=== PATIENT | male | born 1950 | race Caucasian/White ===

== ENCOUNTER 2022-01-18 07:50 | Outpatient (CLI) | payer MEDICARE, SELFPAY ==
[2022-01-18 10:28] LABS: Cholesterol* 186 mg/dL (90-199)
[2022-01-18 10:29] LABS: HDL Cholesterol* 75 mg/dL (>=40); LDL Cholesterol Calculated 99 mg/dL (<100); Triglycerides* 58 mg/dL (40-149)
== END 2022-01-18 07:51 | disposition home or self-care (01) ==
LOC: NFLDREF 07:50
PROVIDERS: PCP Family Medicine; Visit Provider Family Medicine
DX: E78.5 Hyperlipidemia, unspecified (principal)
CPT/HCPCS: 80061

== ENCOUNTER 2022-05-10 09:52 | Outpatient (CLI) | payer MEDICARE, BC, SELFPAY ==
--- OUTSIDE RECORDS SUMMARY | 2022-05-10 09:55 | XMS_ITS | Encounter Summary ---
:1950 Author Organization [facility] Address [address] [place] [address] Care Team Providers Name Role Phone Elsewhere, Pcp Primary Care Provider Unavailable Encounter Details Date Type Department Care Team Description 12/29/2021 Anesthesia Event RST [facility] MAIN OR Joel García M.D. [address] [place] [id number] [address] [facility] Courtney Torrez M.D. [address] [place] [id number] [place] [address] Anesthesia Record Procedure Summary Procedure Name Responsible Anesthesia Start Anesthesia Stop Time Anesthesiologist Time RELEASE TRIGGER Joel García M.D. 12/29/21 0934 1015 FINGER, thumb. (Left: Thumb) Events Date Time Event Comment 12/29/2021 0934 An Start Machine/Equipmen t Checked Infection Precautions Foll owed Procedure/Site Verified NPO Sta tus Verified Supine Standard ASA Mon itors Applied 0943 Turnover to Proceduralist 0953 Proc Start 1005 Proc Fin 1009 Turnover to ANE Staff 1010 an stop data 1015 An End I completed my h andoff to the receiving staff during [facility] we 1. Identified the patient 2. Ident ified the responsible provider 3. Revi ewed the pertinent medical history 4. Discu ssed the surgical course 5. Reviewed intra-o p anesthesia management and issues during an esthesia 6. Set expectations for post-procedure period 7. Allowed opportun ity for questions and acknowledgement of understanding. Name Total fentanyl injection 50 mcg/mL 50 mcg lidocaine 2% (mg) injection 60 mg propofol 10 mg/mL injection 20 mg propofol 10 mg/mL infusion 46.92 mg ondansetron PF 4 mg/2 mL injection 4 mg dexamethasone 4 mg/mL injection 4 mg ceFAZolin 2 g Lactated Ringers Free Drip 150 mL Agents No agents on file. Blood No blood administrations on file. Lines, Drains, and Airways Type Details Placement Removal Wound 07/19/21; 1317; N; Wrist; 07/19/21 1317 by Anterior, Left Julissa Mixon R.N. Wound 12/29/21; 0855; Incision; 12/29/21 0855 by Wrist; Anterior, Left; Beata Banks, nati, 4x4, samuel RJaseNannabel aiken Peripheral IV Placement Date: 12/29/21; 12/29/21 0932 by Champagne, 12/29/[address] Placement Time: 0932; Britton Grover Gw en E, R.N. Catheter Size: 18 G; Orientation: Right; Location: Forearm; Site Prep: Chlorhexidine (Preferred); Technique: Anatomical landmarks; Insertion Attempts: 1; Removal Date: 12/29/21; Removal Time: 111; Removal Reason: Completion of therapy documented in this encounter Social History Tobacco Use Types Packs/Day Years Used Date Smoking Tobacco: Never Smokeless Tobacco: Never Alcohol Habits Answer Date Recorded How often do you have a drink containing alcohol? Monthly or less 07/18/2021 How many drinks containing alcohol do you have on a 1 or 2 07/18/2021 typical day when you are drinking? How often do you have six or more drinks on one Never 07/18/2021 occasion? Social Isolation Answer Date Recorded In a typical week, how many times do you More than three viviana es a week 07/18/2021 talk on the phone with family, friends, or neighbors? How often do you get together with friends Patient refused 07/18/2021 or relatives? How often do you attend yazdanism or More than 4 times per year 07/18/2021 yazidi services? Do you belong to any clubs or Yes 07/18/2021 organizations such as yazdanism groups, unions, fraAJ Tech or athletic groups, or school groups? How often do you attend meetings of the More than 4 times pe r year 07/18/2021 clubs or organizations you belong to? Are you now , , , 07/18/2021 , never or living with a partner? Physical Activity Answer Date Recorded On average, how many days per week do you engage in moderate to 5 days 07/18/2021 strenuous exercise (like walking fast, running, jogging, dancing, swimming, biking, or other activities that cause a light or heavy sweat)? On average, how many minutes do you engage in exercise at th is 20 min 07/18/2021 level? Stress Answer Date Recorded Do you feel stress - tense, restless, nervous, or anxious, N ot at all 07/18/2021 or unable to sleep at night because your mind is troubled all the time - these days? Financial Resource Strain Answer Date Recorded How hard is it for you to pay for the very basics like Not h iris at all 07/18/2021 food, housing, medical care, and heating? Intimate Partner Violence Answer Date Recorded Within the last year, have you been afraid of your partner o r No 07/18/2021 ex-partner? Within the last year, have you been humiliated or emotionall y No 07/18/2021 abused in other ways by your partner or ex-partner? Within the last year, have you been kicked, hit, slapped, or No 07/18/2021 otherwise physically hurt by your partner or ex-partner? Within the last year, have you been raped or forced to have any No 07/18/2021 kind of sexual activity by your partner or ex-partner? Food Insecurity Answer Date Recorded Within the past 12 months, you worried that your food would Never true 07/18/2021 run out before you got money to buy more. Within the past 12 months, the food you bought just didn't N ever true 07/18/2021 last and you didn't have money to get more. Transportation Needs Answer Date Recorded In the past 12 months, has lack of transportation kept you f rom No 07/18/2021 medical appointments or from getting medications? In the past 12 months, has lack of transportation kept you f rom No 07/18/2021 meetings, work, or getting things needed for daily living? Housing Stability Answer Date Recorded In the last 12 months, was there a time when you were not ab le No 07/18/2021 to pay the mortgage or rent on time? In the last 12 months, how many places have you lived? 2 07/18/2021 In the last 12 months, was there a time when you did not hav e a No 07/18/[address] sleep or slept in a long-term (including now)? Education Answer Date Recorded What is the highest level of school Master's degree (e.g., M George, MS, 04/21/2021 you have completed or the highest Stephanie, MEd, SWITCHBOARD OPERATOR RECEPTIONIST, CAREN) degree you have received? 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 - 12/29/2021 10:40 AM CDT Preprocedure Anesthesia & H&P Assessment Procedure Summary Anesthesia Start Date/Time: 12/29/21 0934 Procedures: RELEASE TRIGGER FINGER, thumb. (Left: Thumb) INJECTION STEROID trigger thumb. (Right: Thumb) Diagnosis: Trigger Finger Thumb Left [M65.312] Trigger Finger Thumb Right [M65.311] Pre-op diagnosis: Trigger Finger Thumb Left [M65.312]. Location: [place] [address] [address] / [facility] in [place], [place] Providers: Nabor Rodriguez M.D. Pertinent components of the patient's history including current problem list, medical history, surgical history, family history, social history, medications and allergies were reviewed. Present illnessand pre-op diagnosis were confirmed. The planned surgery / procedure was verified with the patient /legal guardian. The patient's general health condition remains unchanged RELEVANT COMORBID CONDITIONS Other (+) Carpal Tunnel Syndrome Left OBJECTIVE PHYSICAL EXAMINATION Airway (HEENT) Mallampati: II TM Distance: >3 FB Neck ROM: Full Mouth Opening: >3 cm Upper Lip Bite Test Class: I Cardiovascular Rhythm: Regular Rate: Normal Cardiovascular Assessment: cardiovascular normal Functional Capacity: >4 METS Pulmonary Pulmonary Assessment: Clear General / Constitutional Constitutional Assessment: Normal General State of Health:: healthy appearing and calm ASSESSMENT / PLAN ANESTHESIA PLAN ASA: 2 Anesthesia Plan: MAC Patient seen and allergies reviewed, anesthesia plan and risks discussed directly with patient /legal guardian or through an sign language interpreter. Risks/Benefits/Alternatives of Blood transfusion discussed with patient / legal guardian, including an opportunity to ask questions and/or decline some or all transfusion therapies. The patient / legalguardian consented to the use of all blood products, as deemed medically necessary Approval to Proceed: approved for anesthesia Anesthesia Postprocedure Evaluation - Marcelle Laguerre M.D., M.B.A. - 12/29/2021 10:20 AM CDT Patient: Rigoberto Perdomo Procedure Summary Date: 12/29/21 Room / Location: [place] [address] / [facility] in [place], [place] Anesthesia Start: 933 Anesthesia Stop: Procedures: RELEASE TRIGGER FINGER, thumb. (Left: Thumb) INJECTION STEROID trigger thumb. (Right: Thumb) Diagnosis: Trigger Finger Thumb Left Trigger Finger Thumb Right (Trigger Finger Thumb Left [M65.312].) Providers: Nabor Rodriguez M.D. Responsible Provider: Joel García M.D. Anesthesia Type: MAC ASA Status: Not recorded Anesthesia Type: MAC Last vitals Vitals Value Taken Time BP 144/76 12/29/21 1015 Temp Pulse 52 12/29/21 1020 Resp 9 12/29/21 1020 SpO2 97 % 12/29/21 1020 Vitals shown include unvalidated device data. Please reference Vitals flowsheet for most recent vital signs. Anesthesia Post Evaluation Patient Disposition: dismissal Cardiovascular status: hemodynamics (HR & BP) acceptable Respiratory status: patent airway with spontaneous effort Temperature: normothermic Oxygen requirements: room air Level of consciousness: awake Pain score: pain adequately controlled and/or at baseline Post Op nausea/vomiting: none Hydration status: euvolemic documented in this encounter Plan of Treatment Not on filedocumented as of this encounter Visit Diagnoses Not on filedocumented in this encounter Administered Medications Inactive Administered Medications - up to 3 most recent administrations Medication Order MAR Action Action Date Dose Rate Site ceFAZolin injection (ANCEF) Given 12/29/2021 9:47 AM CDT 2 g intravenous, As needed, Starting on Kandis 12/29/21 at 0947, Anesthesia Intra-op dexAMETHasone injection (DECADRON) Given 12/29/2021 9:45 AM CDT 4 mg intravenous, As needed, Starting on Kandis 12/29/21 at 0945, Anesthesia Intra-op fentaNYL injection (SUBLIMAZE) Given 12/29/2021 9:40 AM CDT 50 mcg intravenous, As needed, Starting on Kandis 12/29/21 at 0940, Anesthesia Intra-op lactated ringers New Bag 12/29/2021 9:36 AM CDT intravenous, Continuous Infusion: Per Instructions PRN, Starting on Kandis 12/29/21 at 0936, Anesthesia Intra-op lidocaine (PF) (cardiac) injection Given 12/29/2021 9:41 AM CDT 60 mg intravenous, As needed, Starting on Kandis 12/29/21 at 0941, Anesthesia Intra-op ondansetron (PF) injection (ZOFRAN) Given 12/29/2021 10:01 AM CDT 4 mg intravenous, As needed, Starting on Kandis 12/29/21 at 1001, Anesthesia Intra-op propofol 10 mg/mL infusion Rate/Dose 12/29/2021 9:57 20 mcg/kg/min 8 .28 mL/hr (DIPRIVAN) Change AM CDT intravenous, Continuous Infusion: Per Instructions PRN, Starting on Kandis 12/29/21 at 0941, Anesthesia Intra-op Rate/Dose Change 12/29/2021 9:53 AM CDT 30 mcg/kg/min 12.42 mL/hr New Bag 12/29/2021 9:41 AM CDT 40 mcg/kg/min 16.56 mL/hr propofoL injection (DIPRIVAN) Given 12/29/2021 9:41 AM CDT 20 mg intravenous, As needed, Starting on Kandis 12/29/21 at 0941, Anesthesia Intra-op documented in this encounter Care Teams Duty Officer Relationship Specialty Start Date End Date Elsewhere, Pcp PCP - General Internal Medicine 07/19/21 documented as of this encounter
--- OUTSIDE RECORDS SUMMARY | 2022-05-10 09:55 | XMS_ITS | Encounter Summary ---
:1950 Author Organization [facility] Address [address] [place] [address] Care Team Providers Name Role Phone Elsewhere, Pcp Primary Care Provider Unavailable Reason for Visit Reason Comments Pre-visit Intake Encounter Details Date Type Department Care Team Description 12/26/2021 Clinical Communication Visit Review in Pr e-visit Intake [place], [place] [address] [place], [place] [id number] Social History Tobacco Use Types Packs/Day Years Used Date Smoking Tobacco: Never Smokeless Tobacco: Never Tobacco Cessation: Counseling Given: Not Answered Alcohol Habits Answer Date Recorded How often [...] or relatives? How often do you attend restoration or More than 4 times per year 07/18/2021 episcopalian services? Do you belong to any clubs or Yes 07/18/2021 organizations such as restoration groups, unions, fraternal or athletic groups, or school groups? How [...] place to sleep or slept in a fpc (including now)? Education Answer Date Recorded What is the highest level of school Master's degree (e.g., M George, MS, 04/21/2021 you have completed or the highest Stephanie, MEd, LUNCHROOM MONITOR, CAREN) degree you have received? 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
--- OUTSIDE RECORDS SUMMARY | 2022-05-10 09:55 | XMS_ITS | Encounter Summary ---
:1950 Author Organization [facility] Address [address] [place] [address] Care Team Providers Name Role Phone Elsewhere, Pcp Primary Care Provider Unavailable Encounter Details Date Type Department Care Team Description 07/19/2021 Anesthesia Event Outpatient Procedure Amaris Renae A PRN, TEO [place] [facility] M[facility] [address] [place] [phone] [place] [address] [place], [place] [phone] Anesthesia Record Procedure Summary Procedure Name Responsible Anesthesia Start Anesthesia Stop Time Anesthesiologist Time RELEASE CARPAL mAaris Renae APRN, TEO 07/19/21 1257 1350 TUNNEL OPEN WRIST. (Left) Events Date Time Event Comment 07/19/2021 1257 An Start Machine/Equipmen t Checked Infection Precautions Foll owed Procedure/Site Verified NPO Sta tus Verified Supine Standard ASA Mon itors Applied 1312 Proc Start 1319 Turnover to Proceduralist 1326 Quick Note IV infiltrated. Removed 1334 Proc Fin 1341 Turnover to ANE Staff 1342 an stop data 1350 An End I completed my h andoff to the receiving staff during [facility] we 1. Identified the patient 2. Ident ified the responsible provider 3. Revi ewed the pertinent medical history 4. Discu ssed the surgical course 5. Reviewed intra-o p anesthesia management and issues during an esthesia 6. Set expectations for post-procedure period 7. Allowed opportun ity for questions and acknowledgement of understanding. Name Total fentanyl injection 50 mcg/mL 75 mcg lidocaine 2% (mg) injection 100 mg propofol 10 mg/mL infusion 57.01 mg ondansetron PF 4 mg/2 mL injection 4 mg clindamycin in D5W IVPB 900 mg (CLEOCIN) 900 mg Lactated Ringers Free Drip 300 mL Agents No agents on file. Blood No blood administrations on file. Lines, Drains, and Airways Type Details Placement Removal Wound 07/19/21; 1317; N; Wrist; 07/19/21 1317 by Anterior, Left Julissa Mixon, R.N. Peripheral IV Placement Date: 07/19/21; 07/19/21 1126 by Dion , 07/19/21 1351 by Placement Time: 1126; Brenda Harden RRose. Castro, Catheter Size: 20 G; R.N. Orientation: Right; Location: Antecubital; Site Prep: Chlorhexidine (Preferred); Technique: Ultrasound guidance; Removal Date: 07/19/21; Removal Time: 1351; Removal Reason: Infiltrated (removed in the OR) documented in this encounter Social History Tobacco Use Types Packs/Day Years Used Date Smoking Tobacco: Never Alcohol Habits Answer Date Recorded [...] or relatives? How often do you attend religion or More than 4 times per year 07/18/2021 voodoo services? Do you belong to any clubs or Yes 07/18/2021 organizations such as religion groups, unions, fraternal or athletic groups, or [...] place to sleep or slept in a intermediate (including now)? Education Answer Date Recorded What is the highest level of school Master's degree (e.g., M George, MS, 04/21/2021 you have completed or the highest Stephanie, MEd, SIGNAL ENGINEER, CAREN) degree you have received? 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 (Left ) Diagnosis: Carpal Tunnel Syndrome Left (Carpal Tunnel Syndrome Left [G56.02].) Surgeons: Nabor Rodriguez M.D. Responsible Provider: Amaris Renae APRN, CRNA Anesthesia Type: MAC ASA Status: 1 Anesthesia Type: MAC Last vitals Vitals Value Taken Time BP 166/80 07/19/21 1348 Temp 36.9 ??C 07/19/21 1347 Pulse 55 07/19/21 1349 Resp 18 07/19/21 1349 SpO2 100 % 07/19/21 1349 Vitals shown include unvalidated device data. Please reference Vitals flowsheet for most recent vital signs. Anesthesia Post Evaluation Patient Disposition: dismissal Cardiovascular status: hemodynamics (HR & BP) acceptable Respiratory status: patent airway with spontaneous effort Temperature: normothermic Oxygen requirements: room air Level of consciousness: awake Pain score: pain adequately controlled and/or at baseline Post Op nausea/vomiting: none Hydration status: euvolemic OL OPERATOR Anesthesia Preprocedure Evaluation - Tavon Hightower M.D. - 07/19/2021 10:35 AM CST Preprocedure Anesthesia & H&P Assessment Procedure Summary Date/Time: 07/19/21 1109 Procedure: RELEASE CARPAL TUNNEL OPEN WRIST. (Left ) Diagnosis: Carpal Tunnel Syndrome Left [G56.02] Pre-op diagnosis: Carpal Tunnel Syndrome Left [G56.02]. Location: [address] in [place], [place] Surgeons: Nabor Rodriguez M.D. Pertinent components of the [...] Left OBJECTIVE PHYSICAL EXAMINATION Airway (HEENT) Mallampati: I TM Distance: >3 FB Neck ROM: Full Mouth Opening: >3 cm Upper Lip Bite Test Class: I Cardiovascular Rhythm: Regular Rate: Normal Cardiovascular Assessment: cardiovascular normal Functional Capacity: >4 METS Pulmonary Pulmonary Assessment: Clear General / Constitutional Constitutional Assessment: Normal General State of Health:: healthy appearing and calm ASSESSMENT / PLAN ANESTHESIA PLAN ASA: 1 Anesthesia Plan: MAC Patient seen and allergies reviewed, anesthesia plan and risks discussed directly with patient /legal guardian or through an horse rider. Risks/Benefits/Alternatives of Blood transfusion discussed with patient / legal guardian, including an opportunity to ask questions and/or decline some or all transfusion therapies. The patient / legalguardian consented to the use of all blood products, as deemed medically necessary Approval to Proceed: approved for anesthesia OL OPERATOR documented in this encounter Plan of Treatment Not on filedocumented as of this encounter Visit Diagnoses Not on filedocumented in this encounter Administered Medications Inactive Administered Medications - up to 3 most recent administrations Medication Order MAR Action Action Date Dose Rate Site clindamycin in D5W IVPB 900 mg Given 07/19/2021 1:10 PM BENZOL OPERATOR 900 mg (CLEOCIN) 900 mg, intravenous, at 100 mL/hr, Administer over 30 Minutes, Once, On Sun07/19/21 at 1300, For 1 dose, Intra-Op, Indications: Prophylaxis, surgical fentaNYL injection (SUBLIMAZE) Given 07/19/2021 1:27 PM BENZOL OPERATOR 25 mcg intravenous, As needed, Starting on Sun07/19/21 at 1309, Anesthesia Intra-op Given 07/19/2021 1:21 PM BENZOL OPERATOR 25 mcg Given 07/19/2021 1:09 PM BENZOL OPERATOR 25 mcg lactated ringers New Bag 07/19/2021 1:12 PM BENZOL OPERATOR intravenous, Continuous Infusion: Per Instructions PRN, Starting on Sun07/19/21 at 1312, Anesthesia Intra-op lidocaine (PF) (cardiac) injection Given 07/19/2021 1:09 PM BENZOL OPERATOR 100 mg intravenous, As needed, Starting on Sun07/19/21 at 1309, Anesthesia Intra-op ondansetron (PF) injection (ZOFRAN) Given 07/19/2021 1:10 PM BENZOL OPERATOR 4 mg intravenous, As needed, Starting on Sun07/19/21 at 1310, Anesthesia Intra-op propofol 10 mg/mL infusion Rate/Dose 07/19/2021 1:21 75 mcg/kg/min 3 1.095 (DIPRIVAN) Change PM BENZOL OPERATOR mL/hr intravenous, Continuous Infusion: Per Instructions PRN, Starting on Sun07/19/21 at 1312, Anesthesia Intra-op New Bag 07/19/2021 1:12 PM BENZOL OPERATOR 50 mcg/kg/min 20.73 mL/hr documented in this encounter Care Teams Floor Renovator Relationship Specialty Start Date End Date Elsewhere, Pcp PCP - General Internal Medicine 07/19/21 documented as of this encounter
--- OUTSIDE RECORDS SUMMARY | 2022-05-10 09:55 | XMS_ITS | Encounter Summary ---
:1950 Author Organization [facility] Address [address] [place] [address] Care Team Providers Name Role Phone Elsewhere, Pcp Primary Care Provider Unavailable Reason for Visit Outpatient (Routine) - Closed Specialty Diagnoses / Procedures Referred By Contact Refer red To Contact Orthopedic Surgery Javed Parra [place] APRN, C.N.P., D.N.P., M.S.N. [address] [place] [phone] Referral ID Status Reason Start Date Expiration Date Visits Requ ested Visits Authorized [id number] Closed 10/19/2021 10/19/2022 1 1 Encounter Details Date Type Department Care Team Description 12/28/2021 Office Visit Department of Nabor Rodriguez Trigger Finge r Thumb Left (Primary Dx); Orthopedic Surgery in [place] Trigger Finger Thumb Right [place], [place] [address] [facility] [address] [place] [phone] Social History Tobacco Use Types Packs/Day Years [...] or relatives? How often do you attend methodist or More than 4 times per year 07/18/2021 yazidi services? Do you belong to any clubs or Yes 07/18/2021 organizations such as methodist groups, unions, fraternal or athletic groups, or [...] level of school Master's degree (e.g., M A, MS, 04/21/2021 you have completed or the highest Stephanie, MEd, DISHROOM ATTENDANT, CAREN) degree you have received? 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 - 12/28/2021 1:15 PM CDT CHIEF COMPLAINT: Bilateral thumb pain with triggering. SUBJECTIVE Mr. Perdomo is a very pleasant 71 y.o. male who returns follow-up from previous carpal tunnel releasehe did have the past. More recently, he has had bilateral thumb clicking and catching with triggering. He is here in anticipation for surgery tomorrow. OBJECTIVE PHYSICAL EXAMINATION General: NAD, follows commands HEENT: NCAT CV: skin warm, dry, well perfused Pulm: unlabored Neuro: alert, appropriate Upper Extremity: He does endorse pain at the area of the A1 tylor of both thumbs left worse than right. There is palpable clicking left worse than right as well. He has otherwise good color capillary refill and sensation. His previous carpal tunnel wounds are nicely healed. He has mild pain at the base of both thumbs. ADDITIONAL STUDIES: Laboratory studies: No results for input(s): HGB, HCT, PTT, INR in the last 72 hours. No lab exists for component: WBCR, PLTR, PTI No results for input(s): NA, K, CL, CO2, GLU, CA, MG in the last 72 hours. No lab exists for component: UN, CREAT, PHOS No results for input(s): CRP in the last 72 hours. No lab exists for component: ESR, URIC Imaging: Relevant imaging, where available, was reviewed. Xray No results found. Electrodiagnostic studies: Relevant EMG/NCV studies were reviewed. ASSESSMENT / PLAN Bilateral trigger thumbs I had a lengthy discussion with Mr. Perdomo and reviewed the pathophysiology and surgical treatment and recovery in detail. He is agreeable to moving forward with surgery for the trigger thumb and has chosen left 1 to be done tomorrow and we will inject the right at the time of surgery. The risks and benefits were reviewed and consent was obtained. I have asked him to call for questions or concerns prior to his return. Thank you for the opportunity to participate in this patient's care. Please contact us with questions or concerns. All questions and concerns were answered on today's visit. There were no communicationbarriers present. Electronically signed by: Nabor Rodriguez M.D. 12/28/21 9:45 PM CDT Answers submitted by the patient for this visit: General Review of Symptoms (Submitted on 12/26/2021) No general issues: Yes No eye issues: Yes No ENT issues: Yes No heart issues: Yes No respiratory issues: Yes No GI issues: Yes Pain or stiffness in the joints: Yes Joint swelling: Yes No skin issues: Yes No neurologic issues: Yes No mental health issues: Yes No blood/lymph issues: Yes No urinary/reproductive issues: Yes documented in this encounter Plan of Treatment Not on filedocumented as of this encounter Visit Diagnoses Diagnosis Trigger Finger Thumb Left - Primary Trigger Finger Thumb Right documented in this encounter Additional Health Concerns Infection Onset Date Last Indicated Resolved Time COVID19 Pending 12/28/2021 12/28/2021 12/28/2021 2:43 PM CDT documented as of this encounter Care Teams Director Vaccine Relationship Specialty Start Date End Date Elsewhere, Pcp PCP - General Internal Medicine 07/19/21 documented as of this encounter
--- OUTSIDE RECORDS SUMMARY | 2022-05-10 09:55 | XMS_ITS | Encounter Summary ---
:1950 Author Organization [facility] Address [address] [place] [address] Care Team Providers Name Role Phone Elsewhere, Pcp Primary Care Provider Unavailable Reason for Visit Reason Comments Procedure Encounter Details Date Type Department Care Team Description 11/10/2021 Clinical Communication Department of Nabor Rodriguez Pro cedure Orthopedic Surgery in [place], [place] [address] [facility] [address] [place] [phone] Social History Tobacco Use Types Packs/Day Years [...] or relatives? How often do you attend anglican or More than 4 times per year 07/18/2021 evangelical services? Do you belong to any clubs or Yes 07/18/2021 organizations such as anglican groups, unions, fraternal or athletic groups, or [...] place to sleep or slept in a snf (including now)? Education Answer Date Recorded What is the highest level of school Master's degree (e.g., M A, MS, 04/21/2021 you have completed or the highest Stephanie, MEd, STEWARD/STEWARDESS THIRD CLASS, CAREN) degree you have received? 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 Is this available? Please advise. Thank you. Telephone Encounter - Javed Parra APRN, C.N.P., D.N.P., M.S.N. - 11/10/2021 4:29 PM CDT I moved him to 12/14. Will you please move the associated orders. Thank you ayanna Telephone Encounter - Lizzette Sepulveda - 11/10/2021 4:16 PM CDT Patient can no longer do 11/29 surgery and would like to reschedule to 12/14. (next option would be 12/29) Please advise if 12/14 surgery is OK. Thanks documented in this encounter Plan of Treatment Not on filedocumented as of this encounter Visit Diagnoses Not on filedocumented in this encounter Care Teams Stoneworker Relationship Specialty Start Date End Date Elsewhere, Pcp PCP - General Internal Medicine 07/19/21 documented as of this encounter
--- OUTSIDE RECORDS SUMMARY | 2022-05-10 09:55 | XMS_ITS | Encounter Summary ---
:1950 Author Organization [facility] Address [address] [place] [address] Care Team Providers Name Role Phone Elsewhere, Pcp Primary Care Provider Unavailable Reason for Visit Outpatient (Routine) - Closed Specialty Diagnoses / Procedures Referred By Contact Refer red To Contact Orthopedic Surgery Nabor Rodriguez M.D. [facility] [address] [place] [address] Referral ID Status Reason Start Date Expiration Date Visits Requ ested Visits Authorized [id number] Closed 08/03/2021 08/03/2022 1 1 Encounter Details Date Type Department Care Team Description 09/06/2021 Office Visit Department of Nabor Rodriguez, Carpal Tunnel Syndrome Left (Primary Dx); Orthopedic Surgery [place] Trigger Finger Thumb Left; [place], [place] [address] [email or web address] Trigger Finger Thumb Right [address] [place] [phone] Social History Tobacco Use Types Packs/Day Years [...] or relatives? How often do you attend rastafari or More than 4 times per year 07/18/2021 methodist services? Do you belong to any clubs or Yes 07/18/2021 organizations such as rastafari groups, unions, fraternal or athletic groups, or [...] place to sleep or slept in a penitentiary (including now)? Education Answer Date Recorded What is the highest level of school Master's degree (e.g., M A, MS, 04/21/2021 you have completed or the highest Stephanie, MEd, READING AIDE, CAREN) degree you have received? 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 - 09/06/2021 10:15 AM CDT HAND CLINIC FOLLOW-UP VISIT SUBJECTIVE CHIEF COMPLAINT/REASON FOR VISIT Status post carpal tunnel release HISTORY OF PRESENT ILLNESS Rigoberto Perdomo is a 71 y.o. male who presents clinic they status post carpal tunnel release, approximately 6 weeks ago. His preoperative symptoms have improved. He complains of pillar pain. He also complains of left thumb pain and clicking. OBJECTIVE PHYSICAL EXAMINATION General: NAD, follows commands. HEENT: NCAT. CV: Regular. Pulm: Unlabored. Neuro: Alert, appropriate. Left Upper Extremity: well-healed incision. Tenderness palpation over the incision. Full flexion andextension of all digits but some stiffness of the small finger with opposition. Tender over the thumb A1 tylor. Stiffness of the thumb with clicking. DIAGNOSTICS Imaging: None obtained ASSESSMENT / PLAN #1 Status post left carpal tunnel release, approximately 6 weeks ago #2 Left trigger thumb Mr. Perdomo is doing well. We will have him begin scar massage to help decrease his pillar pain. Additionally, he is not interested in the steroid injection today. He was given some Voltaren to help with his trigger thumb. He will follow up in clinic in 4-6 weeks for further evaluation. Thank you for the opportunity to participate in this patient's care. Please contact us with questions or concerns. Wen Nash MD Associated attestation - Nabor Rodriguez M.D. - 09/06/2021 8:59 PM CDT I saw and evaluated the patient, participating in the devine portions of the service. I reviewed the resident/fellow???s note. I agree with the resident/fellow???s findings and plan. I am very pleased at how Mr. Perdmoo is doing with respect to his recovery from carpal tunnel. He does have bilateral trigger thumbs and we discussed the pathophysiology and treatment options in detail.At this point time he would like the treated conservatively with topical anti-inflammatories. If they worsen, he will notify me and we can discuss injections versus surgery. I look forward to hearing from her if I can be of future assistance and he has my card and contact information. documented in this encounter Plan of Treatment Not on filedocumented as of this encounter Visit Diagnoses Diagnosis Carpal Tunnel Syndrome Left - Primary Trigger Finger Thumb Left Trigger Finger Thumb Right documented in this encounter Care Teams Rail Car Repair Carman Relationship Specialty Start Date End Date Elsewhere, Pcp PCP - General Internal Medicine 07/19/21 documented as of this encounter
--- OUTSIDE RECORDS SUMMARY | 2022-05-10 09:55 | XMS_ITS | Clinical Summary ---
:1950 Author Organization [facility] Address [address] [place] [address] Care Team Providers Name Role Phone Elsewhere, Pcp Primary Care Provider Unavailable Source Comments Patient records contain information from all sites at [facility]. For routine questions regarding patient records, call [phone] during business hours, M-F 8:00 AM - 5:00 PM Central Time. Record requests for emergency care only can be directed to [phone] at any time.[facility] Allergies Active Allergy Reactions Severity Noted Date Comments Chlortetracycline Hives 07/29/2009 Penicillins Hives, Rash 09/23/2004 PN: LW Reaction : HIVES Medications Medication Sig Dispensed Refills Start Date End Date Status triamcinolone Apply 0.5 inches 0 Active (KENALOG) 0.1 % cream topically. gelatin 600 mg capsule Take by mouth. 0 10/05/2005 Active cyanocobalamin Take 1 tablet by 0 07/29/2009 Active (VITAMIN B12) 1,000 mouth daily. mcg tablet aspirin [address] Take 1 tablet by 0 12/23/2008 Active tablet mouth daily. ascorbic acid, vitamin Take 1,000 mg by 0 Active C, (VITAMIN C) 1,000 mouth daily. mg tablet multivit-min/FA/lycope 0 04/03/2010 Active n/lutein (CENTRUM SILVER MEN ORAL) calcipotriene Apply 1 0 Active (DOVONEX) 0.005 % application ointment topically 2 (two) times a day. Apply for porosis to groin area. diclofenac sodium Apply 4 g 100 g 1 09/06/2021 A ctive (VOLTAREN) 1 % gel topically 4 (four) times a day as needed (to areas of arthritic pain). Apply to left hand and bilateral thumbs. simvastatin (ZOCOR) 10 Take 10 mg by 0 10/18/2021 Active mg tablet mouth at bedtime. amLODIPine (NORVASC) 5 Take 5 mg by mouth 0 10/19/19 22 Active mg tablet daily. omega 5-pwe-ctu-fish Take by mouth. 0 Active oil 1,000 mg (120 mg-180 mg) capsule traMADoL (ULTRAM) 50 Take 1 tablet (50 6 tablet 0 12/29/2021 Active mg tabletIndications: mg total) by mouth Acute Pain every 6 (six) hours as needed for pain Indications: Acute Pain. Active Problems Problem Noted Date Carpal Tunnel Syndrome Left 04/26/2021 Overview: Added automatically from request for colton hennessy [id number] Immunizations Name Administration Dates Next Due DTaP (Infanrix, Tripedia) 11/04/2008 H1N1 All Forms 05/23/2009 HZV (ZOSTAVAX) 01/31/2011 HepA Adult 04/13/2005 IPV 04/13/2005 Influenza Split 03/02/2016, 03/04/2014, 03/04/2012, 03/07/2010, 05/23/2009 Influenza, Unspecified 05/20/2009 PCV13 08/13/2014 PPSV23 09/14/2016 SARS-COV-2 (COVID-19) - Ziplocal (12 07/21/2020, 06/22/2020 years or older) Td (Adult), adsorbed 04/13/2005 Td, (Adult) Unspecified 11/04/2008, 04/04/2005 Tdap 11/04/2008 Social History Tobacco Use Types Packs/Day Years [...] or relatives? How often do you attend anabaptism or More than 4 times per year 07/18/2021 jainism services? Do you belong to any clubs or Yes 07/18/2021 organizations such as anabaptism groups, unions, fraternal or athletic groups, or [...] have completed or the highest Stephanie, MEd, TURN MACHINE OPERATOR, CAREN) degree you have received? 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 Vital Signs Vital Sign Reading Time Taken Comments Blood Pressure 149/74 12/29/2021 10:45 AM CDT Pulse 75 12/29/2021 11:00 AM CDT Temperature 36.6 ??C (97.9 ??F) 12/29/2021 10:15 AM CDT Respiratory Rate 11 12/29/2021 10:30 AM CDT Oxygen Saturation 92% 12/29/2021 11:00 AM CDT Inhaled Oxygen Concentration - - Weight 69.1 kg (152 lb 5.4 oz) 07/18/2021 10:27 AM LEATHER COVERER Height 167.6 cm (5' 6) 12/29/2021 8:43 AM CDT Body Mass Index 24.19 07/18/2021 10:27 AM LEATHER COVERER Plan of Treatment Health Maintenance Due Date Last Done Comments CT Colonography 1950 Cologuard 1950 FIT 1950 Zoster Vaccines (2 of 3) 03/28/2011 01/31/2011 Fasting Glucose for Diabetes 09/15/2019 09/14/2016, 015, Screening 08/05/2012 Colonoscopy 05/16/2020 05/16/2010 Colorectal Cancer Screening 05/16/2020 Depression Screening (Annual 06/04/2021 PHQ-2) COVID-19 Vaccine (5 - Booster for 12/13/2021 10/18/2021, , Pfizer series) 07/21/2020, Additional history exists Influenza Vaccine (#1) 2022 03/29/2021, 03/15/2020, 03/20/2019, Additional history exists DTaP,Tdap,and Td Vaccines (3 - Td 10/30/2028 10/30/2018, , or Tdap) 11/04/2008, Additional history exists Pneumococcal vaccine (65+ years) Completed 09/14/2016, 05/2015 Fall Risk Screen (Annual) Completed 12/29/2021 Medical Devices Implanted Type Area Novelty Twister Tender Device Shelf Model / Identifier Expiration Date Ser ial / Lot Mesh Hernia Mesh or Abdomen Patch Insurance Payer Benefit Plan Subscriber ID Effective Phone Address Typ e / Group Dates MEDICARE MEDICARE A [id number] 2014-Pres [address] [place] [address] BLUE CROSS BCBS [place] [id number] 2020-Pres [phone] PO MIHAI X Cost Share BLUE SHIELD BLUE COST ent [phone] [place] [address] (Home) E [phone] [place], [place] (Work) [phone] Advance Directives For more information, please contact: [phone] Latest Code Status on File Code Status Date Activated Date Inactivated Comments Full Code 12/29/2021 10:18 AM 12/29/2021 1:23 PM Question Answer Comments Full Code: Discussed Care Teams Sandblaster Glass Relationship Specialty Start Date End Date Elsewhere, Pcp PCP - General Internal Medicine 07/19/21
--- OUTSIDE RECORDS SUMMARY | 2022-05-10 09:55 | XMS_ITS | Encounter Summary ---
:1950 Author Organization [facility] Address [address] [place] [address] Care Team Providers Name Role Phone Elsewhere, Pcp Primary Care Provider Unavailable Reason for Visit Reason Comments Pain Outpatient (Routine) - Closed Specialty Diagnoses / Procedures Referred By Contact Refer red To Contact Orthopedic Surgery Diagnoses Pain Foot Left [facility] Elana Harden M.D. [address] [place] [phone] Referral ID Status Reason Start Date Expiration Date Visits Requ ested Visits Authorized [id number] Closed 04/26/2021 04/26/2022 1 1 Encounter Details Date Type Department Care Team Description 08/03/2021 Comprehensive Visit Department of Robb Bragg Osteoarthritis Toe Left (Primary Dx); Orthopedic Surgery G, D.P.M. Pain Foot Left in [place], [address] [place] [address] [place] [phone] [place], [place] [phone] (Work) [phone] Social History Tobacco Use Types Packs/Day Years [...] or relatives? How often do you attend adventist or More than 4 times per year 07/18/2021 congregational services? Do you belong to any clubs or Yes 07/18/2021 organizations such as adventist groups, unions, fraternal or athletic groups, or [...] place to sleep or slept in a custodial (including now)? Education Answer Date Recorded What is the highest level of school Master's degree (e.g., M A, MS, 04/21/2021 you have completed or the highest Stephanie, MEd, DEAN OF STUDENT SERVICES, CAREN) degree you have received? 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 - 08/03/2021 1:00 PM CST SUBJECTIVE Pain reported: Site 1 Pain Score: 1, Pain Location: Foot, Pain Orientation: Left, Pain Descriptors: (throbbing), Pain Frequency: Intermittent, (08/03/21 1256 : Samantha Reyes, R.N.) CHIEF COMPLAINT / REASON FOR VISIT Rigoberto Perdomo is a 71 y.o. male who presents for evaluation of Pain of the Left Foot. HISTORY OF PRESENT ILLNESS Mr. Perdomo is a very pleasant 71-year-old gentleman who is here for evaluation treatment considerations regarding intermittent left foot pain. She states that for the last year so, he has had symptoms of intermittent pain around the outer aspect of his left midfoot. He points to around the 4th and to lesser extent 5th tarsometatarsal joint level. He describes the pain as a throbbing type pain that isabout 06/13. He relates no specific trauma or injury, but does relate that when he was younger he mayhave rolled his foot or twisted at times. Symptoms of pain in this area are aggravated by wearing tight shoes. He also states that he can get some symptoms of pain at night in this region both on the top and the bottom of the outer left midfoot. He tends to usually sleep on his side, and more so on the right side. He also relates that he uses a heating pad at night in bed in the winter as his feet tend to get cold. He feels most comfortable in his ice ASO walking shoes. He wears evuy-cvi-ojigvwz [place] 2/3 length inserts, and these feel very comfortable on him. He will also wear Keen shoes with a thinner arch support. He relates no history of any back problems. He does have a history of psoriasis, but does not relate any history of psoriatic arthritis. The following portions of the patient's history were reviewed and updated as appropriate: allergies,current medications, family history, medical history, social history, surgical history and problem list. REVEIW OF SYSTEMS Musculoskeletal: Positive for foot pain. PHYSICAL EXAM Orthopedic Physical Examination General Appearance The patient is alert and oriented to person, place, and time. Vessels: Dorsalis pedis and posterior tibial pulses are palpable bilateral. Capillary fill time is 2seconds to the digits. Neuro: Sharp sensation, proprioception, minimal pressure sensation and vibratory sensation are all intact. Skin: Nails are normal in well groomed. Hair growth is present to the feet. Skin is somewhat dry. Very slight hyperkeratotic buildup is noted to the medial aspect of both great toes as well as the medial aspect of the 1st metatarsal head region right foot. Slight hyperkeratotic buildup is noted sub 2nd metatarsal head region right foot. Musculoskeletal: There is excellent pain-free strength of dorsiflexors, plantar flexors, invertors and evertors of both feet. There is mild pain noted around the 4th metatarsal base with eversion of the left foot against resistance. No evidence of any pain or tenderness on palpation along the peronealtendons of the left foot. First metatarsophalangeal joint dorsiflexion/plantar flexion is 45/10 degrees on the right and 40/15 degrees on the left. Ankle joint dorsiflexion/plantar flexion is 20/50 degrees on the right and 25/50 degrees on the left. There is good pain-free subtalar joint motion noted bilaterally. Localized nonradiating pain is noted on palpation to the dorsal aspect of the left foot around the 4th and to lesser extent 5th metatarsal bases and metatarsophalangeal joints. There is some mild pain noted as well to the left 4th tarsometatarsal joint with dorsal plantar excursion of the 4th metatarsal head. With weight-bearing, slightly diminished arch height is noted with mild varus positioning of both heels. He walks with a pain-free heel-to-toe gait. Only slight paresthesias are noted on percussion over the dorsal midfoot region. No evidence of pain on palpation of the plantar aspect of the left foot. Slight elevated prominence is noted near the base of the 4th metatarsal on both feet, more so on the left than the right. Only slight tenderness noted when palpating directly over this area today bilaterally. IMAGING I reviewed the results of the 07/18/2021 weight-bearing x-rays of the left foot which suggest some degenerative arthritis at the left 1st metatarsophalangeal joint and some of the interphalangeal joints. ASSESSMENT / PLAN #1 Pain Foot Left #2 Primary Osteoarthritis Toe Left I discussed my findings with Mr. Perdomo regarding his left foot. I suspect that he may have some early degenerative change/ligamentous changes in this region. I could not completely rule out the possibility of local nerve irritation based on when he has his symptoms of pain. At this point I have recommended beginning with more conservative supportive measures. I have encouraged him on trying to stay in shoes that give adequate room for his feet, and he may want consider shoes that have some degree of rocker sole ability. I have given him a list of various types of shoes to consider. He already does relates his shoes to offload pressure to certain areas on the top of his left foot. We discussed both fkmi-xrd-ertzwce and custom- molded arch supports. His current lkxq-rbp-eqcyred 2/3 length arch supports are very well fitting to the contour of his feet. I do not feel that is necessary to proceed with custom-molded arch supports, and he agrees. We did discuss considerationof alternating his activity level to include lower impact activities on 1 day and higher impact activities on another day to reduce chance of overuse issues, and I have encouraged him on starting to use some Voltaren gel to this area as well. If he has continued problems, then we would consider looking at additional testing including either diagnostic ultrasound or an MRI to evaluate for any soft tissue or bony problems not appreciated on exam or x- rays. He felt comfortable with our discussion today. Patient dismissed. PATIENT EDUCATION Ready to learn, no apparent learning barriers were identified; learning preferences include listening. Explained the diagnosis and treatment plan; patient expressed understanding of the content. TS SOLUTIONS CONSULTANT documented in this encounter Plan of Treatment Not on filedocumented as of this encounter Visit Diagnoses Diagnosis Primary Osteoarthritis Toe Left - Primar y Pain Foot Left documented in this encounter Care Teams First Assistant Relationship Specialty Start Date End Date Elsewhere, Pcp PCP - General Internal Medicine 07/19/21 documented as of this encounter
--- OUTSIDE RECORDS SUMMARY | 2022-05-10 09:55 | XMS_ITS | Encounter Summary ---
:1950 Author Organization [facility] Address [address] [place] [address] Care Team Providers Name Role Phone Elsewhere, Pcp Primary Care Provider Unavailable Reason for Referral Outpatient (Routine) - Closed Specialty Diagnoses / Procedures Referred By Contact Refer red To Contact Orthopedic Surgery Javed Parra [place] APRN, C.N.Larry, Valeria.N.P., M.S.N. [address] [place] [phone] Referral ID Status Reason Start Date Expiration Date Visits Requ ested Visits Authorized [id number] Closed 10/19/2021 10/19/2022 1 1 Scheduling Instructions Will see between cases, AM utpatient (Routine) - Closed Specialty Diagnoses / Procedures Referred By Contact Refer red To Contact Orthopedic Surgery Javed Parra [place] APRN C.N.P., D.N.P., M.S.N. [address] [place] [phone] Referral ID Status Reason Start Date Expiration Date Visits Requ ested Visits Authorized [id number] Closed 10/19/2021 10/19/2022 1 1 Scheduling Instructions AM during admin time Encounter Details Date Type Department Care Team Description 10/19/2021 Orders Only Department of Javed Parra F shefali Thumb Orthopedic Surgery in [place], [place] MAHONEY, Valery sharma (Primary Dx) [employer], [place] Jem, M.S.N. [address] [place] [address] [place] [phone] Social History Tobacco Use Types Packs/Day Years [...] or relatives? How often do you attend jehovah's witness or More than 4 times per year 07/18/2021 temple services? Do you belong to any clubs or Yes 07/18/2021 organizations such as jehovah's witness groups, unions, fraternal or athletic groups, or [...] place to sleep or slept in a detention (including now)? Education Answer Date Recorded What is the highest level of school Master's degree (e.g., M A, MS, 04/21/2021 you have completed or the highest Stephanie, MEd, SHEEP SHEARER, CAREN) degree you have received? 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 Plan of Treatment Scheduled Referrals Name Type Priority Associated Order Schedule Diagnoses Orthopedic Surgery Outpatient Referral Routine Ex pected: Pre Op (clinic) 11/02/2021, Expires: 01/19/2023 Orthopedic Surgery Outpatient Referral Routine Ex pected: Post Op (clinic) 11/15/2021, Expires: 01/19/2023 documented as of this encounter Results SARS Coronavirus 2, Molecular Detection, PCR, Varies Asymptomatic (12/28/2021 11:06 AM CDT) [facility] Method Time Signature COVID-19, Swab, 12/28/2021 DTL PCR, Source Nasopharynx 2:43 PM CDT COVID-19, Undetected Undetected 12/28/2021 DTL PCR, Result 2:43 PM CDT Comment: SARS-CoV-2 RNA absent. This result does not rule out COVID-19 in the patient, as the sensitivity of the test depends o n the timing of the specimen collection and quality of the specimen. Result should be correlated with patient's history and clinical presentat ion. ----ADDITIONAL INFORMATION---- This RT-PCR test using the GreenDot Trans SARS-Co V-2 Assay ( Muufri.) performed on the GreenDot Trans Two Module System has received Emergency Use Authorization (EUA) by the U.S. Food and Drug Administration, and is modified from the airborne electronics analyst's instructions with a bridging study. Performance characteristics were verifie d by [facility] in a manner consistent with CLIA requirements. Visit the CDC website: https://www.cdc.g ov/coronavirus/ for the most recent guidelines on [place] virus testing. Fact Sheet for Healthcare Providers: https://www.fda.gov/media/724102/downloa d Fact Sheet for Patients: https://www.fda.gov/media/231548/downloa d Specimen Anatomical Collection Method Collection Time Receive d Time (Source) Location / / Volume Laterality Varies 12/28/2021 11:06 12/28/2021 (Nasopharynx) AM CDT 11:42 AM CDT Javed Parra APRN C.N.P., D.N.P., M.S.N. LAB MD CROBIOLOGY - GENERAL ORDERABLES Performing Organization Address City/State/[facility] [[email or web address]] Code Phon e Number [facility] - [address] [place], [place] [address] [facility] [place] [address] [facility] [address] [facility] documented in this encounter Visit Diagnoses Diagnosis Trigger Finger Thumb Left - Primary documented in this encounter Care Teams Laborer Gold Leaf Relationship Specialty Start Date End Date Elsewhere, Pcp PCP - General Internal Medicine 07/19/21 documented as of this encounter
--- OUTSIDE RECORDS SUMMARY | 2022-05-10 09:55 | XMS_ITS | Encounter Summary ---
:1950 Author Organization [facility] Address [address] [place] [address] Care Team Providers Name Role Phone Elsewhere, Pcp Primary Care Provider Unavailable Encounter Details Date Type Department Care Team Description 10/28/2021 Clinical Communication Department of Nabor Rodriguez, Orthopedic Surgery in [place], [place] [address] [facility] [address] [place] [phone] Social History Tobacco Use Types Packs/Day Years [...] or relatives? How often do you attend latter day or More than 4 times per year 07/18/2021 jew services? Do you belong to any clubs or Yes 07/18/2021 organizations such as latter day groups, unions, fraternal or athletic groups, or [...] have completed or the highest Stephanie, MEd, COMMUNICATIONS BILLING ANALYST, CAREN) degree you have received? 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 - 10/28/2021 11:38 AM CDT No problem, [facility] documented in this encounter Plan of Treatment Not on filedocumented as of this encounter Visit Diagnoses Not on filedocumented in this encounter Care Teams Community Organization Worker Relationship Specialty Start Date End Date Elsewhere, Pcp PCP - General Internal Medicine 07/19/21 documented as of this encounter
--- OUTSIDE RECORDS SUMMARY | 2022-05-10 09:55 | XMS_ITS | Encounter Summary ---
:1950 Author Organization [facility] Address [address] [place] [address] Care Team Providers Name Role Phone Elsewhere, Pcp Primary Care Provider Unavailable Reason for Visit Outpatient (Routine) - Closed Specialty Diagnoses / Procedures Referred By Contact Refer red To Contact Orthopedic Surgery Javed Parra [place] APRN, C.N.P., D.N.P., M.S.N. [address] [place] [phone] Referral ID Status Reason Start Date Expiration Date Visits Requ ested Visits Authorized [id number] Closed 10/19/2021 10/19/2022 1 1 Encounter Details Date Type Department Care Team Description 01/10/2022 Office Visit Department of Nabor Rodriguez Trigger Finge r Thumb Orthopedic Surgery in M.D. Left (Primary Dx) [place], [place] [address] [facility] [address] [place] [phone] Social History Tobacco Use Types Packs/Day Years [...] or relatives? How often do you attend congregational or More than 4 times per year 07/18/2021 christian services? Do you belong to any clubs or Yes 07/18/2021 organizations such as congregational groups, unions, fraternal or athletic groups, or [...] place to sleep or slept in a group home (including now)? Education Answer Date Recorded What is the highest level of school Master's degree (e.g., M George, MS, 04/21/2021 you have completed or the highest Stephanie, MEd, MANAGER SOFTWARE DEVELOPMENT, CAREN) degree you have received? 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 - 01/10/2022 10:00 AM CDT CHIEF COMPLAINT S/p left thumb trigger release, right thumb trigger injection 12/29/21 SUBJECTIVE Mr. Perdomo is a very pleasant 71 y.o. male who returns to the clinic now POD 12. He is doing well today. He has had no further triggering. Pain is controlled. OBJECTIVE PHYSICAL EXAMINATION General: NAD, follows commands HEENT: NCAT CV: skin warm, dry, well perfused Pulm: unlabored Neuro: alert, appropriate Upper Extremity: Composite fist with full extension of all digits. No triggering. 2pt is 5 mm in alldigits on the left. Incision is clean dry and intact with well approximated wound edges and intact sutures. Digits warm pink and well perfused. ASSESSMENT / PLAN S/p left thumb trigger release, right thumb trigger injection 12/29/21 Mr. Perdomo was seen and evaluated in collaboration with Dr Rodriguez. He is doing well today. He has no further triggering. He wound is healing well. We will remove his sutures today. We did discuss activity and scar management as well. We will see him back PRN. Thank you for the opportunity to participate in this patient's care. Please contact us with questions or concerns. All questions and concerns were answered on today's visit. There were no communicationbarriers present. Electronically signed by: Javed Parra APRN, D.N.P., M.S.NJase, R.N. 01/10/22 10:15 AM CDTAnswers submitted by the patient for this visit: [...] blood/lymph issues: Yes No urinary/reproductive issues: Yes Associated attestation - Nabor Rodriguez M.D. - 01/10/2022 9:32 PM CDT I met with and examined the patient and I participated in his/her treatment plan moving forward. I have reviewed the note and I am in agreement with the findings and plan. documented in this encounter Plan of Treatment Not on filedocumented as of this encounter Visit Diagnoses Diagnosis Trigger Finger Thumb Left - Primary documented in this encounter Care Teams Terminal Computer Operator Relationship Specialty Start Date End Date Elsewhere, Pcp PCP - General Internal Medicine 07/19/21 documented as of this encounter
--- OUTSIDE RECORDS SUMMARY | 2022-05-10 09:55 | XMS_ITS | Encounter Summary ---
:1950 Author Organization [facility] Address [address] [place] [address] Care Team Providers Name Role Phone Elsewhere, Pcp Primary Care Provider Unavailable Reason for Visit Reason Comments Procedure Encounter Details Date Type Department Care Team Description 10/19/2021 Clinical Communication Department of Nabor Rodriguez Pro cedure Orthopedic Surgery in [place], [place] [address] [facility] [address] [place] [phone] Social History Tobacco Use Types Packs/Day Years [...] or relatives? How often do you attend hinduism or More than 4 times per year 07/18/2021 zoroastrian services? Do you belong to any clubs or Yes 07/18/2021 organizations such as hinduism groups, unions, fraternal or athletic groups, or [...] have completed or the highest Stephanie, MEd, AUDITING CONTROL CLERK, CAREN) degree you have received? 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 - 10/19/2021 1:38 PM CDT I entered him for surgery on 11/03 with a pre op/covid 11/02, post op 11/15. Will you please schedule andmake him aware. Thank you ayanna Telephone Encounter - Lizzette Sepulveda - 10/19/2021 1:19 PM CDT Patient is ready to move forward with surgery for his trigger thumbs and would like someone from 's service to call him to discuss. Thanks documented in this encounter Plan of Treatment Not on filedocumented as of this encounter Visit Diagnoses Not on filedocumented in this encounter Care Teams Heading Saw Operator Relationship Specialty Start Date End Date Elsewhere, Pcp PCP - General Internal Medicine 07/19/21 documented as of this encounter
--- OUTSIDE RECORDS SUMMARY | 2022-05-10 09:55 | XMS_ITS | Encounter Summary ---
:1950 Author Organization [facility] Address [address] [place] [address] Care Team Providers Name Role Phone Elsewhere, Pcp Primary Care Provider Unavailable Encounter Details Date Type Department Care Team Description 07/19/2021 Surgery Outpatient Procedure Dimitri Rodriguez M.D. RELEASE CARPAL TUNNEL Center in [place], [address] [facility] [address] [place], [place] [address] [facility] [id number] [place] [address] [phone] Social History Tobacco Use Types Packs/Day Years [...] More than 4 times per year 07/18/2021 anglican services? Do you belong to any clubs [...] place to sleep or slept in a halfway (including now)? Education Answer Date Recorded What is the highest level of school Master's degree (e.g., M A, MS, 04/21/2021 you have completed or the highest Stephanie, MEd, APPLICATIONS MANAGER, CAREN) degree you have received? Sex Assigned at Date Recorded Male 04/21/2021 10:27 PM [facility] documented as of this encounter Last Filed Vital Signs Vital Sign Reading Time Taken Comments Blood Pressure 111/62 07/19/2021 11:25 AM [facility] Pulse 53 07/19/2021 11:30 AM [facility] Temperature 36.6 ??C (97.9 ??F) 07/19/2021 11:25 AM [facility] Respiratory Rate 12 07/19/2021 11:30 AM [facility] Oxygen Saturation 100% 07/19/2021 11:30 AM [facility] Inhaled Oxygen Concentration - - Weight - - Height - - Body Mass Index - - documented in this encounter Discharge Instructions Discharge InstructionsJaved Parra APRN, C.N.P., D.N.P., M.S.N. - 07/19/2021 10:[address] Rodriguez Post-operative Instructions A follow-up appointment with Dr. Rodriguez has been made for you in two weeks. Please report to the [facility] [address] to check-in. If you have any questions or concerns before this appointment, please do not hesitate to call Dr. Rodriguez's office: - medical supply technician - fax - appointments - after hours Wound Care: - Keep your splint clean and dry. - Keep your splint in place until your follow-up appointment. Activity: - Continue to elevate your arm, this will help to reduce swelling. - Continue to move your fingers while in splint, this will help to reduce stiffness. Infection: - If incision has increased pain or tenderness, redness, swelling, drainage, or areas of breakdown you may have a local infection. Please call our office to make an immediate follow-up appointment. - If you experience any systemic symptoms of infection including fever, chills, or malaise please contact our service as well. -Keeping your post-operative splint in place as well as clean and dry will decrease your risk for infection. Non-opioid Pain Management, Acetaminophen and Ibuprofen (Motrin): - The use of non-opioid medications (tylenol and motrin) are the preferred first line treatment for post operative pain. - Consistent use on a schedule will limit the need for opioid pain medications. - Use acetaminophen (Tylenol) 1-2 tablets every 6 hours for pain. Adults 1000 mg dose every 6 hours,Children 10 mg per kilogram of body weight every 6 hours. - Avoid the use of Ibuprofen if you have a healing fracture or underwent a fusion surgery. - Use Ibuprofen 600mg every 6 hours as needed for pain (adults). Child dosing is 10 mg per kilogram of body weight every 6 hours. - For weight based dosing (children), the patients most recent documented weight is Weight: 69.1 kg (07/18/2021 10:27 AM) Height: 169 cm (07/18/2021 10:27 AM) . - It is usually helpful to stagger ibuprofen and tylenol dosing by 3 hours, to be able to take something every 3 hours. A staggered schedule will look like this- Tylenol 6am, 12pm, 6pm, Midnight Ibuprofen 3am, 9am, 3pm, 9pm - Do not exceed 4000 mg or 4 g of Tylenol or acetaminophen-containing products within a 24-hour period to avoid liver damage. - If pain is unrelieved, narcotic pain medication may be used. - To speed up the recovery process, the use of narcotic pain medication should be minimized. - Do not use aspirin or aspirin-containing products for at least three weeks after surgery or until otherwise instructed by your doctor. - Some narcotic pain medications contain acetaminophen. Please make sure to ask your pharmacist or read the label carefully before taking any medications together. Pain Management With Opioids (Tramadol, Oxycodone, Hydrocodone, Hydromorphone) - If non-opioid pain medications are not relieving pain, taking opioids in addition to your non-opioids should improve pain. - Take opioid medication as instructed. - It is best to take pain medication before your pain becomes severe. This will allow you to take less medication yet have better pain relief. - For the first 2-3 days after surgery, it may be helpful to take your pain medication on a regular schedule and keep pain under control. - After the first couple days, you should begin to take less pain medication each day until you no longer need any. - Do not take opioid pain medication on an empty stomach; this may lead to nausea and vomiting. - Abstain from alcohol while taking narcotic pain medication. - Avoid taking opioid pain medications with other sedating medications. - Should not drive, operate heavy machinery, ride motorcycle or ATVs or take other drugs that make you tired or sleepy while taking narcotic pain medication. - Do not participate in dangerous activity while taking narcotic pain medication, as it can decreaseyour ability to make safe decisions. - May cause constipation requiring a stool softener while narcotic pain medication is being used. - Post-operative opioid prescriptions are limited to a supply of 3 days. Most patients are able to stop using opioid pain medications after 3 days. - If you feel you require a refill of opioid pain medication, please call Dr Rodriguez's medical supply technician during business hours, or the after hours number. You are also welcome to contact the team throughthe patient portal. Prior to calling, please try to maximize the use of scheduled non-opioid pain medications and non-medication relief measures listed below. - Excess opioids not used after surgery increase the risk of opioid related abuse and misuse if theyremain in the home. Please discard of unused opioids at your local pharmacy. Non-Medication pain relief - Elevate operative extremity above the level of your hear - Applying ice packs over the splint may provide some cooling and pain relief. - Distraction and meditation may also help relieve pain. Preventing Constipation: - Avoid hard cheeses and refined grains such as rice and macaroni. - Drink plenty of water, juice and warm liquids. - Walking and activity is a good way to get your bowels moving. - An yykc-lyj-pkhphab laxative such as milk of magnesia may be necessary, however consult your doctor before starting to make sure its safe for you to take. Nutrition: - To optimize healing, it is essential to have adequate nutritional intake. - Studies have shown drastically improved outcomes for patients with a sound nutritional state. - It is recommended you take a multivitamin daily. - A balanced diet with recommended daily servings of lean protein, vegetables and grains can help ensure adequate nutrition. Bone / Wound Healing - Nicotine inhibits healing so it is advised you avoid tobacco products completely. - If you currently smoke cigarettes, cigars or pipes; chew tobacco; or have done so in the past 12 months, it is important to quit. Talk with your physician about different ways to stop smoking. For additional information about smoking cessation, go to http://www.[facility].org/stop-smoking/index. html or call 490.881.6897 Driving or Operating Machinery - You should not drive until you have stopped taking prescription pain medications for at least 24 hours. Seek Immediate Care if: - You have chest pain, trouble breathing or begin to wheeze. - You have trouble swallowing. Nabor Rodriguez MD Orthopedic Surgery [address] [place], [place] Confectionery Maker Appointments After hours Carpal Tunnel Release Preparing for surgery: Follow fasting instructions as outlined in the pamphlet ???Checklist for Surgical Patients.?? Stop aspirin and fish oil 2 weeks before surgery if your medical doctor does not object. If you take bloodthinner medicines such as Plavix, Coumadin, or Eliquis, ask Dr. Rodriguez's team for instructions about this. Washing your skin The day before and morning of surgery wash your arm using the surgical soap provided at your appointment. Use one packet of soap each time, and let the lather sit on your skin for 5 minutes before rinsing it off. Aftercare following surgery You will leave the hospital with a soft dressing on your hand and wrist. You must keep this on and clean and dry for 2 weeks after surgery. During these first 2 weeks, you may shower by covering your arm with a shower bag if you feel safe, with assistance as needed. You should not lift, push, pull, or handicapper harness racing anything heavier than a comb, toothbrush, fork, or spoon with the affected hand until your next visit. While the pain in your hand should improve in a matter days, it can take a full year of gradual improvement in your numbness and tingling after surgery. Hand swelling Swelling of hand and fingers is common after surgery. You should keep the hand elevated above the level of your elbow to allow gravity to help pull fluid out of the hand. While sitting you must raise your hand on several pillows or rest it on a table to get it above your elbow. Throughout each day, gently bend your fingers into a fist and fully extend them to prevent finger swelling and stiffness. Return visits About 2 weeks after surgery you will have a return appointment to see Dr. Rodriguez's team. ??? Your stitches will be removed at the 2 week return appointment. Keep a small covering on the incision for 1 more day. ??? You will be given a silicone gel sleeve to wear during the day for 2 weeks to protect the incision. ??? Wear a removable wrist splint at night for at least 2 more weeks. ??? You may lift items up to 5 lbs (?? gallon of milk), or as tolerated according to your comfort. Milestones of recovery after surgery: Leaving the hospital: The same day of surgery with a logging truck driver. Driving and operating machinery: is not advisable until your dressing and sutures are removed 2 weeks after surgery. Help needed during recovery: You may need help with dressing, bathing, and your daily activities at home for at least a few days.You should have family members at home for most of the day, or stay at someone else's home during this time. The first 2 weeks after surgery: You will have a soft cast on your hand that needs to be kept clean and dry. You will need help with bathing for the first several days. Plan on a return visit about 2 weeks after surgery for suture removal: Do not soak your hand in water until at least 1 week after your sutures have been removed. You will not be able to wash dishes during that time. Scar Massage. It would be ideal to buy some aloe vera or vitamin E cream. You may begin massaging the incision area 1 week after the sutures are removed with some cream to help keep the scar area soft and mobile. Four weeks after surgery: You may stop using the gel sleeve and splint, and slowly return to your usual activities. expect gradual improvement of Numbness and tingling for a full year after surgery. For 4-6 weeks after surgery: Avoid lifting items with your palm facing down on the operative side. Instead, lift with palm facing upward or toward you in order to avoid strain in the surgical area. [facility] documented in this encounter Medications at Time of Discharge Medication Sig Dispensed Refills Start Date End Date aspirin [address] tablet Take 1 tablet by 0 2008 mouth daily. ascorbic acid, vitamin C, Take 1,000 mg by 0 (VITAMIN C) 1,000 mg tablet mouth daily. cyanocobalamin (VITAMIN Take 1 tablet by 0 2009 B12) 1,000 mcg tablet mouth daily. gelatin 600 mg capsule Take by mouth. 0 6 multivit-min/FA/lycopen/lut 0 04/03/20 10 ein (CENTRUM SILVER MEN ORAL) triamcinolone (KENALOG) 0.1 Apply 0.5 inches 0 % cream topically. amLODIPine (NORVASC) 5 mg Take 5 mg by mouth 0 08/03/2021 tablet daily. cholecalciferol (VITAMIN Take 1 capsule by 0 12/26/2021 D3) 25 mcg (1,000 Unit) mouth daily. capsule simvastatin (ZOCOR) 20 mg Take 1 tablet by 0 03/0 11/201112/26/2021 tablet mouth every evening. traMADoL (ULTRAM) 50 mg Take 1 tablet (50 6 tablet 0 07/1908/03/2021 tabletIndications: Acute mg total) by mouth Pain every 6 (six) hours as needed for pain Indications: Acute Pain. traMADoL (ULTRAM) 50 mg Take 1 tablet (50 6 tablet 0 07/1908/03/2021 tabletIndications: Acute mg total) by mouth Pain every 6 (six) hours as needed for pain Indications: Acute Pain. documented as of this encounter OR Notes Op Note - Nabor Rodriguez M.D. - 07/19/2021 1:12 PM CST Pre-op Diagnosis Carpal Tunnel Syndrome Left Post-op Diagnosis Carpal Tunnel Syndrome Left A dyer assistant actively participated and was necessary for one or more of the following: opening,exposure and visualization during the case, maintaining hemostasis, wound closure resulting in its safe and expeditious completion. Findings As expected. Complications None Description of Procedure Mr. Perdomo was identified in the preop area and the appropriate operative site site was marked and confirmed. He was then taken the operating room prepped and draped to expose his left hand and upper extremity. The appropriate procedural pause was performed and local anesthetic was then administered. ?? A longitudinal incision was made just ulnar to midline from the distal wrist flexion crease spanningthe transverse carpal ligament. Dissection was carried down through skin and subcutaneous tissues and care was taken to protect the superficial neurovascular structures. At the confluence of the distal antebrachial fascia of the forearm and the proximal part of the transverse carpal ligament, small ellie was made with a 15 blade knife. This allowed for passage of a [place] which was slid in an antegrade manner deep to the transverse carpal ligament. The ligament was then divided over top of the [place] which served to protect the deeper nerve and tendons. Complete release was achieved. Direct inspection of the nerve revealed that it had been under severe compression. ?? Following release of the transverse carpal ligament, attention turned toward the distal antebrachialfascia of the forearm. With the use of a tenotomy, the distal antebrachial fascia of the forearm wasdivided with care taken to protect the deeper nerve and tendons. ?? The wound was then wound re-inspected to confirm complete release of the median nerve. The tourniquet was then deflated and all bleeding was controlled with pressure hemostasis and bipolar cautery. Thewound was irrigated copiously. Interrupted 4-0 Prolene was utilized for skin closure and the patientwas placed into a bulky dressing and splint after applying Xeroform to the incision. He was then aroused, transferred to the bed, and transferred to recovery in stable condition. Nabor Rodriguez M.D. [facility] documented in this encounter Plan of Treatment Not on filedocumented as of this encounter Procedures Procedure Name Priority Date/Time Associated Diagnosis Comme nts RELEASE CARPAL TUNNEL 07/19/2021 12:48 PM Carpal Tunne l Syndrome OPEN WRIST [facility] Left documented in this encounter Visit Diagnoses Diagnosis Carpal Tunnel Syndrome Left - Primary Carpal Tunnel Syndrome Left Carpal Tunnel Syndrome Left documented in this encounter Admitting Diagnoses Diagnosis Carpal Tunnel Syndrome Left documented in this encounter Administered Medications Inactive Administered Medications - up to 3 most recent administrations Medication Order MAR Action Action Date Dose Rate Site acetaminophen tablet 1,000 mg Given 07/19/2021 11:08 AM [facility] 1,00 0 mg (TYLENOL) 1,000 mg, oral, Once, On Sun07/19/21 at 1030, For 1 dose, Pre-Op celecoxib capsule 200 mg (CeleBREX) Given 07/19/2021 11:08 AM [facility] 200 mg 200 mg, oral, Once, On Sun07/19/21 at 1030, For 1 dose, Pre-Op lidocaine 10 mg/mL (1 %) injection (XYLO THADDEUS) Given 07/19/2021 1:13 PM [facility] 10 mL As needed, Starting on Sun07/19/21 at 1313, Intra-Op metoprolol tablet 12.5 mg (LOPRESSOR) 12.5 mg, oral, Once as needed, if patien t did not take their last scheduled dose of beta alexander prior to arrival, Starting on Sun07/19/21 at 1018, For 1 dose, Pre-Op, Do not give if patient does not take scheduled beta bl ockers, if patient is receiving intravenous vasopressors or inotropes, if he art rate is less than 50 beats per minute, if systolic blood pres sure is less than 90 mmHg or if diastolic blood pressure is less than 40 mmHg, or if patient has an allergy to metoprolol. sodium chloride 0.9 % injection 10 mL 10 mL, intravenous, As needed, line care , Starting on Sun07/19/21 at 1018, Pre-Op, Peripheral Intravenous Catheter and Rapid Infusion Cat heter, prior to blood sampling, post blood transfusion or post blood samplin g sodium chloride 0.9 % injection 3 mL 3 mL, intravenous, As needed, line care, Starting on Sun07/19/21 at 1018, Pre-Op, Prior to and following infusion and betw een multiple consecutive infusions: sodium chloride 0.9 % injection sodium chloride 0.9 % injection 3 mL 3 mL, intravenous, Every 12 hours scheduled, First dos e on Sun07/19/21 at 2100, Pre-Op, Peripheral Intravenous Catheter and Rapid Infu anderson Catheter, when no infusion to maintain patency documented in this encounter Active and Recently Administered Medications Times are shown in [facility]. Scheduled Medication Order 07/17/2021 07/18/2021 07/19/2021 acetaminophen tablet 1,000 mg (TYLENOL) (COMPLETED) 1108 (Given - Provider: Brenda Ashley R.N.) 1,000 mg, oral, Once, On Sun07/19/21 at 1030, For 1 dose, Pre-Op celecoxib capsule 200 mg (CeleBREX) (COMPLETED) 1108 (Given - Provider: Brenda Ashley R.N.) 200 mg, oral, Once, On Sun07/19/21 at 1030, For 1 dose, Pre-Op clindamycin in D5W IVPB 900 mg (CLEOCIN) (COMPLETED) 1310 (Given - Provider: Crystal Maher APRN, CIVIL TRANSPORTATION ENGINEER) 900 mg, intravenous, at 100 mL/hr, Admin ister over 30 Minutes, Once, On Sun07/19/21 at 1300, For 1 dose, Intra-Op, Indications: Prophylaxis, surgical lidocaine 10 mg/mL (1 %) injection 1 mL (XYLOCAINE) 1030 (Due) 1 mL, infiltration, Once, On Sun07/19/21 at 1030, For 1 dose, Pre-Op, May admin up to 1 mL at the site of IV site if not allergic to lidocaine sodium chloride 0.9 % injection 3 mL 3 mL, intravenous, Every 12 hours schedu led, First dose on Sun07/19/21 at 2100, Pre-Op, Peripheral Intravenous Catheter and Rapid Infusion Catheter, when no infusion to maintain patency Continuous Medication Order 07/17/2021 07/18/2021 07/19/2021 lactated ringers 1030 (Due) 20 mL/hr, intravenous, Continuous, Starting on Sun07/19/21 at 10 30, Pre-Op PRN Medication Order 07/17/2021 07/18/2021 07/19/2021 fentaNYL injection 50 mcg (SUBLIMAZE) 50 mcg, intravenous, As needed, moderate pain or score 4-6 of 10, severe pain or score 7-10 of 10, sedation, As directed by anesthesiologist, Starting on Sun07/19/21 at 1018, For 4 doses, Pre-Op, Up to maximum total dose of 200 mcg lidocaine 10 mg/mL (1 %) injection (XYLOCAINE) (CANCELED) 1313 (Given - Provider: Darrius Stokes M.D. - Comment: left wrist) As needed, Starting on Sun07/19/21 at 1313, Intra-Op metoprolol tablet 12.5 mg (LOPRESSOR) 12.5 mg, oral, Once as needed, if patien t did not take their last scheduled dose of beta alexander prior to arrival, Starting on Sun07/19/21 at 1018, For 1 dose, Pre-Op, Do not give if patient does not ta ke scheduled beta blockers, if patient i s receiving intravenous vasopressors or inotropes, if heart rate is less than 50 beats per minute, if systolic blood pressure is less than 90 mmHg or if diastolic blood pressure is less than 40 mmHg, or if patient has an allergy to metoprolol. midazolam (PF) injection 1 mg (VERSED) 1 mg, intravenous, As needed, sedation, as directed by anesthesiologist, Starting on Sun07/19/21 at 1018, For 4 doses, Pre-Op sodium chloride 0.9 % injection 10 mL 10 mL, intravenous, As needed, line care , Starting on Sun07/19/21 at 1018, Pre- Op, Peripheral Intravenous Catheter and Rapid Infusion Catheter, prior to blood sampling, post blood transfusion or post blood sampling sodium chloride 0.9 % injection 3 mL 3 mL, intravenous, As needed, line care, Starting on Sun07/19/21 at 1018, Pre- Op, Prior to and following infusion and between multiple consecutive infusions: sodium chloride 0.9 % injection documented in this encounter Care Teams Engagement Quality Consultant Relationship Specialty Start Date End Date Elsewhere, Pcp PCP - General Internal Medicine 07/19/21 documented as of this encounter
--- OUTSIDE RECORDS SUMMARY | 2022-05-10 09:55 | XMS_ITS | Encounter Summary ---
:1950 Author Organization [facility] Address [address] [place] [address] Care Team Providers Name Role Phone Elsewhere, Pcp Primary Care Provider Unavailable Encounter Details Date Type Department Care Team Description 12/29/2021 Surgery RST [facility] OR Nabor Rodriguez M.D. RELEASE TRIGGER FINGER, [address] [place] [address] [place], [place] [phone] Social History Tobacco Use Types Packs/Day Years [...] or relatives? How often do you attend catholic or More than 4 times per year 07/18/2021 judaism services? Do you belong to any clubs or Yes 07/18/2021 organizations such as catholic groups, unions, fraternal or athletic groups, or [...] place to sleep or slept in a correction (including now)? Education Answer Date Recorded What is the highest level of school Master's degree (e.g., M A, MS, 04/21/2021 you have completed or the highest Stephanie, MEd, EDUCATION OFFICER, CAREN) degree you have received? 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 - 12/29/2021 8:[address] Rodriguez Post-operative Instructions A follow-up appointment with Dr. Rodriguez has been made for you in one-two weeks. Please report to the [facility] Floor 15 Desk E to check-in. If you have any questions or concerns before this appointment, please do not hesitate to call Dr. Rodriguez's office: - medical research scientist - fax - appointments - after hours [...] the patients most recent documented weight is No data recorded. - It is usually helpful to stagger [...] pain medication, please call Dr Rodriguez's medical research scientist during business hours, or the after hours [...] to get your bowels moving. - An mill-fwu-otggoow laxative such as milk of magnesia may [...] additional information about smoking cessation, go to http://[facility].org/stop-smoking/index. html or call [phone] Driving or Operating Machinery - You should not drive until you have stopped taking prescription pain medications for at least 24 hours. Seek Immediate Care if: - You have chest pain, trouble breathing or begin to wheeze. - You have trouble swallowing. documented in this encounter Medications at Time of Discharge Medication Sig Dispensed Refills Start Date End Date amLODIPine (NORVASC) 5 mg Take 5 mg by mouth 0 tablet daily. ascorbic acid, vitamin C, Take 1,000 mg by mouth 0 (VITAMIN C) 1,000 mg daily. tablet cyanocobalamin (VITAMIN Take 1 tablet by mouth 0 07/29/2009 B12) 1,000 mcg tablet daily. gelatin 600 mg capsule Take by mouth. 0 6 multivit-min/FA/lycopen/l 0 04/03/2010 utein (CENTRUM SILVER MEN ORAL) omega 5-txu-nxi-fish oil Take by mouth. 0 1,000 mg (120 mg-180 mg) capsule simvastatin (ZOCOR) 10 mg Take 10 mg by mouth at 0 10/18/2021 tablet bedtime. aspirin [address] tablet Take 1 tablet by mouth 0 12/23/2008 daily. calcipotriene (DOVONEX) Apply 1 application 0 0.005 % ointment topically 2 (two) times a day. Apply for porosis to groin area. diclofenac sodium Apply 4 g topically 4 100 g 1 022 (VOLTAREN) 1 % gel (four) times a day as needed (to areas of arthritic pain). Apply to left hand and bilateral thumbs. traMADoL (ULTRAM) 50 mg Take 1 tablet (50 mg 6 tablet 0 tabletIndications: Acute total) by mouth every Pain 6 (six) hours as needed for pain Indications: Acute Pain. triamcinolone (KENALOG) Apply 0.5 inches 0 0.1 % cream topically. documented as of this encounter OR Notes Op Note - Nabor Rodriguez M.D. - 12/29/2021 9:53 AM CDT Pre-op Diagnosis Trigger Finger Thumb Left,Trigger Finger Thumb Right Post-op Diagnosis Trigger Finger Thumb Left,Trigger Finger Thumb Right A nurse first assist actively participated and was necessary for one or more of the following: opening,exposure and visualization during the case, maintaining hemostasis, wound closure resulting in its safe and expeditious completion. Findings As expected. Complications None Operative Note Narrative Mr. Perdomo was identified in the preop area and the appropriate operative site and injection sites were marked and confirmed. He was then taken the operating room prepped and draped to expose his left hand and upper extremity after undergoing MAC anesthesia. The appropriate procedural pause was performed. Local anesthetic was then administered. An incision was made centered over the MP flexion crease of the thum at the level of the A1 tylor. Dissection was carried down through skin and subcutaneous tissues with care taken to protect the superficial radial and ulnar neurovascular structures. The A1 tylor was readily identified and sharply cut with a tenotomy in its entirety. A complete release was achieved and he was asked to flex and extend his thumb after releasing the tylor, and confirmed that there was no evidence of clicking or catching. At this point the surgery was effectively complete. The tourniquet was deflated and all bleeding wascontrolled with pressure hemostasis and bipolar cautery. The wound was irrigated copiously and closed with interrupted 4-0 Prolene suture. Xeroform followed by a bulky soft dressing was then applied. Attention then turned toward the right thumb. It was prepped in the standard fashion. 1 mL of 10 of Kenalog mixed with 2 mL of 1% lidocaine without epinephrine were injected through a 25 gauge needle into the flexor tendon sheath of the thumb from the volar aspect. He tolerated the injection well and a Band-Aid was applied. At this point the surgery was complete. He was aroused, transferred to the bed, and transferred to recovery in stable condition. Nabor Rodriguez M.D. documented in this encounter Plan of Treatment Not on filedocumented as of this encounter Procedures Procedure Name Priority Date/Time Associated Diagnosis Comme nts ADULT OXYGEN THERAPY Routine 12/29/2021 10:18 AM CDT INJECTION STEROID 12/29/2021 9:24 AM CDT Trigger Finge r Thumb Left Trigger Finger Thumb Right Case Notes CRYPTOLOGIC TECHNICIAN at 8:26 RELEASE TRIGGER FINGER 12/29/2021 9:24 AM CDT Tr igger Finger Thumb Left Trigger Finger Thumb Right Case Notes CRYPTOLOGIC TECHNICIAN at 8:26 documented in this encounter Visit Diagnoses Diagnosis Carpal Tunnel Syndrome Left - Primary Trigger Finger Thumb Left Trigger Finger Thumb Right documented in this encounter Administered Medications Inactive Administered Medications - up to 3 most recent administrations Medication Order MAR Action Action Date Dose Rate Site acetaminophen tablet 1,000 mg Given 12/29/2021 10:37 AM CDT 1,00 0 mg (TYLENOL) 1,000 mg, oral, Once as needed, other, If patient has not received in the previous 6 hours, Starting on Knadis 12/29/21 at 1018, For 1 dose, PACU (only), Oral unless RASS less than -1 or nausea/vomiting. Do not use if given in last 6 hours lidocaine (PF) 10 mg/mL (1 %) injection Given 12/29/2021 9:51 AM CDT 5 mL Left Hand (XYLOCAINE) As needed, Starting on Kandis 12/29/21 at 0939, Intra-Op Given 12/29/2021 9:39 AM CDT 2 mL Right Hand metoprolol tablet 12.5 mg (LOPRESSOR) 12.5 mg, oral, Once as needed, if patien t did not take their last scheduled dose of beta alexander prior to arrival, Starting on Kandis 12/29/21 at 0908, For 1 dose, Pre-Op, Do not give if patient does not take scheduled beta bl ockers, if patient is receiving intravenous vasopressors or inotropes, if he art rate is less than 50 beats per minute, if systolic blood pres sure is less than 90 mmHg or if diastolic blood pressure is less than 40 mmHg, or if patient has an allergy to metoprolol. oxyCODONE IR tablet 10 mg (ROXICODONE) 10 mg, oral, Every 4 hours PRN, severe p ain or score 7-10 of 10, Starting on Kandis 12/29/21 at 1018, PACU & Post-Op, Indications: Acute Pa in oxyCODONE IR tablet 5 mg (ROXICODONE) 5 mg, oral, Every 4 hours PRN, moderate pain or score 4-6 of 10, Starting on Kandis 12/29/21 at 1018, PACU & Post-Op, Second line therapy sodium chloride 0.9 % injection 10 mL 10 mL, intravenous, As needed, line care , Starting on Kandis 12/29/21 at 0908, Pre-Op, Peripheral Intravenous Catheter and Rapid Infusion Cat heter, prior to blood sampling, post blood transfusion or post blood samplin g sodium chloride 0.9 % injection 3 mL 3 mL, intravenous, As needed, line care, Starting on Kandis 12/29/21 at 0908, Pre-Op, Prior to and following infusion and betw een multiple consecutive infusions: sodium chloride 0.9 % injection sodium chloride 0.9 % injection 3 mL 3 mL, intravenous, Every 12 hours scheduled, First dos e on Kandis 12/29/21 at 2100, Pre-Op, Peripheral Intravenous Catheter and Rapid Infu anderson Catheter, when no infusion to maintain patency traMADoL tablet 100 mg (ULTRAM) 100 mg, oral, Every 6 hours PRN, severe pain or score 7-10 of 10, Starting on Kandis 12/29/21 at 1018, PACU & Post-Op, Indications: Acute Pa in traMADoL tablet 50 mg (ULTRAM) 50 mg, oral, Every 6 hours PRN, moderate pain or score 4-6 of 10, Starting on Kandis 12/29/21 at 1018, PACU & Post-Op, First line therapy triamcinolone acetonide injection 10 Given 12/29/2021 9:39 AM CD T 10 mg Right Hand mg (KENALOG) 10 mg, other, Once, On Kandis 12/29/21 at 0900, For 1 dose, Intra-Op documented in this encounter Active and Recently Administered Medications Times are shown in CDT. Scheduled Medication Order 12/27/2021 12/28/2021 12/29/2021 lidocaine (PF) 10 mg/mL (1 %) injection 30 mL (XYLOCAINE) 0900 (Due) 30 mL, infiltration, Once, On Kandis 12/29/21 at 0900, For 1 dose, I ntra-Op sodium chloride 0.9 % injection 3 mL 3 mL, intravenous, Every 12 hours schedu led, First dose on Kandis 12/29/21 at 2100, Pre-Op, Peripheral Intravenous Catheter and Rapid Infusion Catheter, when no infusion to maintain patency triamcinolone acetonide injection 10 mg (KENALOG) (COMPLETED) 0900 (Due)0939 (Given - Provider: Nabor Rodriguez M.D. - Comment: thumb) 10 mg, other, Once, On Kandis 12/29/21 at 0900, For 1 dose, Intra-Op Continuous Medication Order 12/27/2021 12/28/2021 12/29/2021 lactated ringers 1000 (Due) 20 mL/hr, intravenous, Continuous, Start ing on Kandis 12/29/21 at 1000, PACU & Post-Op PRN Medication Order 12/27/2021 12/28/2021 12/29/2021 acetaminophen tablet 1,000 mg (TYLENOL) (COMPLETED) 1037 (Given - Provider: Anel Bates R.N.) 1,000 mg, oral, Once as needed, other, I f patient has not received in the previous 6 hours, Starting on Kandis 12/29/21 at 1018, For 1 dose, PACU (only), Oral unless RASS less than -1 or nausea/vomiting. Do not use if given in last 6 hours fentaNYL injection 25 mcg (SUBLIMAZE) 25 mcg, intravenous, Every 2 min PRN, mo derate pain or score 4-6 of 10, severe pain or score 7-10 of 10, Starting on Kandis 12/29/21 at 1018, PACU (only), Up to maximum total dose of 200 mcg haloperidol lactate injection 1 mg (HALDOL) 1 mg, intravenous, Every 6 hours PRN, na usea, vomiting, Starting on Kandis 12/29/21 at 1018, PACU (only), Total of 3 doses in 24 hour period. RASS must be -2 or higher to administer. If nausea and vomiting persists, move to granisteron. (order of antiemetic administration - ondansetron then haloperidol then granisetron) lidocaine (PF) 10 mg/mL (1 %) injection (XYLOCAINE) (CANCELED) 0939 (Given - Provider: Nabor Rodriguez M.D. - Comment: thumb)0951 (Given - Provider: Nabor Rodriguez M.D.) As needed, Starting on Kandis 12/29/21 at 0939, Intra-Op metoprolol tablet 12.5 mg (LOPRESSOR) 12.5 mg, oral, Once as needed, if patien t did not take their last scheduled dose of beta alexander prior to arrival, Starting on Kandis 12/29/21 at 0908, For 1 dose, Pre-Op, Do not give if patient does not ta ke scheduled beta blockers, if patient i s receiving intravenous vasopressors or inotropes, if heart rate is less than 50 beats per minute, if systolic blood pressure is less than 90 mmHg or if diastolic blood pressure is less than 40 mmHg, or if patient has an allergy to metoprolol. naloxone injection 0.2 mg (NARCAN) 0.2 mg, intravenous, As needed, respirat ory depression, Starting on Kandis 12/29/21 at 1018, For respiratory rate less than 8 breaths per minute or RASS score of - 3, -4, -5. Apply oxygen to keep oxygen saturations greater than 90% and notify service. ondansetron (PF) injection 4 mg (ZOFRAN) 4 mg, intravenous, Once as needed, nause a, vomiting, Starting on Kandis 12/29/21 at 1018, For 1 dose, PACU & Post-Op, Reassess for nausea or vomiting after at least 10 minutes. If nausea or vomiting per sists administer next ordered antiemetic medications (order for antiemetic medication administration ondansetron then droperidol then promethazine). oxyCODONE IR tablet 10 mg (ROXICODONE)(Linked Group 1) 10 mg, oral, Every 4 hours PRN, severe p ain or score 7-10 of 10, Starting on Kandis 12/29/21 at 1018, PACU & Post-Op, Indications: Acute Pain oxyCODONE IR tablet 5 mg (ROXICODONE)(Linked Group 1) 5 mg, oral, Every 4 hours PRN, moderate pain or score 4-6 of 10, Starting on Kandis 12/29/21 at 1018, PACU & Post-Op, Second line therapy sodium chloride 0.9 % injection 10 mL 10 mL, intravenous, As needed, line care , Starting on Kandis 12/29/21 at 0908, Pre- Op, Peripheral Intravenous Catheter and Rapid Infusion Catheter, prior to blood sampling, post blood transfusion or post blood sampling sodium chloride 0.9 % injection 3 mL 3 mL, intravenous, As needed, line care, Starting on Kandis 12/29/21 at 0908, Pre- Op, Prior to and following infusion and between multiple consecutive infusions: sodium chloride 0.9 % injection traMADoL tablet 100 mg (ULTRAM)(Linked Group 2) 100 mg, oral, Every 6 hours PRN, severe pain or score 7-10 of 10, Starting on Kandis 12/29/21 at 1018, PACU & Post-Op, Indications: Acute Pain traMADoL tablet 50 mg (ULTRAM)(Linked Group 2) 50 mg, oral, Every 6 hours PRN, moderate pain or score 4-6 of 10, Starting on Kandis 12/29/21 at 1018, PACU & Post-Op, First line therapy Linked Groups Order Group 1: oxyCODONE IR tablet 5 mg (ROXICODONE)Jump to med 5 mg, oral, Every 4 hours PRN, moderate pain or score 4-6 of 10, Starting on Kandis 12/29/21 at 1018, PACU & Post-Op
Second line therapy
Or oxyCODONE IR tablet 10 mg (ROXICODONE)Jump to med 10 mg, oral, Every 4 hours PRN, severe p ain or score 7-10 of 10, Starting on Kandis 12/29/21 at 1018, PACU & Post-Op
Indications: Acute Pain Group 2: traMADoL tablet 50 mg (ULTRAM)Jump to med 50 mg, oral, Every 6 hours PRN, moderate pain or score 4-6 of 10, Starting on Kandis 12/29/21 at 1018, PACU & Post-Op
First line therapy
Or traMADoL tablet 100 mg (ULTRAM)Jump to med 100 mg, oral, Every 6 hours PRN, severe pain or score 7-10 of 10, Starting on Kandis 12/29/21 at 1018, PACU & Post-Op
Indications: Acute Pain documented in this encounter Care Teams Chemical Plant Manager Relationship Specialty Start Date End Date Elsewhere, Pcp PCP - General Internal Medicine 07/19/21 documented as of this encounter
--- OUTSIDE RECORDS SUMMARY | 2022-05-10 09:55 | XMS_ITS | Encounter Summary ---
:1950 Author Organization [facility] Address [address] [place] [address] Care Team Providers Name Role Phone Elsewhere, Pcp Primary Care Provider Unavailable Reason for Referral Outpatient (Routine) - Closed Specialty Diagnoses / Procedures Referred By Contact Refer red To Contact Orthopedic Surgery Nabor Rodriguez M.D. [facility] [address] [place] [phone] Referral ID Status Reason Start Date Expiration Date Visits Requ ested Visits Authorized [id number] Closed 08/03/2021 08/03/2022 1 1 REL EMBROIDERY DIGITIZER Reason for Visit Outpatient (Routine) - Closed Specialty Diagnoses / Procedures Referred By Contact Refer red To Contact Orthopedic Surgery Darrius Stokes [place] M.D. [address] [place] [phone] Referral ID Status Reason Start Date Expiration Date Visits Requ ested Visits Authorized [id number] Closed 07/18/2021 07/18/2022 1 1 Encounter Details Date Type Department Care Team Description 08/03/2021 Office Visit Department of Nabor Rodriguez, Carpal Tunnel Syndrome Orthopedic Surgery in M.D. Left (Primary Dx) [place], [place] [address] [facility] [address] [place] [phone] Social History Tobacco Use Types Packs/Day Years [...] or relatives? How often do you attend mandaeism or More than 4 times per year 07/18/2021 hinduism services? Do you belong to any clubs or Yes 07/18/2021 organizations such as mandaeism groups, unions, fraternal or athletic groups, or [...] have completed or the highest Stephanie, MEd, LINE THERAPIST, CAREN) degree you have received? 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 - 08/03/2021 10:30 AM CST HAND CLINIC FOLLOW-UP VISIT CHIEF COMPLAINT: Status post left carpal tunnel release. SUBJECTIVE Mr. Perdomo returns proximally 2 weeks status post left carpal tunnel release. He has please report that he has no pain. He is understandably eager to remove his splint. PHYSICAL EXAMINATION General: NAD, follows commands HEENT: NCAT CV: skin warm, dry, well perfused Pulm: unlabored Neuro: alert, appropriate Upper Extremity: His wound is nicely healed and sutures removed uneventfully. He has good color and capillary refill. He has good opponens function. His 2 point discrimination is 6-7 mm in all digits. ADDITIONAL STUDIES Laboratory studies: No results for input(s): HGB, [...] Relevant imaging, where available, was reviewed. 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 Tiny accessory navicular. Left foot otherwise negative. Upper Extremity Arterial - Vasospasm (Raynaud) Result Date: 07/18/2021 Narrative: Right: Doppler Waveform (arm): Normal at all levels evaluated. Systolic Blood Pressure (mmHg): Arm-- 116, Radial-- 131, Ulnar-- 123 Digit Pressure: Normal-- all digits. PVR Waveforms: Normal-- arm, forearm Marcelino's test: Negative. Baseline (room) Digit Temperature: Normal-- all digits. Ice Im mersion: Normal rewarming. Left: Doppler Waveform (arm): Normal at all levels evaluated. Systolic Blood Pressure (mmHg): Arm-- 113, Radial-- 131, Ulnar-- 127 Digit Pressure: Normal-- all digits. PVR Waveforms: Normal-- arm, forearm Marcelino's test: Negative. Baseline (room) Digit Temperature: Normal-- all digits. Ice Immersion: Normal rewarming. Conclusions: Normal proximal upper extremity Doppler signals and segmental pressures. The Marcelino's test is negative bilaterally. Baseline pressures are normal in all digits bilaterally. Baseline temperatures are normal in all digits bilaterally. Following ice water immersion there is a normal or near normal recovery of temperature for all digits. There is no evidence of inducible vasospasm. No prior study for comparison. Electrodiagnostic studies: Relevant EMG/NCV studies were reviewed. ASSESSMENT: 1. Status post left carpal tunnel release which is stable and healed. PLAN. Would like Mr. Perdomo to move forward with our standard post suture removal protocol following carpal tunnel release. I would like to see him back in a month a month or so for follow-up but I have asked him to call for questions or concerns in the meantime. Thank you for the opportunity to participate in this patient's care. Please contact us with questions or concerns. All questions and concerns were answered on today's visit. There were no communicationbarriers present. Electronically signed by: Nabor Rodriguez M.D. 08/03/21 9:35 PM APPAREL EMBROIDERY DIGITIZER Answers for HPI/ROS submitted by the patient on 08/03/2021 No general issues: Yes No eye issues: Yes No ENT issues: Yes No heart issues: Yes No respiratory issues: Yes No GI issues: Yes Pain or stiffness in the joints: Yes No skin issues: Yes No neurologic issues: Yes No mental health issues: Yes No blood/lymph issues: Yes Frequent urination: Yes Incontinence (urine leakage): Yes REL EMBROIDERY DIGITIZER documented in this encounter Plan of Treatment Scheduled Referrals Name Type Priority Associated Order Schedule Diagnoses Orthopedic Surgery Outpatient Referral Routine Ex pected: office visit 09/03/2021 (clinic) (Approximate), Expires: 11/03/2022 documented as of this encounter Visit Diagnoses Diagnosis Carpal Tunnel Syndrome Left - Primary documented in this encounter Care Teams Street Vendor Relationship Specialty Start Date End Date Elsewhere, Pcp PCP - General Internal Medicine 07/19/21 documented as of this encounter
--- OUTSIDE RECORDS SUMMARY | 2022-05-10 09:55 | XMS_ITS | Encounter Summary ---
:1950 Author Organization [facility] Address [address] [place] [address] Care Team Providers Name Role Phone Elsewhere, Pcp Primary Care Provider Unavailable Encounter Details Date Type Department Care Team Description 12/29/2021 Hospital Encounter RST [facility] OR Nabor Rodriguez, Carpal Tunnel [address] M.D. Syndrome Left [place], [place] [address] (Primary Dx) [id number] [place], [place] [phone] Social History Tobacco Use Types Packs/Day Years [...] or relatives? How often do you attend jew or More than 4 times per year 07/18/2021 rastafarian services? Do you belong to any clubs or Yes 07/18/2021 organizations such as jew groups, unions, fraternal or athletic groups, or [...] have completed or the highest Stephanie, MEd, LOW PRESSURE BOILER OPERATOR, CAREN) degree you have received? 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 Please report to the [facility] 15 Desk [address] to check-in. If you have any questions or concerns before this appointment, please do not hesitate to call Dr. Rodriguez's office: - administrative medical director - fax - appointments - after hours [...] opioid pain medication, please call Dr Rodriguez's administrative medical director during business hours, or the after hours [...] to get your bowels moving. - An zkuy-mtg-kjacxog laxative such as milk of magnesia may [...] additional information about smoking cessation, go to http://[email or web address].org/stop-smoking/index. html or call [phone] Driving or Operating Machinery - You should [...] 04/03/2010 utein (CENTRUM SILVER MEN ORAL) omega 1-ays-xlh-fish oil Take by mouth. 0 1,000 mg [...] Finger Thumb Left,Trigger Finger Thumb Right A welder first class actively participated and was necessary for one [...] Left Trigger Finger Thumb Right Case Notes TRANSFORMER REPAIRER at 8:26 RELEASE TRIGGER FINGER 12/29/2021 9:24 AM CDT Tr igger Finger Thumb Left Trigger Finger Thumb Right Case Notes TRANSFORMER REPAIRER at 8:26 documented in this encounter Visit Diagnoses Diagnosis Carpal Tunnel Syndrome Left - Primary documented in this encounter Administered Medications Inactive [...] use if given in last 6 hours metoprolol tablet 12.5 mg (LOPRESSOR) 12.5 mg, [...] 1018, PACU & Post-Op, First line therapy documented in this encounter Active and Recently [...] Pain documented in this encounter Care Teams Training And Development Coordinator Relationship Specialty Start Date End Date Elsewhere, Pcp PCP - General Internal Medicine 07/19/21 documented as of this encounter
--- OUTSIDE RECORDS SUMMARY | 2022-05-10 09:56 | XMS_ITS | Encounter Summary ---
:1950 Author Organization [facility] Address [address] [place] [address] Care Team Providers Name Role Phone Unavailable Primary Care Provider Unavailable Encounter Details Date Type Department Care Team Description 05/16/2010 Hospital Encounter HX NO MAPPING Social History Tobacco Use Types Packs/Day Years Used Date Smoking Tobacco: Never Assessed Alcohol Habits Answer Date Recorded How often [...] More than 4 times per year 07/18/2021 scientology services? Do you belong to any clubs [...] minutes do you engage in exercise at is 20 min 07/18/2021 level? Stress Answer [...] place to sleep or slept in a retirement (including now)? 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 cyanocobalamin (VITAMIN Take 1 tablet by 0 2009 B12) 1,000 mcg tablet mouth daily. gelatin 600 mg capsule Take by mouth. 0 6 multivit-min/FA/lycopen/lut 0 04/03/20 10 ein (CENTRUM SILVER MEN ORAL) sildenafiL (VIAGRA) 25 mg Take 25 mg by 0 008 07/18/2021 tablet mouth as needed. documented as of this encounter Plan of Treatment Not on filedocumented as of this encounter Visit Diagnoses Not on filedocumented in this encounter
--- OUTSIDE RECORDS SUMMARY | 2022-05-10 09:56 | XMS_ITS | Encounter Summary ---
:1950 Author Organization [facility] Address [address] [place] [address] Care Team Providers Name Role Phone Unavailable Primary Care Provider Unavailable Reason for Visit Reason Comments Pre-scheduling Questionnaire Encounter Details Date Type Department Care Team Description 03/26/2020 Clinical Department of Prescheduling, Pre-scheduli ng Communication Orthopedic Surgery Provider Question shalondaire in [place], [place] [address] [place] [address] Social History Tobacco Use Types Packs/Day Years [...] or relatives? How often do you attend protestant or More than 4 times per year 07/18/2021 buddhism services? Do you belong to any clubs or Yes 07/18/2021 organizations such as protestant groups, unions, fraternal or athletic groups, or [...] place to sleep or slept in a senior living (including now)? 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
--- OUTSIDE RECORDS SUMMARY | 2022-05-10 09:56 | XMS_ITS | Encounter Summary ---
:1950 Author Organization [facility] Address [address] [place] [address] Care Team Providers Name Role Phone Unavailable Primary Care Provider Unavailable Encounter Details Date Type Department Care Team Description 07/18/2021 Hospital Encounter Department of Dani Garrido, Louise puente Foot [facility] Radiology, Brando Gomez [facility], in [address] [place] [address] [place] [phone] [place], [place] [phone] (Wo rk) [phone] Social History Tobacco Use Types Packs/Day Years [...] or relatives? How often do you attend zoroastrian or More than 4 times per year 07/18/2021 amish services? Do you belong to any clubs or Yes 07/18/2021 organizations such as zoroastrian groups, unions, fraternal or athletic groups, or [...] place to sleep or slept in a skilled nursing (including now)? Education Answer Date Recorded What is the highest level of school Master's degree (e.g., M George, MS, 04/21/2021 you have completed or the highest Stephanie, MEd, TRUCK DRIVER'S OFFSIDER, CAREN) degree you have received? 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 aspirin [address] tablet Take 1 [...] Acute Pain. documented as of this encounter Plan of Treatment Not on filedocumented as of this encounter Procedures Procedure Name Priority Date/Time Associated Comments Diagnosis DX FOOT LEFT 3+ RAD - Routine 07/18/2021 9:09 Pain Foot Left Result s for this VIEWS (most inpatients AM REHABILITATION CASE COORDINATOR procedure a re in and all the results outpatients) section. 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 Left foot otherwise negative. Narrative 07/18/2021 9:16 AM REHABILITATION CASE COORDINATOR EXAM: ??DX FOOT LEFT 3+ VIEWS Procedure Note Javed Proctor M.D. - 07/18/2021Forma tting of this note might be different from the original. EXAM: DX FOOT LEFT 3+ VIEWS IMPRESSION: Degenerative arthritis left 1st MTP join t and scattered throughout the IP joints. Tiny accessory navicular. Left foot otherwise negative. Elana ELLIS DIAGNOSTIC IMAGIN G PROCEDURES documented in this encounter Visit Diagnoses Diagnosis Pain Foot Left documented in this encounter Additional Health Concerns Infection Onset Date Last Indicated Resolved Time COVID19 Pending 07/18/2021 07/18/2021 07/18/2021 2:46 PM REHABILITATION CASE COORDINATOR documented as of this encounter
--- OUTSIDE RECORDS SUMMARY | 2022-05-10 09:56 | XMS_ITS | Encounter Summary ---
:1950 Author Organization [facility] Address [address] [place] [address] Care Team Providers Name Role Phone Unavailable Primary Care Provider Unavailable Encounter Details Date Type Department Care Team Description 05/20/2009 Hospital Encounter HX NO MAPPING Alex Gomez M.D. Social History Tobacco Use Types Packs/Day Years [...] More than 4 times per year 07/18/2021 confucianist services? Do you belong to any clubs [...] place to sleep or slept in a half-way (including now)? 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 gelatin 600 mg capsule Take by mouth. 0 6 sildenafiL (VIAGRA) 25 mg Take 25 mg by mouth 0 0 09/13/2007 07/18/2021 tablet as needed. documented as of this encounter Plan of Treatment Not on filedocumented as of this encounter Procedures Procedure Name Priority Date/Time Associated Diagnosis Comme nts DX ANKLE RIGHT 3+ Routine 05/20/2009 10:18 AM Res ults for this VIEWS ELECTRONIC NEWS GATHERING EDITOR procedure are i n the results section. documented in this encounter Results DX Ankle Right 3+ Views (05/20/2009 10:18 AM ELECTRONIC NEWS GATHERING EDITOR) Anatomical Region Laterality Modality Lower Extremity, Ankle Right Radiographic Imag ing Specimen (Source) Anatomical Collection Method Collection Time Re ceived Time Location / / Volume Laterality 05/20/2009 10:18 AM ELECTRONIC NEWS GATHERING EDITOR Addenda Addendum by ProviderKobe M.D. o n 05/20/2009 10:18 AM ELECTRONIC NEWS GATHERING EDITOR RAD^^^MA XR Ankle Right 3 or more views 05/20/2009 10:18:00 Narrative 05/20/2009 10:33 AM ELECTRONIC NEWS GATHERING EDITOR HISTORY: 58-year-old male status post fa ll with pain, injured right ankle. ?? Comparison: None. ?? Findings: There is no acute right ankle osseous abnormality. Bone mineralization is within normal limits. The right ankle mortise is preserved. ?? Impression: No acute right ankle osseous abnormality. Procedure Note Rodrigo Aquino M.D. / Provider, Paresh hutchison M.D. - 11/07/2016 HISTORY: 58-year-old male status post fa ll with pain, injured right ankle. Comparison: None. Findings: There is no acute right ankle osseous abnormality. Bone mineralization is within normal limits. The right ankle mortise is preserved. Impression: No acute right ankle osseous abnormality. Yoly Sorto(R), R.TJase(R)(M) IMG DIAGNOSTIC IM AGING PROCEDURES documented in this encounter Visit Diagnoses Not on filedocumented in this encounter
--- OUTSIDE RECORDS SUMMARY | 2022-05-10 09:56 | XMS_ITS | Encounter Summary ---
:1950 Author Organization [facility] Address [address] [place] [address] Care Team Providers Name Role Phone Unavailable Primary Care Provider Unavailable Encounter Details Date Type Department Care Team Description 04/13/2020 Orders Only Department of [place], Javed Mass Hand Soft Tissue Orthopedic Surgery in JMARU, C.N.PJase, (P rimary Dx) [place], [place] DJaseNChad, M.S.N. [address] [place] [address] [place] [phone] Social History Tobacco Use Types Packs/Day Years [...] or relatives? How often do you attend worship or More than 4 times per year 07/18/2021 yarsanism services? Do you belong to any clubs or Yes 07/18/2021 organizations such as worship groups, unions, fraternal or athletic groups, or [...] or slept in a penitentiary (including now)? 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 Narrative 04/13/2020 10:09 AM INJECTOR ASSEMBLER EXAM: ??INTERPRETATION OF OUTSIDE MR EXTREMITY COMPARISON: ??Radiographs dated 01/30/20 20. FINDINGS: ??MRI of the left hand without and with IV contrast obtained at outside center on 02/13/2020. There is a bilobed fatty mass lesion wit h several thin, nonenhancing internal septations, seen best on series 8, image 21 and series 8, image 13. It dissects between the long and ring fingers at the level of the PIP joints, with both dorsal and palmar extension. More proxim ally, this dissects along the palmar aspect of the hand between the flexor te ndons to the long and ring fingers, with some clefting of the palmar interossei s uggesting extension from that muscle. It extends deep to the palmar aponeurosis. In total, this mass measures 6.1 x 1.8 x 1.8 cm in size. No associated enhancemen t. It is well marginated. No osseous abnormality. No surrounding soft tissue edema. Cystic change within the 2nd and 3rd metacarpal heads is likely degenerat guillaume. Procedure Note Freddie De Jesus M.D. - 04/13/2020For matting of this note might be different from the original. EXAM: INTERPRETATION OF OUTSIDE MR EXTRE MITY COMPARISON: Radiographs dated 01/30/2020 . FINDINGS: MRI of the left hand without a nd with IV contrast obtained at outside center on 02/13/2020. There is a bilobed fatty mass lesion wit h several thin, nonenhancing internal septations, seen best on series 8, image 21 and series 8, image 13. It dissects between the long and ring fingers at the level of the PIP joints, with both dorsal and palmar extension. More proxim ally, this dissects along the palmar aspect of the hand between the flexor te ndons to the long and ring fingers, with some clefting of the palmar interossei s uggesting extension from that muscle. It extends deep to the palmar aponeurosis. In total, this mass measures 6.1 x 1.8 x 1.8 cm in size. No associated enhancemen t. It is well marginated. No osseous abnormality. No surrounding soft tissue edema. Cystic change within the 2nd and 3rd metacarpal heads is likely degenerat guillaume. 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 Javed Parra APRN, C.N.P., D.N.P., M.S.N. IMG MR I PROCEDURES documented in this encounter Visit Diagnoses Diagnosis Mass Hand Soft Tissue - Primary Mass Hand Soft Tissue documented in this encounter
--- OUTSIDE RECORDS SUMMARY | 2022-05-10 09:56 | XMS_ITS | Encounter Summary ---
:1950 Author Organization [facility] Address [address] [place] [address] Care Team Providers Name Role Phone Unavailable Primary Care Provider Unavailable Encounter Details Date Type Department Care Team Description 04/13/2020 Orders Only Department of Orthopedic Nabor Rodriguez M.D. Surgery in [place], [address] [place] [address] [place] [phone] [place] [address] [phone] Social History Tobacco Use Types Packs/Day Years [...] place to sleep or slept in a nursing home (including now)? 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
--- OUTSIDE RECORDS SUMMARY | 2022-05-10 09:56 | XMS_ITS | Encounter Summary ---
:1950 Author Organization [facility] Address [address] [place] [address] Care Team Providers Name Role Phone Unavailable Primary Care Provider Unavailable Encounter Details Date Type Department Care Team Description 04/13/2020 Ancillary Procedure Department of Alec Parra nd Soft Radiology in Javed TongMARU Tissue [place], C.N.P., D.N.P.[facility] [address] [place] [address] [place] [phone] Social History Tobacco Use Types Packs/Day Years [...] or relatives? How often do you attend denominational or More than 4 times per year 07/18/2021 yarsanism services? Do you belong to any clubs or Yes 07/18/2021 organizations such as denominational groups, unions, fraternal or athletic groups, or [...] place to sleep or slept in a alf (including now)? 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 Narrative 04/13/2020 10:09 AM ACOUSTICAL TILE PATTERNMAKER EXAM: ??INTERPRETATION OF OUTSIDE MR EXTREMITY COMPARISON: ??Radiographs dated 01/30/20. FINDINGS: ??MRI of the left hand without [...] Visit Diagnoses Diagnosis Mass Hand Soft Tissue documented in this encounter
--- OUTSIDE RECORDS SUMMARY | 2022-05-10 09:56 | XMS_ITS | Encounter Summary ---
:1950 Author Organization [facility] Address [address] [place] [address] Care Team Providers Name Role Phone Unavailable Primary Care Provider Unavailable Reason for Visit Reason Comments Appointment Encounter Details Date Type Department Care Team Description 07/15/2021 Clinical Communication Department of Nabor Rodriguez App ointment Orthopedic Surgery in [place], [place] [address] [facility] [address] [place] [phone] Social History Tobacco Use Types Packs/Day Years [...] More than 4 times per year 07/18/2021 protestant services? Do you belong to any clubs [...] have completed or the highest Stephanie, MEd, PHYSICAL THERAPY PROFESSOR, CAREN) degree you have received? 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 - 07/15/2021 3:02 PM CST We do not need the covid result. He appears to also be scheduled with vascular and will be doing associated studies which we had planned to discuss with him regarding a transient discolored finger. We can see him at any time, be that with or without the vascular information. Thanks ayanna ER HUMAN RESOURCES MANAGER Telephone Encounter - Javed Parra APRN, C.N.PJase, Valeria.N.P., M.S.N. - 07/15/2021 2:11 PM CST We were planning to see him on Sunday to prep for surgery we have scheduled for Sunday. It appears he has quite a bit scheduled for the . We can see him whenever but probably should see him at some point to finalize the surgical plan for Sunday. Thanks ayanna ER HUMAN RESOURCES MANAGER Telephone Encounter - Macrina Harman - 07/15/2021 1:54 PM CST Patient was not aware that he was to see Dr Rodriguez on Tuesday 07/18 at 1030. He thought it was on Sunday. 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 Please advise. Daniele ER HUMAN RESOURCES MANAGER documented in this encounter Plan of Treatment Not on filedocumented as of this encounter Visit Diagnoses Not on filedocumented in this encounter
--- OUTSIDE RECORDS SUMMARY | 2022-05-10 09:56 | XMS_ITS | Encounter Summary ---
:1950 Author Organization [facility] Address [address] [place] [address] Care Team Providers Name Role Phone Elsewhere, Pcp Primary Care Provider Unavailable Encounter Details Date Type Department Care Team Description 07/19/2021 Hospital Encounter Outpatient Procedure Nabor Rodriguez, Carpal Tunnel Center in [place] Chloé Syndrome Left [place] [address] [facility] (Primary Dx) [address] [place] [address] [phone] Social History Tobacco Use Types Packs/Day Years [...] More than 4 times per year 07/18/2021 lutheran services? Do you belong to any clubs [...] or slept in a alf (including now)? Education Answer Date Recorded What is the highest level of school Master's degree (e.g., M A, MS, 04/21/2021 you have completed or the highest Stephanie, MEd, TRAVEL TRAILER COMPONENTS ASSEMBLER, CAREN) degree you have received? 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 - 07/19/2021 10:[address] Rodriguez Post-operative Instructions A follow-up appointment with Dr. Rodriguez has been made for you in two weeks. Please report to the [facility] Floor 15 Desk E to check-in. If you have any questions or concerns before this appointment, please do not hesitate to call Dr. Rodriguez's office: - medical and scientific illustrator - fax - appointments - after hours [...] pain medication, please call Dr Rodriguez's medical and scientific illustrator during business hours, or the after hours [...] to get your bowels moving. - An [id number] laxative such as milk of magnesia may [...] additional information about smoking cessation, go to http://www.[facility].org/stop-smoking/index. html or call [phone] Driving or Operating Machinery - You should not drive until you have stopped taking prescription pain medications for at least 24 hours. Seek Immediate Care if: - You have chest pain, trouble breathing or begin to wheeze. - You have trouble swallowing. Nabor Rodriguez MD Orthopedic Surgery [address] [place], [place] Sheet Metal Supervisor Appointments After hours Carpal Tunnel Release Preparing [...] You should not lift, push, pull, or irrigation pump installer anything heavier than a comb, toothbrush, fork, [...] The same day of surgery with a canal driver. Driving and operating machinery: is not [...] to avoid strain in the surgical area. NOLOGY OFFICER documented in this encounter Medications at Time [...] Post-op Diagnosis Carpal Tunnel Syndrome Left A sampler first actively participated and was necessary for one [...] recovery in stable condition. Nabor Rodriguez M.D. NOLOGY OFFICER documented in this encounter Plan of Treatment Not on filedocumented as of this encounter Procedures Procedure Name Priority Date/Time Associated Diagnosis Comme nts RELEASE CARPAL TUNNEL 07/19/2021 12:48 PM Carpal Tunne l Syndrome OPEN WRIST TECHNOLOGY OFFICER Left documented in this encounter Visit Diagnoses Diagnosis Carpal Tunnel Syndrome Left - Primary Carpal Tunnel Syndrome Left documented in this encounter Admitting Diagnoses Diagnosis Carpal Tunnel Syndrome Left documented in this encounter Administered Medications Inactive Administered Medications - up to 3 most recent administrations Medication Order MAR Action Action Date Dose Rate Site acetaminophen tablet 1,000 mg Given 07/19/2021 11:08 AM TECHNOLOGY OFFICER 1,00 0 mg (TYLENOL) 1,000 mg, oral, Once, On Sun07/19/21 at 1030, For 1 dose, Pre-Op celecoxib capsule 200 mg (CeleBREX) Given 07/19/2021 11:08 AM TECHNOLOGY OFFICER 200 mg 200 mg, oral, Once, On Sun07/19/21 at 1030, For 1 dose, Pre-Op metoprolol tablet 12.5 mg (LOPRESSOR) 12.5 mg, [...] Recently Administered Medications Times are shown in TECHNOLOGY OFFICER. Scheduled Medication Order 07/17/2021 07/18/2021 07/19/2021 acetaminophen tablet 1,000 mg (TYLENOL) (COMPLETED) 1108 (Given - Provider: Brenda Ashley RJaseNJase) 1,000 mg, oral, Once, On Sun07/19/21 at 1030, For 1 dose, Pre-Op celecoxib capsule 200 mg (CeleBREX) (COMPLETED) 1108 (Given - Provider: Brenda Ashley R.N.) 200 mg, oral, Once, On Sun07/19/21 at 1030, For 1 dose, Pre-Op clindamycin in D5W IVPB 900 mg (CLEOCIN) (COMPLETED) 1310 (Given - Provider: Crystal Maher, MIDDLEWARE CONSULTANT, SHOT BLAST EQUIPMENT OPERATOR) 900 mg, intravenous, at 100 mL/hr, Admin [...] injection documented in this encounter Care Teams Family Welfare Social Work Professor Relationship Specialty Start Date End Date Elsewhere, Pcp PCP - General Internal Medicine 07/19/21 documented as of this encounter
--- OUTSIDE RECORDS SUMMARY | 2022-05-10 09:56 | XMS_ITS | Encounter Summary ---
:1950 Author Organization [facility] Address [address] [place] [address] Care Team Providers Name Role Phone Unavailable Primary Care Provider Unavailable Reason for Referral Outpatient (Routine) - Closed Specialty Diagnoses / Procedures Referred By Contact Refer red To Contact Diagnoses Carpal Tunnel Syndrome Left Elana Montoya [facility] Procedures Upper Extremity Arterial - Vasospasm (Raynaud) Mitzy Harden [address] [place] [phone] Referral ID Status Reason Start Date Expiration Date Visits Requ ested Visits Authorized [id number] Closed 04/26/2021 04/26/2022 1 1 K TAPER Reason for Visit Outpatient (Routine) - Closed Specialty Diagnoses / Procedures Referred By Contact Refer red To Contact Diagnoses Carpal Tunnel Syndrome Left Elana Montoya [facility] Procedures Upper Extremity Arterial - Vasospasm (Raynaud) Mitzy Harden [address] [place] [phone] Referral ID Status Reason Start Date Expiration Date Visits Requ ested Visits Authorized [id number] Closed 04/26/2021 04/26/2022 1 1 Encounter Details Date Type Department Care Team Description 07/18/2021 Hospital Encounter Department of Gerber Montoya pal [facility] Mega Campbell Syndrome Left in [place], [address] [place], [place] [address] [facility] [id number] [place], [place] [phone] (Work) [phone] Social History Tobacco Use Types Packs/Day Years [...] or relatives? How often do you attend spiritism or More than 4 times per year 07/18/2021 taoism services? Do you belong to any clubs or Yes 07/18/2021 organizations such as spiritism groups, unions, fraternal or athletic groups, or [...] place to sleep or slept in a fci (including now)? Education Answer Date Recorded What is the highest level of school Master's degree (e.g., M A, MS, 04/21/2021 you have completed or the highest Stephanie, MEd, CLIENT ACCOUNT MANAGER, CAREN) degree you have received? 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 documented in this encounter Results Upper Extremity Arterial - Vasospasm (Raynaud) (07/18/2021 8:26 AM SHANK TAPER) Anatomical Region Laterality Modality Other Specimen (Source) Anatomical Collection Method Collection Time Re ceived Time Location / / Volume Laterality 07/18/2021 7:38 AM SHANK TAPER Narrative 07/18/2021 7:38 AM SHANK TAPER Right: Doppler Waveform (arm): ?Normal at all levels evaluated. ??Systolic Blood Pressure (mmHg): ? Arm-- 116, ?? Radial-- 131, ?? Ul natanael-- 123 Digit Pressure: ? Normal-- ??all digits. ??PVR Waveforms: ? Normal-- ??arm, forearm Marcelino's test: ? Negative. ??Baseline (room) Digit Temper ature: ?Normal-- ??all digits. ??Ice Immersion: ? Normal rewarming. ?? Left: Doppler Waveform (arm): ?[place] l at all levels evaluated. ??Systolic Blood Pressure (mmHg): ? Arm-- 113, ?? Radial-- 131, ?? Ulnar-- 127 Digit Pressure: ? Normal-- ??all digits. ??PVR W aveforms: ? Normal-- ??arm, forearm Marcelino's test: ? Negative. ??Baseline (room) Digit Temper ature: ?Normal-- ??all digits. ??Ice Immersion: ? Normal rewarming. ?? Conclusions: Normal proximal upper extre mity Doppler signals and segmental pressures. The Marcelino's test is negative bilaterally. Baseline pressures are normal in all digits bilaterally. ?? Baseline temperatures are normal in all digits bilaterally. ?? Following ice water immersion there is a normal or near normal recovery of temperature for all digits. ??There is no evidence of inducible vasospasm. ?? No prior study for comparison. Procedure Note Sg Kim M.D. - 07/18/2021Formatti ng of this note might be different from the original. Right: Doppler Waveform (arm): Normal at all levels evaluated. Systolic Blood Pressure (mmHg): Arm-- 116, Radial-- 131, Ulnar-- 123 Digit Pressure: Normal-- all digits. PVR Waveforms: Normal-- arm, forearm Marcelino's test: Negative. Baseline (room) Digit Temperat ure: Normal-- all digits. Ice Immersion: Normal rewarming. Left: Doppler Waveform (arm): Normal at all levels evaluated. Systolic Blood Pressure (mmHg): Arm-- 113, Radial-- 131, Ulnar-- 127 Digit Pressure: Normal-- all digits. PVR Waveforms: Normal-- arm, forearm Marcelino's test: Negative. Baseline (room) Digit Temperat ure: Normal-- all digits. Ice Immersion: Normal rewarming. Conclusions: Normal proximal upper extre mity Doppler signals and segmental pressures. The Marcelino's test is negative bilaterally. Baseline pressures are normal in all digits bilaterally. Baseline temperatures are normal in all digits bilaterally. Following ice water immersion there is a normal or near normal recovery of temperature for all digits. There is no evidence of inducible vasospasm. No prior study for comparison. Elana Garrido M.D. CV VASCULAR PROCEDURE S documented in this encounter Visit Diagnoses Diagnosis Carpal Tunnel Syndrome Left documented in this encounter Additional Health Concerns Infection Onset Date Last Indicated Resolved Time COVID19 Pending 07/18/2021 07/18/2021 07/18/2021 2:46 PM SHANK TAPER documented as of this encounter
--- OUTSIDE RECORDS SUMMARY | 2022-05-10 09:56 | XMS_ITS | Encounter Summary ---
:1950 Author Organization [facility] Address [address] [place] [address] Care Team Providers Name Role Phone Elsewhere, Pcp Primary Care Provider Unavailable Encounter Details Date Type Department Care Team Description 08/05/2012 Historical Ophthalmology RST OPH Demi Yu M.D. [address] [place], [place] [phone] (Wo rk) Social History Tobacco Use Types Packs/Day Years [...] More than 4 times per year 07/18/2021 adventist services? 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 - 08/05/2012 12:05 PM CST Eye General CHIEF COMPLAINT Occasional floaters; occasional blurred vision HISTORY OF PRESENT ILLNESS Floaters alone; both eyes; x many years; occasionally. Blurred vision; both eyes; left>right; x many years; occasionally; symptoms are moderate; with several such episodes per year lasting up to onehour. Denies flashes and diplopia. Denies ocular pain. 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 Vision improves if he closes hiseyes -- seems to be worse when he is tired. Has prescription for steroid cream for psoriasis -- in the past had problems on eyelids and needed to use steroid cream. IMPRESSION / REPORT / PLAN #1 Hx of Central serous retinopathy, left --residual pigment changes, no subfoveal fluid --might have been related to use of steroid cream for psoriasis (including on eyelids) #2 Cataracts, both eyes - not visually significant #3 Dry eye syndrome, both eyes --might be responsible for brief episodes of blurred vision which improved with blinking or rest --only using artificial tears intermittently #4 Presbyopia, both eyes --cont OTC readers, discussed using different strength for computer vs reading Plan --provided Amsler grid to monitor for changes --advised regular use of artificial tears --call if vision changes, (advised him to bring the FA photos from the time of diagnosis) --otherwise follow up in ~1-2yrs DIAGNOSIS #1 Hx of Central serous retinopathy, left #2 Cataracts, both eyes - not visually significant #3 Dry eye syndrome, both eyes #4 Presbyopia, both eyes CDM Reports - EYEGEN Id: [id number] Status: Fnl documented in this encounter Plan of Treatment Not on filedocumented as of this encounter Visit Diagnoses Not on filedocumented in this encounter Additional Health Concerns Infection Onset Date Last Indicated Resolved Time COVID19 Pending 07/18/2021 07/18/2021 07/18/2021 2:46 PM ANALOG CIRCUIT DESIGNER COVID19 Pending 12/28/2021 12/28/2021 12/28/2021 2:43 PM CDT documented as of this encounter Care Teams Crop Or Grain Farmworker Relationship Specialty Start Date End Date Elsewhere, Pcp PCP - General Internal Medicine 07/19/21 documented as of this encounter
--- OUTSIDE RECORDS SUMMARY | 2022-05-10 09:56 | XMS_ITS | Encounter Summary ---
:1950 Author Organization [facility] Address [address] [place] [address] Care Team Providers Name Role Phone Unavailable Primary Care Provider Unavailable Reason for Visit Reason Comments Appointment Encounter Details Date Type Department Care Team Description 03/25/2021 Clinical Communication Department of Nabor Rodriguez App ointment Orthopedic Surgery in [place], [place] [address] [facility] [address] [place] [phone] Social History Tobacco Use Types Packs/Day Years [...] or relatives? How often do you attend latter-day or More than 4 times per year 07/18/2021 gnosticist services? 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 - 03/25/2021 4:16 PM CDT Go ahead and schedule him. I am not sure we need to repeat anything until we sort out his problems. Thanks ayanna Telephone Encounter - Brenda Barrett - 03/25/2021 4:03 PM CDT This would be a new patient to Dr. 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 Dr. Rodriguez had called him and stated he agreed and everything was fine. 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 Patient is still having issues, would like to be seen for both hands. I'm not quite sure what is all going on this his left hand, but on the right hand, the scar from surgery is bothering him. Fine to schedule appointment with Dr. Rodriguez? Any testing needed? Thank you documented in this encounter Plan of Treatment Not on filedocumented as of this encounter Visit Diagnoses Not on filedocumented in this encounter
--- OUTSIDE RECORDS SUMMARY | 2022-05-10 09:56 | XMS_ITS | Encounter Summary ---
:1950 Author Organization [facility] Address [address] [place] [address] Care Team Providers Name Role Phone Unavailable Primary Care Provider Unavailable Encounter Details Date Type Department Care Team Description 08/05/2012 Hospital Encounter HX RST [facility] EXERCISE LAB Consuelo Byrne M.D. [address] [place] [address] (Wo rk) Social History Tobacco Use Types [...] or relatives? How often do you attend confucianism or More than 4 times per year 07/18/2021 christianity services? 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 simvastatin (ZOCOR) 20 mg Take 1 tablet by 0 03/0 11/201112/26/2021 tablet mouth every evening. tadalafiL (CIALIS, ADCIRCA) Take 1 tablet by 0 07/18/2021 20 mg tablet mouth as directed. documented as of this encounter Plan of Treatment Not on filedocumented as of this encounter Procedures Procedure Name Priority Date/Time Associated Diagnosis Comme nts EXERCISE ECG Routine 08/05/2012 10:16 AM CUSTOM SEAMSTRESS documented in this encounter Results Exercise ECG (08/05/2012 10:16 AM CUSTOM SEAMSTRESS) Specimen (Source) Anatomical Collection Method Collection Time Re ceived Time Location / / Volume Laterality 08/05/2012 10:16 AM CUSTOM SEAMSTRESS Consuelo Munguia M.D. CV STRESS PROCEDURES Performing Organization Address City/State/ZIP Code Phon e Number [id number] CONVERSION documented in this encounter Visit Diagnoses Not on filedocumented in this encounter
--- OUTSIDE RECORDS SUMMARY | 2022-05-10 09:56 | XMS_ITS | Encounter Summary ---
:1950 Author Organization [facility] Address [address] [place] [address] Care Team Providers Name Role Phone Unavailable Primary Care Provider Unavailable Reason for Referral Outpatient (Routine) - Closed Specialty Diagnoses / Procedures Referred By Contact Refer red To Contact Orthopedic Surgery Diagnoses [facility] Elana Harden M.D. [address] [place] [address] Referral ID Status Reason Start Date Expiration Date Visits Requ ested Visits Authorized [id number] Closed 04/26/2021 04/26/2022 1 1 Scheduling Instructions Ortho internal referral panel order, clark ging before Consult visit utpatient (Routine) - Closed Specialty Diagnoses / Procedures Referred By Contact Refer red To Contact Orthopedic Surgery Dani Garrido [facility] france Harden M.D. [address] [place] [phone] Referral ID Status Reason Start Date Expiration Date Visits Requ ested Visits Authorized [id number] Closed 04/26/2021 04/26/2022 1 1 Scheduling Instructions If possible, please schedule pre op appo intment with Dr. Rodriguez, and vascular medicine/vasospasm studies on same day. utpatient (Routine) - Closed Specialty Diagnoses / Procedures Referred By Contact Refer red To Contact Vascular Medicine Diagnoses [facility] [address] [place] [address] Referral ID Status Reason Start Date Expiration Date Visits Requ ested Visits Authorized [id number] Closed 04/26/2021 04/26/2022 1 1 utpatient (Routine) - Closed Specialty Diagnoses / Procedures Referred By Contact Refer red To Contact Diagnoses Carpal Tunnel Syndrome Left Elana Montoya [facility] Procedures Upper Extremity Arterial - Vasospasm (Raynaud) Mitzy Harden [address] [place], [place] [address] Referral ID Status Reason Start Date Expiration Date Visits Requ ested Visits Authorized [id number] Closed 04/26/2021 04/26/2022 1 1 BOILER OPERATOR Reason for Visit Appointment Request (Routine) - Closed Specialty Diagnoses / Procedures Referred By Contact Refer red To Contact Orthopedic Surgery Referral ID Status Reason Start Date Expiration Date Visits Requ ested Visits Authorized [id number] Closed 03/28/2021 03/28/2022 1 1 Encounter Details Date Type Department Care Team Description 04/26/2021 Comprehensive Visit Department of Nabor Rodriguez, Carpal Tunnel Syndrome Left (Primary Dx); Orthopedic Surgery M.DJase Pain Hand Left; in [place], [facility] [address] Pain Foot Left [place], [place] [address] [facility] [address] [place], [place] [phone] (Work) [phone] Social History Tobacco Use Types Packs/Day Years [...] have completed or the highest Stephanie, MEd, MUD ANALYSIS OPERATOR, CAREN) degree you have received? 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 - 04/26/2021 1:00 PM CST HAND CLINIC CONSULTATION Chief Complaint: Bilateral hand pain HISTORY OF PRESENT ILLNESS Rigoberto Perdomo is a 70 y.o. right handed male who presents to clinic today for evaluation of both of his hands. He is status post right carpal tunnel release in [facility] on 01/05/21 and has had pain at his surgical site since this surgery. He has pain with pushing off on his hands or lifting objects. This is centered right over his surgical scar. He has not done any scar massage at this time, and does think he pain has slowing been improving compared to right after surgery. He denies any infections at this incision but did have mild dehiscence initially that fortunately healed uneventfully. He has had resolution of his numbness on the right hand. On his left hand, patient has two concerns today. The first is symptoms that he describe to be carpal tunnel on the left and feel identical to his right hand prior to his surgery. He has numbness and tingling in all fingers and feels that this is worsened with activity such as driving, reading, and sleeping. He often times wakes up with numbness in the fingers and has to shake out his hand to improvethis. He has never had any injections or use any braces on his hand for carpal tunnel. He is interested in discussing surgery for his left hand today. His additional concern for his left hand is a history of a mass on the third web space that had an excisional biopsy performed at an outside hospital in [place] in April of 2020. 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 Approximately 1 month after the surgery, patient had an episode where his index finger on the left side turned completely blue, and he had to report to a local emergency department for evaluation. He reports he had vascular studies performed at that time which did not show any abnormalities. The finger resolved with warming of the hand. He reports he has persistent extreme sensation of cold in the left index finger since his surgery, in the finger will be very sensitive and get extremely cold with associated color change the time he is in cold weather. He wears multiple layers of gloves as well as use is hand warmers and will soak the hand in warm water when these episodes are severe. He notes he had no problems with cold sensitivity or temperature changes in his hand over the summer. He is not on any blood thinning medications the on the baby aspirin. REVIEW OF SYSTEMS Negative except as noted in HPI. MEDICATIONS Prior to Admission medications Not on File ALLERGIES Not on File PAST MEDICAL HISTORY No past medical history on file. PAST SURGICAL HISTORY Past Surgical History: Procedure Laterality Date ??? OTHER CONVERTED SHX (SEE COMMENT) N/A 05/16/2010 >Colonoscopy. FAMILY HISTORY No family history on file. SOCIAL HISTORY Social History Tobacco Use ??? Smoking status: Never Smoker ??? Smokeless tobacco: Not on file Substance Use Topics ??? Alcohol use: Not on file Occupation: Retired PHYSICAL EXAMINATION General: NAD, follows commands HEENT: NCAT CV: regular Pulm: unlabored Neuro: alert, appropriate Right Upper Extremity: Patient's incision is well healed without any surrounding erythema or concerning signs of infection. He is mildly tender over his surgical scar with some residual scar tissue present. No evidence of thenar atrophy, and he is able to fire APB against resistance. He is able to make a full composite fist, and his hand is warm well perfused. Left upper extremity: Patient has a well-healed incision over the volar aspect of his palm between the third and fourth metacarpal. He is able to make a full composite fist and resist firing of his APBon exam. He does have a palpable nodule in the distal third webspace the as well as circumscribed and mobile from his residual lipoma. This is nontender to palpation. He has a positive Tinel's and Phalen's test on the left side with radiation into the fingertips. Range of Motion Elbow Right Left Flexion 120 120 Extension 0 0 Supination 80 80 Pronation 80 80 Wrist Right Left Flexion 70 70 Extension 70 70 Ulnar Deviation 30 30 Radial Deviation 20 20 Strength Right Left Aircraft Designer 21 30 Apposition 6.5 7.5 Opposition 5 6 2 Point Discrimination Right Left Thumb 5 5 Index 5 6 Long 5 7 Ring Radial/Ulnar 6 5 6 6 Small 5 6 ADDITIONAL STUDIES Imaging: Relevant imaging, where available, was reviewed. Of note, MRI of the left hand from 2019 revealed large lipoma involving the left palm between the third and fourth metacarpal with extension distally into the third webspace. IMPRESSION/ASSESSMENT: 1. Right pillar pain following right carpal tunnel release at an outside hospital 2. Left carpal tunnel syndrome 3. Cold sensitivity and color changes of the left index finger, concerning for Raynaud's versus emboli to the finger Rigoberto Perdomo is a very pleasant man who presents to clinic today for the above-mentioned concerns. Regarding his right hand, we discussed with the patient that commonly pillar and surgical scar pain improves over time and can take up to 1 year following surgery to fully resolve. We instructedthe patient to perform gentle scar massage using vitamin-E oil and provided him a silicone gel sleeve today in clinic. We also discussed his left hand carpal tunnel syndrome. We discussed potential trial of an injection or splint today, but patient has had poor success in prior steroid injections and wishes to proceed with surgical intervention of his carpal tunnel. A surgical date was picked out in July. We also discussed his left index finger color changes with cold sensitivity and cold being of provoking factor in his symptoms. However, given that he feels that these changes began after his surgery. We feel is reasonable to obtain vascular studies of the left index finger and however colleagues in vascular Medicine evaluate the patient. We will try to coordinate this consult with his return pre op visit around his left carpal tunnel surgery in July. PLAN. 1. Scar massage for the right carpal tunnel release 2. Left carpal tunnel release in July 3. Vascular medicine referral with vascular studies Thank you for the opportunity to participate in this patient's care. Please contact us with questions or concerns. Elana Garrido M.D. BOILER OPERATOR Associated attestation - Nabor Rodriguez M.D. - 04/26/2021 9:04 PM HAIR BOILER OPERATOR I saw and evaluated the patient, participating in the devine portions of the service. I reviewed the resident/fellow???s note. I agree with the resident/fellow???s findings and plan. I examined and had a lengthy discussion with Mr. Perdomo. He was agreeable to getting some noninvasive vascular studies as well as consultation with our colleagues in vascular Medicine for his index finger episodic ischemia. He would like to consider surgery for his carpal tunnel on the left side number agreeable to this. Like to see him back in follow-up after he has had the studies. He is planning to go to [place] for short period of time and will be back in July and will plan to see him back after the studies at that time and we have tentatively scheduled him for surgery and consented him. Hehas my card and contact information for questions or concerns in the meantime. documented in this encounter Plan of Treatment Scheduled Referrals Name Type Priority Associated Order Schedule Diagnoses Vascular Medicine - Outpatient Referral Routine Pain Hand Left Expected: Raynaud's 04/26/2021 syndrome/upper (Approximate) , extremity ischemia Expires: 07/27/2022 consult (clinic) Orthopedic Surgery Outpatient Referral Routine 1 Occurrences Pre Op (clinic) starting until Orthopedic Surgery Outpatient Referral Routine Pain Foot Left Expected: - Foot/Ankle non 04/26/2021 surgical consult (Approximat e), (clinic) Expires: 2022 documented as of this encounter Results DX Foot Left 3+ Views (07/18/2021 9:09 AM HAIR BOILER OPERATOR) Anatomical Region Laterality Modality Lower Extremity, Foot, Musculoskeletal RST LOS, Left Digital Radiography Musculoskeletal ARZ LOS, Muskuloskeletal FLA LOS Specimen (Source) Anatomical Collection Method Collection Time Re ceived Time Location / / Volume Laterality 07/18/2021 9:15 AM HAIR BOILER OPERATOR Impressions 07/18/2021 9:16 AM HAIR BOILER OPERATOR 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 Tiny accessory navicular. Left foot otherwise negative. Narrative 07/18/2021 9:16 AM HAIR BOILER OPERATOR EXAM: ??DX FOOT LEFT 3+ VIEWS Procedure Note Javed Proctor M.D. - 07/18/2021Forma tting of this note might be different from the original. EXAM: DX FOOT LEFT 3+ VIEWS IMPRESSION: Degenerative arthritis left 1st MTP join t and scattered throughout the IP joints. Tiny accessory navicular. Left foot otherwise negative. Elana [facility] PROCEDURES Upper Extremity Arterial - Vasospasm (Raynaud) (07/18/2021 8:26 AM HAIR BOILER OPERATOR) Anatomical Region Laterality Modality Other Specimen (Source) Anatomical Collection Method Collection Time Re ceived Time Location / / Volume Laterality 07/18/2021 7:38 AM HAIR BOILER OPERATOR Narrative 07/18/2021 7:38 AM HAIR BOILER OPERATOR Right: Doppler Waveform (arm): ?Normal at all [...] all digits. PVR Waveforms: Normal-- arm, forearm Marcelion's test: Negative. Baseline (room) Digit Temperat ure: [...] Diagnosis Carpal Tunnel Syndrome Left - Primary Pain Hand Left Pain Foot Left Carpal Tunnel Syndrome Left Pain Foot Left documented in this encounter
--- OUTSIDE RECORDS SUMMARY | 2022-05-10 09:56 | XMS_ITS | Encounter Summary ---
:1950 Author Organization [facility] Address [address] [place] [address] Care Team Providers Name Role Phone Unavailable Primary Care Provider Unavailable Reason for Visit Outpatient (Routine) - Closed Specialty Diagnoses / Procedures Referred By Contact Refer red To Contact Vascular Medicine Diagnoses Pain Hand Left [facility] Elana Harden M.D. [address] [place] [address] Referral ID Status Reason Start Date Expiration Date Visits Requ ested Visits Authorized [id number] Closed 04/26/2021 04/26/2022 1 1 Encounter Details Date Type Department Care Team Description 07/18/2021 Comprehensive Visit Department of Costopoulos, Raynaud 's Phenomena Without Gangrene (Primary Dx); Vascular Medicine in [place] Pain Hand Left [place], [place] [address] [facility] [address] [place] [phone] Social History Tobacco Use Types Packs/Day Years [...] or relatives? How often do you attend buddhist or More than 4 times per year 07/18/2021 worship services? Do you belong to any clubs or Yes 07/18/2021 organizations such as buddhist groups, unions, fraternal or athletic groups, or [...] have completed or the highest Stephanie, MEd, WATER RESOURCE ENGINEERING SPECIALIST, CAREN) degree you have received? 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 - 07/18/2021 10:30 AM CST REFERRAL SOURCE Elana Montoya M.D. [address] [place] [address] SUBJECTIVE CHIEF COMPLAINT / REASON FOR VISIT HISTORY OF PRESENT ILLNESS Mr. Perdomo is a 71 y.o. male that I am seeing today for an opinion and recommendations on finger discomfort and color changes with cold exposure. The patient has been referred by Elana Montoya M.D. 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 Mr. Perdomo is currently scheduled for left carpal tunnel syndrome surgery tomorrow and previously hehad the same procedure done to his right hand. His problem with the fingers in his left hand started after a biopsy for a mass lesion in the left palm in January of 2020, which ultimately turned out to be benign, and the left palmar mass was not removed. That fall, he began to notice a cold sensitivity and discomfort to the index and middle fingersof his left hand and cold exposure would cause the right index finger in particular to turn blue. Hesought medical attention for this and a Doppler ultrasound study was reportedly normal without any blood clots being seen in the left hand. He has continued to have cold exposure sensitivity to those two fingers with color changes in the right index finger. He now wears a glove to the left hand and use s hand warmers when he is going to be outside in cool or cold weather and that will prevent these symptoms from happening. He had noninvasive upper extremity arterial studies with vasospasm provocation earlier today and he notes that it would take a longer cold exposure than having his hands in ice water for only 2 minutes, to trigger the symptoms involving the left hand index and middle fingers. He tells me that normallyit takes 10 minutes of cold exposure to trigger symptoms. Past Medical History: His past medical history is as noted above and includes hypertension for whichhe is currently on amlodipine, a vasodilator. He is also being treated for hyperlipidemia. Social History: He has never been a smoker. He drinks alcohol on occasion, perhaps once every two months. Family History: Family history extending to grandparents, aunts, and uncles is notable for no similar Raynaud's Phenomenon symptoms, and no autoimmune inflammatory diseases such as rheumatoid arthritisor lupus. The following portions of the patient's history were reviewed and updated as appropriate: allergies,current medications, family history, medical history, social history, surgical history, psychiatric history, substance abuse history, problem list, labs, diagnostics tests. I reviewed the pertinent clinical notes in the electronic health record. REVIEW OF SYSTEMS A complete review of systems was performed with pertinent information listed in the HPI, all others negative. OBJECTIVE VITALS BP 123/72 (BP Location: Right arm, Patient Position: Sitting) Pulse (!) 56 Ht 169 cm Wt 69.1 kg BMI 24.19 kg/m?? PHYSICAL EXAMINATION Body mass index is 24.19 kg/m??. Physical Exam Neurological: Awake, alert, and appropriately conversant. Psychiatry: In no distress and he did not appear to be depressed. Vessels: Radial pulses were 4+ bilaterally with ulnars of 2+ bilaterally, brachials were 4+ bilaterally, and carotids were 4+ bilaterally. Respiratory: Lungs were clear to auscultation. Cardiovascular: Cardiac exam revealed a regular rate with a normal S1 and S2. Abdomen: Active bowel sounds. No bruits. : Not examined. Musculoskeletal: On upper extremity exam he did not have limb atrophy. Both hands were of normal color and temperature today at the time of the exam. There were no stigmata of atheroembolism or thromboembolism into the fingers of either hand. DIAGNOSTIC REVIEW All relevant labs and diagnostic studies below were reviewed. Noninvasive upper extremity arterial studies with vasospasm provocation from earlier today showed normal proximal upper extremity Doppler signals and segmental pressures. The lay's test was negative bilaterally. With vasospasm provocation, there was no evidence of inducible vasospasm. ASSESSMENT / PLAN ASSESSMENT #1 Raynaud's Phenomena Without Gangrene Mr. Perdomo is clinically describing Raynaud's Phenomenon, also known as Raynaud's Disease, Raynaud'sSyndrome, and vasospasm, which has occurred postoperatively in the left hand after a biopsy procedure. I suspect that he may have had some minor nerve damage as a result of the surgery that has led to v asospasm. It is also possible that his left carpal tunnel syndrome may be a contributor. He does nothave an underlying autoimmune inflammatory disease, and given the limited involvement and clear relationship to the prior surgery, I do not think we need to obtain screening studies for any of the autoimmune inflammatory diseases. We talked about what we know and do not know about Raynaud's Phenomenon. He is already learned that keeping the hands warm will prevent the symptoms, and that would be the primary therapy. He is also on a vasodilator, amlodipine, for his hypertension, and we talked about how he may be getting a secondary benefit for the vasospasm from the amlodipine. Primary therapy for Raynaud's is to protect the hands from cold exposure, and to warm them if they have been exposed to cold and symptoms develop. PLAN 1. Recommendations are as above. Total time spent with patient: 50 minutes. Time spent in counseling and coordination of care: 30 minutes. Ángel Mark M.D. OR IT ASSISTANT documented in this encounter Plan of Treatment Not on filedocumented as of this encounter Visit Diagnoses Diagnosis Raynaud's Phenomena Without Gangrene - P rimary Pain Hand Left documented in this encounter Additional Health Concerns Infection Onset Date Last Indicated Resolved Time COVID19 Pending 07/18/2021 07/18/2021 07/18/2021 2:46 PM SENIOR IT ASSISTANT documented as of this encounter
--- OUTSIDE RECORDS SUMMARY | 2022-05-10 09:56 | XMS_ITS | Encounter Summary ---
:1950 Author Organization [facility] Address [address] [place] [address] Care Team Providers Name Role Phone Unavailable Primary Care Provider Unavailable Reason for Referral Outpatient (Routine) - Closed Specialty Diagnoses / Procedures Referred By Contact Dom palmer To Contact Orthopedic Surgery Darrius Stokes [place] M.D. [address] [place] [phone] Referral ID Status Reason Start Date Expiration Date Visits Requ ested Visits Authorized [id number] Closed 07/18/2021 07/18/2022 1 1 TH CARE LAW SPECIALIST Reason for Visit Outpatient (Routine) - Closed Specialty Diagnoses / Procedures Referred By Contact Dom palmer To Contact Orthopedic Surgery Felix Montoya M.D. [address] [place] [phone] Referral ID Status Reason Start Date Expiration Date Visits Requ ested Visits Authorized [id number] Closed 04/26/2021 04/26/2022 1 1 Encounter Details Date Type Department Care Team Description 07/18/2021 Office Visit Department of Nabor Rodriguez, Carpal Tunnel Syndrome Orthopedic Surgery in M.D. Left (Primary Dx) [place], [place] [address] [place] [phone] Social History Tobacco Use Types Packs/Day Years [...] More than 4 times per year 07/18/2021 rastafari services? Do you belong to any clubs [...] place to sleep or slept in a jail (including now)? Education Answer Date Recorded What is the highest level of school Master's degree (e.g., M A, MS, 04/21/2021 you have completed or the highest Stephanie, MEd, INSTRUCTOR LOOPING, CAREN) degree you have received? 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 - 07/18/2021 9:30 AM CST HAND CLINIC FOLLOW-UP VISIT CHIEF COMPLAINT: Preop visit for left carpal tunnel release SUBJECTIVE Mr. Perdomo returns today to discuss his upcoming surgery. He has persistent symptoms of left carpal tunnel in addition to left index finger periodic ischemia after exposure to cold. Vascular studies were inconclusive without any evidence of occlusion or prolonged vasospasms. PHYSICAL EXAMINATION General: NAD, follows commands HEENT: NCAT CV: regular Pulm: unlabored Neuro: alert, appropriate Left Upper Extremity: Right Upper Extremity: Patient's incision is well [...] left side with radiation into the fingertips. ADDITIONAL STUDIES Laboratory studies: No results for [...] Imaging: Relevant imaging, where available, was reviewed. Right: Doppler Waveform (arm): Normal at all levels evaluated. Systolic Blood Pressure (mmHg): Arm--116, Radial-- 131, Ulnar-- 123 Digit Pressure: Normal-- [...] inducible vasospasm. No prior study for comparison. ASSESSMENT: 1. Left carpal tunnel syndrome Mr. Perdomo has symptomatic left carpal tunnel syndrome. We discussed open carpal tunnel release tomorrow and the patient would like to proceed. PLAN. - Open carpal tunnel release tomorrow. Thank you for the opportunity to participate in this patient's care. Please contact us with questions or concerns. Electronically signed by: Darrius Stokes M.D. 07/18/21 12:43 PM HEALTH CARE LAW SPECIALIST TH CARE LAW SPECIALIST Associated attestation - Nabor Rodriguez M.D. - 07/18/2021 1:43 PM HEALTH CARE LAW SPECIALIST I saw and evaluated the patient, participating in the devine portions of the service. I reviewed the resident/fellow???s note. I agree with the resident/fellow???s findings and plan. I reviewed the surgery in detail with Mr. Perdomo and consent was obtained. The recovery was also reviewed in detail. I look forward to seeing him tomorrow for upcoming surgery and I have asked him to notify me for questions or concerns in the meantime. Has my card and contact information. documented in this encounter Plan of Treatment Scheduled Referrals Name Type Priority Associated Order Schedule Diagnoses Orthopedic Surgery Outpatient Referral Routine Ex pected: office visit 08/01/2021 (clinic) (Approximate), Expires: 10/15/2022 documented as of this encounter Visit Diagnoses Diagnosis Carpal Tunnel Syndrome Left - Primary documented in this encounter Additional Health Concerns Infection Onset Date Last Indicated Resolved Time COVID19 Pending 07/18/2021 07/18/2021 07/18/2021 2:46 PM HEALTH CARE LAW SPECIALIST documented as of this encounter
--- OUTSIDE RECORDS SUMMARY | 2022-05-10 09:56 | XMS_ITS | Encounter Summary ---
:1950 Author Organization [facility] Address [address] [place] [address] Care Team Providers Name Role Phone Elsewhere, Pcp Primary Care Provider Unavailable Encounter Details Date Type Department Care Team Description 07/29/2009 Historical Ophthalmology RST OPH Phillip Parker O.D. [address] [place], [place] [phone] (Wo rk) Social History [...] or relatives? How often do you attend nondenominational or More than 4 times per year 07/18/2021 nondenominational services? Do you belong to any clubs or Yes 07/18/2021 organizations such as nondenominational groups, unions, fraternal or athletic groups, or [...] place to sleep or slept in a longterm (including now)? 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 - 07/29/2009 12:20 PM CST Eye General CHIEF COMPLAINT Headaches, difficulty focusing. HISTORY OF PRESENT ILLNESS In the past week patient has noted headaches when reading, causing eyes to water. No previous headache issues. Patient is wondering what strength of glasses to wear. Left eye vision is not as clear as right, intermittent, for the past several years. Difficulty focusing distance and near for several years, intermittent. Wears OTC readers. At times central vision blurs out, not sure which eye. Last week noted new floaters, not sure which eye, not noticing today. Diagnoses of central serous retinopathyin 1996. TY: TALENT ASSOCIATE first dx in late . photos were taken but unavailable today (at home). comes and goes. doesn't remember which eye. 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 residual pigment changes, no net plan 1. srx 2. 1 year / prn DIAGNOSIS #1 Hx Central serous retinopathy, left CDM Reports - EYEGEN Id: [id number] Status: Fnl documented in this encounter Plan of Treatment Not on filedocumented as of this encounter Visit Diagnoses Not on filedocumented in this encounter Additional Health Concerns Infection Onset Date Last Indicated Resolved Time COVID19 Pending 07/18/2021 07/18/2021 07/18/2021 2:46 PM CULINARY ART TEACHER COVID19 Pending 12/28/2021 12/28/2021 12/28/2021 2:43 PM CDT documented as of this encounter Care Teams Greenhouse Worker Relationship Specialty Start Date End Date Elsewhere, Pcp PCP - General Internal Medicine 07/19/21 documented as of this encounter
--- OUTSIDE RECORDS SUMMARY | 2022-05-10 09:57 | XMS_ITS | Encounter Summary ---
:1950 Author Organization [facility] Address [address] [place] [address] Care Team Providers Name Role Phone Fabian Mena MD Primary Care Provider Reason for Referral - Closed Specialty Diagnoses / Procedures Referred By Contact Refer red To Contact Diagnoses Achilles bursitis or tendinitis Frank Abel DPM [address] [place] [phone] Referral ID Status Reason Start Date Expiration Date Visits Requ ested Visits Authorized [id number] Closed 06/17/2012 12/14/2012 1 1 IC RELATIONS CONSULTANT Reason for Visit Reason Comments RECHECK L Achilles pain- f/u PT Encounter Details Date Type Department Care Team Description 06/17/2012 Office Visit Orthopaedic Clinic Naveen Abel bursitis or [facility] KATHRIN Marie tendinitis (Primary Center [address] [place] [address] Dx) 1st Floor, [address] [address] [place], [place] [phone] (Work) [phone] Social History Tobacco Use Types Packs/Day Years Used Date Smoking Tobacco: Never Smokeless Tobacco: Never Alcohol Use Standard Drinks/Week Comments Not Asked 0 (1 standard drink = 0.6 oz pure alcoho l) Sex Assigned at Date Recorded Not on file documented as of this encounter Last Filed Vital Signs Vital Sign Reading Time Taken Comments Blood Pressure - - Pulse - - Temperature - - Respiratory Rate - - Oxygen Saturation - - Inhaled Oxygen Concentration - - Weight 79.4 kg (175 lb) 06/17/2012 8:22 AM PUBLIC RELATIONS CONSULTANT Height 166.4 cm (5' 5.5) 06/17/2012 8:22 AM PUBLIC RELATIONS CONSULTANT Body Mass Index 28.68 06/17/2012 8:22 AM PUBLIC RELATIONS CONSULTANT documented in this encounter Progress Notes Frank Abel DPM - 06/17/2012 8:32 AM CST No past medical history on file. There is no problem list on file for this patient. No past surgical history on file. SUBJECTIVE FINDINGS: A 62-year-old male who returns to clinic for Achilles tendinopathy left. He relates it is getting better. He is doing well. He is getting stronger. He has more flexibility. He has been doing physical therapy but his still relates that he limps a little bit so a concern with that. OBJECTIVE FINDINGS: Vascular status DP and PT 2/4 left. There is really minimal bulging in the left Achilles tendon. There is still some mild pain on palpation along the Achilles tendon. There is no erythema, no drainage, no odor, no calor. ASSESSMENT AND PLAN: Achilles tendinopathy left. This is improving. He has not really ___ orthotics and he is using a heel lift. He will continue that. Continue with physical therapy until symptoms resolve and then return to clinic to see me as needed. IC RELATIONS CONSULTANT documented in this encounter Nursing Notes 06/17/2012 8:00 AM CST >> NATHALIE Hand Jun 17, 2012 8:22 AM Reason For Visit: Patient presents with: RECHECK - L Achilles pain- f/u PT Pain Assessment Patient Currently in Pain: Yes 0-10 Pain Scale: 1 Primary Pain Location: Ankle Pain Orientation: Left Pain Descriptors: Other (comment);Dull (on and off pain) HEIGHT: 5' 5.5, WEIGHT: 175 lbs 0 oz, BMI: Body mass index is 28.68 kg/(m^2). Current Outpatient Prescriptions: simvastatin (ZOCOR) 20 MG tablet, Take 1 tablet by mouth At Bedtime. amLODIPine (NORVASC) 5 MG tablet, Take 5 mg by mouth daily. fish oil-omega-3 fatty acids (FISH OIL) 1000 MG capsule, Take 1 capsule by mouth daily. aspirin 81 MG tablet, Take 1 tablet by mouth daily. Gelatin 650 MG TABS, Take 1 tablet by mouth daily. cyanocolbalamin (VITAMIN B-12) 1000 MCG tablet, Take 1 tablet by mouth daily. ascorbic acid (VITAMIN C) 1000 MG TABS, Take 1,000 mg by mouth daily. Cholecalciferol (VITAMIN D) 1000 UNITS capsule, Take 1 capsule by mouth daily. Multiple Vitamins-Minerals (CENTRUM SILVER PO), Take 1 tablet by mouth daily. tadalafil (CIALIS) 20 MG tablet, Take 1 tablet by mouth as needed. sildenafil (VIAGRA) 25 MG tablet, Take 25 mg by mouth as needed. calcipotriene (DOVONEX) 0.005 % cream, Apply 0.5 inches topically 2 times daily. triamcinolone (KENALOG) 0.1 % cream, Apply 0.5 inches topically 2 times daily. -- Penicillins -- Hives documented in this encounter Plan of Treatment Not on filedocumented as of this encounter Visit Diagnoses Diagnosis Achilles bursitis or tendinitis - Primar y documented in this encounter Care Teams Bar Tender Relationship Specialty Start Date End Date Fabian Mena MD PCP - General 07/19/11 [facility] [address] [place] [address] documented as of this encounter
--- OUTSIDE RECORDS SUMMARY | 2022-05-10 09:57 | XMS_ITS | Encounter Summary ---
:1950 Author Organization [facility] Address [address] [place] [address] Care Team Providers Name Role Phone Fabian Mena MD Primary Care Provider Reason for Visit Reason Onset Date Comments Schedule Surgery 12/24/2020 right carpal tunnel release Encounter Details Date Type Department Care Team Description 12/24/2020 Telephone [facility] Pierre Vásquez MD Schedule Surgery Orthopedic [facility] [id number] [facility] (r ight carpal tunnel [facility] 300 release) [address] [place] [address] [facility] [address] [place] [address] [phone] Social History Tobacco Use Types Packs/Day Years Used Date Smoking Tobacco: Never Smokeless Tobacco: Never Alcohol Use Standard Drinks/Week Comments Not Asked 0 (1 standard drink = 0.6 oz pure alcoho l) Sex Assigned at Date Recorded Not on file COVID-19 Exposure Response Date Recorded In the last month, have you been in contact with No / Unsure 12/22/2020 9:05 AM CDT someone who was confirmed or suspected to have Coronavirus / COVID-19? documented as of this encounter Miscellaneous Notes Telephone Encounter - Alen Reyesfady Cummins - 12/24/2020 9:49 AM CDT Scheduled surgery. Patient stated he is fully vaccinated and will not need a covid test. Type of surgery: right carpal tunnel Location of surgery: Other: [facility] Date and time of surgery: 01/05/21 @ 245pm Surgeon: Thalia Pre-Op Appt Date: local Post-Op Appt Date: 01/17/21 Packet sent out: Yes Pre-cert/Authorization completed: No Date: 12/24/20 Zaira Reyes, Laborer Stores documented in this encounter Plan of Treatment Not on filedocumented as of this encounter Visit Diagnoses Not on filedocumented in this encounter Care Teams Rotor Casting Machine Setup Operator Relationship Specialty Start Date End Date Fabian Mena MD PCP - General 07/19/11 [facility] [address] [place] [address] documented as of this encounter
--- OUTSIDE RECORDS SUMMARY | 2022-05-10 09:57 | XMS_ITS | Encounter Summary ---
:1950 Author Organization [facility] Address [address] [place] [address] Care Team Providers Name Role Phone Fabian Mena MD Primary Care Provider Pierre Vásquez MD Unavailable Reason for Visit Reason Onset Date Comments Patient Request 12/28/2020 Encounter Details Date Type Department Care Team Description 12/28/2020 Telephone [facility] Pierre Vásquez MD Patient Request Orthopedic Clinic [address] [facility] [address] [address] [place] [address] [place] [address] [place] [address] [phone] Social History Tobacco Use Types Packs/Day Years [...] this encounter Miscellaneous Notes Telephone Encounter - Bria Sanon ATC - 12/30/2020 9:21 AM CDT Called and got him on the schedule this morning with Dr. Vásquez to discuss. Bria Sanon ATC Telephone Encounter - Courtney Patel - 12/28/2020 1:45 PM CDT Left voicemail returning patient call. Due to patient having concerns regarding atrophy of his upper extremity, not noted by Dr. Vásquez writerwould recommend scheduling office visit for re-evaluation and further discussion of patient's concerns. Provided number to [facility] for call back. Courtney Patel ATC Telephone Encounter - Marguerite Lowry ATC - 12/28/2020 1:06 PM CDT Patient LVM on [facility] Triage line Would like to speak to nurse for Dr. Vásquez to discuss issues with his right arm. He states that after his appointment with Dr. Vásquez, he re-examined his arm and found that he has atrophy in his forearm andupper arm, naming atrophy in his biceps and triceps. He states that he wants to be sure that there is not other issues stemming from his shoulder, elbow or spine. He would like to make sure that everything has been addressed prior to surgery, so that it can all be taken care of in a systematic way. He does wish to have a re-evaluation from Dr. Vásquez to address with atrophy in his arm; and to explainto him why he has atrophy and how to correct it. He wishes to be called back by a nurse, but to also speak to Dr. Vásquez at [phone] documented in this encounter Plan of Treatment Not on filedocumented as of this encounter Visit Diagnoses Not on filedocumented in this encounter Care Teams Photo Mask Processor Relationship Specialty Start Date End Date Fabian Mena MD PCP - General 07/19/11 [facility] [address] [place] [address] Pierre Vásquez MD Assigned Musculoskeletal 12/26/[address] [place] [address] documented as of this encounter
--- OUTSIDE RECORDS SUMMARY | 2022-05-10 09:57 | XMS_ITS | Encounter Summary ---
:1950 Author Organization [facility] Address [address] [place] [address] Care Team Providers Name Role Phone Fabian Mena MD Primary Care Provider Pierre Vásquez MD Unavailable Encounter Details Date Type Department Care Team Description 12/30/2020 Travel Social History Tobacco Use Types Packs/Day Years Used Date Smoking Tobacco: Never Smokeless Tobacco: Never Alcohol Use Standard Drinks/Week Comments Not Asked 0 (1 standard drink = 0.6 oz pure alcoho l) Sex Assigned at Date Recorded Not on file COVID-19 Exposure Response Date Recorded In the last month, have you been in contact with No / Unsure 12/30/2020 10:35 AM CDT someone who was confirmed or suspected to have Coronavirus / COVID-19? documented as of this encounter Plan of Treatment Not on filedocumented as of this encounter Visit Diagnoses Not on filedocumented in this encounter Care Teams Tour Director Relationship Specialty Start Date End Date Fabian Mena MD PCP - General 07/19/11 [facility] [address] [place] [address] Pierre Vásquez MD Assigned Musculoskeletal 12/26/20 [address] [facility] [address] [place] [address] documented as of this encounter
--- OUTSIDE RECORDS SUMMARY | 2022-05-10 09:57 | XMS_ITS | Encounter Summary ---
:1950 Author Organization [facility] Address [address] [place] [address] Care Team Providers Name Role Phone Fabian Mena MD Primary Care Provider Encounter Details Date Type Department Care Team Description 07/29/2012 Results Only [facility] Frank Aragon DPM [address] [address] [phone] (Wo rk) Social History Tobacco Use Types Packs/Day Years Used Date Smoking Tobacco: Never Smokeless Tobacco: Never Alcohol Use Standard Drinks/Week Comments Not Asked 0 (1 standard drink = 0.6 oz pure alcoho l) Sex Assigned at Date Recorded Not on file documented as of this encounter Plan of Treatment Scheduled Orders Name Type Priority Associated Diagnoses Order S chedule X-RAY ORTHO OUTSIDE FILM Imaging Ord ered: 07/29/2012 documented as of this encounter Visit Diagnoses Not on filedocumented in this encounter Care Teams Finisher Brush Relationship Specialty Start Date End Date Fabian Mena MD PCP - General 07/19/11 [facility] [address] [place] [address] documented as of this encounter
--- OUTSIDE RECORDS SUMMARY | 2022-05-10 09:57 | XMS_ITS | Encounter Summary ---
:1950 Author Organization [facility] Address [address] [place] [address] Care Team Providers Name Role Phone Fabian Mena MD Primary Care Provider Pierre Vásquez MD Unavailable Encounter Details Date Type Department Care Team Description 01/17/2021 Travel Social History Tobacco Use Types Packs/Day Years Used Date Smoking Tobacco: Never Smokeless Tobacco: Never Alcohol Use Standard Drinks/Week Comments Not Asked 0 (1 standard drink = 0.6 oz pure alcoho l) Sex Assigned at Date Recorded Not on file COVID-19 Exposure Response Date Recorded In the last month, have you been in contact with No / Unsure 01/17/2021 8:57 AM CDT someone who was confirmed or suspected to have Coronavirus / COVID-19? documented as of this encounter Plan of Treatment Not on filedocumented as of this encounter Visit Diagnoses Not on filedocumented in this encounter Care Teams Register Clerk Relationship Specialty Start Date End Date Fabian Mena MD PCP - General 07/19/11 [facility] [address] [place] [address] Pierre Vásquez MD Assigned Musculoskeletal 12/26/20 [address] [facility] [address] [place] [address] documented as of this encounter
--- OUTSIDE RECORDS SUMMARY | 2022-05-10 09:57 | XMS_ITS | Encounter Summary ---
:1950 Author Organization [facility] Address [address] [place] [address]. [place] [address] Care Team Providers Name Role Phone Unavailable Primary Care Provider Unavailable Encounter Details Date Type Department Care Team Description 02/28/[address] [facility] MD Enrique Results XXX RETIRED XXX [address] [place] [address] Social History Tobacco Use Types Packs/Day Years Used Date Smoking Tobacco: Never Assessed Sex Assigned at Date Recorded Not on file documented as of this encounter Plan of Treatment Not on filedocumented as of this encounter Procedures Procedure Name Priority Date/Time Associated Diagnosis Comme nts X-RAY FINGER(S) Routine 02/28/2006 2:52 PM Res ults for this >=2 VIEWS CDT procedure are i n the results section. documented in this encounter Results X-RAY EXAM OF FINGER(S) (02/28/2006 2:52 PM CDT) Anatomical Region Laterality Modality Other Specimen (Source) Anatomical Collection Method Collection Time Re ceived Time Location / / Volume Laterality 02/28/2006 2:52 PM CDT Impressions 03/12/2006 3:25 PM CDT Right finger 2 views 02/28/2006. HISTORY: ?? Dislocated finger. COMPARISON: ?None. FINDINGS: ?There is an well corticat ed fragment at the distal tuft distal of the middle finger. There is a small avulsion fracture of the volar aspect of the proximal middle phal anx. There is a well corticated fragment at the dorsal aspect of the proximal distal phalanx, which may be more chronic. Ther e is apparent mild boutonniere's deformity. Soft tissue swe lling of the distal and proximal middle phalanx are noted. IMPRESSION: 1. Small avulsion fracture at the volar aspect of the proximal middle phalanx, most likely acute. 2. Well corticated fracture fragment at the distal tuft of the middle finger 3.Corticated avulsion fragment at the do rsal aspect of the distal phalanx, which appears chronic. 4 .Mild boutonniere's deformity. 5. If tissue swelling surrounding the mi ddle phalanx. I have personally reviewed the image and initial interpretation and agree with the findings. Javed Crabtree MD GENERAL IMAGING documented in this encounter Visit Diagnoses Not on filedocumented in this encounter
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
--- OUTSIDE RECORDS SUMMARY | 2022-05-10 09:57 | XMS_ITS | Encounter Summary ---
:1950 Author Organization [facility] Address [address] [place] [address]. [place] [address] Care Team Providers Name Role Phone Fabian Mena MD Primary Care Provider Reason for Referral - Closed Specialty Diagnoses / Procedures Referred By Contact Refer red To Contact Diagnoses Achilles bursitis or tendinitis Frank Abel DPM [address] [place] [address] [phone] Referral ID Status Reason Start Date Expiration Date Visits Requ ested Visits Authorized [id number] Closed 04/22/2012 10/19/2012 1 1 SOURCE INTELLIGENCE TECHNICIAN Reason for Visit Reason Comments RECHECK L Achilles tendinitis. Encounter Details Date Type Department Care Team Description 04/22/2012 Office Visit [facility] Naveen Abel bursitis or [facility] KATHRIN Marie tendinitis (Primary Center [address] [place] [address] Dx) 1st Floor, [address] [address] [place], [place] [phone] (Work) [phone] Social History Tobacco Use Types Packs/Day Years [...] - Inhaled Oxygen Concentration - - Weight 80.7 kg (178 lb) 04/22/2012 10:58 AM ALL SOURCE INTELLIGENCE TECHNICIAN Height 166.4 cm (5' 5.5) 04/22/2012 10:58 AM ALL SOURCE INTELLIGENCE TECHNICIAN Body Mass Index 29.17 04/22/2012 10:58 AM ALL SOURCE INTELLIGENCE TECHNICIAN documented in this encounter Progress Notes Frank Abel DPM - 04/22/2012 11:07 AM CST No past medical history on file. There is no problem list on file for this patient. No past surgical history on file. SUBJECTIVE FINDINGS: A 61-year-old male returns to clinic for Achilles tendinopathy, left. He relates it is getting better. It still hurts. He has done physical therapy. He has done 6 or so of those and he is doing that with [facility]. It seems to be going well. OBJECTIVE FINDINGS: Vascular status intact, left. He still has some bulging of the Achilles tendon proximal to the attachment on the left. There are no gross tendon voids. There is some mild pain on palpation. ASSESSMENT AND PLAN: Achilles tendinopathy, left. This is improving. Diagnosis and treatment optionsdiscussed with him. He will continue physical therapy and heel lifts and return to the clinic and see me in about 8 weeks. SOURCE INTELLIGENCE TECHNICIAN documented in this encounter Nursing Notes 04/22/2012 10:40 AM CST >> NATHALIE Hand Apr 22, 2012 10:59 AM Reason For Visit: Patient presents with: RECHECK - L Achilles tendinitis. Pain Assessment Patient Currently in Pain: Yes 0-10 Pain Scale: 2 Primary Pain Location: Ankle Pain Orientation: Left Pain Descriptors: Tender HEIGHT: 5' 5.5, WEIGHT: 178 lbs 0 oz, BMI: Body mass index is 29.17 kg/(m^2). Current Outpatient Prescriptions: simvastatin (ZOCOR) 20 [...] Treatment Scheduled Referrals Name Type Priority Associated Diagnoses Order S chedu PHYSICAL THERAPY Referral Routine Achilles bursitis or Ord ered: 04/22/2012 REFERRAL tendinitis (External-Prints) documented as of this encounter Visit Diagnoses Diagnosis Achilles bursitis or tendinitis - Primar y documented in this encounter Care Teams Deep Submergence Vehicle Crewmember Relationship Specialty Start Date End Date Fabian Mena MD PCP - General 07/19/11 [facility] [address] [place] [address] documented as of this encounter
--- OUTSIDE RECORDS SUMMARY | 2022-05-10 09:57 | XMS_ITS | Encounter Summary ---
:1950 Author Organization [facility] Address [address] [place] [address] Care Team Providers Name Role Phone Fabian Mena MD Primary Care Provider Encounter Details Date Type Department Care Team Description 07/29/2012 Results Only [facility] Frank Aragon DPM [address] [phone] (Wo rk) Social History Tobacco Use Types [...] on filedocumented in this encounter Care Teams Rickshaw Driver Relationship Specialty Start Date End Date Fabian Mena MD PCP - General 07/19/11 [facility] [address] [place] [address] documented as of this encounter
--- OUTSIDE RECORDS SUMMARY | 2022-05-10 09:57 | XMS_ITS | Encounter Summary ---
:1950 Author Organization [facility] Address [address] [place] [address] Care Team Providers Name Role Phone Fabian Mena MD Primary Care Provider Pierre Vásquez MD Unavailable Reason for Visit Reason Comments Surgical Followup Encounter Details Date Type Department Care Team Description 01/17/2021 Office Visit [facility] Mikey Lainez opedic aftercare [facility] (Primary Dx) [place] [id number] [place] [address] [facility] [place] [address] [place] [address] [place] [address] [phone] Social History Tobacco Use Types Packs/Day Years [...] / COVID-19? documented as of this encounter Last Filed Vital Signs Vital Sign Reading Time Taken Comments Blood Pressure 112/68 01/17/2021 8:58 AM CDT Pulse - - Temperature - - Respiratory Rate - - Oxygen Saturation - - Inhaled Oxygen Concentration - - Weight 66.2 kg (146 lb) 01/17/2021 8:58 AM CDT Height 167.6 cm (5' 6) 01/17/2021 8:58 AM CDT Body Mass Index 23.57 01/17/2021 8:58 AM CDT documented in this encounter Patient Instructions Patient InstructionsMikey Lainez PA-C - 01/17/2021 9:00 AM CDT Incision Care: Sutures were removed and Steri-Strips applied in usual fashion. Keep dry 24-48 hours. Showering ok after that time, however no soaking or scrubbing of incision for 1 weeks. Steri-strips will most likely fall off on their own, however they may be removed after 1 weeks with rubbing alcohol if they have not. You may continue to use the strips to protect the skin edges. If draining or bleeding stops the tape-strips are enough coverage unless you were instructed otherwise or you would like to cover for comfort. If drainage or bleeding continues please cover with clean dressings. You may also use a dressing or padding for comfort as needed. Gradually increase your activities as you can tolerated them, starting at a level well below what you would normally do. Lifting may be uncomfortable for a while, but you will not cause any damage. The skin around the incision may peel or have a hard skin edge over the next couple weeks. Also, theincision may be sensitive to the touch and be prominent due to scar tissue. You may massage the areawhen tolerated several times per day, over a clean dressing until fully healed, and then using lotion if needed, on the skin directly to desensitize the area and reduce scar tissue. Also, the nerve involved may heal for over a year from the time of surgery. During this time your symptoms may continue to improve or even recur temporarily and then resolve as part of the healing. Also follow up if the incision drains, has spreading redness or a marked increase in pain. Follow up as needed in clinic. documented in this encounter Progress Notes Mikey Lainez PA-C - 01/17/2021 9:00 AM CDT HISTORY OF PRESENT ILLNESS: Rigoberto Perdomo is a 70 year old male who is seen in follow up for right Carpal tunnel release, DOS 01/05/21. Present symptoms: Pt reports some improvement to CT symptoms. Is keeping covered. Pt is lightly using hand for activities. He notes that it is still very tender at the incision and that the fingers arestiff. Did keep dressing on for 6 days, then washed and applied neosporin. No new complaints. Denies Chest pain, Calve pain, Fever, Chills. Current Treatment: Postop. PHYSICAL EXAM: There were no vitals taken for this visit. There is no weight on file to calculate BMI. GENERAL APPEARANCE: healthy, alert and no distress PSYCH: mentation appears normal and affect normal/bright MSK: Right: Volar wrist. Incision clean and dry, Sutures present, some suture irritation with migration of suture through callous, otherwise healing. no incisional erythema, mild symmetric hyperemia. No Ecchymosis. Edema min. at wrist hand and digits. CMS: minerva incisional numbness, otherwise grossly intact to digits. AROM: mild restriction in palmar wrist flexion, otherwise WNL. ASSESSMENT: Rigoberto Perdomo is a 70 year old male S/P CTR. symptom improvement. Sutures pulled through callous causing irritation, otherwise Healing. We discussed that CT symptoms may improve for several months after surgery. PLAN: - Surgery discussed, images reviewed if applicable, and all questions were answered at this time. - Sutures removed with sterile technique, steri-strips applied in usual fashion, care instructions given and verbally acknowledged. - Medications: Taper RX pain meds, OTC PRN. - Physical Therapy: As instructed / MARISEL and KJ. - AAT Return to clinic PRN. Mikey Lainez PA-C Dept. Orthopedic Surgery [facility] 01/17/2021 documented in this encounter Plan of Treatment Not on filedocumented as of this encounter Visit Diagnoses Diagnosis Orthopedic aftercare - Primary Unspecified orthopedic aftercare documented in this encounter Care Teams Transformation Manager Relationship Specialty Start Date End Date Fabian Mena MD PCP - General 07/19/11 [facility] [address] [address] [place] [address] Pierre Vásquez MD Assigned Musculoskeletal 12/26/[id number] [address] documented as of this encounter
--- OUTSIDE RECORDS SUMMARY | 2022-05-10 09:57 | XMS_ITS | Encounter Summary ---
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 [address] [place] [phone] [id number] Social History Tobacco Use Types Packs/Day Years Used Date Smoking Tobacco: Never Smokeless Tobacco: Never Tobacco Cessation: Counseling Given: Yes Alcohol Use Standard Drinks/Week Comments Not Asked [...] Sign Reading Time Taken Comments Blood Pressure 120/62 12/22/2020 9:21 AM CDT Pulse - - Temperature - - Respiratory Rate - - Oxygen Saturation - - Inhaled Oxygen Concentration - - Weight 66.2 kg (146 lb) 12/22/2020 9:21 AM CDT Height 167.6 cm (5' 6) 12/22/2020 9:21 AM CDT Body Mass Index 23.57 12/22/2020 9:21 AM CDT documented in this encounter Patient Instructions Patient Pierre Collins MD - 12/22/2020 9:20 AM CDT Images from the original note were not included. Patient Education Understanding Carpal Tunnel Syndrome The carpal tunnel is a narrow space inside the wrist. It is ringed by bone and a band of tough tissue called the transverse carpal ligament. A major nerve called the median nerve runs from the forearm into the hand through the carpal tunnel. Tendons also run through the carpal tunnel. With carpal tunnel syndrome, the tendons or nearby tissues within the carpal tunnel may swell or thicken. Or the transverse carpal ligament may harden and shorten. This narrows the space in the carpal tunnel and puts pressure on the median nerve. This pressure leads to tingling and numbness of the hand and wrist. In time, the condition can make even simple tasks hard to do. What causes carpal tunnel syndrome? Doctors aren???t entirely clear why the condition occurs. Certain things may make a person more likely to have it. These include: ?? Being female ?? Being ?? Being overweight ?? Having diabetes or rheumatoid arthritis Symptoms of carpal tunnel syndrome Symptoms often come and go. At first, symptoms may occur mainly at night. Later, they may be noticedduring the day as well. They may get worse with activities such as driving, reading, typing, or holding a phone. Symptoms can include: ?? Tingling and numbness in the hand or wrist ?? Sharp pain that shoots up the arm or down to the fingers ?? Hand stiffness or cramping, especially in the morning ?? Trouble making a fist ?? Hand weakness and clumsiness Treatment for carpal tunnel syndrome Certain treatments help reduce the pressure on the median nerve and relieve symptoms. Choices for treatment may include one or more of the following: ?? Wrist splint. This involves wearing a special brace on the wrist and hand. The splint holds the wrist straight, in a neutral position. This helps keep the carpal tunnel as open as possible. ?? Cortisone shots. Cortisone is a medicine that helps reduce swelling. It is injected directly intothe wrist. It helps shrink tissues inside the carpal tunnel. This relieves symptoms for a time. ?? Pain medicines. You may take [id number] or prescription medicines to help reduce swelling and relieve symptoms. ?? Surgery. If the condition doesn???t respond to other treatments and doesn???t go away on its own,you may need surgery. During surgery, the surgeon cuts the transverse carpal ligament to relieve pressure on the median nerve. ?? When to call your healthcare provider Call your healthcare provider right away if you have any of these: ?? Fever of 100.4??F (38??C) or higher, or as directed ?? Symptoms that don???t get better, or get worse ?? New symptoms Siri last reviewed this educational content on 08/12/2015 ?? [id number] [employer]. All rights reserved. This information is not intended as a substitute for professional medical care. Always follow your healthcare professional's instructions. documented in this encounter Progress Notes Pierre Vásquez MD - 12/22/2020 9:20 AM CDT HISTORY OF PRESENT ILLNESS: Rigoberto Perdomo is a 70 year old male who is seen as self referral for right long finger pain. Hereports onset of symptoms 2007, with progressive worsening. He is right hand dominant. Patient currently retired. Present symptoms: Pain of the right wrist and hand, radiation into the forearm. Patient reports numbness of the right hand when driving, riding bicycle, at times he has difficulties lifting and carrying. Patient also reports increased hand symptoms with use of electric tooth brush. Patient reports generalized hand arthritis that has been increasing over the years. Treatments tried to this point: hand exercises, ASA 81 Orthopedic PMH: Right long finger dislocation ~2007, hand djd No past medical history on file.- none reported No past surgical history on file. -none reported No family history on file. Social History Socioeconomic History ??? Marital status: Spouse name: Not on file ??? Number of children: Not on file ??? Years of education: Not on file ??? Highest education level: Not on file Occupational History ??? Not on file Tobacco Use ??? Smoking status: Never Smoker ??? Smokeless tobacco: Never Used Substance and Sexual Activity ??? Alcohol use: Not on file ??? Drug use: Not on file ??? Sexual activity: Not on file Other Topics Concern ??? Not on file Social History Narrative ??? Not on file Social Determinants of Health Financial Resource Strain: ??? Difficulty of Paying Living Expenses: Food Insecurity: ??? Worried About Running Out of Food in the Last Year: ??? Ran Out of Food in the Last Year: Transportation Needs: ??? Lack of Transportation (Medical): ??? Lack of Transportation (Non-Medical): Physical Activity: ??? Days of Exercise per Week: ??? Minutes of Exercise per Session: Stress: ??? Feeling of Stress : Social Connections: ??? Frequency of Communication with Friends and Family: ??? Frequency of Social Gatherings with Friends and Family: ??? Attends Alevism Services: ??? Active Member of Clubs or Organizations: ??? Attends Club or Organization Meetings: ??? Marital Status: Intimate Partner Violence: ??? Fear of Current or Ex-Partner: ??? Emotionally Abused: ??? Physically Abused: ??? Sexually Abused: Current Outpatient Medications Medication Sig Dispense Refill ??? amLODIPine (NORVASC) 5 MG tablet Take 5 mg by mouth daily. ??? aspirin 81 MG tablet Take 1 tablet by mouth daily. ??? clobetasol (TEMOVATE) 0.05 % external ointment APPLY TWICE DAILY TO BODY RASH ON TOP OF VANICREAM ??? cyanocolbalamin (VITAMIN B-12) 1000 MCG tablet Take 1 tablet by mouth daily. ??? fish oil-omega-3 fatty acids (FISH OIL) 1000 MG capsule Take 1 capsule by mouth daily. ??? Multiple Vitamins-Minerals (CENTRUM SILVER PO) Take 1 tablet by mouth daily. ??? simvastatin (ZOCOR) 20 MG tablet Take 1 tablet by mouth At Bedtime. ??? triamcinolone (KENALOG) 0.1 % cream Apply 0.5 inches topically 2 times daily. ??? ascorbic acid (VITAMIN C) 1000 MG TABS Take 1,000 mg by mouth daily. (Patient not taking: Reported on 12/22/2020) ??? calcipotriene (DOVONEX) 0.005 % cream Apply 0.5 inches topically 2 times daily. (Patient not taking: Reported on 12/22/2020) ??? Cholecalciferol (VITAMIN D) 1000 UNITS capsule Take 1 capsule by mouth daily. (Patient not taking: Reported on 12/22/2020) ??? Gelatin 650 MG TABS Take 1 tablet by mouth daily. (Patient not taking: Reported on 12/22/2020) ??? sildenafil (VIAGRA) 25 MG tablet Take 25 mg by mouth as needed. ??? tadalafil (CIALIS) 20 MG tablet Take 1 tablet by mouth as needed. Allergies Allergen Reactions ??? Penicillins Hives REVIEW OF SYSTEMS: CONSTITUTIONAL: NEGATIVE for fever, chills, change in weight INTEGUMENTARY/SKIN: Psoriasis EYES: NEGATIVE for vision changes or irritation ENT/MOUTH: NEGATIVE for ear, mouth and throat problems RESP: NEGATIVE for significant cough or SOB BREAST: NEGATIVE for masses, tenderness or discharge CV: NEGATIVE for chest pain, palpitations or peripheral edema GI: NEGATIVE for nausea, abdominal pain, heartburn, or change in bowel habits : Negative MUSCULOSKELETAL: See HPI above NEURO: hand paresthesias ENDOCRINE: NEGATIVE for temperature intolerance, skin/hair changes HEME/ALLERGY/IMMUNE: NEGATIVE for bleeding problems PSYCHIATRIC: NEGATIVE for changes in mood or affect PHYSICAL EXAM: BP 120/62 (BP Location: Right arm, Patient Position: Chair, Cuff Size: Adult Regular) Ht 1.676 m (5' 6) Wt 66.2 kg (146 lb) BMI 23.57 kg/m?? Body mass index is 23.57 kg/m??. GENERAL APPEARANCE: healthy, alert and no distress HEENT: No apparent thyroid megaly. Clear sclera with normal ocular movement RESPIRATORY: No labored breathing SKIN: no suspicious lesions or rashes NEURO: Normal strength and tone, mentation intact and speech normal VASCULAR: Good pulses, and capillary refill LYMPH: no lymphadenopathy PSYCH: mentation appears normal and affect normal/bright MUSCULOSKELETAL: Not in acute distress Normal gait Normal neck movement Normal elbow movement No focal atrophy of the forearms Mild thenar eminence atrophy, right compared to left First dorsal interosseous musculature is slightly atrophied most likely from aging Slight prominence of the thumb CMC joint especially on the right Positive grinding test and pain with a circumduction maneuver the thumb CMC joint Gross light touch sensation is intact throughout the digits Negative Tinel's sign Positive Phalen test, right Abduction and adduction strength is full and symmetrical Minimal to mild flexion contracture of the PIP joint, right long finger from dislocation Gripping is full Pinching strength is full Flexion of the long fingers full ASSESSMENT: Chronic right carpal tunnel syndrome Right thumb CMC joint DJD PLAN: It was explained to him that intolerance of vibration and his tendency of dropping things as well asatrophy of the right thenar musculature are secondary to chronic carpal tunnel syndrome. He has a significant nocturnal paresthesias symptoms as well as difficulty driving and riding a bike. Because of obvious presence of thenar eminence atrophy, at this point surgical intervention was feltto be the best option. Once we went over the nature of carpal tunnel syndrome, surgical intervention was explained in termsof technical details and recovery time etc. His thenar eminence atrophy may not return. We are mainly concerned about paresthesias symptoms as well as preventing further progression of thenar eminence atrophy. Different choices for anesthesia were informed and he feels comfortable doing the surgery under local anesthesia. Right carpal tunnel release under local anesthesia is to be scheduled according to his convenience. Imaging Interpretation: None taken today Pierre Vásquez MD Department of Orthopedic Surgery Disclaimer: This note consists of symbols derived from keyboarding, dictation and/or voice recognition software. As a result, there may be errors in the script that have gone undetected. Please consider this when interpreting information found in this chart. documented in this encounter Plan of Treatment Scheduled Orders Name Type Priority Associated Diagnoses Order S chedule Arabella-Operative Procedures Routine Carpal tunnel syndrome Ord ered: 12/22/2020 Worksheet of right wrist documented as of this encounter Visit Diagnoses Diagnosis Carpal tunnel syndrome of right wrist - Primary Carpal tunnel syndrome Primary osteoarthritis of first carpomet acarpal joint of right hand Primary localized osteoarthrosis, hand documented in this encounter Care Teams Pre Fabricator Relationship Specialty Start Date End Date Fabian Mena MD PCP - General 07/19/11 [facility] [address] [place] [address] documented as of this encounter
--- OUTSIDE RECORDS SUMMARY | 2022-05-10 09:57 | XMS_ITS | Encounter Summary ---
:1950 Author Organization [place] Address [address] [place] [address] Care Team Providers Name Role Phone Fabian Mena MD Primary Care Provider Encounter Details Date Type Department Care Team Description 07/29/2012 Results Only [facility] Frank Aragon DPM [address] [phone] [phone] (Wo rk) Social History Tobacco Use Types [...] on filedocumented in this encounter Care Teams Senior Developer Relationship Specialty Start Date End Date Fabian Mena MD PCP - General 07/19/11 [facility] [address] [place] [address] documented as of this encounter
--- OUTSIDE RECORDS SUMMARY | 2022-05-10 09:57 | XMS_ITS | Encounter Summary ---
:1950 Author Organization [facility] Address [address] [place] [address] Care Team Providers Name Role Phone Fabian Mena MD Primary Care Provider Encounter Details Date Type Department Care Team Description 07/29/2012 Results Only [facility] Frank Aragon DPM [address] 5536 [phone] (Wo rk) Social History Tobacco Use Types [...] on filedocumented in this encounter Care Teams Store Shopper Relationship Specialty Start Date End Date Fabian Mena MD PCP - General 07/19/11 [facility] [address] [place] [address] documented as of this encounter
--- OUTSIDE RECORDS SUMMARY | 2022-05-10 09:57 | XMS_ITS | Encounter Summary ---
:1950 Author Organization [place] Address [address] [place] [address] Care Team Providers Name Role Phone Fabian Mena MD Primary Care Provider Encounter Details Date Type Department Care Team Description 03/16/2015 Telephone [facility] Nurse Snehal Spence, RN [facility] [address] [place] [phone] Social History Tobacco Use Types Packs/Day Years Used Date Smoking Tobacco: Never Smokeless Tobacco: Never Alcohol Use Standard Drinks/Week Comments Not Asked 0 (1 standard drink = 0.6 oz pure alcoho l) Sex Assigned at Date Recorded Not on file documented as of this encounter Miscellaneous Notes Telephone Encounter - Snehal Spence, RN - 03/16/2015 5:11 PM CDT Call Type: Triage Call Presenting Problem: Poison mary on legs and arms. Hasn't been able to sleep. Per guideline I recommended that Rigoberto go to [facility]. Hours and address given. Triage Note: Guideline Title: Poison Mary, [place], or [place] Exposure Recommended Disposition: See Provider within 24 hours Original Inclination: Wanted to speak with a nurse Override Disposition: Intended Action: Follow advice given Physician Contacted: No Symptoms are not improving or are worsening after 3 days of home treatment ? YES Signs of secondary infection ? NO Frail elderly or others with thinning skin and involvement of 10% or more of body surface area ? NO Involves eyes, mouth, or genitals. ? NO Involvement of 25% or more of body surface area ? NO Physician Instructions: Care Advice: documented in this encounter Plan of Treatment Not on filedocumented as of this encounter Visit Diagnoses Not on filedocumented in this encounter Care Teams Sheet Hanger Relationship Specialty Start Date End Date Fabian Mena MD PCP - General 07/19/11 [facility] [address] [place] [address] documented as of this encounter
--- OUTSIDE RECORDS SUMMARY | 2022-05-10 09:57 | XMS_ITS | Encounter Summary ---
:1950 Author Organization [facility] Address [address] [place] [address]. [place] [address] Care Team Providers Name Role Phone Fabian Mena MD Primary Care Provider Reason for Referral - Closed Specialty Diagnoses / Procedures Referred By Contact Refer red To Contact Diagnoses Achilles bursitis or tendinitis Frank Abel DPM [address] [place] [phone] Referral ID Status Reason Start Date Expiration Date Visits Requ ested Visits Authorized [id number] Closed 03/06/2012 09/02/2012 1 1 Reason for Visit Reason Comments Consult L Achilles tendonitis. Encounter Details Date Type Department Care Team Description 03/06/2012 Office Visit [facility] Naveen Abel bursitis or [facility] KATHRIN Marie tendinitis (Primary [facility] [address] [place] [address] Dx) 1st Floor, [address] [address] [place], [place] [phone] (Work) [phone] Social History Tobacco Use Types Packs/Day Years [...] - Inhaled Oxygen Concentration - - Weight 79.8 kg (176 lb) 03/06/2012 9:19 AM CDT Height 167.6 cm (5' 6) 03/06/2012 9:19 AM CDT Body Mass Index 28.41 03/06/2012 9:19 AM CDT documented in this encounter Progress Notes Frank Abel DPM - 03/06/2012 9:44 AM CDT No past medical history on file. There is no problem list on file for this patient. No past surgical history on file. SUBJECTIVE FINDINGS: A 61-year-old male presents for left ankle tendinitis. He relates in the left leg he used to have night cramps, kind of some contractions at night and it started hurting. Back in November, he was jogging, he kind of sprinted and felt it get tight. It did not feel like it ruptured or anything. The next week, he was going up steps, kind of felt like the foot gave out on him and he feltsomething pop in the calf. He was seen in the emergency room and they put him in a CAM boot for about 2 weeks. He had seen , an orthopedic surgeon, thought he had a plantaris rupture. He went to physical therapy and that helped. Then, he started to do some different exercises and toe raises and that seemed to make it worse. He said it gets stiff. He uses an elliptical daily and he stretches daily.He is walking 1-2 miles a day, but he relates it gets stiff and it is taking a long time to heal. PAST MEDICAL HISTORY: Relates acid reflux, psoriasis, hypertension and high cholesterol. SURGICAL HISTORY: Relates to prostate and finger. Relates no problems with anesthesia in the past. REVIEW OF SYSTEMS: Relates no GI ulcers in the past. Relates no kidney disease in the past. Relates no liver disease in the past. FAMILY HISTORY: Relates prostate cancer and Parkinson's. TOBACCO USE: Denies. OBJECTIVE FINDINGS: Vascular status intact bilaterally. He relates he gets some stiffness in his right Achilles tendon too but that one is not as bad. He brought discs with him. I reviewed those with him and will get those scanned in. He had venous Doppler and ankle films from 11/18/2011 and stress views from 03/02/2011. There is no fracture. Joint cortical margins are intact. He has pain on palpation of the left Achilles tendon. He has some bulging of the Achilles tendon just proximal to its attachment on the left. There is none on the right. There is no erythema, no drainage, no odor, no calor. His muscle strength is intact. There is no pain on palpation of the calf, although he relates he occasi onally gets proximal pain. ASSESSMENT AND PLAN: Achilles tendinopathy, left. Diagnosis and treatment options discussed with thepatient. He was advised on sitting positions. I am going to have him stop all stretching and just doa runner's stretch. I gave him a prescription for physical therapy again for ultrasound. Heel lift for the left dispensed. He has foot orthotics. He will continue wearing those, just the Birkenstock type ones. Again, advised him on sitting positions. He will continue the elliptical for now. I advised him to make sure he is not doing it intensely, he does not have a hard end range of motion. He will return to clinic and see me in about 3 weeks. documented in this encounter Nursing Notes 03/06/2012 9:20 AM CDT >> NATHALIE Kulkarni Mar 06, 2012 9:19 AM Reason For Visit: Patient presents with: Consult - L Achilles tendonitis. Pain Assessment Patient Currently in Pain: Yes 0-10 Pain Scale: 3 Primary Pain Location: Ankle Pain Orientation: Left Alleviating Factors: Rest;Stretching Aggravating Factors: Exercise HEIGHT: 5' 6, WEIGHT: 176 lbs 0 oz, BMI: Body mass index is 28.41 kg/(m^2). Current Outpatient Prescriptions: simvastatin (ZOCOR) 20 [...] Penicillins -- Hives documented in this encounter Miscellaneous Notes Initial Assessments - Frank Abel DPM - 03/07/2012 9:08 AM CDT documented in this encounter Plan of Treatment Scheduled Referrals Name Type Priority Associated Diagnoses Order S chedu PHYSICAL THERAPY Referral Routine Achilles bursitis or Ord ered: 03/06/2012 REFERRAL tendinitis (External-Prints) documented as of this encounter Visit Diagnoses Diagnosis Achilles bursitis or tendinitis - Primar y documented in this encounter Care Teams Family Lawyer Relationship Specialty Start Date End Date Fabian Mena MD PCP - General 07/19/11 [facility] [address] [place] [address] documented as of this encounter
--- OUTSIDE RECORDS SUMMARY | 2022-05-10 09:57 | XMS_ITS | Clinical Summary ---
:1950 Author Organization [place] Address [address] [place] [address] Care Team Providers Name Role Phone Fabian Mena MD Primary Care Provider Pierre Vásquez MD Unavailable Allergies Active Allergy Reactions Severity Noted Date Comments Penicillins Hives 07/21/2011 Medications Medication Sig Dispensed Refills Start Date End Date Status simvastatin (ZOCOR) 20 Take 1 tablet by 0 Active MG tablet mouth At Bedtime. amLODIPine (NORVASC) 5 Take 5 mg by 0 Active MG tablet mouth daily. fish oil-omega-3 fatty Take 1 capsule by 0 Active acids (FISH OIL) 1000 mouth daily. MG capsule aspirin 81 MG tablet Take 1 tablet by 0 Active mouth daily. Gelatin 650 MG TABS Take 1 tablet by 0 Active mouth daily. cyanocolbalamin Take 1 tablet by 0 Active (VITAMIN B-12) 1000 MCG mouth daily. tablet ascorbic acid (VITAMIN Take 1,000 mg by 0 Active C) 1000 MG TABS mouth daily. Cholecalciferol Take 1 capsule by 0 Active (VITAMIN D) 1000 UNITS mouth daily. capsule Multiple Take 1 tablet by 0 Act guillaume Vitamins-Minerals mouth daily. (CENTRUM SILVER PO) tadalafil (CIALIS) 20 Take 1 tablet by 0 Active MG tablet mouth as needed. sildenafil (VIAGRA) 25 Take 25 mg by 0 Active MG tablet mouth as needed. calcipotriene (DOVONEX) Apply 0.5 inches 0 Active 0.005 % cream topically 2 times daily. triamcinolone (KENALOG) Apply 0.5 inches 0 Active 0.1 % cream topically 2 times daily. clobetasol (TEMOVATE) APPLY TWICE DAILY 0 10/26/2020 Active 0.05 % external TO BODY RASH ON ointment TOP OF VANICREAM Social History Tobacco Use Types Packs/Day Years Used Date Smoking Tobacco: Never Smokeless Tobacco: Never Tobacco Cessation: Counseling Given: Yes Alcohol Use Standard Drinks/Week Comments Not Asked 0 (1 standard drink = 0.6 oz pure alcoho l) Sex Assigned at Date Recorded Not on file Last Filed Vital Signs Vital Sign Reading Time Taken Comments Blood Pressure 112/68 01/17/2021 8:58 AM CDT Pulse - - Temperature - - Respiratory Rate - - Oxygen Saturation - - Inhaled Oxygen Concentration - - Weight 66.2 kg (146 lb) 01/17/2021 8:58 AM CDT Height 167.6 cm (5' 6) 01/17/2021 8:58 AM CDT Body Mass Index 23.57 01/17/2021 8:58 AM CDT Plan of Treatment Health Maintenance Due Date Last Done Comments ADVANCE CARE PLANNING 1950 ANNUAL REVIEW OF HM ORDERS 1950 CT COLONOGRAPHY 1950 FIT-DNA (Cologuard) 1950 FIT 1950 FLEX SIG 1950 COLONOSCOPY 1959 COLORECTAL CANCER SCREENING 1959 HEPATITIS C SCREENING 1967 LIPID 1984 DTAP/TDAP/TD IMMUNIZATION 04/14/2005 04/13/2005, 04/04/2005 (1 - Tdap) ZOSTER IMMUNIZATION (2 of 03/28/2011 01/31/2011 3) AORTIC ANEURYSM SCREENING 2014 (SYSTEM ASSIGNED) FALL RISK ASSESSMENT 2014 MEDICARE ANNUAL WELLNESS 2014 VISIT COVID-19 Vaccine (3 - 09/15/2020 07/21/2020, 06/22/2020 Booster for Pfizer series) PHQ-2 (once per calendar 06/04/2021 year) INFLUENZA VACCINE (#1) 2022 03/20/2019, 03/02/2016, 03/04/2014, Additional history exists IPV IMMUNIZATION Aged Out 04/13/2005 No longer eligi ble based on patient 's age to complete this topic Pneumococcal Vaccine: 65+ Completed 09/14/2016, 08/13/2014 Years MENINGITIS IMMUNIZATION Aged Out No longe r eligible based on patient 's age to complete this topic Insurance Payer Benefit Plan / Subscriber ID Effective Phone Address T ype Group Dates BCBS BCBS [employer] [place] [id number] 2020-Prese [phone] [address] [address] PPO BLUE nt [address] [place] [address] MEDICARE MEDICARE FOR HB [id number] 2014-Prese [phone] ATTN CLAIMS Medicare SUPPLEMENT nt 40 [address] [place] [address] Guarantor Name Account Type Relation to Date of Phone Billing Patient Address RIGOBERTO MANDUJANO Personal/Family 1950 [address] [place] [address] Rigoberto Mandujano Personal/Family Self 1950 [id number] [place] [address] Care Teams Wastewater Treatment Plant Operator Relationship Specialty Start Date End Date Fabian Mena MD PCP - General 07/19/11 [facility] [address] [place] [address] Pierre Vásquez MD Assigned Musculoskeletal 12/26/[id number] [place] [address] [address] [place], [place] [address]
--- OUTSIDE RECORDS SUMMARY | 2022-05-10 09:57 | XMS_ITS | Encounter Summary ---
:1950 Author Organization [facility] Address [address] [place] [address] Care Team Providers Name Role Phone Fabian Mena MD Primary Care Provider Pierre Vásquez MD Unavailable Reason for Visit Reason Comments RECHECK Pain Encounter Details Date Type Department Care Team Description 12/30/2020 Office Visit [facility] Pierre Vásquez, Chron ic right shoulder pain (Primary Dx); Orthopedic Clinic Bilateral carpal tunnel syndrome; [place] [address] [address] Medial epicondylitis of righ t elbow [address] [place] [address] [phone] Social History Tobacco Use Types Packs/Day Years [...] Sign Reading Time Taken Comments Blood Pressure 126/68 12/30/2020 10:51 AM CDT Pulse - - Temperature - - Respiratory Rate - - Oxygen Saturation - - Inhaled Oxygen Concentration - - Weight 66.2 kg (146 lb) 12/30/2020 10:51 AM CDT Height 167.6 cm (5' 6) 12/30/2020 10:51 AM CDT Body Mass Index 23.57 12/30/2020 10:51 AM CDT documented in this encounter Patient Instructions Patient InstructionsPierre Vásquez MD - 12/30/2020 10:40 AM CDT We will proceed with a right carpal tunnel release next week documented in this encounter Progress Notes Pierre Vásquez MD - 12/30/2020 10:40 AM CDT HISTORY OF PRESENT ILLNESS: Rigoberto Perdomo is a 70 year old male who is seen in follow up for right carpal tunnel syndrome. Patient was last seen on 12/22/20 and has right carpal tunnel release scheduled for 01/05/21. Patient ishere today to discuss further concerns prior to surgery. Present symptoms: Patient reports concerns of numbness in right arm and muscle atrophy in right arm.He notes that he occasionally wakes up with numbness in his entire arm. He notes weakness of the right hand and right arm. He also notes a bump on his right superior shoulder which has been present for awhile. He notes burning in right posterior shoulder which has progressively gotten worse over the last 20 years. He notes that his shoulder feels like it gives out after just a couple hours of canoeing. He notes he used to be able to canoe for the entire day without difficulty. He also notes tenderness of right medial elbow. He denies acute injury or trauma to the right elbow. Treatments tried to this point: physical therapy for shoulder (5+ years ago) Past Medical History: Unchanged from the visit of 12/22/20. Please refer to that note. REVIEW OF SYSTEMS: CONSTITUTIONAL: NEGATIVE for fever, chills, change in weight INTEGUMENTARY/SKIN: NEGATIVE for worrisome rashes, moles or lesions EYES: NEGATIVE for vision changes or irritation ENT/MOUTH: NEGATIVE for ear, mouth and throat problems RESP: NEGATIVE for significant cough or SOB BREAST: NEGATIVE for masses, tenderness or discharge CV: NEGATIVE for chest pain, palpitations or peripheral edema GI: NEGATIVE for nausea, abdominal pain, heartburn, or change in bowel habits : Negative MUSCULOSKELETAL: See HPI above NEURO: NEGATIVE for weakness, dizziness or paresthesias ENDOCRINE: NEGATIVE for temperature intolerance, skin/hair changes HEME/ALLERGY/IMMUNE: NEGATIVE for bleeding problems PSYCHIATRIC: NEGATIVE for changes in mood or affect PHYSICAL EXAM: There were no vitals taken for this visit. There is no height or weight on file to calculate BMI. GENERAL APPEARANCE: healthy, alert and no distress SKIN: no suspicious lesions or rashes NEURO: Normal strength and tone, mentation intact and speech normal VASCULAR: good pulses, and cappillary refill LYMPH: no lymphadenopathy PSYCH: mentation appears normal and affect normal/bright MSK: Not in acute distress Normal gait No swelling, erythema or deformities in the upper extremities Tender medial epicondyle, right He also points out the prominent AC joint on the right. This was felt to be consistent with bone spur from DJD Not particularly tender to touch Otherwise unchanged from his visit of December 22, 2020 Please refer to that note IMAGING INTERPRETATION: None taken ASSESSMENT: Bilateral carpal tunnel syndrome Right elbow medial epicondylitis Right shoulder AC joint PLAN: We went over the issues of right shoulder AC joint prominence, medial epicondyle tenderness as well as paresthesias symptoms in the upper extremity. I advised him to proceed with carpal tunnel release because it is rather obvious and rather simple before we were about more complicated things such as generalized neuropathy or compression neuropathy of the upper extremity. A lot of his concerns appears to stem from general anxiety which he admits. All the questions were answered. We will see him next week for right carpal tunnel release. Pierre Vásquez MD Dept. Orthopedic Surgery [facility] Disclaimer: This note consists of symbols derived from keyboarding, dictation and/or voice recognition software. As a result, there may be errors in the script that have gone undetected. Please consider this when interpreting information found in this chart. documented in this encounter Plan of Treatment Not on filedocumented as of this encounter Visit Diagnoses Diagnosis Chronic right shoulder pain - Primary Pain in joint, shoulder region Bilateral carpal tunnel syndrome Carpal tunnel syndrome Medial epicondylitis of right elbow Medial epicondylitis of elbow documented in this encounter Care Teams Coding Tech Relationship Specialty Start Date End Date Fabian Mena MD PCP - General 07/19/11 [facility] [address] [place] [address] Pierre Vásquez MD Assigned Musculoskeletal 12/26/[id number] [place] [id number] documented as of this encounter
--- OUTSIDE RECORDS SUMMARY | 2022-05-10 09:57 | XMS_ITS | Encounter Summary ---
:1950 Author Organization [facility] Address [address] [place] [address] Care Team Providers Name Role Phone Fabian Mena MD Primary Care Provider Pierre Vásquez MD Unavailable Reason for Visit Reason Onset Date Comments Patient Inquiry 04/26/2021 medical records Encounter Details Date Type Department Care Team Description 04/26/2021 Telephone [facility] Pierre Vásquez MD Patient Inquiry Orthopedic Clinic [address] [facility] ( edical records) [place] [address] [place], [place] [address] [place] [address] [place] [address] [phone] Social History Tobacco Use Types Packs/Day Years Used Date Smoking Tobacco: Never Smokeless Tobacco: Never Alcohol Use Standard Drinks/Week Comments Not Asked 0 (1 standard drink = 0.6 oz pure alcoho l) Sex Assigned at Date Recorded Not on file documented as of this encounter Miscellaneous Notes Telephone Encounter - Clair Miles RN - 04/26/2021 11:46 AM CST Patient calls stating he is trying to get a copy of his operative report from Jan [address] Vásquez but the medical records number just rings and does not answer. Checked handbook writer's number for medical records and it is working. Provided the following to patient: [phone]. Asked that patient listen to the multiple options as he can send an email request as well and request urgently if neededfor an appointment. He states he has an appointment coming up with a different provider for something else but wanted to bring the operative report in case it was helpful. He verbalized understanding and was appreciative of assistance. Leeanne Miles RN GRINDER documented in this encounter Plan of Treatment Not on filedocumented as of this encounter Visit Diagnoses Not on filedocumented in this encounter Care Teams Transmission Supervisor Relationship Specialty Start Date End Date Fabian Mena MD PCP - General 07/19/11 [facility] [address] [place] [address] Pierre Vásquez MD Assigned Musculoskeletal 12/26/[id number] [place] [address] [address] [place] [address] documented as of this encounter
--- OUTSIDE RECORDS SUMMARY | 2022-05-10 09:57 | XMS_ITS | Encounter Summary ---
:1950 Author Organization [facility] Address [address] [place] [address] Care Team Providers Name Role Phone Fabian Mena MD Primary Care Provider Encounter Details Date Type Department Care Team Description 12/22/2020 Travel Social History Tobacco Use Types Packs/Day [...] on filedocumented in this encounter Care Teams Special Effects Specialist Relationship Specialty Start Date End Date Fabian Mena MD PCP - General 07/19/11 [facility] [address] [place] [address] documented as of this encounter
--- OUTSIDE RECORDS SUMMARY | 2022-05-10 09:58 | XMS_ITS | Encounter Summary ---
:1950 Author Organization [employer] [employer] Address [address], [place] [address] Care Team Providers Name Role Phone Melvin White MD Primary Care Provider Reason for Visit Reason Comments PSORIASIS Procedure/Equipment (Routine) - New Request Specialty Diagnoses / Procedures Referred By Contact Refer red To Contact Diagnoses [place] [address] [place] [address] Referral ID Status Reason Start Date Expiration Date Visits V isits Requested Authorized [id number] New Request 09/29/2021 12/29/2022 1 1 Encounter Details Date Type Department Care Team Description 10/06/2021 Procedure Visit [facility] Nurse Photo, Antony PSORIASIS [address] [place] [address] Social History Tobacco Use Types Packs/Day Years Used Date Smoking Tobacco: Never Sex Assigned at Date Recorded Not on file documented as of this encounter Progress Notes Candice Hale RN - 10/06/2021 2:15 PM CDT Rigoberto Perdomo is here today for Unit #1: Body cooper NBUVB treatment, prescribed by Dr. Doreen Correa MD for the treatment of Psoriasis and similar disorder. Last treatment session was discussed. No adverse reaction noted. Discussed today???s treatment with patient, and dose was increased per MD order To return to clinic as directed. 10/06/2021, 2:18 PM Supervising physician: Frank Hurst MD Order Expiration date: 12/29/21 documented in this encounter Plan of Treatment Upcoming Encounters Date Type Specialty Care Team Description 06/26/2022 Appointment Dermatology Daphne Sanchez MD [address] [facility] N [address] (Wo rk) 09/11/2022 Appointment Dermatology Daphne Sanchez MD [address] [facility] [address] (Wo rk) documented as of this encounter Visit Diagnoses Diagnosis Psoriasis and similar disorder - Primary Other psoriasis documented in this encounter Care Teams Wheelchair Van Driver Relationship Specialty Start Date End Date Melvin White MD PCP - General 09/06/10 [address] [place], [place] [address] documented as of this encounter
--- OUTSIDE RECORDS SUMMARY | 2022-05-10 09:58 | XMS_ITS | Encounter Summary ---
:1950 Author Organization [facility] Address [address], [place] [address] Care Team Providers Name Role Phone Melvin White MD Primary Care Provider Reason for Visit Reason Comments PSORIASIS Encounter Details Date Type Department Care Team Description 10/13/2021 Procedure Visit [facility] Nurse Photo, Antony PSORIASIS [address] [place] [address] Social History Tobacco Use Types Packs/Day Years Used Date Smoking Tobacco: Never Sex Assigned at Date Recorded Not on file documented as of this encounter Progress Notes Candice Hale RN - 10/13/2021 1:30 PM CDT Rigoberto Perdomo is here today for Unit #1: Body cooper NBUVB treatment, prescribed by Dr. Doreen Correa MD for the treatment of Psoriasis and similar disorder. Last treatment session was discussed. No adverse reaction noted. Discussed today???s treatment with patient, and dose was increased per MD order To return to clinic as directed. 10/13/2021, 1:39 PM Supervising physician: Frank Hurst MD Order Expiration date: 12/29/21 documented in this encounter Plan of Treatment Upcoming Encounters Date Type Specialty Care Team Description 06/26/2022 Appointment Dermatology Daphne Sanchez MD [address] [facility] [place] N [id number] (Wo rk) 09/11/2022 Appointment Dermatology Daphne Sanchez MD [address] [facility] [id number] (Wo rk) documented as of this encounter Visit Diagnoses Diagnosis Psoriasis and similar disorder - Primary Other psoriasis documented in this encounter Care Teams Ornament Setter Relationship Specialty Start Date End Date Melvin White MD PCP - General 09/06/10 [address] [place] [address] documented as of this encounter
--- OUTSIDE RECORDS SUMMARY | 2022-05-10 09:58 | XMS_ITS | Encounter Summary ---
:1950 Author Organization [employer] Address [address], [place] [address] Care Team Providers Name Role Phone Melvin White MD Primary Care Provider Reason for Visit Reason Comments PSORIASIS Encounter Details Date Type Department Care Team Description 09/22/2021 Procedure Visit [facility] Nurse Photo, Antony PSORIASIS [address] [place] [address] Social History Tobacco Use Types Packs/Day Years Used Date Smoking Tobacco: Never Sex Assigned at Date Recorded Not on file documented as of this encounter Progress Notes Petty Mabry LPN - 09/22/2021 2:15 PM CDT Rigoberto Perdomo is here today for Unit #1: Body cooper NBUVB treatment, prescribed by Dr. Doreen Correa MD for the treatment of Psoriasis and similar disorder. Last treatment session was discussed. No adverse reaction noted. Discussed today???s treatment with patient, and dose was increased per MD order To return to clinic as directed. 09/22/2021, 2:18 PM Supervising physician: Frank Hurst MD Order Expiration date: 09/26/21 documented in this encounter Plan of Treatment Upcoming Encounters Date Type Specialty Care Team Description 06/26/2022 Appointment [facility]ermatology [facility]aphne Sanchez [facility] [address] [facility] N [id number] (Wo rk) 09/11/2022 Appointment Dermatology Daphne Sanchez MD [address] [facility] [id number] (Wo rk) documented as of this encounter Visit Diagnoses Diagnosis Psoriasis and similar disorder - Primary Other psoriasis documented in this encounter Care Teams Rheologist Relationship Specialty Start Date End Date Melvin White MD PCP - General 09/06/10 [address] [place], [place] [address] documented as of this encounter
--- OUTSIDE RECORDS SUMMARY | 2022-05-10 09:58 | XMS_ITS | Encounter Summary ---
:1950 Author Organization [facility] Address [address] [address] Care Team Providers Name Role Phone Melvin White MD Primary Care Provider Reason for Visit Reason Comments Refill Encounter Details Date Type Department Care Team Description 05/08/2022 Refill [facility] Daphne Sanchez MD Refill [address] [place] [address] [place] [address] [phone] (Joesph martinez) Social History Tobacco Use Types Packs/Day Years Used Date Smoking Tobacco: Never Sex Assigned at Date Recorded Not on file documented as of this encounter Nursing Notes Darby Llanes RN - 05/08/2022 1:06 PM CST Converting to 90 day supply per patient request. K DRIVER'S OFFSIDER documented in this encounter Plan of Treatment Upcoming Encounters Date Type Specialty Care Team Description 06/26/2022 Appointment Dermatology Daphne Sanchez MD [address] [address] (Joesph martinez) 09/11/2022 Appointment Dermatology Daphne Sanchez MD [address] [place] [address] [address] (Wo rk) documented as of this encounter Visit Diagnoses Diagnosis Psoriasis Other psoriasis documented in this encounter Care Teams Masonry Installer Relationship Specialty Start Date End Date Melvin White MD PCP - General 09/06/10 [address] [place] [address] documented as of this encounter
--- OUTSIDE RECORDS SUMMARY | 2022-05-10 09:58 | XMS_ITS | Encounter Summary ---
:1950 Author Organization [employer] Address [address] [place] [address] Care Team Providers Name Role Phone Melvin White MD Primary Care Provider Reason for Visit Reason Comments Questions Encounter Details Date Type Department Care Team Description 11/03/2021 Telephone [facility] Doreen Mosquera MD Questions [address] [address] [place] [address] [place] [address] [phone] (Wo rk) Social History Tobacco Use Types Packs/Day Years Used Date Smoking Tobacco: Never Sex Assigned at Date Recorded Not on file documented as of this encounter Nursing Notes Jhoana Crump, ROCKY - 02/02/2022 10:03 AM CDT Called patient to follow up as he missed today's appointment. No answer left message. I have additional information from [facility] on units and dimensions. Asking patient to call back if he would like to reschedule appointment or if he would like information mailed out. Jhoana Crump RN - 01/26/2022 3:04 PM CDT Called patient to follow up and no answer. LM asking for call back if he would like to go ahead withuv home unit. Jhoana Crump RN - 12/28/2021 11:31 AM CDT Called patient and no answer. Left message asking for call back if patient would like to go ahead with home UVB unit. Jhoana Crump RN - 11/08/2021 4:34 PM CDT Called patient and questions answered. He is going to call back with decision on which unit. Jhoana Crump RN - 11/07/2021 8:31 AM CDT Called patient and no answer. Left detailed message asking for call back. Left triage nurse line as Dr. Correa is out this week. Candice Hale RN - 11/03/2021 2:26 PM CDT Jakob was wanting more information regarding home phototherapy unit Dr. Correa had ordered. He stated he had spoken with Dr. Correa's nurse but would like her to call him again for more information. Cell number [phone] documented in this encounter Plan of Treatment Upcoming Encounters Date Type Specialty Care Team Description 06/26/2022 Appointment Dermatology Daphne Sanchez MD [address] [facility] [place] [address] [address] (Joesph martinez) 09/11/2022 Appointment Dermatology Daphne Sanchez MD [address] [facility] N [address] (Joesph martinez) documented as of this encounter Visit Diagnoses Not on filedocumented in this encounter Care Teams Horticulture Supervisor Relationship Specialty Start Date End Date Melvin White MD PCP - General 09/06/10 [address] [place] [address] documented as of this encounter
--- OUTSIDE RECORDS SUMMARY | 2022-05-10 09:58 | XMS_ITS | Encounter Summary ---
:1950 Author Organization [employer] Address [address], [place] [address] Care Team Providers Name Role Phone Melvin White MD Primary Care Provider Reason for Referral Procedure/Equipment (Routine) - New Request Specialty Diagnoses / Procedures Referred By Contact Refer red To Contact Diagnoses Psoriasis [place] [address] [place] [address] Referral ID Status Reason Start Date Expiration Date Visits V isits Requested Authorized [id number] New Request 09/29/2021 12/29/2022 1 1 Scheduling Instructions Your provider has recommended an appoint ment with Kely Jackson. You may call [phone] to schedule your appoi ntment. We suggest you call your health insurance company about your coverage an d benefits for this appointment. Reason for Visit Reason Comments Orders Needed Encounter Details Date Type Department Care Team Description 09/29/2021 Telephone [facility] Doreen Mosquera MD Orders Needed [address] [address] [address] [address] [place] [address] [phone] (Wo rk) Social History Tobacco Use Types Packs/Day Years Used Date Smoking Tobacco: Never Sex Assigned at Date Recorded Not on file documented as of this encounter Nursing Notes Candice Hale, RN - 09/29/2021 2:20 PM CDT UVB orders on 09/26/2021. Has f/u with Dr. Correa on 10/19/2021 Please send new orders for phototherapy if you wish him to continue. Thanks you. documented in this encounter Plan of Treatment Upcoming Encounters Date Type Specialty Care Team Description 06/26/2022 Appointment [facility]ermatology Daphne Sanchez [facility] [address] [facility] [facility] [id number] (Wo rk[facility] 09/11/2022 Appointment Dermatology Daphne Sanchez MD [address] [facility] N [id number] (Wo rk) Scheduled Referrals Name Type Priority Associated Diagnoses Order S chedule Hand/foot/body UV Referral Routine Psoriasis and similar O rdered: 09/29/2021 Light Therapy disorder documented as of this encounter Visit Diagnoses Diagnosis Psoriasis and similar disorder - Primary Other psoriasis documented in this encounter Care Teams Staffing Recruiter Relationship Specialty Start Date End Date Melvin White MD PCP - General 09/06/10 [address] [place] [address] documented as of this encounter
--- OUTSIDE RECORDS SUMMARY | 2022-05-10 09:58 | XMS_ITS | Encounter Summary ---
:1950 Author Organization [employer] Address [address], [place] [address] Care Team Providers Name Role Phone Melvin White MD Primary Care Provider Reason for Visit Reason Comments PSORIASIS Encounter Details Date Type Department Care Team Description 05/08/2022 Office Visit Daphne Almaraz MD Psoriasis (Primary Dermatology [facility]) [address] [place] [id number] [place] [id number] (Wo rk) Social History Tobacco Use Types Packs/Day Years Used Date Smoking Tobacco: Never Sex Assigned at Date Recorded Not on file documented as of this encounter Progress Notes Daphne Sanchez MD - 05/08/2022 8:00 AM CST Chief Complaint Patient presents with PSORIASIS Dermatology Problems Psoriasis since age 18; no history of psoriatic arthritis SUBJECTIVE: Rigoberto Perdomo is a 71 y.o. male who presents to clinic today for follow-up of psoriasis. Patient had been receiving narrowband UVB in office with good results. He has been off this since October of 2021. The chart has listed triamcinolone, clobetasol, hydrocortisone 0.25% cream, and calcipotriene oint ment as previous treatments. Patient does uses inked based paste in the groin when he experiences irritation. Patient spends intermittent amounts of time in [place] during the winter. To that point, patient hasnot pursued a home light unit although that was discussed with Dr. Correa. Patient is most troubled by prednisone itching and scaling involving the scrotum and the gluteal cleft area. MEDICATIONS: Reviewed and updated in Epic ALLERGIES: Penicillins PHYSICAL EXAMINATION: General: Well-appearing male, in no distress, alert and oriented. Area/s examined: Face scalp back buttock, pubic area, genitalia, inguinal folds and thighs; see below for pertinent findings. ASSESSMENT AND PLAN: 1. Psoriasis Scalp unremarkable face minimal pinkness on the upper eyelids inferior spine very faint pink scaly patch; above the gluteal cleft well-demarcated psoriasiform plaque with adherent white scale that doesextend into the gluteal cleft; also scrotum confluent light pink patch with scale;penis unremarkable inguinal folds and thighs unremarkable Related Medications hydrocortisone 2.5 % cream Apply to face and fold areas twice a day for 2 weeks then twice a day as needed Sunday and Sunday tacrolimus (PROTOPIC) 0.1 % ointment Apply to face and fold areas twice a day Sunday through Sunday as needed. Off-label use of the Protopic was explained and side effects were reviewed. For the involvement of the back and buttock area next I recommend a list of keratolytics emollients to help debride some of the scale. He will do this 1st then I recommended he use his clobetasol to these areas (not the gluteal cleft) twice a day for 2 weeks then switched to clobetasol twice a day on the s and Dovonex ointment twice a day Sunday through Sunday as needed FOLLOW UP: Return to clinic 6 weeks in between trips to [place] to assess progress *This note is created with voice recognition software and may contain typographical errors. IFIED SURGICAL TECHNOLOGIST documented in this encounter Plan of Treatment Upcoming Encounters Date Type Specialty Care Team Description 06/26/2022 Appointment Dermatology Daphne Sanchez MD [address] [id number] (Joesph martinez) 09/11/2022 Appointment Dermatology Daphne Sanchez MD [address] [id number] (Wo rk) documented as of this encounter Visit Diagnoses Diagnosis Psoriasis - Primary Other psoriasis documented in this encounter Care Teams Automotive Engineering Technician Relationship Specialty Start Date End Date Melvin White MD PCP - General 09/06/10 [address] [place] [address] documented as of this encounter
--- OUTSIDE RECORDS SUMMARY | 2022-05-10 09:58 | XMS_ITS | Encounter Summary ---
:1950 Author Organization [employer] Address [address] [address] Care Team Providers Name Role Phone Melvin White MD Primary Care Provider Reason for Visit Reason Comments PSORIASIS Encounter Details Date Type Department Care Team Description 09/12/2021 Procedure Visit [facility] [facility] Nurse Photo, Antony PSORIASIS [address] [place] [address] Social History Tobacco Use Types Packs/Day Years Used Date Smoking Tobacco: Never Sex Assigned at Date Recorded Not on file documented as of this encounter Progress Notes Candice Hale RN - 09/12/2021 11:30 AM CDT Rigoberto Perdomo is here today for Unit #1: Body cooper NBUVB treatment, prescribed by Dr. Doreen Correa MD for the treatment of Psoriasis and similar disorder. Last treatment session was discussed. No adverse reaction noted. Discussed today???s treatment with patient, and dose was increased per MD order To return to clinic as directed. 09/12/2021, 11:57 AM Supervising physician: Frank Hurst MD Order Expiration date: 09/26/21 documented in this encounter Plan of Treatment Upcoming Encounters Date Type Specialty Care Team Description 06/26/2022 Appointment Dermatology Daphne Sanchez MD [address] [facility] [place] N [address] (Wo rk) 09/11/2022 Appointment Dermatology Daphne Sanchez MD [address] [facility] [place] [facility] [id number] (Wo rk) documented as of this encounter Visit Diagnoses Diagnosis Psoriasis and similar disorder - Primary Other psoriasis documented in this encounter Care Teams Aircraft Servicer Relationship Specialty Start Date End Date Melvin White MD PCP - General 09/06/10 [address] [place] [address] documented as of this encounter
--- OUTSIDE RECORDS SUMMARY | 2022-05-10 09:58 | XMS_ITS | Encounter Summary ---
:1950 Author Organization [employer] Address [address] [address] Care Team Providers Name Role Phone Melvin White MD Primary Care Provider Reason for Visit Reason Comments PSORIASIS Encounter Details Date Type Department Care Team Description 11/03/2021 Procedure Visit [place] [facility] Nurse Photo, Antony PSORIASIS [address] [place] [address] Social History Tobacco Use Types Packs/Day Years Used Date Smoking Tobacco: Never Sex Assigned at Date Recorded Not on file documented as of this encounter Progress Notes Candice Hale RN - 11/03/2021 2:15 PM CDT Rigoberto Perdomo is here today for Unit #1: Body cooper NBUVB treatment, prescribed by Dr. Doreen Correa MD for the treatment of Psoriasis and similar disorder. Last treatment session was discussed. Yes, adverse reaction noted. Had redness on penis and inner thighs lasting >48 hours. Patient skipped treatment for 10 days and we decreased dose and he will cover groin area and he used sunscreen on inner thighs. Discussed today???s treatment with patient, and dose was decreased per protocol To return to clinic as directed. 11/03/2021, 2:21 PM Supervising physician: Frank Hurst MD Order Expiration date: 12/29/21 documented in this encounter Plan of Treatment Upcoming Encounters Date Type Specialty Care Team Description 06/26/2022 Appointment Dermatology Daphne Sanchez MD [address] [facility] [place] N [id number] (Wo rk) 09/11/2022 Appointment Dermatology Daphne Sanchez MD [address] [place] N [address] (Wo rk) documented as of this encounter Visit Diagnoses Diagnosis Psoriasis and similar disorder - Primary Other psoriasis documented in this encounter Care Teams Resaw Operator Relationship Specialty Start Date End Date Melvin White MD PCP - General 09/06/10 [address] [place], [place] [address] documented as of this encounter
--- OUTSIDE RECORDS SUMMARY | 2022-05-10 09:58 | XMS_ITS | Encounter Summary ---
:1950 Author Organization [employer] Address [address], [place] [address] Care Team Providers Name Role Phone Melvin White MD Primary Care Provider Reason for Visit Reason Comments PSORIASIS Encounter Details Date Type Department Care Team Description 09/29/2021 Procedure Visit [place] [facility] Nurse Photo, Antony PSORIASIS [address] [place] [address] Social History Tobacco Use Types Packs/Day Years Used Date Smoking Tobacco: Never Sex Assigned at Date Recorded Not on file documented as of this encounter Progress Notes Candice Hale RN - 09/29/2021 2:15 PM CDT Rigoberto Perdomo is here today for Unit #1: Body cooper NBUVB treatment, prescribed by Dr. Doreen Correa MD for the treatment of Psoriasis and similar disorder. Last treatment session was discussed. No adverse reaction noted. Discussed today???s treatment with patient, and dose was increased per MD order To return to clinic as directed. 09/29/2021, 2:31 PM Supervising physician: Frank Hurst MD Order Expiration date: 09/26/21 documented in this encounter Plan of Treatment Upcoming Encounters Date Type Specialty Care Team Description 06/26/2022 Appointment Dermatology Daphne Sanchez MD [address] mal[address] [facility] [place] N [phone] (Wo rk) 09/11/2022 Appointment Dermatology Daphne Sanchez MD [address] [facility] [place] [facility] [id number] (Wo rk) documented as of this encounter Visit Diagnoses Diagnosis Psoriasis and similar disorder - Primary Other psoriasis documented in this encounter Care Teams Precision Thread Grinder Operator Relationship Specialty Start Date End Date Melvin White MD PCP - General 09/06/10 [address] [place] [address] documented as of this encounter
--- OUTSIDE RECORDS SUMMARY | 2022-05-10 09:58 | XMS_ITS | Clinical Summary ---
:1950 Author Organization [employer] Address [address] [place] [address] Care Team Providers Name Role Phone Melvin White MD Primary Care Provider Source Comments You are receiving this document as you are listed as the primary care provider,follow-up provider, or the patient has been referred to you for consultation.This is in compliance with the Medicare and Medicaid EHR Incentive Program,which states Providers who transition their patient to another setting of careor provider of care or refers their patient to another provider of care shouldprovide summarycare record for each transition of care or referral. [employer] Allergies Active Allergy Reactions Severity Noted Date Comments Penicillins 09/23/2004 PN: LW Reaction : HIVES Medications Medication Sig Dispensed Refills Start Date End Date Status Gelatin 600 MG CAPS Take by mouth. 0 10/05/2005 Active ascorbic acid (AKA Take by mouth. 0 01/02/2006 Active VITAMIN C) 500 MG tablet Multiple Take 1 tablet by 100 13 10/05/2005 Ac tive Vitamins-Minerals mouth daily (MULTIVITAMIN OR) (every 24 hours). aspirin 81 MG Take 1 tablet by 90 3 10/05/2005 Active tablet mouth daily (every 24 hours). simvastatin (AKA Take 1 tablet by 90 3 09/13/2007 Active ZOCOR) 20 MG tablet mouth every evening. LW Addl Instr:Indicated for: High Cholesterol Calcipotriene (AKA Apply topically 60 g 1 06/28/2021 Active DOVONEX) 0.005 % two times a day. ointmentIndications Indications: : Plaque Psoriasis Plaque Psoriasis hydrocortisone 2.5 Apply to face 60 g 6 05/08/2022 Active % creamIndications: and fold areas Psoriasis twice a day for 2 weeks then twice a day as needed Sunday and Sunday tacrolimus APPLY TO FACE 300 g 0 05/08/2022 Acti ve (PROTOPIC) 0.1 % AND FOLD AREAS ointmentIndications TWICE DAILY : Psoriasis SUNDAY AND SUNDAY NEEDED tacrolimus Apply to face 60 g 6 05/08/2022 Disc ontinued (PROTOPIC) 0.1 % and fold areas 2 ointmentIndications twice a day : Psoriasis Sunday through Sunday as needed. Active Problems Problem Noted Date Hyperlipidemia 09/13/2007 Encounters Date Type Specialty Care Team Description 05/08/2022 Office Visit Dermatology Daphne Sanchez MD Psoriasis (Primary Dx) 05/08/2022 Refill Dermatology Daphne Sanchez MD Refill from Last 3 Months Immunizations Name Administration Dates Next Due Flu Vac Preserv Free (3+yrs) 04/03/2005 HepA Adult (19+ yrs) 04/13/2005 IPV (Polio) 04/13/2005 Td 04/13/2005 Typhoid (Typhim Vi, IM) 04/13/2005 Social History Tobacco Use Types Packs/Day Years Used Date Smoking Tobacco: Never Sex Assigned at Date Recorded Not on file Last Filed Vital Signs Vital Sign Reading Time Taken Comments Blood Pressure 130/88 09/13/2007 3:49 PM CDT Pulse 74 09/13/2007 3:49 PM CDT Temperature 37.3 ??C (99.1 ??F) 06/12/2006 7:19 PM C: 37.3 C HEAD OF TALENT MANAGEMENT Respiratory Rate 20 06/12/2006 7:19 PM HEAD OF TALENT MANAGEMENT Oxygen Saturation 95% 08/05/2005 10:58 AM HEAD OF TALENT MANAGEMENT Inhaled Oxygen Concentration - - Weight 81.2 kg (178 lb 15.9 oz) 09/13/2007 3:49 PM C: 8 1.2kg CDT Height 166.4 cm (5' 5.5) 09/13/2007 3:49 PM C: 166.4cm CDT Body Mass Index 29.33 09/13/2007 3:49 PM CDT Plan of Treatment Upcoming Encounters Date Type Specialty Care Team Description 06/26/2022 Appointment Dermatology Daphne Sanchez MD [address] [facility] [place] [place] [address] (Wo rk) 09/11/2022 Appointment Dermatology Daphne Sanchez MD [address] [place] [address] [address] (Wo rk) Health Maintenance Due Date Last Done Comments Colon Cancer Screening Plan 1950 Due Hep C Screening (Preventive 1950 Services) Medicare Annual Wellness 1950 Visit COVID-19 Vaccine (#1) 1950 Zoster/Shingles (2 of 3) 03/28/2011 01/31/2011 Cholesterol 11/24/2012 11/25/2007, 09/04/2007, 07/07/2006, Additional history exists Influenza (#1) 2022 03/29/2021, 03/20/2019, 03/05/2018, Additional history exists DTaP/Tdap/Td (3 - Tdap) 10/30/2028 10/30/2018, 11/04/2008, 11/04/2008, Additional history exists IPV (Polio) Aged Out 04/13/2005 No longer eligib le based on patient 's age to complete this topic Pneumococcal 65+ Yrs Completed 09/14/2016, 08/13/2014 HepA Completed 01/23/2022, 04/13/2005 HepB Aged Out No longer eligib le based on patient 's age to complete this topic Hib Aged Out No longer eligib le based on patient 's age to complete this topic MCV4 Aged Out No longer eligib le based on patient 's age to complete this topic Insurance Payer Benefit Plan / Subscriber ID Effective Dates Phone Addre ss Type Group MEDICARE MEDICARE [id number] 2014-Presen [phone] M miriam MANAGED CARE t 64 BCBS BCBS [place] [id number] 2020-Presen [phone] [address] [address] Medicare BLUE t [address] [place] [address] [id number] (Home) E [phone] [place], [place] (Work) [address] Care Teams Project Asst Relationship Specialty Start Date End Date Melvin White MD PCP - General 09/06/10 [address] [place] [address]
--- OUTSIDE RECORDS SUMMARY | 2022-05-10 09:58 | XMS_ITS | Encounter Summary ---
:1950 Author Organization [employer] Address [address], [place] [address] Care Team Providers Name Role Phone Melvin White MD Primary Care Provider Reason for Visit Reason Comments PSORIASIS Encounter Details Date Type Department Care Team Description 09/05/2021 Procedure Visit [place] [facility] Nurse Photo, Antony PSORIASIS [address] [place] [address] Social History Tobacco Use Types Packs/Day Years Used Date Smoking Tobacco: Never Sex Assigned at Date Recorded Not on file documented as of this encounter Progress Notes Candice Hale RN - 09/05/2021 2:15 PM CDT Rigoberto Perdomo is here today for Unit #1: Body cooper NBUVB treatment, prescribed by Dr. Doreen Correa MD for the treatment of Psoriasis and similar disorder. Last treatment session was discussed. No adverse reaction noted. Discussed today???s treatment with patient, and dose was decreased per protocol of time away. To return to clinic as directed. 09/05/2021, 2:29 PM Supervising physician: Frank Hurst MD Order Expiration date: 09/26/21 documented in this encounter Plan of Treatment Upcoming Encounters Date Type Specialty Care Team Description 06/26/2022 Appointment Dermatology Daphne Sanchez MD [address] [place] [address] [address] (Wo rk) 09/11/2022 Appointment Dermatology Daphne Sanchez MD [address] [facility] [id number] (Wo rk) documented as of this encounter Visit Diagnoses Diagnosis Psoriasis and similar disorder - Primary Other psoriasis documented in this encounter Care Teams Control Chemist Relationship Specialty Start Date End Date Melvin White MD PCP - General 09/06/10 [address] [place], [place] [address] documented as of this encounter
--- OUTSIDE RECORDS SUMMARY | 2022-05-10 09:58 | XMS_ITS | Encounter Summary ---
:1950 Author Organization [employer] Address [address], [place] [address] Care Team Providers Name Role Phone Melvin White MD Primary Care Provider Reason for Visit Reason Comments PSORIASIS Encounter Details Date Type Department Care Team Description 10/20/2021 Procedure Visit [place] [facility] Nurse Photo, Antony PSORIASIS [address] [place] [address] Social History Tobacco Use Types Packs/Day Years Used Date Smoking Tobacco: Never Sex Assigned at Date Recorded Not on file documented as of this encounter Progress Notes Candice Hale RN - 10/20/2021 2:15 PM CDT Rigoberto Perdomo is here today for Unit #1: Body cooper NBUVB treatment, prescribed by Dr. Doreen Correa MD for the treatment of Psoriasis and similar disorder. Last treatment session was discussed. No adverse reaction noted. Discussed today???s treatment with patient, and dose was increased per MD order To return to clinic as directed. 10/20/2021, 2:19 PM Supervising physician: Frank Hurst MD Order Expiration date: 12/29/21 documented in this encounter Plan of Treatment Upcoming Encounters Date Type Specialty Care Team Description 06/26/2022 Appointment Dermatology Daphne Sanchez MD [address] [facility] [place] N [address] (Wo rk) 09/11/2022 Appointment Dermatology Daphne Sanchez MD [address] [facility] [place] [facility] [id number] (Wo rk) documented as of this encounter Visit Diagnoses Diagnosis Psoriasis and similar disorder - Primary Other psoriasis documented in this encounter Care Teams Windshield Repair Technician Relationship Specialty Start Date End Date Melvin White MD PCP - General 09/06/10 [address] [place] [address] documented as of this encounter
--- OUTSIDE RECORDS SUMMARY | 2022-05-10 09:58 | XMS_ITS | Encounter Summary ---
:1950 Author Organization [employer] Address [address], [place] [address] Care Team Providers Name Role Phone Melvin White MD Primary Care Provider Reason for Visit Reason Comments PSORIASIS Encounter Details Date Type Department Care Team Description 09/08/2021 Procedure Visit [place] [facility] Nurse Photo, Antony PSORIASIS [address] [place] [address] Social History Tobacco Use Types Packs/Day Years Used Date Smoking Tobacco: Never Sex Assigned at Date Recorded Not on file documented as of this encounter Progress Notes Candice Hale RN - 09/08/2021 2:15 PM CDT Rigoberto Perdomo is here today for Unit #1: Body cooper NBUVB treatment, prescribed by Dr. Doreen Correa MD for the treatment of Psoriasis and similar disorder. Last treatment session was discussed. No adverse reaction noted. Discussed today???s treatment with patient, and dose was increased per MD order To return to clinic as directed. 09/08/2021, 2:32 PM Supervising physician: Frank Hurst MD Order Expiration date: 09/26/21 documented in this encounter Plan of Treatment Upcoming Encounters Date Type Specialty Care Team Description 06/26/2022 Appointment Dermatology Daphne Sanchez MD [address] [facility] [place] N [address] (Wo rk) 09/11/2022 Appointment Dermatology Daphne Sanchez MD [address] [facility] [place] [facility] [id number] (Wo rk) documented as of this encounter Visit Diagnoses Diagnosis Psoriasis and similar disorder - Primary Other psoriasis documented in this encounter Care Teams Automobile Mechanic Assistant Relationship Specialty Start Date End Date Melvin White MD PCP - General 09/06/10 [address] [place] [address] documented as of this encounter
--- OUTSIDE RECORDS SUMMARY | 2022-05-10 09:58 | XMS_ITS | Encounter Summary ---
:1950 Author Organization [employer] Address [address], [place] [address] Care Team Providers Name Role Phone Melvin White MD Primary Care Provider Reason for Visit Reason Comments PSORIASIS Encounter Details Date Type Department Care Team Description 10/10/2021 Procedure Visit [place] [facility] Nurse Photo, Antony PSORIASIS [address] [place] [address] Social History Tobacco Use Types Packs/Day Years Used Date Smoking Tobacco: Never Sex Assigned at Date Recorded Not on file documented as of this encounter Progress Notes Candice Hale RN - 10/10/2021 2:15 PM CDT Rigoberto Perdomo is here today for Unit #1: Body cooper NBUVB treatment, prescribed by Dr. Doreen Correa MD for the treatment of Psoriasis and similar disorder. Last treatment session was discussed. No adverse reaction noted. Discussed today???s treatment with patient, and dose was increased per MD order To return to clinic as directed. 10/10/2021, 2:19 PM Supervising physician: Frank Hurst MD Order Expiration date: 12/29/21 documented in this encounter Plan of Treatment Upcoming Encounters Date Type Specialty Care Team Description 06/26/2022 Appointment Dermatology Daphne Sanchez MD [address] [facility] [place] N [address] (Wo rk) 09/11/2022 Appointment Dermatology Daphne Sanchez MD [address] [facility] [place] [facility] [id number] (Wo rk) documented as of this encounter Visit Diagnoses Diagnosis Psoriasis and similar disorder - Primary Other psoriasis documented in this encounter Care Teams Choke Setter Relationship Specialty Start Date End Date Melvin White MD PCP - General 09/06/10 [address] [place] [address] documented as of this encounter
--- OUTSIDE RECORDS SUMMARY | 2022-05-10 09:58 | XMS_ITS | Encounter Summary ---
:1950 Author Organization [employer] Address [address], [place] [address] Care Team Providers Name Role Phone Melvin White MD Primary Care Provider Reason for Visit Reason Comments PSORIASIS Encounter Details Date Type Department Care Team Description 10/24/2021 Procedure Visit [facility] Nurse Photo, Antony PSORIASIS [address] [place] [address] Social History Tobacco Use Types Packs/Day Years Used Date Smoking Tobacco: Never Sex Assigned at Date Recorded Not on file documented as of this encounter Progress Notes Candice Hale RN - 10/24/2021 2:15 PM CDT Rigoberto Perdomo is here today for Unit #1: Body cooper NBUVB treatment, prescribed by Dr. Doreen Correa MD for the treatment of Psoriasis and similar disorder. Last treatment session was discussed. No adverse reaction noted. Discussed today???s treatment with patient, and dose was increased per MD order To return to clinic as directed. 10/24/2021, 2:16 PM Supervising physician: Frank Hurst MD Order Expiration date: 12/29/21 documented in this encounter Plan of Treatment Upcoming Encounters Date Type Specialty Care Team Description 06/26/2022 Appointment Dermatology Daphne Sanchez MD [address] [facility] RAFIA N [id number] (Wo rk) 09/11/2022 Appointment Dermatology Daphne Sanchez MD [address] [facility] RAFIA [facility] [id number] (Wo rk) documented as of this encounter Visit Diagnoses Diagnosis Psoriasis and similar disorder - Primary Other psoriasis documented in this encounter Care Teams Grinder Needle Tip Relationship Specialty Start Date End Date Melvin White MD PCP - General 09/06/10 [address] [place] [address] documented as of this encounter
--- OUTSIDE RECORDS SUMMARY | 2022-05-10 09:58 | XMS_ITS | Encounter Summary ---
:1950 Author Organization [employer] Address [address] [address] Care Team Providers Name Role Phone Melvin White MD Primary Care Provider Reason for Visit Reason Comments PSORIASIS Encounter Details Date Type Department Care Team Description 09/15/2021 Procedure Visit [facility] Nurse Photo, Antony PSORIASIS [address] [place] [address] Social History Tobacco Use Types Packs/Day Years Used Date Smoking Tobacco: Never Sex Assigned at Date Recorded Not on file documented as of this encounter Progress Notes Candice Hale RN - 09/15/2021 1:15 PM CDT Rigoberto Perdomo is here today for Unit #1: Body cooper NBUVB treatment, prescribed by Dr. Doreen Correa MD for the treatment of Psoriasis and similar disorder. Last treatment session was discussed. No adverse reaction noted. Discussed today???s treatment with patient, and dose was increased per MD order To return to clinic as directed. 09/15/2021, 1:27 PM Supervising physician: Frank Hurst MD Order Expiration date: 09/26/21 documented in this encounter Plan of Treatment Upcoming Encounters Date Type Specialty Care Team Description 06/26/2022 Appointment Dermatology Daphne Sanchez MD [address] [facility] RAFIA N [address] (Wo rk) 09/11/2022 Appointment Dermatology Daphne Sanchez MD [address] [facility] RAFIA [facility] [id number] (Wo rk) documented as of this encounter Visit Diagnoses Diagnosis Psoriasis and similar disorder - Primary Other psoriasis documented in this encounter Care Teams Classroom Coordinator Relationship Specialty Start Date End Date Melvin White MD PCP - General 09/06/10 [address] [place] [address] documented as of this encounter
--- OUTSIDE RECORDS SUMMARY | 2022-05-10 09:58 | XMS_ITS | Encounter Summary ---
:1950 Author Organization [employer] Address [address] [address] Care Team Providers Name Role Phone Melvin White MD Primary Care Provider Reason for Visit Reason Comments PSORIASIS Encounter Details Date Type Department Care Team Description 09/26/2021 Procedure Visit [facility] Nurse Photo, Antony PSORIASIS [address] [place] [address] Social History Tobacco Use Types Packs/Day Years Used Date Smoking Tobacco: Never Sex Assigned at Date Recorded Not on file documented as of this encounter Progress Notes Candice Hale RN - 09/26/2021 2:15 PM CDT Rigoberto Perdomo is here today for Unit #1: Body cooper NBUVB treatment, prescribed by Dr. Doreen Correa MD for the treatment of Psoriasis and similar disorder. Last treatment session was discussed. No adverse reaction noted. Discussed today???s treatment with patient, and dose was increased per MD order To return to clinic as directed. 09/26/2021, 2:16 PM Supervising physician: Frank Hurst MD Order Expiration date: 09/26/21 documented in this encounter Plan of Treatment Upcoming Encounters Date Type Specialty Care Team Description 06/26/2022 Appointment [facility]aphne Sanchez [facility] [address] [facility] N [id number] (Wo rk) 09/11/2022 Appointment Dermatology Daphne Sanchez MD [address] [facility] RAFIA [facility] [id number] (Wo rk) documented as of this encounter Visit Diagnoses Diagnosis Psoriasis and similar disorder - Primary Other psoriasis documented in this encounter Care Teams Template Layout Worker Relationship Specialty Start Date End Date Melvin White MD PCP - General 09/06/10 [address] [place] [address] documented as of this encounter
--- OUTSIDE RECORDS SUMMARY | 2022-05-10 09:58 | XMS_ITS | Encounter Summary ---
:1950 Author Organization [employer] Address [address] [address] Care Team Providers Name Role Phone Melvin White MD Primary Care Provider Reason for Visit Reason Comments PSORIASIS Encounter Details Date Type Department Care Team Description 10/19/2021 Office Visit Doreen Mantilla Psoriasis and similar disorder (Primary Dx); Dermatology MD Margi Skin exam for malignant neoplasm; [address] [place] [address] [place], [place] [phone] (Wo rk) Social History Tobacco Use Types Packs/Day Years Used Date Smoking Tobacco: Never Sex Assigned at Date Recorded Not on file documented as of this encounter Progress Notes Doreen Carcamo MD - 10/19/2021 8:45 AM CDT This office note has been dictated. Doreen Carcamo MD - 10/19/2021 12:00 AM CDT NAME: RIGOBERTO MANDUJANO CSN: [id number] CLINIC NOTE DERMATOLOGY CLINIC PROGRESS NOTE ON DATE OF SERVICE: 10/19/2021 : 1950 SUBJECTIVE: This 71-year-old gentleman comes to clinic for recheck of his skin and discussion of treatment of psoriasis. I saw him through video visit in June of this year at which time he had largeplaque involvement of psoriasis in the low back and buttocks; it was very pruritic. He had been trying topicals without relief including wet wraps, so we started narrow band UVB treatments in clinic, and he notes he has done well with that. The area has been nearly completely cleared. His main problemarea is his groin. He uses calcipotriene there, really nothing much else. Notes that elbows and knees have remained clear. He has a little bit of psoriasis around the ears, but that has remained mostlyclear with the use of betamethasone solution. He denies excessive morning joint stiffness, but does have some trigger finger symptoms, for which he has been evaluated. He has no personal history of skin cancer. MEDICATIONS: Reviewed in Epic. ALLERGIES: REVIEWED IN EPIC. FAMILY HISTORY: Negative for melanoma. OBJECTIVE: On exam, he has diffusely rossi skin. Photo damaged skin noted. A number of SKs noted. Marked improvement of the large plaque on the mid to lower back compared to photograph from June, nearly completely cleared. He does have involvement in the groin, a bit of scaliness around the ears and in the ears. Scalp is mostly clear today. Nothing on elbows or knees. No concerning lesions for skin cancer noted. ASSESSMENT AND PLAN: 1.Psoriasis. Doing well on phototherapy. He would like to continue for an additional month and then will discontinue and use natural sunlight for treatment. Recommended moisturizing. He brought severalmoisturizers with him today and we discussed the benefits of some of them. a.I also did discuss systemic treatment with him, but he would like to avoid. We discussed specifically Otezla or possible biologic such as Stelara. b.Also discussed home UVB units and he would prefer to go that route, so we will send order for a home unit. He would prefer one that he can take with him to [place]. c.He also has various topical steroids that he had been given by other physicians in the past and wereviewed these. He has clobetasol which he does not really like to use. He has hydrocortisone 2.5% cream, which we discussed could be used just occasionally in the groin alternating with calcipotriene.Also, he has zinc oxide paste that he can use in the inguinal creases when these become irritated and he has found that helpful. He has triamcinolone in a large jar which he has used for wet wraps in the past and he could continue to use this if needed for breakthrough psoriasis. 2.Photodamaged skin. Protection from the sun and monitoring for skin cancers recommended. Followup here February for recheck. 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
--- OUTSIDE RECORDS SUMMARY | 2022-05-10 09:58 | XMS_ITS | Encounter Summary ---
:1950 Author Organization [employer] Address [address] [address] Care Team Providers Name Role Phone Melvin White MD Primary Care Provider Reason for Visit Reason Comments PSORIASIS Encounter Details Date Type Department Care Team Description 10/17/2021 Procedure Visit [facility] Nurse Photo, Antony PSORIASIS [address] [place] [address] Social History Tobacco Use Types Packs/Day Years Used Date Smoking Tobacco: Never Sex Assigned at Date Recorded Not on file documented as of this encounter Progress Notes Candice Hale RN - 10/17/2021 2:15 PM CDT Rigoberto Perdomo is here today for Unit #1: Body cooper NBUVB treatment, prescribed by Dr. Doreen Correa MD for the treatment of Psoriasis and similar disorder. Last treatment session was discussed. No adverse reaction noted. Discussed today???s treatment with patient, and dose was increased per MD order To return to clinic as directed. 10/17/2021, 2:17 PM Supervising physician: Frank Hurst MD Order Expiration date: 12/29/21 documented in this encounter Plan of Treatment Upcoming Encounters Date Type Specialty Care Team Description 06/26/2022 Appointment Dermatology Daphne Sanchez MD [address] [facility] RAFIA N [address] (Wo rk) 09/11/2022 Appointment Dermatology Daphne Sanchez MD [address] [facility] RAFIA [facility] [id number] (Wo rk) documented as of this encounter Visit Diagnoses Diagnosis Psoriasis and similar disorder - Primary Other psoriasis documented in this encounter Care Teams Rubber Compounder Mixer Relationship Specialty Start Date End Date Melvin White MD PCP - General 09/06/10 [address] [place] [address] documented as of this encounter
--- OUTSIDE RECORDS SUMMARY | 2022-05-10 09:59 | XMS_ITS | Encounter Summary ---
:1950 Author Organization [employer] Address [address] [address] Care Team Providers Name Role Phone Melvin White MD Primary Care Provider Reason for Visit Reason Comments PSORIASIS Procedure/Equipment (Routine) - New Request Specialty Diagnoses / Procedures Referred By Contact Refer red To Contact Diagnoses [place] [address] [place] [address] Referral ID Status Reason Start Date Expiration Date Visits V isits Requested Authorized [id number] New Request 06/28/2021 09/27/2022 1 1 Encounter Details Date Type Department Care Team Description 07/25/2021 Procedure Visit [facility] Nurse Photo, Antony PSORIASIS [address] [place] [address] Social History Tobacco Use Types Packs/Day Years Used Date Smoking Tobacco: Never Sex Assigned at Date Recorded Not on file documented as of this encounter Progress Notes Candice Hale, RN - 07/25/2021 2:15 PM CST Rigoberto Perdomo is here today for Unit #1: Body cooper NBUVB treatment, prescribed by Dr. Doreen Correa MD for the treatment of Psoriasis and similar disorder. Initial treatment session was discussed with patient and consent was signed. Discussed today???s treatment with patient, and dose was started with initial dose per MD order To return to clinic as directed. 07/25/2021, 2:19 PM Supervising physician: Bert Sevilla MD Order Expiration date: 09/26/21 OMER DEVELOPMENT REPRESENTATIVE documented in this encounter Plan of Treatment Upcoming Encounters Date Type Specialty Care Team Description 06/26/2022 Appointment Dermatology Daphne Sanchez MD [address] [facility] N [address] (Wo rk) 09/11/2022 Appointment Dermatology Daphne Sanchez MD [address] [facility] RAFIA N [id number] (Wo rk) documented as of this encounter Visit Diagnoses Diagnosis Psoriasis and similar disorder - Primary Other psoriasis documented in this encounter Care Teams Mangle Feeder Relationship Specialty Start Date End Date Melvin White MD PCP - General 09/06/10 [address] [place], [place] [address] documented as of this encounter
--- OUTSIDE RECORDS SUMMARY | 2022-05-10 09:59 | XMS_ITS | Encounter Summary ---
:1950 Author Organization [employer] Address [address] [address] Care Team Providers Name Role Phone Melvin White MD Primary Care Provider Reason for Visit Reason Comments Future Appointments Encounter Details Date Type Department Care Team Description 06/30/2021 Telephone [facility] Doreen Bell, Future Appointments [address] [place] [address] [place] [phone] [place], [place] [address] (Wo juan) Social History Tobacco Use Types Packs/Day Years Used Date Smoking Tobacco: Never Sex Assigned at Date Recorded Not on file documented as of this encounter Nursing Notes Sarah Al - 06/30/2021 9:35 AM CST Left on 06/30/21 to schedule severiano 3 to 4 mo CONTROL ANALYST documented in this encounter Plan of Treatment Upcoming Encounters Date Type Specialty Care Team Description 06/26/2022 Appointment Dermatology Daphne Sanchez MD [address] [phone] (Joesph martinez) 09/11/2022 Appointment Dermatology Daphne Sanchez MD [address] N [phone] (Wo rk) documented as of this encounter Visit Diagnoses Not on filedocumented in this encounter Care Teams Bid Clerk Relationship Specialty Start Date End Date Melvin White MD PCP - General 09/06/10 [address] [place] [address] documented as of this encounter
--- OUTSIDE RECORDS SUMMARY | 2022-05-10 09:59 | XMS_ITS | Encounter Summary ---
:1950 Author Organization [employer] Address [address], [place] [address] Care Team Providers Name Role Phone Melvin White MD Primary Care Provider Reason for Visit Reason Comments PSORIASIS Encounter Details Date Type Department Care Team Description 07/28/2021 Procedure Visit [place] [facility] Nurse Photo, Antoyn PSORIASIS [address] [place] [address] Social History Tobacco Use Types Packs/Day Years Used Date Smoking Tobacco: Never Sex Assigned at Date Recorded Not on file documented as of this encounter Progress Notes Candice Hale RN - 07/28/2021 2:15 PM CST Rigoberto Perdomo is here today for Unit #1: Body cooper NBUVB treatment, prescribed by Dr. Doreen Correa MD for the treatment of Psoriasis and similar disorder. Last treatment session was discussed. No adverse reaction noted. Discussed today???s treatment with patient, and dose was increased per MD order To return to clinic as directed. 07/28/2021, 2:14 PM Supervising physician: Frank Hurst MD Order Expiration date: 09/26/21 TIONS SALES EXECUTIVE documented in this encounter Plan of Treatment Upcoming Encounters Date Type Specialty Care Team Description 06/26/2022 Appointment Dermatology Daphne Sanchez MD [address] [facility] RAFIA N [phone] (Wo rk) 09/11/2022 Appointment Dermatology Daphne Sanchez MD [address] [facility] [phone] (Wo rk) documented as of this encounter Visit Diagnoses Diagnosis Psoriasis and similar disorder - Primary Other psoriasis documented in this encounter Care Teams Information Systems Analyst Relationship Specialty Start Date End Date Melvin White MD PCP - General 09/06/10 [address] [place], [place] [address] documented as of this encounter
--- OUTSIDE RECORDS SUMMARY | 2022-05-10 09:59 | XMS_ITS | Encounter Summary ---
:1950 Author Organization [employer] Address [address], [place] [address] Care Team Providers Name Role Phone Kala White MD Primary Care Provider Encounter Details Date Type Department Care Team Description 09/13/2007 Office Visit [facility] [address] Mar[address] White MD Internal Medicine [address] [facility] [address] [place] [address] [place] [address] [phone] Social History Tobacco Use Types Packs/Day Years Used Date Smoking Tobacco: Never Assessed Sex Assigned at Date Recorded Not on file documented as of this encounter Last Filed Vital Signs Vital Sign Reading Time Taken Comments Blood Pressure 130/88 09/13/2007 3:49 PM CDT Pulse 74 09/13/2007 3:49 PM CDT Temperature - - Respiratory Rate - - Oxygen Saturation - - Inhaled Oxygen Concentration - - Weight 81.2 kg (178 lb 15.9 oz) 09/13/2007 3:49 PM C: 8 1.2kg CDT Height 166.4 cm (5' 5.5) 09/13/2007 3:49 PM C: 166.4cm CDT Body Mass Index 29.33 09/13/2007 3:49 PM CDT documented in this encounter Progress Notes Kala White MD - 09/13/2007 12:01 AM CDT Progress Notes signed by Kala White MD at 09/18/07 1330 Author: Kala White MD Service: (none) Author Type: Physician Filed: 09/24/10 0500 Note Time: 09/13/07 0001 Status: Signed Warehouse Logistics Coordinator: Kala White MD (Physician) NAME: RIGOBERTO MANDUJANO MR#: [id number] ACCT: [id number] VISIT: [id number] DICTATING CLINICIAN: KALA WHITE MD JOB: [id number] LOC: 406 CLINIC PROGRESS NOTE DATE OF VISIT: 09/13/2007 SUBJECTIVE: A 57-year-old man seen for health review. 1. History of prostate cancer, post prostatectomy in 1998. 2. Hyperlipidemia. 3. Psoriasis. MEDICATIONS: Updated in LastWord. SOCIAL HISTORY: Works at [employer]. Nonsmoker. Minimal alcohol. Generally feeling well. He gets some right shoulder and neck discomfort. X-rays and physical therapy done a year or so ago at [facility] did not find a specific cause, and ? therapy was not particularly helpful. No radicular symptoms. He notices it especially if he goes on a canoeing trip in the winter. Uses Viagra about twice a month with fairly good results. He has occasional heartburn and had 1 episode of nocturnal regurgitation. He does frequently have a dull, fairly constant sensation in his chest, particularly at night. No exertional chest pain or dyspnea. No odynophagia or dysphagia. Psoriasis is reasonably well controlled with topical therapy. Except as above, complete review of systems is negative. FAMILY HISTORY: Unchanged from last year. Labs prior to clinic reviewed, with normal creatinine, cholesterol 239, HDL 45, LDL calculated at 155, triglycerides 194. OBJECTIVE: VS: BP: 130/88. P: 54. Wt: 179 lb. A pleasant 57-year-old man. SKIN: No suspicious lesions. Scattered psoriatic plaque over the elbows, scalp, and back. HEENT EXAM: Unremarkable. No carotid bruits. No thyromegaly. LUNGS: Clear. CARDIAC EXAM: Shows a regular rate and rhythm, without murmur. ABDOMEN: Without palpable mass, aneurysm, organomegaly, or tenderness. PROSTATE: Surgically absent. EXTREMITIES: Free of edema. Pedal pulses are strong. ASSESSMENT: Satisfactory health review. Hyperlipidemia with moderate coronary risk. Reviewed options. Begin simvastatin 20 mg nightly with followup lipids in about 2 months. Regurgitation, intermittent chest symptoms not at all suggestive of angina. Suspect reflux disease. Empiric trial of a proton pump inhibitor for 6 weeks. Call if not resolving. Otherwise, return to clinic in 1 year. I did examine his shoulder, which seemed to be normal. I did not have any further suggestions regarding chronic neck and shoulder pain other than referral back to Physical Therapy. PLAN: See Assessment. ACW:[id number] C: 09/14/07 17:00 DOCUMENT: [id number] documented in this encounter Plan of Treatment Upcoming Encounters Date Type Specialty Care Team Description 06/26/2022 Appointment Dermatology Daphne Sanchez MD [address] [facility] N [address] (Wo rk) 09/11/2022 Appointment Dermatology Daphne Sanchez MD [address] [facility] N [address] (Wo rk) documented as of this encounter Visit Diagnoses Not on filedocumented in this encounter Care Teams Bobbin Cleaning Machine Operator Relationship Specialty Start Date End Date Kala White MD PCP - General 09/06/10 [address] [place] [address] documented as of this encounter
--- OUTSIDE RECORDS SUMMARY | 2022-05-10 09:59 | XMS_ITS | Encounter Summary ---
:1950 Author Organization [facility] Address [address] [place] [address] Care Team Providers Name Role Phone Kala White MD Primary Care Provider Reason for Visit Reason Comments Other Encounter Details Date Type Department Care Team Description 08/20/2007 Telephone [facility] [address] [facility], Message Other [address] [place], [place] [address] Social History Tobacco Use Types Packs/Day Years Used Date Smoking Tobacco: Never Assessed Sex Assigned at Date Recorded Not on file documented as of this encounter Progress Notes Center, Message - 08/20/2007 11:46 AM CDT Phone Note filed by [email or web address] at 09/21/10 7215 Author: [email or web address] Service: (none) Author Type: (none) Filed: 09/21/101 Note Time: 08/20/07 1146 Status: Signed Manager Video Games: [email or web address] Lab/Radiology Requests Caller Name/Relationship: Rigoberto Primary Meter Repair Shop Supervisor:Cindy What test is needed and when? lab papers Why is test needed/requested? for well visit scheduled for 09/13/07 *If symptom related, send to triage Linux Engineer:Rigoberto Best call back number: [phone] Is it OK to leave a confidential message on this voicemail? y *[id number] Created on 20Aug2007 11:46am by JAGRUTI PERAZA On 20Aug2007 11:51am KEYSHAWN CARLSON wrote: Patient calling he is scheduled for a late day px would like to have lab papers sent out ahead of time to have fasting blood work done -mail to the home address- include lab appt # on slip [phone] On 20Aug2007 11:52am JANINE GERMAN wrote: request orders On 20Aug2007 11:53am KALA WHITE wrote: fract creat 272.4 Acknowledged by KALA WHITE on 11:53am Acknowledged by KALA WHITE on 11:53am On 20Aug2007 2:32pm SUNNI COOPER wrote: lab slip mailed to pt IFF OFFICER documented in this encounter Plan of Treatment Upcoming Encounters Date Type Specialty Care Team Description 06/26/2022 Appointment Dermatology Daphne Sanchez MD [address] [address] (Joesph martinez) 09/11/2022 Appointment Dermatology Daphne Sanchez MD [address] [address] (Joesph martinez) documented as of this encounter Visit Diagnoses Not on filedocumented in this encounter Care Teams Channel Business Manager Relationship Specialty Start Date End Date Kaal White MD PCP - General 09/06/10 [address] [place] [address] documented as of this encounter
--- OUTSIDE RECORDS SUMMARY | 2022-05-10 09:59 | XMS_ITS | Encounter Summary ---
:1950 Author Organization [employer] Address [address] [address] Care Team Providers Name Role Phone Melvin White MD Primary Care Provider Reason for Visit Reason Comments PSORIASIS Encounter Details Date Type Department Care Team Description 08/11/2021 Procedure Visit [facility] [facility] Nurse Photo, Antony PSORIASIS [address] [place] [address] Social History Tobacco Use Types Packs/Day Years Used Date Smoking Tobacco: Never Sex Assigned at Date Recorded Not on file documented as of this encounter Progress Notes Candice Hale RN - 08/11/2021 1:45 PM CST Rigoberto Perdomo is here today for Unit #1: Body cooper NBUVB treatment, prescribed by Dr. Doreen Correa MD for the treatment of Psoriasis and similar disorder. Last treatment session was discussed. Yes, adverse reaction noted. had redness on waistline lasting 24 to 48 hours, no pain or blistering noted Discussed today???s treatment with patient, and dose was held per protocol To return to clinic as directed. 08/11/2021, 1:48 PM Supervising physician: Frank Hurst MD Order Expiration date: 09/26/21 PULLER documented in this encounter Plan of Treatment Upcoming Encounters Date Type Specialty Care Team Description 06/26/2022 Appointment Dermatology Daphne Sanchez MD [address] [place] [place] [address] (Wo rk) 09/11/2022 Appointment Dermatology Daphne Sanchez MD [address] [facility] N [address] (Wo rk) documented as of this encounter Visit Diagnoses Diagnosis Psoriasis and similar disorder - Primary Other psoriasis documented in this encounter Care Teams Clinical Physician Assistant Relationship Specialty Start Date End Date Melvin White MD PCP - General 09/06/10 [address] [place], [place] [address] documented as of this encounter
--- OUTSIDE RECORDS SUMMARY | 2022-05-10 09:59 | XMS_ITS | Encounter Summary ---
:1950 Author Organization [employer] Address [address], [place] [address] Care Team Providers Name Role Phone Melvin White MD Primary Care Provider Encounter Details Date Type Department Care Team Description 11/25/2007 PN Conversion Only [place] [facility] N Melvin White, [address] [place], [place] [address] [address] [place], [place] [phone] (Wo juan) Social History Tobacco Use Types Packs/Day Years Used Date Smoking Tobacco: Never Assessed Sex Assigned at Date Recorded Not on file documented as of this encounter Plan of Treatment Upcoming Encounters Date Type Specialty Care Team Description 06/26/2022 Appointment Dermatology Daphne Sanchez MD [address] [facility] N [phone] (Wo rk) 09/11/2022 Appointment Dermatology Daphne Sanchez MD [address] [facility] N [phone] (Wo rk) documented as of this encounter Procedures Procedure Name Priority Date/Time Associated Diagnosis Comme nts LIPID PANEL AND Routine 11/25/2007 8:10 AM Result s for this DIRECT LDL(IF CDT procedure are in NEEDED) the results section. PROSTATIC SPECIFIC Routine 11/25/2007 8:10 AM Res ults for this ANTIGEN(SCREEN) CDT procedure ar e in the results section. ALT (SGPT) Routine 11/25/2007 8:10 AM Results f or this CDT procedure are i n the results section. documented in this encounter Results ALT (SGPT) (11/25/2007 8:10 AM CDT) [facility] Method Time Signature Alanine 36 4 - 55 HP CONVERSION Aminotransferase U/L Specimen (Source) Anatomical Collection Method Collection Time Re ceived Time Location / / Volume Laterality 11/25/2007 8:10 AM CDT Melvin White MD LAB_1 Performing Organization Address City/State/ZIP Code Phon e Number HP CONVERSION (ABNORMAL) Lipid Panel and Direct LDL(If Needed) (11/25/2007 8:10 AM CDT) [facility] Method Time Signature Length Of Fast 12.0 Hours HP CONVERSION Cholesterol/HDL 4.1 No normal HP CONVERSION Ratio Screen range Cholesterol 168 <200 mg/dL HP CONVERSION HDL Cholesterol 41 >40 mg/dL HP CONVERSION Triglycerides 184 (H) 0 - 149 HP CONVERSION mg/dL LDL Calculated 90 0 - 130 HP CONVERSION mg/dL Comment: Specimen (Source) Anatomical Collection Method Collection Time Re ceived Time Location / / Volume Laterality 11/25/2007 8:10 AM CDT Melvin White MD LAB_1 Performing Organization Address City/State/ZIP Code Phon e Number HP CONVERSION Prostatic Specific Antigen (Screen) (11/25/2007 8:10 AM CDT) athologist Signature Prostate <0.1 0.0 - 4.0 HP CONVERSION Specific ng/mL Antigen Specimen (Source) Anatomical Collection Method Collection Time Re ceived Time Location / / Volume Laterality 11/25/2007 8:10 AM CDT Melvin White MD LAB_1 Performing Organization Address City/State/ZIP Code Phon e Number HP CONVERSION documented in this encounter Visit Diagnoses Not on filedocumented in this encounter Care Teams Independent Living Specialist Relationship Specialty Start Date End Date Melvin White MD PCP - General 09/06/10 [address] [place] [address] documented as of this encounter
--- OUTSIDE RECORDS SUMMARY | 2022-05-10 09:59 | XMS_ITS | Encounter Summary ---
:1950 Author [facility] Address [address] [place] [address] Care Team Providers Name Role Phone Kala White MD Primary Care Provider Reason for Visit Reason Comments Other Encounter Details Date Type Department Care Team Description 11/27/2007 Telephone [facility] [address] [facility] Kala earl MD Other Medicine [address] [address] [facility] [address] [place] [address] [place] [address] [phone] Social History Tobacco Use Types Packs/Day Years Used Date Smoking Tobacco: Never Assessed Sex Assigned at Date Recorded Not on file documented as of this encounter Progress Notes Center, Message - 11/27/2007 2:24 PM CDT Phone Note filed by [employer] at 09/21/10 0963 Author: [employer] Service: (none) Author Type: (none) Filed: 09/21/10 0987 Note Time: 11/27/07 1424 Status: Signed Child Care Sitter: Message Center Non -Symptom Message from Front Line Caller Name/Relationship:Michelle Suggs Primary Steam Clothes Press Operator:Dr White Message:Needs lab order- PSA and Cholesterol. Safety Deposit Supervisor:Mary Caruso call back number: Is it OK to leave a confidential message on this voicemail? *ECODE~[email or web address] Created on 27Nov2007 2:24pm by RAMÍREZ KRISHNAMURTHY On 27Nov2007 3:29pm KATJA COLE wrote: I faxed lab paper for chol frc, ast and PSA to [facility]. They had already drawn labs on pt. Acknowledged by KALA WHITE on 6:52pm SKILLS CONSULTANT documented in this encounter Plan of Treatment Upcoming Encounters Date Type Specialty Care Team Description 06/26/2022 Appointment Dermatology Daphne Sanchez MD [address] [facility] N [phone] (Wo rk) 09/11/2022 Appointment Dermatology Daphen Sanchez MD [address] [facility] [place] N [phone] (Wo rk) documented as of this encounter Visit Diagnoses Not on filedocumented in this encounter Care Teams Stud Driver Relationship Specialty Start Date End Date Kala White MD PCP - General 09/06/10 [address] [place] [address] documented as of this encounter
--- OUTSIDE RECORDS SUMMARY | 2022-05-10 09:59 | XMS_ITS | Encounter Summary ---
:1950 Author Organization [employer] Address [address] [place] [address] Care Team Providers Name Role Phone Melvin White MD Primary Care Provider Encounter Details Date Type Department Care Team Description 07/21/2021 [place] [address] [place] [address] [place], [place] [phone] (Wo rk) Social History Tobacco Use Types Packs/Day Years Used Date Smoking Tobacco: Never Sex Assigned at Date Recorded Not on file documented as of this encounter Nursing Notes Jhoana Crump RN - 08/01/2021 4:12 PM CST Called and scheduled 10/20/21 ER Aura Trotter - 07/21/2021 3:16 PM CST Patient called to set up a F/U with Dr. Correa for a few months out after he has started light treatment. Soonest available was 12/29. We booked this appointment, but wanted to see if that timeline wasgood for what Dr. Correa was wanting. Reschedule if needed. ER documented in this encounter Plan of Treatment Upcoming Encounters Date Type Specialty Care Team Description 06/26/2022 Appointment Dermatology Daphne Sanchez MD [address] [facility] N [phone] (Wo rk) 09/11/2022 Appointment Dermatology Daphne Sanchez MD [address] [facility] N [phone] (Wo rk) documented as of this encounter Visit Diagnoses Not on filedocumented in this encounter Care Teams Aircraft Instrument Repairer Relationship Specialty Start Date End Date Melvin White MD PCP - General 09/06/10 [address] [place], [place] [phone] documented as of this encounter
--- OUTSIDE RECORDS SUMMARY | 2022-05-10 09:59 | XMS_ITS | Encounter Summary ---
:1950 Author Organization [facility] Address [address] [place] [address] Care Team Providers Name Role Phone Kala White MD Primary Care Provider Reason for Visit Reason Comments Other Encounter Details Date Type Department Care Team Description 10/13/2008 Telephone [facility] [address] [facility], Message Other [address] [place], [place] [phone] Social History Tobacco Use Types Packs/Day Years Used Date Smoking Tobacco: Never Assessed Sex Assigned at Date Recorded Not on file documented as of this encounter Progress Notes Center, Message - 10/13/2008 4:59 PM CDT Phone Note filed by [employer] at 09/23/10219 Author: [employer] Service: (none) Author Type: (none) Filed: 09/23/10219 Note Time: 10/13/081658 Status: Signed Plant Tender: [employer] (Resource) Non -Symptom Message from Front Line Caller Name/Relationship: Jakob Primary Digital Measurement Advisor: Cindy Message: Would like to talk to a nurse about Lymes disease. Declined to give anymore info. Would also like to get a recomendation to a doctor in [place]. Reservations Sales Agent: Jakob Best call back number: [phone] Is it OK to leave a confidential message on this voicemail? yes *ECODE~[email or web address] Created on 13Oct2008 4:59pm by LUIS CHUNG On 13Oct2008 5:02pm LUIS CHUNG wrote: pt calling back would like to leave another number [phone] vm yes please call after 10:30 tomorrow On 14Oct2008 12:54pm RITCHIE HESTER wrote: Spoke with Mr Perdomo. [place] States there are a lot of ticks. 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 The only symptom he has now is burning in the lower legs. No rash, joint pain, or red bull shot bite areas. He is asking about getting tested for Lymes again. He is aware that Dr White is out of the clinic until 5/14 pm and wishes to wait until then for a response. He can be reached at [phone]. On 14Oct2008 1:58pm KALA WHITE wrote: lyme testing will not be accurate after previous bout. Lyme disease is uncommon, so without ixodes tick bite, rash or arthritis it is very unlikely he has it again. Rec DEET, careful inspection for ticks after being in the [place]. Acknowledged by KALA WHITE on 1:58pm On 14Oct2008 2:08pm SUNNI COOPER wrote: pt advised and voices understanding RAM DIRECTOR CABLE TELEVISION documented in this encounter Plan of Treatment Upcoming Encounters Date Type Specialty Care Team Description 06/26/2022 Appointment Dermatology Daphne Sanchez MD [address] [facility] [place] N [id number] (Wo rk) 09/11/2022 Appointment Dermatology Daphne Sanchez MD [address] [place] N [id number] (Wo rk) documented as of this encounter Visit Diagnoses Not on filedocumented in this encounter Care Teams Wax Machine Operator Relationship Specialty Start Date End Date Kala White MD PCP - General 09/06/10 [address] [place], [place] [address] documented as of this encounter
--- OUTSIDE RECORDS SUMMARY | 2022-05-10 09:59 | XMS_ITS | Encounter Summary ---
:1950 Author Organization [employer] Address [address] [address] Care Team Providers Name Role Phone Melvin White MD Primary Care Provider Reason for Visit Reason Comments PSORIASIS Encounter Details Date Type Department Care Team Description 08/08/2021 Procedure Visit [place] [facility] Nurse Photo, Antony PSORIASIS [address] [place] [address] Social History Tobacco Use Types Packs/Day Years Used Date Smoking Tobacco: Never Sex Assigned at Date Recorded Not on file documented as of this encounter Progress Notes Candice Hale RN - 08/08/2021 2:15 PM CST Rigoberto Perdomo is here today for Unit #1: Body cooper NBUVB treatment, prescribed by Dr. Doreen Correa MD for the treatment of Psoriasis and similar disorder. Last treatment session was discussed. No adverse reaction noted. Discussed today???s treatment with patient, and dose was increased per MD order To return to clinic as directed. 08/08/2021, 2:16 PM Supervising physician: Frank Hurst MD Order Expiration date: 09/26/21 NG SQUAD SALESPERSON documented in this encounter Plan of Treatment Upcoming Encounters Date Type Specialty Care Team Description 06/26/2022 Appointment Dermatology Daphne Sanchez MD [address] [place] [facility] [place] [phone] (Wo rk) 09/11/2022 Appointment Dermatology Daphne Sanchez MD [address] [facility] [phone] (Wo rk) documented as of this encounter Visit Diagnoses Diagnosis Psoriasis and similar disorder - Primary Other psoriasis documented in this encounter Care Teams Grade Tamper Relationship Specialty Start Date End Date Melvin White MD PCP - General 09/06/10 [address] [place], [place] [address] documented as of this encounter
--- OUTSIDE RECORDS SUMMARY | 2022-05-10 09:59 | XMS_ITS | Encounter Summary ---
:1950 Author Organization [employer] Address [address], [place] [address] Care Team Providers Name Role Phone Melvin White MD Primary Care Provider Reason for Visit Reason Comments PSORIASIS Encounter Details Date Type Department Care Team Description 08/18/2021 Procedure Visit [place] [facility] Nurse Photo, Antony PSORIASIS [address] [place] [address] Social History Tobacco Use Types Packs/Day Years Used Date Smoking Tobacco: Never Sex Assigned at Date Recorded Not on file documented as of this encounter Progress Notes Candice Hale RN - 08/18/2021 11:30 AM CDT Rigoberto Perdomo is here today for Unit #1: Body cooper NBUVB treatment, prescribed by Dr. Doreen Correa MD for the treatment of Psoriasis and similar disorder. Last treatment session was discussed. No adverse reaction noted. Discussed today???s treatment with patient, and dose was increased per MD order To return to clinic as directed. 08/18/2021, 11:29 AM Supervising physician: Doreen Correa MD Order Expiration date: 09/26/21 documented in this encounter Plan of Treatment Upcoming Encounters Date Type Specialty Care Team Description 06/26/2022 Appointment Dermatology Daphne Sanchez MD [address] [address] (Wo rk) 09/11/2022 Appointment Dermatology Daphne Sanchez MD [address] [facility] [phone] (Wo rk) documented as of this encounter Visit Diagnoses Diagnosis Psoriasis and similar disorder - Primary Other psoriasis documented in this encounter Care Teams Top Precipitator Operator Helper Relationship Specialty Start Date End Date Melvin White MD PCP - General 09/06/10 [address] [place], [place] [address] documented as of this encounter
--- OUTSIDE RECORDS SUMMARY | 2022-05-10 09:59 | XMS_ITS | Encounter Summary ---
:1950 Author Organization [employer] Address [address] [address] Care Team Providers Name Role Phone Melvin White MD Primary Care Provider Encounter Details Date Type Department Care Team Description 09/04/2007 PN Conversion Only [place] [facility] N Melvin White, [address] [address] [place], [place] [address] [address] [place], [place] [phone] (Wo juan) Social History Tobacco Use Types Packs/Day Years Used Date Smoking Tobacco: Never Assessed Sex Assigned at Date Recorded Not on file documented as of this encounter Plan of Treatment Upcoming Encounters Date Type Specialty Care Team Description 06/26/2022 Appointment Dermatology Daphne Sanchez MD [address] [facility] N [phone] (Wo rk) 09/11/2022 Appointment Dermatology Daphne Sanchez MD [address] [facility] N [phone] (Wo rk) documented as of this encounter Procedures Procedure Name Priority Date/Time Associated Comments Diagnosis LIPID PANEL AND Routine 09/04/2007 11:55 AM Resul ts for this DIRECT LDL(IF CDT procedure are in NEEDED) the results section. CREATININE / GFR Routine 09/04/2007 11:55 AM Resu lts for this CDT procedure are i n the results section. documented in this encounter Results Creatinine / GFR (09/04/2007 11:55 AM CDT) P athologist Signature Creatinine 1.0 0.4 - 1.3 HP CONVERSION Serum mg/dL Est GFR >60 >60 HP CONVERSION Am Est GFR Non-Afr >60 >60 HP CONVERSION Am Comment: -Mosotho and Jaf-Ypnulyr-Asaxwlo n reference range units: mL/min/1.73m2 Normal>60, moderate decrease 30 - 59, se dee decrease 15 - 29, renal failure <15 mL/min/1.73 m2 Specimen (Source) Anatomical Collection Method Collection Time Re ceived Time Location / / Volume Laterality 09/04/2007 11:55 AM CDT Melvin White MD LAB_1 Performing Organization Address City/State/ZIP Code Phon e Number HP CONVERSION (ABNORMAL) Lipid Panel and Direct LDL(If Needed) (09/04/2007 11:55 AM CDT) Patholo gist Method Time Signature Length Of Fast 12.0 Hours HP CONVERSION Cholesterol/HDL 5.3 No normal HP CONVERSION Ratio Screen range Cholesterol 239 (H) <200 mg/dL HP CONVERSION HDL Cholesterol 45 >40 mg/dL HP CONVERSION Triglycerides 194 (H) 0 - 149 HP CONVERSION mg/dL LDL Calculated 155 (H) 0 - 130 HP CONVERSION mg/dL Comment: Specimen (Source) Anatomical Collection Method Collection Time Re ceived Time Location / / Volume Laterality 09/04/2007 11:55 AM CDT Melvin White MD LAB_1 Performing Organization Address City/State/ZIP Code Phon e Number HP CONVERSION documented in this encounter Visit Diagnoses Not on filedocumented in this encounter Care Teams Band Sawmill Operator Relationship Specialty Start Date End Date Melvin White MD PCP - General 09/06/10 [address] [place] [address] documented as of this encounter
--- OUTSIDE RECORDS SUMMARY | 2022-05-10 09:59 | XMS_ITS | Encounter Summary ---
:1950 Author Organization [facility] Address [address] [place] [address] Care Team Providers Name Role Phone Kala White MD Primary Care Provider Reason for Visit Reason Comments Other Encounter Details Date Type Department Care Team Description 11/25/2007 Telephone [facility] [address] [facility], Message Other [address] 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 white What test is needed and when?annual fasting labs Why is test needed/requested?states Pt came in to the lab today and did not have orders, states forgot at home. *If symptom related, send to triage Library Circulation Assistant:[facility] Best call back number:[phone] Is it OK to leave a confidential message on this voicemail?yes *ECODE~[email or web address] Created on 25Nov2007 8:52am by PÉREZ SOLIS On 25Nov2007 9:47am RITCHIE HESTER wrote: Spoke with [facility] and patient thought he needed PSA, A1C, chol fract. Unable to find order. Please verify and need code please On 27Nov2007 3:29pm KATJA COLE wrote: Please see phone note 11/27/07. On 27Nov2007 6:42pm KALA WHITE wrote: psa 185 fract glu alt 272.4 Acknowledged by KALA WHITE on 6:42pm On 28Nov2007 10:48am SUNNI COOPER wrote: orders were faxed on 11/25 K PROCESSOR documented in this encounter Plan of Treatment Upcoming Encounters Date Type Specialty Care Team Description 06/26/2022 Appointment Dermatology Daphne Sacnhez MD [address] [address] (Wo rk) 09/11/2022 Appointment Daphne Martinez MD [address] [address] (Wo rk) documented as of this encounter Visit Diagnoses Not on filedocumented in this encounter Care Teams Terrazzo Layer Helper Relationship Specialty Start Date End Date Kala White MD PCP - General 09/06/10 [address] [place] [address] documented as of this encounter
--- OUTSIDE RECORDS SUMMARY | 2022-05-10 09:59 | XMS_ITS | Encounter Summary ---
:1950 Author Organization [employer] Address [address], [place] [address] Care Team Providers Name Role Phone Melvin White MD Primary Care Provider Reason for Visit Reason Comments PSORIASIS Encounter Details Date Type Department Care Team Description 08/01/2021 Procedure Visit [place] [facility] Nurse Photo, Antony PSORIASIS [address] [place] [address] Social History Tobacco Use Types Packs/Day Years Used Date Smoking Tobacco: Never Sex Assigned at Date Recorded Not on file documented as of this encounter Progress Notes Candice Hale RN - 08/01/2021 2:15 PM CST Rigoberto Perdomo is here today for Unit #1: Body cooper NBUVB treatment, prescribed by Dr. Doreen Correa MD for the treatment of Psoriasis and similar disorder. Last treatment session was discussed. No adverse reaction noted. Discussed today???s treatment with patient, and dose was increased per MD order To return to clinic as directed. 08/01/2021, 2:14 PM Supervising physician: Frank Hurst MD Order Expiration date: 09/26/21 SANDER OPERATOR documented in this encounter Plan of Treatment Upcoming Encounters Date Type Specialty Care Team Description 06/26/2022 Appointment Dermatology Daphne Sanchez MD [address] [facility] [place] N [phone] (Wo rk) 09/11/2022 Appointment Dermatology Daphne Sanchez MD [address] [facility] [phone] (Wo rk) documented as of this encounter Visit Diagnoses Diagnosis Psoriasis and similar disorder - Primary Other psoriasis documented in this encounter Care Teams Screen Machine Operator Relationship Specialty Start Date End Date Melvin White MD PCP - General 09/06/10 [address] [place], [place] [address] documented as of this encounter
--- OUTSIDE RECORDS SUMMARY | 2022-05-10 09:59 | XMS_ITS | Encounter Summary ---
:1950 Author Organization [employer] Address [address], [place] [address] Care Team Providers Name Role Phone Melvin White MD Primary Care Provider Reason for Visit Reason Comments PSORIASIS Encounter Details Date Type Department Care Team Description 08/04/2021 Procedure Visit [facility] Photo, Antony PSORIASIS [address] [place] [address] Social History Tobacco Use Types Packs/Day Years Used Date Smoking Tobacco: Never Sex Assigned at Date Recorded Not on file documented as of this encounter Progress Notes Candice Hale RN - 08/04/2021 2:15 PM CST Rigoberto Perdomo is here today for Unit #1: Body cooper NBUVB treatment, prescribed by Dr. Doreen Correa MD for the treatment of Psoriasis and similar disorder. Last treatment session was discussed. No adverse reaction noted. Discussed today???s treatment with patient, and dose was increased per MD order To return to clinic as directed. 08/04/2021, 2:08 PM Supervising physician: Frank Hurst MD Order Expiration date: 09/26/21 TESTER documented in this encounter Plan of Treatment Upcoming Encounters Date Type Specialty Care Team Description 06/26/2022 Appointment Dermatology Daphne Sanchez MD [address] [facility] [place] N [address] (Wo rk) 09/11/2022 Appointment Dermatology Daphne Sanchez MD [address] [facility] [phone] (Wo rk) documented as of this encounter Visit Diagnoses Diagnosis Psoriasis and similar disorder - Primary Other psoriasis documented in this encounter Care Teams Desizing Machine Operator Head End Relationship Specialty Start Date End Date Melvin White MD PCP - General 09/06/10 [address] [place], [place] [address] documented as of this encounter
--- OUTSIDE RECORDS SUMMARY | 2022-05-10 09:59 | XMS_ITS | Encounter Summary ---
:1950 Author Organization [employer] Address [address] [place] [address] Care Team Providers Name Role Phone Melvin White MD Primary Care Provider Encounter Details Date Type Department Care Team Description 10/05/[address] [facility] [address] Melvin White, Internal Medicine [address] [place] [address] [phone] (Joesph rk) Social History Tobacco Use Types Packs/Day Years Used Date Smoking Tobacco: Never Assessed Sex Assigned at Date Recorded Not on file documented as of this encounter Plan of Treatment Upcoming Encounters Date Type Specialty Care Team Description 06/26/2022 Appointment Dermatology Daphne Sanchez MD [address] [facility] N [id number] (Wo rk) 09/11/2022 Appointment Dermatology Daphne Sanchez MD [address] [facility] N 640906 (Wo rk) documented as of this encounter Visit Diagnoses Not on filedocumented in this encounter Care Teams Rail Assembler Relationship Specialty Start Date End Date Melvin White MD PCP - General 09/06/10 [address] [place] [address] documented as of this encounter
--- OUTSIDE RECORDS SUMMARY | 2022-05-10 09:59 | XMS_ITS | Encounter Summary ---
:1950 Author Organization [employer] Address [address], [place] [address] Care Team Providers Name Role Phone Melvin White MD Primary Care Provider Reason for Visit Reason Comments PSORIASIS Encounter Details Date Type Department Care Team Description 08/15/2021 Procedure Visit [facility] Nurse Photo, Antony PSORIASIS [address] [place] [address] Social History Tobacco Use Types Packs/Day Years Used Date Smoking Tobacco: Never Sex Assigned at Date Recorded Not on file documented as of this encounter Progress Notes Candice Hale RN - 08/15/2021 11:30 AM CDT Rigoberto Perdomo is here today for Unit #1: Body cooper NBUVB treatment, prescribed by Dr. Doreen Correa MD for the treatment of Psoriasis and similar disorder. Last treatment session was discussed. No adverse reaction noted. Discussed today???s treatment with patient, and dose was increased per MD order To return to clinic as directed. 08/15/2021, 2:16 PM Supervising physician: Frank Hurst MD Order Expiration date: 09/26/21 documented in this encounter Plan of Treatment Upcoming Encounters Date Type Specialty Care Team Description 06/26/2022 Appointment Dermatology Daphne Sanchez MD [address] [facility] RAF[place] N [id number] (Wo rk) 09/11/2022 Appointment Dermatology Daphne Sanchez MD [address] [facility] [place] [facility] [id number] (Wo rk) documented as of this encounter Visit Diagnoses Diagnosis Psoriasis and similar disorder - Primary Other psoriasis documented in this encounter Care Teams Repair Manager Relationship Specialty Start Date End Date Melvin White MD PCP - General 09/06/10 [address] [place] [address] documented as of this encounter
--- OUTSIDE RECORDS SUMMARY | 2022-05-10 09:59 | XMS_ITS | Encounter Summary ---
:1950 Author Organization [facility] Address [address], [place] [address] Care Team Providers Name Role Phone Melvin White MD Primary Care Provider Reason for Referral Procedure/Equipment (Routine) - New Request Specialty Diagnoses / Procedures Referred By Contact Refer red To Contact Diagnoses [place] [address] [place] [id number] Referral ID Status Reason Start Date Expiration Date Visits V isits Requested Authorized [id number] New Request 06/28/2021 09/27/2022 1 1 Scheduling Instructions Your provider has recommended an appoint ment with Kely [place]. You may call [phone] to schedule your appoi ntment. We suggest you call your health insurance company about your coverage an d benefits for this appointment. SCAPE ARTIST Medication Prior Authorization - Authorized Specialty Diagnoses / Procedures Referred By Contact [place] [address] [place] [id number] Referral ID Status Reason Start Date Expiration Date Visits V isits Requested Authorized [id number] Authorized 06/29/2021 06/03/2099 1 1 SCAPE ARTIST Reason for Visit Reason Onset Date Comments SKIN PROBLEM 06/28/2021 Encounter Details Date Type Department Care Team Description 06/28/2021 Telemedicine Doreen Mantilla Psoriasis and similar Dermatology MD Margi disorder (Primary Dx) [address] [address] [place] [address] [place] [phone] [id number] (Wo rk) Social History Tobacco Use Types Packs/Day Years Used Date Smoking Tobacco: Never Sex Assigned at Date Recorded Not on file documented as of this encounter Progress Notes Doreen Correa MD - 06/28/2021 2:30 PM CST History of Present Illness: Rigoberto Perdomo is a 71 y.o. male who requests a telehealth visit today for psoriasis. Last seen 2004 for psoriasis. Was given topical steroids and calcineurin inhibitor for groin involvement at that time. He notes he has been mostly using TMC 0.1% ointment. He notes groin and some scalp involvement, but back is very itchy, dell at bedtime. He has never been on systemic meds (and wants to avoid), but has noted sunlight helps his psoriasis. No h/o skin cancer. Past Medical History: Problem List None Medications: The patient has a current medication list which includes the following prescription(s): ascorbic acid, aspirin, calcipotriene, calcium carb- ergocalciferol, gelatin, multiple vitamin, sildenafil, simvastatin, and unknown medication. Allergies: The patient is allergic to penicillins. Physical Examination: General: Well-appearing male, in no distress, alert and oriented. Areas examined: mid and low back Pertinent findings: large confluent psoriatic plaques. Exam otherwise was normal. Assessment and Plan: Psoriasis vulgaris Discussed Wet wraps -- shower to wet the back, apply triamcinolone ointment, wring out t-shirt or light sweatshirt in lukewarm water and wear. Wrap in warm robe or blanket for about one hour. Do not shower after, dress in dry clothes. Recommended Cetirizine (Zyrtec is brand, generic okay) 10 mg 1 hour prior to bedtime. Ordered NUVB for Alley 2-3 times weekly. If responds well, consider home unit. Discussed retrial Dovonex, may not be covered by insurance. He can decline. Follow up: Return to clinic in 3-4 months, sooner for new concerns. This visit was conducted via 2-way audio-video in conjunction with review of digital images in [employer]. Location of clinician: home office Location of patient: home SCAPE ARTIST documented in this encounter Plan of Treatment Upcoming Encounters Date Type Specialty Care Team Description 06/26/2022 Appointment Dermatology Daphne Sanchez MD [address] [facility] N [address] (Wo rk) 09/11/2022 Appointment Dermatology Daphne Sanchez MD [address] [facility] N [address] (Wo rk) Scheduled Referrals Name Type Priority Associated Diagnoses Order S chedule Hand/foot/body UV Referral Routine Psoriasis and similar O rdered: 06/28/2021 Light Therapy disorder documented as of this encounter Visit Diagnoses Diagnosis Psoriasis and similar disorder - Primary Other psoriasis documented in this encounter Care Teams Fish Cutter Relationship Specialty Start Date End Date Melvin White MD PCP - General 09/06/10 [address] [place] [address] documented as of this encounter
--- OUTSIDE RECORDS SUMMARY | 2022-05-10 10:00 | XMS_ITS | Encounter Summary ---
:1950 Author Organization [employer] Address [address] [place] [address] Care Team Providers Name Role Phone Melvin White MD Primary Care Provider Encounter Details Date Type Department Care Team Description 11/25/2005 PN Conversion Only ANAY CONVERSIO N Melvin White, [address] [place] [address] [address] [place], [place] [phone] (Wo rk) Social History Tobacco Use Types Packs/Day Years Used Date Smoking Tobacco: Never Assessed Sex Assigned at Date Recorded Not on file documented as of this encounter Plan of Treatment Upcoming Encounters Date Type Specialty Care Team Description 06/26/2022 Appointment Dermatology Daphne Sanchez MD [address] [facility] N [phone] (Wo rk) 09/11/2022 Appointment Dermatology Daphne Sanchez MD [address] [facility] N [phone] (Wo rk) documented as of this encounter Procedures Procedure Name Priority Date/Time Associated Diagnosis Comme nts LIPID PANEL AND Routine 11/25/2005 8:19 AM Result s for this DIRECT LDL(IF CDT procedure are in NEEDED) the results section. documented in this encounter Results (ABNORMAL) Lipid Panel and Direct LDL(If Needed) (11/25/2005 8:19 AM CDT) [facility] gist Method Time Signature Cholesterol/HDL 5.2 No normal HP CONVERSION Ratio Screen range Cholesterol 215 (H) <200 mg/dL HP CONVERSION HDL Cholesterol 41 40 - 60 HP CONVERSION mg/dL Triglycerides 184 (H) 0 - 149 HP CONVERSION mg/dL LDL Calculated 137 (H) 0 - 130 HP CONVERSION mg/dL Comment: Specimen (Source) Anatomical Collection Method Collection Time Re ceived Time Location / / Volume Laterality 11/25/2005 8:19 AM CDT Melvin White MD LAB_1 Performing Organization Address City/State/ZIP Code Phon e Number HP CONVERSION documented in this encounter Visit Diagnoses Not on filedocumented in this encounter Care Teams Cafe Cook Relationship Specialty Start Date End Date Melvin White MD PCP - General 09/06/10 [address] [place], [place] [id number] documented as of this encounter
--- OUTSIDE RECORDS SUMMARY | 2022-05-10 10:00 | XMS_ITS | Encounter Summary ---
:1950 Author Organization [employer] Address [address] [place] [address] Care Team Providers Name Role Phone Kala White MD Primary Care Provider Reason for Visit Reason Comments Other Encounter Details Date Type Department Care Team Description 11/23/2005 Telephone [facility] [address] [facility], Message Other [address] [address] Social History Tobacco Use Types Packs/Day Years Used Date Smoking Tobacco: Never Assessed Sex Assigned at Date Recorded Not on file documented as of this encounter Progress Notes Maris Hartley - 11/23/2005 10:14 AM CDT Phone Note filed by Maris Hartley MA at 09/20/10 0541 Author: Maris Hartley MA Service: (none) Author Type: (none) Filed: 09/20/10 0541 Note Time: 11/23/05 1014 Status: Signed Senior Mechanical Estimator: Imr Conversion pt calling states was given lab sheet for f/u but has misplaced it.please fax lab sheet to [facility]. also needs new referral for PT. pt can be reached at [phone] if there are ?'s Created on 23Nov2005 10:14am by MARIS HARTLEY On 23Nov2005 11:42am KALA WHITE wrote: labs are fract 272.4. PT eval/treat neck strain Acknowledged by KALA WHITE on 11:42am On 23Nov2005 12:01pm JANAY ODN wrote: please forward PT orders to [facility]. On 23Nov2005 2:56pm SUNNI COOPER wrote: lab slip faxed. p.t. orders given to recept to sched On 23Nov2005 3:54pm VIC GARCIA wrote: PT scheduled ROPATHIC DOCTOR documented in this encounter Plan of Treatment Upcoming Encounters Date Type Specialty Care Team Description 06/26/2022 Appointment Dermatology Daphne Sanchez MD [address] [facility] N [address] (Wo rk) 09/11/2022 Appointment Dermatology Daphne Sanchez MD [address] [facility] N [address] (Wo rk) documented as of this encounter Visit Diagnoses Not on filedocumented in this encounter Care Teams Timber Bucker Relationship Specialty Start Date End Date Kaal White MD PCP - General 09/06/10 [address] [place] [address] documented as of this encounter
--- OUTSIDE RECORDS SUMMARY | 2022-05-10 10:00 | XMS_ITS | Encounter Summary ---
:1950 Author Organization [employer] Address [address] [place] [address] Care Team Providers Name Role Phone Melvin White MD Primary Care Provider Reason for Visit Reason Comments Other Encounter Details Date Type Department Care Team Description 05/04/2005 Telephone [facility] [address] [facility], Message Other [address] [place], [place] [address] Social History Tobacco Use Types Packs/Day Years Used Date Smoking Tobacco: Never Assessed Sex Assigned at Date Recorded Not on file documented as of this encounter Progress Notes Center, Message - 05/04/2005 3:48 PM CST Phone Note filed by [employer] at 09/19/102247 Author: [employer] Service: (none) Author Type: (none) Filed: 09/19/102247 Note Time: 05/04/051547 Status: Signed [employer]ary: Message Center Caller Name/Relationship:avelino Reason for Call:red eyes, just got back from [place] Callback Phone #:[phone] OK to leave detailed message on voicemail?ok Created on 04May2005 3:48pm by AMAN OLIVAS On 04May2005 4:03pm REG PUENTE wrote: Phone Care Triage Note [facility] Eye Nursing Reference - Adult IMPRESSION: Eye Symptom URGENT SYMPTOMS: Marty or red eyes with Additional Symptoms: asstant of patient askeed to call in for patient to report bilaterally eye reddness that was noted upon patient's return to work wednesday 05/02. states he just returned from [facility] and is not sure how long the reddness has been there. states that she is unable to give additional information. states patient requesting to be seen. PLAN: SCHEDULED APPOINTMENT WITHIN 2 HOURS; advised to be seen in [facility]. junior administrative assistant states that she will inform patient of this and he will be seen tonight or tomorrow in the urgent care as no appt avaliable at this time. Patient/Caller agrees with plan and denies additional questions. Denies any emergent symptoms Call Complete. DEVELOPER documented in this encounter Plan of Treatment Upcoming Encounters Date Type Specialty Care Team Description 06/26/2022 Appointment [facility]ermatology Daphne Sanchez [facility] [address] [facility] [facility] [address] (Wo rk) 09/11/2022 Appointment Dermatology Daphne Sanchez MD [address] [facility] N [address] (Wo rk) documented as of this encounter Visit Diagnoses Not on filedocumented in this encounter Care Teams Middle School Professional Relationship Specialty Start Date End Date Melvin White MD PCP - General 09/06/10 [address] [place] [address] documented as of this encounter
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
--- OUTSIDE RECORDS SUMMARY | 2022-05-10 10:00 | XMS_ITS | Encounter Summary ---
:1950 Author Organization [employer] Address [address] [place] [address] Care Team Providers Name Role Phone Melvin White MD Primary Care Provider Encounter Details Date Type Department Care Team Description 05/05/2005 Office Visit [facility] 3850 Urgent Vandana Pettit MD [address] [place] [address] [place] [address] [phone] Social History Tobacco Use Types Packs/Day Years Used Date Smoking Tobacco: Never Assessed Sex Assigned at Date Recorded Not on file documented as of this encounter Last Filed Vital Signs Vital Sign Reading Time Taken Comments Blood Pressure 144/88 05/05/2005 8:11 AM SAND BOBBER Pulse 72 05/05/2005 8:11 AM SAND BOBBER Temperature 36.9 ??C (98.4 ??F) 05/05/2005 8:11 AM SAND BOBBER C: 36 .9 C Respiratory Rate 16 05/05/2005 8:11 AM SAND BOBBER Oxygen Saturation - - Inhaled Oxygen Concentration - - Weight - - Height - - Body Mass Index - - documented in this encounter Progress Notes Vandana Pettit MD - 05/05/2005 12:01 AM CST Progress Notes signed by Vandana Pettit MD at 05/20/05 8768 Author: Vandana Pettit MD Service: (none) Author Type: Physician Filed: 09/23/10 0957 Note Time: 05/05/05 0001 Status: Signed Roll Plugger Machine Operator: Vandana Pettit MD (Physician) NAME: RIGOBERTO MANDUJANO MR: [id number] ACCT: [id number] VISIT: [id number] DICTATING CLINICIAN: VANDANA PETTIT MD JOB: [id number] CLINIC PROGRESS NOTE DATE OF VISIT: 05/05/2005 SUBJECTIVE: Chief Complaint: This is a 54-year-old man who presents to urgent care with concerns regarding a tick bite while he was in [facility]. Patient returned from [facility] four days ago. He had been seen in the [facility] here at [facility] before going to [facility] and he recalls getting some information regarding tick bites, but states that he does not have it with him right now. Patient got bitten on the right lower leg. States that he noticed a black scab, which has since fallen off. However, following this, patient has felt that he has some body aches. He has felt feverish, but not measured the temperature. He has not taken any ddie-xsm-xfpeqpg medications, but he is concerned about possible complications from the tick bite. Patient does not know the name of the tick that might have bitten him in [facility]. ADR/ALLERGIES: HE IS ALLERGIC TO AUREOMYCIN. MEDICATIONS: He is not currently on any chronic medications. OBJECTIVE: VS: BP: 144/88. T: 98.4. P: 72. R: 16. He is alert, oriented, not short of breath. RIGHT LOWER LEG: Shows two scaly areas, circular areas on the lower leg. Patient states that the scabs have fallen off and he has not noticed anything else other than the scaling of the skin. There is no redness of the leg. Patient has no calf pain. He is able to ambulate normally. ASSESSMENT: History of tick bite while in [facility]. PLAN: I consulted with infectious disease stitch bonding machine tender helper. Patient has been started on doxycycline 100 mg p.o. b.i.d. for 14 days and he should make a follow up appointment to be seen in infectious disease sometime next week. FINAL DIAGNOSIS: History of tick bite while in [facility]. STR:[id number] C: 05/05/05 17:17 DOCUMENT: [id number] BOBBER documented in this encounter Plan of Treatment Upcoming Encounters Date Type Specialty Care Team Description 06/26/2022 Appointment [facility]ology [facility] [address] [facility] [address] (Wo rk) 09/11/2022 Appointment Dermatology Daphne Sanchez MD [address] [facility] RAFIA N [address] (Wo rk) documented as of this encounter Visit Diagnoses Not on filedocumented in this encounter Care Teams Meter Record Clerk Relationship Specialty Start Date End Date Melvin White MD PCP - General 09/06/10 [address] [place] [address] documented as of this encounter
--- OUTSIDE RECORDS SUMMARY | 2022-05-10 10:00 | XMS_ITS | Encounter Summary ---
:1950 Author Organization [facility] Address [address] [place] [address] Care Team Providers Name Role Phone Kala White MD Primary Care Provider Reason for Visit Reason Comments Other Encounter Details Date Type Department Care Team Description 05/22/2006 Telephone [facility] [address] [facility], Message Other [address] [place] [address] Social History Tobacco Use Types Packs/Day Years Used Date Smoking Tobacco: Never Assessed Sex Assigned at Date Recorded Not on file documented as of this encounter Progress Notes Lizzette Carter RN - 05/22/2006 11:09 AM CST Phone Note filed by Lizzette Carter RN at 09/20/10 6573 Author: Lizzette Carter RN Service: (none) Author Type: (none) Filed: 09/20/10 1250 Note Time: 05/22/06 1109 Status: Signed Director Credit Risk: Ravindra Conversion pt calling, asking if Dr. Montiel recieved a letter from a Doctor Neisha at [facility]. Re: pts high blood pressure of 170/100. Pt states this was sent in the last 2 weeks. Pt would like to know what kind of follow up he needs to do about his blood pressure. Please advise. Pt can be reached at [phone] office, cell: [phone]. Created on 22May2006 11:09am by LIZZETTE CARTER On 22May2006 11:32am KALA WHITE wrote: schedule office visit Acknowledged by KALA WHITE on 11:32am On 22May2006 11:43am DAX DONAHUE wrote: Left message for pt. to schedule appt. On 22May2006 12:21pm JANINE GERMAN wrote: scheduled jun 08 2006 MANAGEMENT HANDLER documented in this encounter Plan of Treatment Upcoming Encounters Date Type Specialty Care Team Description 06/26/2022 Appointment Dermatology Daphne Sanchez MD [address] [facility] N [address] (Joesph martinez) 09/11/2022 Appointment Dermatology Daphne Sanchez MD [address] [facility] N [address] (Joesph martinez) documented as of this encounter Visit Diagnoses Not on filedocumented in this encounter Care Teams Ultrasonic Tester Relationship Specialty Start Date End Date Kala White MD PCP - General 09/06/10 [address] [facility] [place] [address] documented as of this encounter
--- OUTSIDE RECORDS SUMMARY | 2022-05-10 10:00 | XMS_ITS | Encounter Summary ---
:1950 [facility] Address [address] [place] [address] Care Team Providers Name Role Phone Melvin White MD Primary Care Provider Encounter Details Date Type Department Care Team Description 04/13/2005 PN Conversion Only [facility] [address] [place] [address] Social History Tobacco Use Types Packs/Day Years Used Date Smoking Tobacco: Never Assessed Sex Assigned at Date Recorded Not on file documented as of this encounter Plan of Treatment Upcoming Encounters Date Type Specialty Care Team Description 06/26/2022 Appointment Dermatology Daphne Sanchez MD [address] [facility] N [phone] (Wo rk) 09/11/2022 Appointment Dermatology Daphne Sanchez MD [address] N [address] (Wo rk) documented as of this encounter Visit Diagnoses Not on filedocumented in this encounter Care Teams Cnc Laser Operator Relationship Specialty Start Date End Date Melvin White MD PCP - General 09/06/10 [address] [place], [place] [address] documented as of this encounter
--- OUTSIDE RECORDS SUMMARY | 2022-05-10 10:00 | XMS_ITS | Encounter Summary ---
:1950 Author [facility] Address [address] [place] [address] Care Team Providers Name Role Phone Melvin White MD Primary Care Provider Encounter Details Date Type Department Care Team Description 02/25/2005 PN Conversion Only ANAY CONVERSIO N [address] [place] [address] Social History Tobacco Use Types Packs/Day Years Used Date Smoking Tobacco: Never Assessed Sex Assigned at Date Recorded Not on file documented as of this encounter Plan of Treatment Upcoming Encounters Date Type Specialty Care Team Description 06/26/2022 Appointment Dermatology Daphne Sanchez MD [address] [facility] N [id number] (Wo rk) 09/11/2022 Appointment Dermatology Daphne Sanchez MD [address] [facility] N [address] (Wo rk) documented as of this encounter Visit Diagnoses Not on filedocumented in this encounter Care Teams Dba Manager Relationship Specialty Start Date End Date Melvin White MD PCP - General 09/06/10 [address] [place], [place] [id number] documented as of this encounter
--- OUTSIDE RECORDS SUMMARY | 2022-05-10 10:00 | XMS_ITS | Encounter Summary ---
:1950 Author Organization [employer] Address [address] [place] [address] Care Team Providers Name Role Phone Melvin White MD Primary Care Provider Encounter Details Date Type Department Care Team Description 07/24/2005 Office Visit [facility] Jordy Roberto MD [address] [place] [address] [place] [address] [phone] Social History Tobacco Use Types Packs/Day Years Used Date Smoking Tobacco: Never Assessed Sex Assigned at Date Recorded Not on file documented as of this encounter Last Filed Vital Signs Vital Sign Reading Time Taken Comments Blood Pressure 136/88 07/24/2005 7:24 PM MAKE UP ARTIST Pulse 64 07/24/2005 7:24 PM MAKE UP ARTIST Temperature 36.5 ??C (97.7 ??F) 07/24/2005 7:24 PM MAKE UP ARTIST C: 36 .5 C Respiratory Rate 16 07/24/2005 7:24 PM MAKE UP ARTIST Oxygen Saturation - - Inhaled Oxygen Concentration - - Weight - - Height - - Body Mass Index - - documented in this encounter Progress Notes Jordy Roberto - 07/24/2005 12:01 AM CST Progress Notes signed by Jordy Roberto MD at 08/15/05 1926 Author: Jordy Roberto MD Service: (none) Author Type: Physician Filed: 09/23/10 1135 Note Time: 07/24/05 0001 Status: Signed Refrigeration Engine Operator: Jordy Roberto MD (Physician) NAME: RIGOBERTO MANDUJANO MR: [id number] ACCT: [id number] VISIT: [id number] DICTATING CLINICIAN: JORDY ROBERTO MD JOB: [id number] CLINIC PROGRESS NOTE DATE OF VISIT: 07/24/2005 SUBJECTIVE: A 55-year-old comes to urgent care because of increasing facial pressure which is moderately severe preceding cough and cold symptoms with congestion that was better after a week and then worsened in the past few days. Now, with the facial pressure, patient is having blocked nasal breathing and colored nasal drainage. Total symptoms present for almost 3 weeks. No other moderating factors or associated symptoms. ADR/ALLERGIES: REVIEWED AND UPDATED IN LASTWORD FOR TODAY'S VISIT. MEDICATIONS: Reviewed and updated in LastWord for today's visit. PH/SH: Patient has been healthy. Rare history of sinusitis. Patient did get a flu shot. Does not smoke. No seasonal or dust allergies. REVIEW OF SYSTEMS: No fever or chills, dysphagia, trismus, wheezing, or dyspnea. OBJECTIVE: VS: BP: 136/88. T: 97.7. P: 64. R: 16. CONSTITUTIONAL: Patient is nontoxic and alert. Appears to be in no acute distress. SKIN: Warm and dry. No diaphoresis or rashes. HEENT: Eyes: Clear. No injection or exudate. ENT: TMs and throat unremarkable except for some yellowish pharyngeal drainage. The cheeks are tender without swelling, erythema, or warmth. The teeth are nontender. NECK: Supple. LYMPHATIC: No adenopathy. LUNGS: Clear. Patient breathing easily. ASSESSMENT: Sinusitis. PLAN: Patient given a Zithromax Z-Lucas. Symptomatic measures discussed including saline nasal spray. Reassess as needed. FINAL DIAGNOSIS: Sinusitis. DMR:[id number] C: 07/27/05 12:53 DOCUMENT: [id number] UP ARTIST documented in this encounter Plan of Treatment Upcoming Encounters Date Type Specialty Care Team Description 06/26/2022 Appointment Dermatology Daphne Sanchez MD [address] [facility] [place] [address] (Wo rk) 09/11/2022 Appointment Dermatology Daphne Sanchez MD [address] [facility] [id number] (Wo rk) documented as of this encounter Visit Diagnoses Not on filedocumented in this encounter Care Teams Grout Worker Relationship Specialty Start Date End Date Melvin White MD PCP - General 09/06/10 [address] [place], [place] [address] documented as of this encounter
--- OUTSIDE RECORDS SUMMARY | 2022-05-10 10:00 | XMS_ITS | Encounter Summary ---
:1950 Author Organization [employer] Address [address] [place] [address] Care Team Providers Name Role Phone Melvin White MD Primary Care Provider Reason for Visit Reason Comments Other Encounter Details Date Type Department Care Team Description 06/12/2006 Telephone [facility] [address] Internal Radha Hendrix RN Other Medicine [address] [place] [address] Social History Tobacco Use Types Packs/Day Years Used Date Smoking Tobacco: Never Assessed Sex Assigned at Date Recorded Not on file documented as of this encounter Progress Notes Radha Hendrix RN - 06/12/2006 6:26 PM CST Phone Note filed by Radha Hendrix RN at 09/20/10 5894 Author: Radha Hendrix RN Service: (none) Author Type: Registered Nurse Filed: 09/20/101405 Note Time: 06/12/061825 Status: Signed Manager Of Disaster Recovery: Radha Hendrix RN (Registered Nurse) CLINICIAN FOLLOW-UP: None IMPRESSION: Animal Bites SEMI-URGENT SYMPTOMS: Symptoms of infection, increased pain, fever, Additional Symptoms: Was bitten by his own dog 2 days ago. Went to a doctor yesterday and was started on Augmentin. Tonight he is experiencing back pain and leg pain which is making it difficult for him to stand. He also has the chills, has not checked his temp. PATIENT INFORMATION: Problem List: Reviewed today in LastWord INTERIM/HOME MANAGEMENT RECOMMENDATIONS: Interim/Home Management not given: Is leaving for the urgent care Advised to call back if any of the following occur: symptoms persist or worsen, any other questions or concerns. PLAN: SCHEDULE APPOINTMENT WITHIN 12 HOURS Patient/Caller agrees with plan and denies additional questions. Reference(s) Used: [facility] Animal Bites Nursing Reference - Adult, *SH~PNNL~ANIMAL ~ Created on 12Jun2006 6:26pm by RADHA HENDRIX GRINDER documented in this encounter Plan of Treatment Upcoming Encounters Date Type Specialty Care Team Description 06/26/2022 Appointment Dermatology Daphne Sanchez MD [address] [facility] N [phone] (Wo rk) 09/11/2022 Appointment Dermatology Daphne Sanchez MD [address] [facility] N [address] (Wo rk) documented as of this encounter Visit Diagnoses Not on filedocumented in this encounter Care Teams Electrical Engineering Professor Relationship Specialty Start Date End Date Melvin White MD PCP - General 09/06/10 [address] [place], [place] [phone] documented as of this encounter
--- OUTSIDE RECORDS SUMMARY | 2022-05-10 10:00 | XMS_ITS | Encounter Summary ---
:1950 Author Organization [employer] Address [address] [place] [address] Care Team Providers Name Role Phone Melvin White MD Primary Care Provider Encounter Details Date Type Department Care Team Description 01/02/2006 Office Visit [facility] [address] [facility] [address] [place] [address] Social History Tobacco Use Types Packs/Day Years Used Date Smoking Tobacco: Never Assessed Sex Assigned at Date Recorded Not on file documented as of this encounter Last Filed Vital Signs Vital Sign Reading Time Taken Comments Blood Pressure 142/90 01/02/2006 7:14 AM CDT Pulse 73 01/02/2006 7:14 AM CDT Temperature - - Respiratory Rate - - Oxygen Saturation - - Inhaled Oxygen Concentration - - Weight 78.9 kg (173 lb 15.8 oz) 01/02/2006 7:14 AM CDT C: 78.9kg Height - - Body Mass Index 28.51 10/05/2005 3:46 PM CDT documented in this encounter Plan of Treatment Upcoming Encounters Date Type Specialty Care Team Description 06/26/2022 Appointment Dermatology Daphne Sanchez MD [address] N [phone] (Joesph martinez) 09/11/2022 Appointment Dermatology Daphne Sanchez MD [address] [address] (Joesph martinez) documented as of this encounter Visit Diagnoses Not on filedocumented in this encounter Care Teams Forestry Hunter Relationship Specialty Start Date End Date Melvin White MD PCP - General 09/06/10 [address] [place] [address] documented as of this encounter
--- OUTSIDE RECORDS SUMMARY | 2022-05-10 10:00 | XMS_ITS | Encounter Summary ---
:1950 Author Organization [employer] Address [address] [place] [address] Care Team Providers Name Role Phone Kala White MD Primary Care Provider Encounter Details Date Type Department Care Team Description 08/21/2006 Office Visit [facility] 3850 Mariela White MD Internal Medicine [address] [facility] [address] [place] [address] [place] [address] [phone] Social History Tobacco Use Types Packs/Day Years Used Date Smoking Tobacco: Never Assessed Sex Assigned at Date Recorded Not on file documented as of this encounter Last Filed Vital Signs Vital Sign Reading Time Taken Comments Blood Pressure 122/74 08/21/2006 4:00 PM CDT Pulse 84 08/21/2006 4:00 PM CDT Temperature - - Respiratory Rate - - Oxygen Saturation - - Inhaled Oxygen Concentration - - Weight 81.4 kg (179 lb 6.2 oz) 08/21/2006 4:00 PM CDT C : 81.4kg Height - - Body Mass Index 29.4 10/05/2005 3:46 PM CDT documented in this encounter Progress Notes Kala White MD - 08/21/2006 12:01 AM CDT Progress Notes signed by Kala White MD at 09/05/06 1321 Author: Kala White MD Service: (none) Author Type: Physician Filed: 09/23/10 1930 Note Time: 08/21/06 0001 Status: Signed Rn Internship: Kala White MD (Physician) NAME: RIGOBERTO MANDUJANO MR#: [id number] ACCT: [id number] VISIT: [id number] DICTATING CLINICIAN: KALA WHITE MD JOB: [id number] LOC: 406 CLINIC PROGRESS NOTE DATE OF VISIT: 08/21/2006 SUBJECTIVE: A 56-year-old man seen for followup of pre-hypertension and hyperlipidemia. Because of elevated blood pressure readings I had him return. He has been busy and has not had his blood pressure checked by the [facility] nurse at [place]. He is also concerned about lack of weight loss. He has moderate dyslipidemia with LDL of 150, is not interested in medication. OBJECTIVE: VS: BP1: 122/74. BP2: 120/68. P: 84, regular. Wt: 179.4 lb. Pleasant 56-year-old man. ASSESSMENT: Normal blood pressure readings, continue to monitor. No indication for medication. Again pointed him to the DASH diet. Nutrition consult for the patient and his regarding weight loss and hyperlipidemia. PLAN: See assessment. ACW:[id number] C: 08/22/06 16:43 DOCUMENT: [id number] documented in this encounter Plan of Treatment Upcoming Encounters Date Type Specialty Care Team Description 06/26/2022 Appointment Dermatology Daphne Sanchez MD [address] [address] (Wo juan) 09/11/2022 Appointment Dermatology Daphne Sanchez MD [address] [address] (Wo juan) documented as of this encounter Visit Diagnoses Not on filedocumented in this encounter Care Teams Medical Records Receptionist Relationship Specialty Start Date End Date Kala White MD PCP - General 09/06/10 [address] [place] [address] documented as of this encounter
--- OUTSIDE RECORDS SUMMARY | 2022-05-10 10:00 | XMS_ITS | Encounter Summary ---
:1950 Author Organization [employer] Address [address] [place] [address] Care Team Providers Name Role Phone Melvin White MD Primary Care Provider Encounter Details Date Type Department Care Team Description 04/13/2005 Office Visit [facility] [address] Travel [facility] [address] [place] [address] [place], [place] [phone] [address] Social History Tobacco Use Types Packs/Day Years Used Date Smoking Tobacco: Never Assessed Sex Assigned at Date Recorded Not on file documented as of this encounter Progress Notes Alesha Santa - 04/13/2005 12:01 AM CST Progress Notes signed by Alesha Santa RN at 04/13/05 1017 Author: Alesha Santa RN Service: (none) Author Type: Registered Nurse Filed: 04/13/05 0000 Note Time: 04/13/05 0001 Status: Signed Customs And Border Protection Officer: Alesha Santa RN (Registered Nurse) Travel Clinic Initial Visit Patient is seen in Travel Clinic individually for travel education and counseling. TRAVEL PLANS Patient states they are planning to travel to: [place] Plans include travel to and/or lodging at: rural areas, urban areas High Risk Areas: Patient is not traveling to yellow fever risk area. Patient is not traveling to malaria risk area. Reviewed a malaria risk map with the patient and they were given a copy. Departure Date: 04/16/2005 Estimated Length of Stay: 2 weeks. While traveling, patient plans to be staying at: camping, hotel, Purpose of Travel: pleasure, visit daughter HEALTH HISTORY Medications: None. Previous Health History: Patient reports a history of psoriasis with arthritis, Ca of Prostate with surgery in 1999 PATIENT EDUCATION Patient was given verbal and/or written information about: dengue fever, diphtheria/tetanus, hepatitis A, hepatitis B, influenza, malaria, polio, rabies--pre-exposure schedule, rabies--post-exposure protocol, schistosomiasis, tickborne illnesses, travax/CDC information, traveler's diarrhea, typhoid, Reviewed vaccine schedule and efficacy. Patient was also provided information about health care and insurance information while traveling abroad. Patient appears to understand all the information given. IMMUNIZATIONS See immunization module on PHP for current immunizations. Patient was given the following immunizations per clinic protocol: eIPV, hepatitis A #1, TD, typhim Vi, Reaction to Vaccine: Patient had no reaction. PRESCRIPTIONS Reviewed medication options for itinerary. Risks, benefits and side effects were discussed. The following prescriptions/OTC medications were given: cipro. imodium. (Patient was instructed to follow package directions for imodium dose.) pepto bismol. (Patient was instructed to follow package directions for pepto bismol dose.) Patient educational information regarding these prescribed medications was provided. PLAN Laboratory Studies: No labs ordered. Return To Clinic: For hepatitis A #2 vaccine in 6 months. 15 minutes spent counseling/educating patient. *SH~TRAVEL~INT ~Shorthand Note completed on: 04/13/2005 10:16 AM RMAN documented in this encounter Plan of Treatment Upcoming Encounters Date Type Specialty Care Team Description 06/26/2022 Appointment Dermatology Daphne Sanchez MD [address] [place] [address] [address] (Joesph martinez) 09/11/2022 Appointment Dermatology Daphne Sanchez MD [address] [address] (Joesph martinez) documented as of this encounter Visit Diagnoses Not on filedocumented in this encounter Care Teams Area Relief Pilot Relationship Specialty Start Date End Date Melvin White MD PCP - General 09/06/10 [address] [place] [address] documented as of this encounter
--- OUTSIDE RECORDS SUMMARY | 2022-05-10 10:00 | XMS_ITS | Encounter Summary ---
:1950 Author Organization [employer] Address [address] [place] [address] Care Team Providers Name Role Phone Melvin White MD Primary Care Provider Encounter Details Date Type Department Care Team Description 01/02/2006 Office Visit [facility] [address], Internal Medicine [address] [place] [address] [place], [place] [phone] (Wo rk) Social History Tobacco Use Types Packs/Day Years Used Date Smoking Tobacco: Never Assessed Sex Assigned at Date Recorded Not on file documented as of this encounter Progress Notes Valentine Benson MD - 01/02/2006 12:01 AM CDT Progress Notes signed by Valentine Benson MD at 01/18/062034 Author: Valentine Benson MD Service: (none) Author Type: Physician Filed: 09/23/10 1444 Note Time: 01/02/06 0001 Status: Signed Rougher Machine Operator: Valentine Benson MD (Physician) NAME: RIGOBERTO MANDUJANO MR: [id number] ACCT: VISIT: [id number] DICTATING CLINICIAN: Valentine Benson MD JOB: [id number] LOC: 406 CLINIC PROGRESS NOTE DATE OF VISIT: 01/02/2006 SUBJECTIVE: : 1950. Mr. Mandujano is a 55-year-old gentleman, patient of Dr. Smith, who presents today for an injury to his right middle finger. Three days prior to visit he was swinging on a rope swing at a [employer], and his hand slipped down the rope and went over the knot which caused his right middle finger to twist and apparently was dislocated with a sharp angulation at his PIP joint. His brother pulled the finger to get it back into alignment. He has had pain and swelling of the finger since that time. He is able to bend his finger at his PIP but is unable to get any motion at his DIP joint. His sensation is intact on his hand. PAST MEDICAL HISTORY: 1. Psoriasis. 2. Prehypertension. 3. History of a prostatectomy in 1999 for prostate cancer. CURRENT MEDICATIONS: 1. Viagra p.r.n. 2. Dovonex cream. 3. Vitamin C. 4. Aspirin 81 mg daily. 5. A gelatin capsule. 6. Calcium and vitamin D. 7. Multivitamin. OBJECTIVE: VS: BP: 142/90. P: 73. Wt: 174 lb. Right hand: With ecchymosis and swelling of the entire third digit and carpal dorsal area of hand tender to palpation over third finger PIP joint. Nontender to palpation over the DIP but no active range of motion noted. ASSESSMENT: Right third finger injury. Suspect tendon avulsion. PLAN: 1. X-rays of right hand. 2. Referral to hand orthopedics in the next 2 to 3 days if able due to the acuteness of the injury and his loss of motion. OLAYINKAK:[id number] C: 01/03/06 08:00 DOCUMENT: [id number] documented in this encounter Plan of Treatment Upcoming Encounters Date Type Specialty Care Team Description 06/26/2022 Appointment Dermatology Daphne Sanchez MD [address] [facility] [address] [place] N [address] (Wo rk) 09/11/2022 Appointment Dermatology Daphne Sanchez MD [address] [place] [address] (Wo rk) documented as of this encounter Procedures Procedure Name Priority Date/Time Associated Diagnosis Comme nts XR HAND RT 3+ VIEWS Routine 01/02/2006 9:11 AM Re sults for this CDT procedure are i n the results section. documented in this encounter Results XR Hand Rt 3+ Views (01/02/2006 9:11 AM CDT) Anatomical Region Laterality Modality Upper Extremity, Hand Other Specimen (Source) Anatomical Location Collection Method / Collectio n Time Received Time / Laterality Volume Narrative 01/02/2006 9:11 AM CDT Deformity of the distal tuft of the distal phalanx of the right middle finger is noted and is likely sec ondary to old trauma with incomplete or if not complete nonunion o f the fragment of the main portion of the bone. ??No evidence for a n acute fracture is identified. ??There are degenerative surinder nges within the hand. ??No other abnormality is seen. CONCLUSION: ??No evidence for acute frac ture. ??Abnormal appearance of the distal phalanx of the right middle f shefali as described above. Clinical correlation is needed. [id number]/ss Dictating JODY OLSON S RADIOLOGIST Procedure Note George Bell - 08/10/2016 Deformity of the distal tuft of the dist al phalanx of the right middle finger is noted and is likely sec ondary to old trauma with incomplete or if not complete nonunion o f the fragment of the main portion of the bone. No evidence for an acute fracture is identified. There are degenerative perry es within the hand. No other abnormality is seen. CONCLUSION: No evidence for acute fractu re. Abnormal appearance of the distal phalanx of the right middle f shefali as described above. Clinical correlation is needed. [id number]/ss Dictating JODY OLSON RADIOLOGIST Valentine Benson MD RAD GD documented in this encounter Visit Diagnoses Not on filedocumented in this encounter Care Teams Sign Out Clerk Relationship Specialty Start Date End Date Melvin White MD PCP - General 09/06/10 [address] [place] [address] documented as of this encounter
--- OUTSIDE RECORDS SUMMARY | 2022-05-10 10:00 | XMS_ITS | Encounter Summary ---
:1950 Author Organization [employer] Address [address] [place] [address] Care Team Providers Name Role Phone Melvin White MD Primary Care Provider Reason for Visit Reason Comments Other Encounter Details Date Type Department Care Team Description 01/03/2006 Telephone [facility] [address] [facility], Message Other [address] [place], [place] [address] Social History Tobacco Use Types Packs/Day Years Used Date Smoking Tobacco: Never Assessed Sex Assigned at Date Recorded Not on file documented as of this encounter Progress Notes Maris Hartley - 01/03/2006 9:31 AM CDT Phone Note filed by Maris Hartley MA at 09/20/10711 Author: Maris Hartley MA Service: (none) Author Type: (none) Filed: 09/20/10711 Note Time: 01/03/06930 Status: Signed Interpretive Program Coordinator: Ravindra norton a PT therapist calling requesting orders for a home cervical traction unit.pt has been getting this therapy at the [facility] but now they want to continue this therapy [place] [phone]. [place] [phone] Created on 03Jan2006 9:31am by MARIS HARTLEY On 03Jan2006 4:26pm ANA CLEMENTS wrote: I completed form and put in [facility] outbox--please fax Acknowledged by ANA CLEMENTS on 4:26pm On 04Jan2006 9:54am BALDEV PRINGLE wrote: Per , above order faxed. Juliet called and advised. ANICAL PROCESS ENGINEER documented in this encounter Plan of Treatment Upcoming Encounters Date Type Specialty Care Team Description 06/26/2022 Appointment Dermatology Daphne Sanchez MD [address] [facility] N [address] (Wo rk) 09/11/2022 Appointment Dermatology Daphne Sanchez MD [address] [facility] N [phone] (Wo rk) documented as of this encounter Visit Diagnoses Not on filedocumented in this encounter Care Teams Auto Damage Appraiser Relationship Specialty Start Date End Date Melvin White MD PCP - General 09/06/10 [address] [place], [place] [address] documented as of this encounter
--- OUTSIDE RECORDS SUMMARY | 2022-05-10 10:00 | XMS_ITS | Encounter Summary ---
:1950 Author Organization [employer] Address [address] [place] [address] Care Team Providers Name Role Phone Melvin White MD Primary Care Provider Encounter Details Date Type Department Care Team Description 11/24/2005 Therapy Fiona Julio Physical Markert, S nicola Kendall, PT Therapy [address] [facility] [address] [place] [address] AMRITA Ferreira 553 44 [phone] Social History Tobacco Use Types Packs/Day Years Used Date Smoking Tobacco: Never Assessed Sex Assigned at Date Recorded Not on file documented as of this encounter Plan of Treatment Upcoming Encounters Date Type Specialty Care Team Description 06/26/2022 Appointment Dermatology Daphne Sanchez MD [address] [facility] N [address] (Wo juan) 09/11/2022 Appointment Dermatology Daphne Sanchez MD [address] [facility] N [phone] (Wo juan) documented as of this encounter Visit Diagnoses Not on filedocumented in this encounter Care Teams Sugar Refinery Supervisor Relationship Specialty Start Date End Date Melvin White MD PCP - General 09/06/10 [address] [place], [place] [address] documented as of this encounter
--- OUTSIDE RECORDS SUMMARY | 2022-05-10 10:00 | XMS_ITS | Encounter Summary ---
:1950 Author Organization [employer] Address [address], [place] [address] Care Team Providers Name Role Phone Melvin White MD Primary Care Provider Encounter Details Date Type Department Care Team Description 07/07/2006 PN Conversion Only ANAY CONVERSIO N Melvin White, [address] [place] [address] [address] [place], [place] [phone] (Wo rk) Social History Tobacco Use Types Packs/Day Years Used Date Smoking Tobacco: Never Assessed Sex Assigned at Date Recorded Not on file documented as of this encounter Plan of Treatment Upcoming Encounters Date Type Specialty Care Team Description 06/26/2022 Appointment Dermatology Daphne Sanchez MD [address] [facility] N [phone] (Wo rk) 09/11/2022 Appointment Dermatology Daphne Sanchez MD [address] [facility] N [phone] (Wo rk) documented as of this encounter Procedures Procedure Name Priority Date/Time Associated Comments Diagnosis GLUCOSE Routine 07/07/2006 10:36 AM Results for this NETWORK OPERATIONS CENTER ENGINEER procedure are i n the results section. LIPID PANEL AND Routine 07/07/2006 10:36 AM Resul ts for this DIRECT LDL(IF NETWORK OPERATIONS CENTER ENGINEER procedure are in NEEDED) the results section. CREATININE / GFR Routine 07/07/2006 10:36 AM Resu lts for this NETWORK OPERATIONS CENTER ENGINEER procedure are i n the results section. documented in this encounter Results Creatinine / GFR (07/07/2006 10:36 AM NETWORK OPERATIONS CENTER ENGINEER) P athologist Signature Creatinine 1.1 0.4 - 1.2 HP CONVERSION Serum mg/dL Specimen (Source) Anatomical Collection Method Collection Time Re ceived Time Location / / Volume Laterality 07/07/2006 10:36 AM NETWORK OPERATIONS CENTER ENGINEER Melvin White MD LAB_1 Performing Organization Address City/State/ZIP Code Phon e Number HP CONVERSION Glucose (07/07/2006 10:36 AM NETWORK OPERATIONS CENTER ENGINEER) athologist Signature Length Of Fast 12.0 Hours HP CONVERSION Lab Glucose 100 60 - 100 HP CONVERSION mg/dL Specimen (Source) Anatomical Collection Method Collection Time Re ceived Time Location / / Volume Laterality 07/07/2006 10:36 AM NETWORK OPERATIONS CENTER ENGINEER Melvin White MD LAB_1 Performing Organization Address City/[facility] Code Phon e Number HP CONVERSION (ABNORMAL) Lipid Panel and Direct LDL(If Needed) (07/07/2006 10:36 AM NETWORK OPERATIONS CENTER ENGINEER) [facility] gist Method Time Signature Length Of Fast 12.0 Hours HP CONVERSION Cholesterol/HDL 5.1 No normal HP CONVERSION Ratio Screen range Cholesterol 230 (H) <200 mg/dL HP CONVERSION HDL Cholesterol 45 40 - 60 HP CONVERSION mg/dL Triglycerides 175 (H) 0 - 149 HP CONVERSION mg/dL LDL Calculated 150 (H) 0 - 130 HP CONVERSION mg/dL Comment: Specimen (Source) Anatomical Collection Method Collection Time Re ceived Time Location / / Volume Laterality 07/07/2006 10:36 AM NETWORK OPERATIONS CENTER ENGINEER Melvin White MD LAB_1 Performing Organization Address City/[facility]/ZIP Code Phon e Number HP CONVERSION documented in this encounter Visit Diagnoses Not on filedocumented in this encounter Care Teams Fire And Safety Helper Relationship Specialty Start Date End Date Melvin White MD PCP - General 09/06/10 [address] [place] [address] documented as of this encounter
--- OUTSIDE RECORDS SUMMARY | 2022-05-10 10:00 | XMS_ITS | Encounter Summary ---
:1950 Author [facility] Address [address] [place] [address] Care Team Providers Name Role Phone Melvin White MD Primary Care Provider Encounter Details Date Type Department Care Team Description 06/18/2006 PN Conversion Only [facility] [address] [place] [address] Social History Tobacco Use Types Packs/Day Years Used Date Smoking Tobacco: Never Assessed Sex Assigned at Date Recorded Not on file documented as of this encounter Plan of Treatment Upcoming Encounters Date Type Specialty Care Team Description 06/26/2022 Appointment Dermatology Daphne Sanchez MD [address] [facility] N [phone] (Wo rk) 09/11/2022 Appointment Dermatology Daphne Sanchez MD [address] [facility] N [address] (Wo rk) documented as of this encounter Visit Diagnoses Not on filedocumented in this encounter Care Teams Learning And Development Analyst Relationship Specialty Start Date End Date Melvin White MD PCP - General 09/06/10 [address] [place], [place] [phone] documented as of this encounter
--- OUTSIDE RECORDS SUMMARY | 2022-05-10 10:00 | XMS_ITS | Encounter Summary ---
:1950 Author Organization [employer] Address [address], [place] [address] Care Team Providers Name Role Phone Melvin White MD Primary Care Provider Encounter Details Date Type Department Care Team Description 08/05/2005 Office Visit [facility] Chucho Rondon [address] [place] [address] Social History Tobacco Use Types Packs/Day Years Used Date Smoking Tobacco: Never Assessed Sex Assigned at Date Recorded Not on file documented as of this encounter Last Filed Vital Signs Vital Sign Reading Time Taken Comments Blood Pressure 142/80 08/05/2005 10:58 AM SUPPLY ASSISTANT Pulse 90 08/05/2005 10:58 AM SUPPLY ASSISTANT Temperature 36.8 ??C (98.2 ??F) 08/05/2005 10:58 AM ORAL C: 36.8 C SUPPLY ASSISTANT Respiratory Rate 20 08/05/2005 10:58 AM SUPPLY ASSISTANT Oxygen Saturation 95% 08/05/2005 10:58 AM SUPPLY ASSISTANT Inhaled Oxygen Concentration - - Weight - - Height - - Body Mass Index - - documented in this encounter Progress Notes Chucho Rondon - 08/05/2005 12:01 AM CST Progress Notes signed by Chucho Rondon DO at 08/07/05 0813 Author: Chucho Rondon DO Service: (none) Author Type: (none) Filed: 09/23/10 1150 Note Time: 08/05/05 0001 Status: Signed Transfer Iron Operator: Chucho Rondon DO (Physician) NAME: RIGOBERTO MANDUJANO MR: [id number] ACCT: [id number] VISIT: [id number] DICTATING CLINICIAN: CHUCHO RONDON DO JOB: [id number] CLINIC PROGRESS NOTE DATE OF VISIT: 08/05/2005 SUBJECTIVE: This patient is seen with onset of a cough over the last 7 days which at times is productive of sputum. More recently, he has also noted some mild exertional dyspnea. He is uncertain whether there is wheezing. No recent fevers, nasal congestion, sore throat, or otalgia. He did have an upper respiratory infection which began 5 weeks ago. He was prescribed an antibiotic through urgent care on 07/24/05. He felt that his symptoms did improve after taking the antibiotic. PAST HISTORY: Denies prior COPD and pneumonia. SOCIAL HISTORY: Denies tobacco use. MEDICATIONS: Updated and reviewed in LastWord. ADR/ALLERGIES: PENICILLIN. OBJECTIVE: VS: BP: 142/80. T: 98.2. P: 90. R: 20. Exam revealed the patient to be in no acute distress. Ears: TMs normal bilaterally. Nose: No rhinitis. Sinuses: No tenderness. Throat: No redness, exudate, or hoarseness. NECK: Supple. No cervical lymphadenopathy. HEART: Rate 90 and regular without murmur. LUNGS: Clear bilaterally. A PA and lateral chest x-ray was ordered and read by me. No infiltrates present. ASSESSMENT: Bronchitis. PLAN: Patient was prescribed an albuterol inhaler to use p.r.n. dyspnea and wheezing. He will follow up as needed. FINAL DIAGNOSIS: Bronchitis. EGR:[id number] C: 08/07/05 05:32 DOCUMENT: [id number] LY ASSISTANT documented in this encounter Plan of Treatment Upcoming Encounters Date Type Specialty Care Team Description 06/26/2022 Appointment Daphne Martinez MD [address] [address] (Wo rk) 09/11/2022 Appointment Daphne Martinze MD [address] N [address] (Wo rk) documented as of this encounter Procedures Procedure Name Priority Date/Time Associated Diagnosis Comme nts XR CHEST 2 VIEWS Routine 08/05/2005 11:34 AM Resu lts for this SUPPLY ASSISTANT procedure are i n the results section. documented in this encounter Results XR Chest 2 Views (08/05/2005 11:34 AM SUPPLY ASSISTANT) Anatomical Region Laterality Modality Chest, Lung Other Specimen (Source) Anatomical Location Collection Method / Collectio n Time Received Time / Laterality Volume Impressions 08/05/2005 11:34 AM SUPPLY ASSISTANT : ??No acute infiltrates. 459169/[facility] Dictating DEMI HILARIO Radiologist Narrative 08/05/2005 11:34 AM SUPPLY ASSISTANT COMPARISON STUDY: None. CLINICAL HISTORY: ??55-year-old male wit h cough. Procedure Note Demi Alberto MD - 08/10/2016Formattin g of this note might be different from the original. COMPARISON STUDY: None. CLINICAL HISTORY: 55-year-old male with cough. IMPRESSION : No acute infiltrates. 175618/[facility] Dictating DEMI HILARIO Radiologist [facility] RAD GD documented in this encounter Visit Diagnoses Not on filedocumented in this encounter Care Teams Roller Die Cutting Machine Operator Relationship Specialty Start Date End Date Melvin White MD PCP - General 09/06/10 [address] [facility] [place] [address] documented as of this encounter
--- OUTSIDE RECORDS SUMMARY | 2022-05-10 10:00 | XMS_ITS | Encounter Summary ---
:1950 Author Organization [facility] Address [address] [place] [address] Care Team Providers Name Role Phone Melvin White MD Primary Care Provider Encounter Details Date Type Department Care Team Description 01/01/2006 PN Conversion Only ANAY CONVERSIO N [address] [place] [address] Social History Tobacco Use Types Packs/Day Years Used Date Smoking Tobacco: Never Assessed Sex Assigned at Date Recorded Not on file documented as of this encounter Plan of Treatment Upcoming Encounters Date Type Specialty Care Team Description 06/26/2022 Appointment Dermatology Daphne Sanchez MD [address] [facility] N [phone] (Wo rk) 09/11/2022 Appointment Dermatology Daphne Sanchez MD [address] [facility] N [address] (Wo rk) documented as of this encounter Visit Diagnoses Not on filedocumented in this encounter Care Teams Transportation Superintendent Relationship Specialty Start Date End Date Melvin White MD PCP - General 09/06/10 [address] [place], [place] [phone] documented as of this encounter
--- OUTSIDE RECORDS SUMMARY | 2022-05-10 10:00 | XMS_ITS | Encounter Summary ---
:1950 Author Organization [employer] Address [address] [address] Care Team Providers Name Role Phone Kala White MD Primary Care Provider Encounter Details Date Type Department Care Team Description 06/08/2006 Office Visit [facility] [address] Mariela White MD Internal Medicine [address] [place] [address] [place] [address] [phone] Social History Tobacco Use Types Packs/Day Years Used Date Smoking Tobacco: Never Assessed Sex Assigned at Date Recorded Not on file documented as of this encounter Last Filed Vital Signs Vital Sign Reading Time Taken Comments Blood Pressure 142/88 06/08/2006 4:58 PM COPY READER Pulse 72 06/08/2006 4:24 PM COPY READER Temperature - - Respiratory Rate - - Oxygen Saturation - - Inhaled Oxygen Concentration - - Weight 80.1 kg (176 lb 9.4 oz) 06/08/2006 4:24 PM COPY READER C : 80.1kg Height - - Body Mass Index 28.94 10/05/2005 3:46 PM CDT documented in this encounter Progress Notes Kala White MD - 06/08/2006 12:01 AM CST Progress Notes signed by Kala White MD at 06/18/06 0908 Author: Kala White MD Service: (none) Author Type: Physician Filed: 09/23/10 1759 Note Time: 06/08/06 0001 Status: Signed Corn Cooker: Kala White MD (Physician) NAME: RIGOBERTO MANDUJANO MR#: [id number] ACCT: [id number] VISIT: [id number] DICTATING CLINICIAN: KALA WHITE MD JOB: [id number] LOC: 406 CLINIC PROGRESS NOTE DATE OF VISIT: 06/08/2006 SUBJECTIVE: Patient is seen for a followup of pre-hypertension versus essential hypertension and dyslipidemia. Please see prior notes. He works at [employer], is generally healthy but busy, He had a finger injury with boutonniere finger which has been slow to resolve. He has not been as compliant with weight loss and exercise as he had hoped to be. Has typically had blood pressures in the 130 range, sometimes a bit above 140, but it was 170/90 in an orthopedic office recently and hence made this appointment. No chest pain, shortness of breath, lightheadedness. Minimal alcohol or tobacco use. He is not currently very physically active. Lipids have been borderline with last LDL cholesterol 137. OBJECTIVE: VS: BP1: 148/98. BP2: 132/90. BP3: 142/88, exit blood pressure. P: Regular. HEART/LUNGS: Brief exams are normal. ASSESSMENT: Discussed situation in detail. He has a family history of hypertension in his mother in her 80s, may be developing essential hypertension versus ongoing pre-hypertension. PLAN: Reviewed DASH diet and gave him written materials on this. Reviewed a salt restriction and weight loss, exercise. He is going to monitor his blood pressure with the health services nurse at [place] over the next 3 months and return to decide if pharmacologic treatment is necessary at that time. We will check creatinine and lipids, glucose at that visit. ACW:[id number] C: 06/10/06 19:16 DOCUMENT: [id number] READER documented in this encounter Plan of Treatment Upcoming Encounters Date Type Specialty Care Team Description 06/26/2022 Appointment Dermatology Daphne Sanchez MD [address] [facility] Margi [place] [address] (Wo rk) 09/11/2022 Appointment Dermatology Daphne Sanchez MD [address] [facility] [phone] (Wo rk) documented as of this encounter Visit Diagnoses Not on filedocumented in this encounter Care Teams Home Economist Consumer Service Relationship Specialty Start Date End Date Kala White MD PCP - General 09/06/10 [address] [place] [address] documented as of this encounter
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
--- OUTSIDE RECORDS SUMMARY | 2022-05-10 10:00 | XMS_ITS | Encounter Summary ---
:1950 Author Organization [facility] Address [address] [place] [address] Care Team Providers Name Role Phone Melvin White MD Primary Care Provider Reason for Visit Reason Comments Other Encounter Details Date Type Department Care Team Description 01/01/[address] [facility] [address] [facility] [place], Message Other [address] [place], [place] [phone] Social History Tobacco Use Types Packs/Day Years Used Date Smoking Tobacco: Never Assessed Sex Assigned at Date Recorded Not on file documented as of this encounter Progress Notes Center, Message - 01/01/2006 10:44 AM CDT Phone Note filed by [employer] at 09/20/10704 Author: [employer] Service: (none) Author Type: (none) Filed: 09/20/10704 Note Time: 01/01/061043 Status: Signed Advertisement Compositor: Message Center Caller Name/Relationship:Rigoberto Reason for Call:middle finger right hand Callback Phone #:[phone] OK to leave detailed message on voicemail?yes Created on 01Jan2006 10:44am by SHANKAR SORIA On 01Jan2006 11:02am ALEX MILLS wrote: CLINICIAN FOLLOW-UP: None IMPRESSION: Finger/Nail symptom SEMI-URGENT SYMPTOMS: Finger/nail trauma with Additional Symptoms: HE dislocated his 3rd finger over the weekend. He did put it back. The finger is swollen with blood at the knuckle. His 4th and 5th finger are sore. He thinks it ligament damage. He has been doing ice and ta;ping the fingers to gether Denies any emergent, urgent symptoms PATIENT INFORMATION: Problem List: Reviewed today in LastWord INTERIM/HOME MANAGEMENT RECOMMENDATIONS: Take OTC analgesic of choice as directed on package. To reduce swelling: Soak finger in ice water as tolerated, the goal is 10-15 minutes every 30-60 minutes. Elevate finger above the level of the heart. Advised to call back if any of the following occur: any other questions or concerns. PLAN: SCHEDULE APPOINTMENT WITHIN 12 HOURS. appt made for tomorrwo am he will try to go into UC today Patient/Caller agrees with plan and denies additional questions. Reference(s) Used: [facility] Finger/Nail Nursing Reference - Adult, [facility] Finger/Nail Injury Nursing Reference, Call Complete. *SH~PNNL~FINGERNAIL~ TIAN BLIND MECHANIC documented in this encounter Plan of Treatment Upcoming Encounters Date Type Specialty Care Team Description 06/26/2022 Appointment Dermatology Daphne Sanchez MD [address] [facility] N [address] (Joesph martinez) 09/11/2022 Appointment Dermatology Daphne Sanchez MD [address]od [facility] N [address] (Wo juan) documented as of this encounter Visit Diagnoses Not on filedocumented in this encounter Care Teams Overhauler Bus Truck Relationship Specialty Start Date End Date Melvin White MD PCP - General 09/06/10 [address] [place], [place] [address] documented as of this encounter
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
--- OUTSIDE RECORDS SUMMARY | 2022-05-10 10:00 | XMS_ITS | Encounter Summary ---
:1950 Author Organization [employer] Address [address] [place] [address] Care Team Providers Name Role Phone Melvin White MD Primary Care Provider Reason for Visit Reason Comments Other Encounter Details Date Type Department Care Team Description 04/13/2005 Telephone [facility] [address] Mikayla Perales MA Other Dermatology [address] [place] [place] [address] Social History Tobacco Use Types Packs/Day Years Used Date Smoking Tobacco: Never Assessed Sex Assigned at Date Recorded Not on file documented as of this encounter Progress Notes Center, Message - 04/13/2005 9:01 AM CST Phone Note filed by Heyday at 09/19/102212 Author: Heyday Service: (none) Author Type: (none) Filed: 09/19/102212 Note Time: 04/13/05900 Status: Signed Data Processing Auditor: Heyday MESSAGE TO CARE TEAM NAME OF CALLER:fady tsai NAME OF CLINICIAN:raghavendra MESSAGE:deandre came into [facility] on 04/13- he was last seen in november or december. he needs a refil on his dovonex cream rx. he is wondering if you could call him and refil the med? PH[facility]ACY NAME[facility] PHONE #:pt was unsure about the number CALL BACK PHONE #:[phone] (pt cell) BEST TIME TO CALL BACK:any time Is it OK to leave detailed message on voicemail? yes Created on 13Apr2005 9:01am by MAURI MILLS On 13Apr2005 9:10am JANINE FERNANDO wrote: Dovonex cream 60gms rf prn 1yr apply bid. Acknowledged by JANINE FERNANDO on 9:10am On 13Apr2005 4:34pm ANA PUENTE wrote: spoke with pt., he will be calling back with pharmacy phone number Acknowledged by ANA PUENTE on 4:34pm On 14Apr2005 1:03pm MIKAYLA HAM wrote: called Dovonex into [facility] at [phone] Acknowledged by MIKAYLA HAM on 1:03pm ICAL MEDICINE PHYSICIAN documented in this encounter Plan of Treatment Upcoming Encounters Date Type Specialty Care Team Description 06/26/2022 Appointment Dermatology Daphne Sanchez MD [address] [phone] (Wo rk) 09/11/2022 Appointment Dermatology Daphne Sanchez MD [address] [phone] (Wo rk) documented as of this encounter Visit Diagnoses Not on filedocumented in this encounter Care Teams Taxonomy Teacher Relationship Specialty Start Date End Date Melvin White MD PCP - General 09/06/10 [address] [place] [address] documented as of this encounter
--- OUTSIDE RECORDS SUMMARY | 2022-05-10 10:00 | XMS_ITS | Encounter Summary ---
:1950 Author Organization [facility] Address [address] [place] [address] Care Team Providers Name Role Phone Melvin White MD Primary Care Provider Encounter Details Date Type Department Care Team Description 02/25/2005 PN Conversion Only ANAY CONVERSI[address] [id number] Social History Tobacco Use Types Packs/Day Years Used Date Smoking Tobacco: Never Assessed Sex Assigned at Date Recorded Not on file documented as of this encounter Plan of Treatment Upcoming Encounters Date Type Specialty Care Team Description 06/26/2022 Appointment Dermatology Daphne Sanchez MD [address] [facility] N [phone] (Wo rk) 09/11/2022 Appointment Dermatology Daphne Sanchez MD [address] [facility] N [address] (Wo rk) documented as of this encounter Visit Diagnoses Not on filedocumented in this encounter Care Teams Professional Bass Fisherman Relationship Specialty Start Date End Date Melvin White MD PCP - General 09/06/10 [address] [place], [place] [id number] documented as of this encounter
--- OUTSIDE RECORDS SUMMARY | 2022-05-10 10:00 | XMS_ITS | Encounter Summary ---
:1950 Author Organization [employer] Address [address], [place] [address] Care Team Providers Name Role Phone Melvin White MD Primary Care Provider Encounter Details Date Type Department Care Team Description 06/12/2006 Office Visit [facility] [place] [id number] [place] [phone] (Wo rk) Social History Tobacco Use Types Packs/Day Years Used Date Smoking Tobacco: Never Assessed Sex Assigned at Date Recorded Not on file documented as of this encounter Last Filed Vital Signs Vital Sign Reading Time Taken Comments Blood Pressure 155/89 06/12/2006 7:19 PM SUPERVISOR PAINTING Pulse 77 06/12/2006 7:19 PM SUPERVISOR PAINTING Temperature 37.3 ??C (99.1 ??F) 06/12/2006 7:19 PM SUPERVISOR PAINTING C: 37 .3 C Respiratory Rate 20 06/12/2006 7:19 PM SUPERVISOR PAINTING Oxygen Saturation - - Inhaled Oxygen Concentration - - Weight - - Height - - Body Mass Index - - documented in this encounter Progress Notes Sarmad Mcknight MD - 06/12/2006 12:01 AM CST Progress Notes signed by Sarmad Mcknight MD at 06/27/06 0834 Author: Sarmad Mcknight MD Service: (none) Author Type: Physician Filed: 09/23/10 1804 Note Time: 06/12/06 0001 Status: Signed Concrete Handler: Sarmad Mcknight MD (Physician) NAME: RIGOBERTO MANDUJANO MR#: [id number] ACCT: [id number] VISIT: [id number] DICTATING CLINICIAN: Sarmad Mcknight MD JOB: [id number] LOC: 520 CLINIC PROGRESS NOTE DATE OF VISIT: 06/12/2006 SUBJECTIVE: A 56-year-old presents to the clinic, chills, headache, a bit of facial pressure, generally aching. Also had a dog bite on his finger on Sunday. Was seen and treated with Augmentin for that, started yesterday. See LastWord. PAST HISTORY: Psoriasis and prostate cancer. Patient in addition complaint of low back pain. He says it started in the last couple of days. He was seen earlier last year for a medical care evaluation specialist and told to exercise, but he got held up on the exercise because his blood pressure was high. Saw his family doctor about a week ago. Told he could exercise. Now he has started doing pushups and sit ups and then he would lay on his back and bring his legs up all the way to his shoulders, swinging them up. Also did some sit tups and he did this last week and this is after not doing much if anything for 6 weeks. ADR/ALLERGIES: PENICILLIN. OBJECTIVE: VS: BP: 155/89. T: 99. P: 77. R: 20. Physically, he is alert, oriented, friendly, cooperative. On the finger, ??the dog bite?? looks like it is doing well. He has got significant tenderness on palpation over the sinuses. I am not going to change his medication unless he starts to have an allergic-type reaction. He is willing to contact his doctor who gave him the Augmentin. He has taken it now for a day without any significant trouble and no rash. Low back exam indicated a good lumbar alignment, mild loss of lordosis, limited lateral flexion, 10 degrees of forward flexion, 30 degrees. He is somewhat hampered by tight hamstrings. Tender in the sinuses. ASSESSMENT: Sinusitis. PLAN: 1. As long as he is on the Augmentin, I am not going to treat this with anything different. 2. Dog bite, is doing well. Keep the wound dry and clean. 3. Low back pain. We talked about things he can do at home in terms of posture. I gave him a low back booklet pamphlet and I want him to ice the back 4-6 times a day. I want him to sit in a straight chair with a towel in the small back or lying on the floor with feet on the couch. I want him to do extension exercises for his back and I recommend ice 4 - 6 times a day and ibuprofen 3-4 tablets 3 times a day and Tylenol as needed for pain. Return for followup if he has trouble. If he has any trouble of a reaction, he should return sooner, reaction to the Augmentin. [id number] C: 06/14/06 08:53 DOCUMENT: [id number] RVISOR PAINTING documented in this encounter Plan of Treatment Upcoming Encounters Date Type Specialty Care Team Description 06/26/2022 Appointment Dermatology Daphne Sanchez MD [address] [facility] [place] [address] (Wo rk) 09/11/2022 Appointment Dermatology Daphne Sanchez MD [address] [facility] N [address] (Wo rk) documented as of this encounter Visit Diagnoses Not on filedocumented in this encounter Care Teams Director Social Service Relationship Specialty Start Date End Date Melvin White MD PCP - General 09/06/10 [address] [place] [address] documented as of this encounter
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
--- OUTSIDE RECORDS SUMMARY | 2022-05-10 10:00 | XMS_ITS | Encounter Summary ---
:1950 Author Organization [facility] Address [address] [place] [address] Care Team Providers Name Role Phone Melvin White MD Primary Care Provider Encounter Details Date Type Department Care Team Description 02/25/2005 PN Conversion Only ANAY CONVERSIO N [address] [id number] Social History Tobacco Use Types Packs/Day Years Used Date Smoking Tobacco: Never Assessed Sex Assigned at Date Recorded Not on file documented as of this encounter Plan of Treatment Upcoming Encounters Date Type Specialty Care Team Description 06/26/2022 Appointment Dermatology Daphne Sanchez MD [address] [facility] N [id number] (Wo rk) 09/11/2022 Appointment Dermatology Daphne Sanchez MD [address] [facility] N [address] (Wo rk) documented as of this encounter Visit Diagnoses Not on filedocumented in this encounter Care Teams Superintendent Ammunition Storage Relationship Specialty Start Date End Date Melvin White MD PCP - General 09/06/10 [address] [place], [place] [id number] documented as of this encounter
--- OUTSIDE RECORDS SUMMARY | 2022-05-10 10:01 | XMS_ITS | Encounter Summary ---
:1950 Author Organization [employer] Address [address] [place] [address] Care Team Providers Name Role Phone Melvin White MD Primary Care Provider Encounter Details Date Type Department Care Team Description 11/03/2004 Office Visit [facility] 3800 Abhishek Fernando MD Dermatology 3800 [facility] [address] [place] [address] [place] [address] [phone] Social History Tobacco Use Types Packs/Day Years Used Date Smoking Tobacco: Never Assessed Sex Assigned at Date Recorded Not on file documented as of this encounter Progress Notes Vipul Fernando MD - 11/03/2004 12:01 AM CDT Progress Notes signed by Vipul Fernando MD at 11/03/04 1640 Author: Vipul Fernando MD Service: (none) Author Type: Physician Filed: 09/23/10 0622 Note Time: 11/03/04 0001 Status: Signed Cotton Ball Bagger: Vipul Fernando MD (Physician) NAME: RIGOBERTO MANDUJANO MR: [id number] ACCT: [id number] VISIT: [id number] DICTATING CLINICIAN: VIPUL FERNANDO MD JOB: [id number] CLINIC PROGRESS NOTE DATE OF VISIT: 11/03/2004 SUBJECTIVE: A 54-year-old male is here at the request of Melvin White MD, for evaluation of psoriasis which began at age 18. In recent years he has used Dovonex cream and solution but does not feel they are helpful now. He is not aware of a family history of psoriasis. In questioning him about arthralgias, he has had some arthralgias in his right index finger at times but it has not been significant enough for him to seek any care. He has not had any recent sore throats, fevers, or chills. MEDICATIONS: See health profile. ADR/ALLERGIES: SEE HEALTH PROFILE. OBJECTIVE: On examination of scalp, scalp hair, face, neck, trunk, arms, legs, groin, digits, and nails he shows mild psoriatic involvement in his posterior scalp and has psoriasiform patches into his intracanthal area on his face and at his preauricular areas of his ears. He also shows involvement on his penis and scrotum. He has a plaque on his lower back and involvement in his gluteal cleft. He has just a few small macules of psoriasis on his arms and legs elsewhere. ASSESSMENT: Psoriasis. PLAN: Discussed treatment options including UVB and systemic options. Elected to try Lidex solution, 60 mL, refill p.r.n. one year, apply b.i.d. to scalp and made recommendations regarding shampoos. For his facial involvement and his anterior groin and gluteal cleft I gave Protopic ointment 0.1%, 60 g, refill p.r.n. one year, apply b.i.d. For the body sites I gave Psorcon cream, 60 g, refill p.r.n. one year, apply b.i.d. Discussed side effects and correct usage of medications and expected level of control. Discussed cautious sunlight exposure this summer. His right thumb showed washboard type habit tic deformity of the nail without evidence of psoriasis. I discussed this and he thinks he does tend to pick at that and will attempt to stop that. He will return after two months if not showing good control, otherwise p.r.n.--one year. CC: MD ROLY SUAREZ:[id number] C: 11/03/04 12:48 DOCUMENT: [id number] documented in this encounter Plan of Treatment Upcoming Encounters Date Type Specialty Care Team Description 06/26/2022 Appointment Dermatology [facility]aphne Sanchez [facility] [address] [facility] [facility] [address] (Wo rk) 09/11/2022 Appointment Dermatology Daphne Sanchez MD [address] [facility] N [phone] (Wo rk) documented as of this encounter Visit Diagnoses Not on filedocumented in this encounter Care Teams Aoc Director Combat Operations Officer Relationship Specialty Start Date End Date Melvin White MD PCP - General 09/06/10 [address] [place] [address] documented as of this encounter
--- OUTSIDE RECORDS SUMMARY | 2022-05-10 10:01 | XMS_ITS | Encounter Summary ---
:1950 Author Organization [employer] Address [address] [address] Care Team Providers Name Role Phone Kala White MD Primary Care Provider Encounter Details Date Type Department Care Team Description 09/23/2004 Office Visit [facility] 3850 Mariela White MD Internal Medicine [address] [place] [address] [place] [address] [phone] Social History Tobacco Use Types Packs/Day Years Used Date Smoking Tobacco: Never Assessed Sex Assigned at Date Recorded Not on file documented as of this encounter Last Filed Vital Signs Vital Sign Reading Time Taken Comments Blood Pressure 130/88 09/23/2004 2:48 PM CDT Pulse - - Temperature - - Respiratory Rate - - Oxygen Saturation - - Inhaled Oxygen Concentration - - Weight 78 kg (171 lb 15.7 oz) 09/23/2004 2:48 PM CDT C: 78.0kg Height - - Body Mass Index - - documented in this encounter Progress Notes Kala White MD - 09/23/2004 12:01 AM CDT Progress Notes signed by Kala White MD at 09/28/04 0820 Author: Kala White MD Service: (none) Author Type: Physician Filed: 09/23/10 0537 Note Time: 09/23/042022 Status: Signed Sawmilling Operator: Kala White MD (Physician) NAME: RIGOBERTO MANDUJANO MR: [id number] ACCT: [id number] VISIT: [id number] DICTATING CLINICIAN: KALA WHITE MD JOB: [id number] CLINIC PROGRESS NOTE DATE OF VISIT: 09/23/2004 SUBJECTIVE: Jakob is a 54-year-old man new to [facility]. 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 PROBLEM LIST: 1. History of prostate cancer with radical prostatectomy, 1999. 2. Psoriasis. MEDICATIONS: Dovonex p.r.n., aspirin 1 daily. SOCIAL HISTORY: He is . Nonsmoker. Minimal alcohol. Outside records are pending, but he had an early-stage carcinoma of the prostate with nerve-sparing surgery at [facility] about 5 years ago. He is nearly completely continent, has mild erectile dysfunction that has responded to Viagra, which, however, causes headaches. He has been on an Atkins Diet off and on over the last 2 or 3 years, has lost weight and regained about half. He is currently commuting from the [facility] to [place] and is not exercising regularly. He has moderate psoriasis affecting his scrotum, back, and scalp. He has had one dystrophic thumbnail, otherwise no nail difficulties. He has occasional water brash and regurgitation. In the past, has had brief episodes of chest discomfort at rest, none for several months. FAMILY HISTORY: Strongly positive for prostate cancer. Negative for diabetes, premature heart disease, or colon cancer. He had a colonoscopy approximately 2 years ago. As far as he knows, he is up to date with vaccinations. PSA has been unmeasurable since his prostatectomy. OBJECTIVE: VS: BP: 130/88. HT: 5 ft 6 in. WT: 172 lb. He is a pleasant 54-year-old man. There is plaque psoriasis, 1 large plaque about 20 x 10 cm over the mid lumbar back, plaque over the upper gluteal crease, a small elbow plaque, and a plaque along the posterior scalp line. Diffuse redness without plaque over the scrotum. HEENT EXAM: Unremarkable. No carotid bruits, no thyromegaly. LUNGS: Clear. CARDIAC EXAM: Shows a regular rate and rhythm. ABDOMEN: Without palpable mass, aneurysm, organomegaly, or tenderness. EXAM: Normal. DIGITAL RECTAL EXAM: Not done. EXTREMITIES: Free of edema. Pedal pulses are normal. Brief neurologic exam is intact. ASSESSMENT: History of prostate cancer. Check PSA every 1 to 2 years. Screening lipids. Outside records to determine vaccination status and other past medical history. Probable intermittent reflux. High normal blood pressure reading. Reviewed exercise, weight loss, usual health maintenance recommendations. Referral to dermatology for management of his psoriasis. May be a candidate for intralesional therapy. PLAN: See Assessment. I will see him back in 1 year and contact him with the about results. ACW:[id number] C: 09/24/04 12:47 DOCUMENT: [id number] documented in this encounter Plan of Treatment Upcoming Encounters Date Type Specialty Care Team Description 06/26/2022 Appointment Dermatology Daphne Sanchez MD [address] [facility] N [address] (Wo rk) 09/11/2022 Appointment Dermatology Daphne Sanchez MD [address] [facility] N [address] (Wo rk) documented as of this encounter Visit Diagnoses Not on filedocumented in this encounter Care Teams Rail Switch Operator Relationship Specialty Start Date End Date aKla White MD PCP - General 09/06/10 [address] [place] [address] documented as of this encounter
--- OUTSIDE RECORDS SUMMARY | 2022-05-10 10:01 | XMS_ITS | Encounter Summary ---
:1950 Author Organization [employer] Address [address] [place] [address] Care Team Providers Name Role Phone Melvin White MD Primary Care Provider Encounter Details Date Type Department Care Team Description 10/03/2004 PN Conversion Only [facility] CONV Melvin White, [address] [place] [address] [address] [place], [place] [phone] (Wo rk) Social History Tobacco Use Types Packs/Day Years Used Date Smoking Tobacco: Never Assessed Sex Assigned at Date Recorded Not on file documented as of this encounter Plan of Treatment Upcoming Encounters Date Type Specialty Care Team Description 06/26/2022 Appointment Dermatology Daphne Sanchez MD [address] [facility] N [id number] (Wo rk) 09/11/2022 Appointment Dermatology Daphne Sanchez MD [address] [facility] N [id number] (Wo rk) documented as of this encounter Procedures Procedure Name Priority Date/Time Associated Diagnosis Comme nts LIPID PANEL AND Routine 10/03/2004 8:45 AM Result s for this DIRECT LDL(IF CDT procedure are in NEEDED) the results section. PROSTATIC SPECIFIC Routine 10/03/2004 8:45 AM Res ults for this ANTIGEN(SCREEN) CDT procedure ar e in the results section. documented in this encounter Results (ABNORMAL) Lipid Panel and Direct LDL(If Needed) (10/03/2004 8:45 AM CDT) [facility] gist Method Time Signature Cholesterol/HDL 5.4 No normal HP CONVERSION Ratio Screen range Cholesterol 226 (H) <200 mg/dL HP CONVERSION Comment: Borderline high: 200-239 mg/dL High risk: >240 mg/dL HDL Cholesterol 42 40 - 60 mg/dL HP CONVERS ION Triglycerides 223 (H) 0 - 149 mg/dL HP CONVERSIO N Comment: Borderline high: 150-199 mg/dL High risk: 200-499 mg/dL Very high risk: 500 mg/dL or greater LDL Calculated 139 (H) 0 - 130 mg/dL HP CONVERSI ON Comment: Desirable: <130 mg/dL (<100 if diabetes or coronary heart disease) Borderline high: 130-159 mg/dL High risk: >159 mg/dL Specimen (Source) Anatomical Collection Method Collection Time Re ceived Time Location / / Volume Laterality 10/03/2004 8:45 AM CDT Melvin White MD LAB_1 Performing Organization Address City/State/ZIP Code Phon e Number HP CONVERSION Prostatic Specific Antigen (Screen) (10/03/2004 8:45 AM CDT) athologist Signature Prostate <0.1 0.0 - 4.0 HP CONVERSION Specific ng/mL Antigen Specimen (Source) Anatomical Collection Method Collection Time Re ceived Time Location / / Volume Laterality 10/03/2004 8:45 AM CDT Melvin White MD LAB_1 Performing Organization Address City/[facility]/ZIP Code Phon e Number HP CONVERSION documented in this encounter Visit Diagnoses Not on filedocumented in this encounter Care Teams Marketing Development Specialist Relationship Specialty Start Date End Date Melvin White MD PCP - General 09/06/10 [address] [place] [address] documented as of this encounter
--- OUTSIDE RECORDS SUMMARY | 2022-05-10 10:01 | XMS_ITS | Encounter Summary ---
:1950 Author Organization [facility] Address [address] [place] [address] Care Team Providers Name Role Phone Melvin White MD Primary Care Provider Encounter Details Date Type Department Care Team Description 02/24/2005 PN Conversion Only ANAY CONVERSIO N [address] [address] Social History Tobacco Use Types Packs/Day Years Used Date Smoking Tobacco: Never Assessed Sex Assigned at Date Recorded Not on file documented as of this encounter Plan of Treatment Upcoming Encounters Date Type Specialty Care Team Description 06/26/2022 Appointment Dermatology Daphne Sanchez MD [address] [facility] N [phone] (Wo rk) 09/11/2022 Appointment Dermatology Daphne Sanchez MD [address] [facility] N [address] (Wo rk) documented as of this encounter Visit Diagnoses Not on filedocumented in this encounter Care Teams Daylight Driller Relationship Specialty Start Date End Date Melvin White MD PCP - General 09/06/10 [address] [place], [place] [id number] documented as of this encounter
--- OUTSIDE RECORDS SUMMARY | 2022-05-10 10:01 | XMS_ITS | Encounter Summary ---
:1950 Author Organization [employer] Address [address] [place] [address] Care Team Providers Name Role Phone Melvin White MD Primary Care Provider Reason for Visit Reason Comments Other Encounter Details Date Type Department Care Team Description 01/16/2005 Telephone [place] [id number] [facility] Charley Webster [address] [place] [address] Social History Tobacco Use Types Packs/Day Years Used Date Smoking Tobacco: Never Assessed Sex Assigned at Date Recorded Not on file documented as of this encounter Progress Notes Charley Webster - 01/16/2005 2:43 PM CDT Phone Note filed by Charley Webster RN at 09/19/101957 Author: Charley Webster RN Service: (none) Author Type: (none) Filed: 09/19/101957 Note Time: 01/16/053 Status: Signed Counter Molder: Ravindra Conversion Phone Care Triage Note [facility] Stings/Bites Nursing Reference - Adult IMPRESSION: Insect Sting/Bite SEMI-URGENT SYMPTOMS: Symptoms of possible infection, increased swelling, increased redness, Additional Symptoms: states was bit by something and noted a area on right thigh that is swollen the size of a oleksandr that is not getting better. states area was red for 3-4 weeks and now is scabbed over and remains red. slightly warm to touch. hard area. itchy. states has stiff, achy joints, neck pains, and fatigue. PLAN: SCHEDULED APPOINTMENT WITHIN 12 HOURS; advised to go into PN as no opening in clinic today. Patient/Caller agrees with plan and denies additional questions. Denies any emergent, urgent symptoms Call Complete. Created on 16Jan2005 2:43pm by CHARLEY WEBSTER LOPMENT REP documented in this encounter Plan of Treatment Upcoming Encounters Date Type Specialty Care Team Description 06/26/2022 Appointment Dermatology Daphne Sanchez MD [address] [facility] [place] N [address] (Wo rk) 09/11/2022 Appointment Dermatology Daphne Sanchez MD [address] [place] N [address] (Wo rk) documented as of this encounter Visit Diagnoses Not on filedocumented in this encounter Care Teams Vacuum Tester Cans Relationship Specialty Start Date End Date Melvin White MD PCP - General 09/06/10 [address] [place] [address] documented as of this encounter
--- OUTSIDE RECORDS SUMMARY | 2022-05-10 10:01 | XMS_ITS | Encounter Summary ---
:1950 Author Organization [facility] Address [address] [place] [address] Care Team Providers Name Role Phone Melvin White MD Primary Care Provider Encounter Details Date Type Department Care Team Description 09/23/2004 PN Conversion Only INVENTORY ASSOCIATE AND DRIVER [address] CON[address] [place] [address] Social History Tobacco Use Types Packs/Day Years Used Date Smoking Tobacco: Never Assessed Sex Assigned at Date Recorded Not on file documented as of this encounter Plan of Treatment Upcoming Encounters Date Type Specialty Care Team Description 06/26/2022 Appointment Dermatology Daphne Sanchez MD [address] [facility] N [phone] (Wo rk) 09/11/2022 Appointment Dermatology Daphne Sanchez MD [address] [facility] N [address] (Wo rk) documented as of this encounter Visit Diagnoses Not on filedocumented in this encounter Care Teams Waste Collection Driver Relationship Specialty Start Date End Date Melvin White MD PCP - General 09/06/10 [address] [place], [place] [address] documented as of this encounter
--- OUTSIDE RECORDS SUMMARY | 2022-05-10 10:01 | XMS_ITS | Encounter Summary ---
:1950 Author Organization [employer] Address [address] [place] [address] Care Team Providers Name Role Phone Melvin White MD Primary Care Provider Encounter Details Date Type Department Care Team Description 01/16/2005 PN Conversion Only Jluis De Los Santos MD [address] [facility] [address] [place] [address] [place] [address] Social History Tobacco Use Types Packs/Day Years Used Date Smoking Tobacco: Never Assessed Sex Assigned at Date Recorded Not on file documented as of this encounter Plan of Treatment Upcoming Encounters Date Type Specialty Care Team Description 06/26/2022 Appointment Dermatology Daphne Sanchez MD [address] [facility] N [phone] (Joesph martinez) 09/11/2022 Appointment Dermatology Daphne Sanchez MD [address] [facility] N 884116 (Wo rk) documented as of this encounter Procedures Procedure Name Priority Date/Time Associated Diagnosis Comme nts LYME DISEASE SCREEN Routine 01/16/2005 7:42 PM Re sults for this (IN-HOUSE) CDT procedure are i n the results section. documented in this encounter Results Lyme Disease Screen (IN-House) (01/16/2005 7:42 PM CDT) P athologist Signature Lyme Screen Negative No normal HP CONVERSION range Comment: A negative Lyme result does not rule out Lyme disease. ??If a current infection is suspected, please submit a second specimen in 4-6 weeks. Positive or equivocal specimens are auto matically sent to [facility] for Western Blot testing. Specimen (Source) Anatomical Collection Method Collection Time Re ceived Time Location / / Volume Laterality 01/16/2005 7:42 PM CDT Jluis Roberto MD LAB_1 Performing Organization Address City/State/ZIP Code Phon e Number HP CONVERSION documented in this encounter Visit Diagnoses Not on filedocumented in this encounter Care Teams Information Assurance Relationship Specialty Start Date End Date Melvin White MD PCP - General 09/06/10 [address] [place] [address] documented as of this encounter
--- OUTSIDE RECORDS SUMMARY | 2022-05-10 10:01 | XMS_ITS | Encounter Summary ---
:1950 Author Organization [employer] Address [address] [place] [address] Care Team Providers Name Role Phone Kala White MD Primary Care Provider Reason for Visit Reason Comments Other Encounter Details Date Type Department Care Team Description 01/16/2005 Telephone [facility] [address] [facility], Message Other [address] [place], [place] [address] Social History Tobacco Use Types Packs/Day Years Used Date Smoking Tobacco: Never Assessed Sex Assigned at Date Recorded Not on file documented as of this encounter Progress Notes Charley Webster - 01/16/2005 2:45 PM CDT Phone Note filed by Chalrey Webster RN at 09/19/101957 Author: Charley Webster RN Service: (none) Author Type: (none) Filed: 09/19/101957 Note Time: 01/16/055 Status: Signed Pipeline Superintendent Division: Imr Conversion patient calling states his mother has parkinson's diease and her father had it. patient is wondering if there a screening that he should get done and when? pleae advise. states okay to address 01/17. can be contacted at [phone] Created on 16Jan2005 2:45pm by CHARLEY WEBSTER On 17Jan2005 1:10pm KALA WHITE wrote: 1. Usually not hereditary 2. No screening except physical exam Acknowledged by KALA WHITE on 1:10pm On 17Jan2005 1:20pm SUNNI COOPER wrote: pt advised L OPERATOR documented in this encounter Plan of Treatment Upcoming Encounters Date Type Specialty Care Team Description 06/26/2022 Appointment Dermatology Daphne Sanchez MD [address] [facility] N [address] (Wo rk) 09/11/2022 Appointment Dermatology Daphne Sanchez MD [address] [facility] N [address] (Wo rk) documented as of this encounter Visit Diagnoses Not on filedocumented in this encounter Care Teams External Relations Director Relationship Specialty Start Date End Date Kala White MD PCP - General 09/06/10 [address] [place] [address] documented as of this encounter
--- OUTSIDE RECORDS SUMMARY | 2022-05-10 10:01 | XMS_ITS | Encounter Summary ---
:1950 Author Organization [employer] Address [address] [place] [address] Care Team Providers Name Role Phone Melvin White MD Primary Care Provider Encounter Details Date Type Department Care Team Description 01/16/2005 Office Visit [facility] re Jordy Roberto MD [address] [place] [address] [place] [address] [phone] Social History Tobacco Use Types Packs/Day Years Used Date Smoking Tobacco: Never Assessed Sex Assigned at Date Recorded Not on file documented as of this encounter Last Filed Vital Signs Vital Sign Reading Time Taken Comments Blood Pressure 138/80 01/16/2005 7:01 PM CDT Pulse 82 01/16/2005 7:01 PM CDT Temperature 36.6 ??C (97.9 ??F) 01/16/2005 7:01 PM CDT C: 36 .6 C Respiratory Rate 14 01/16/2005 7:01 PM CDT Oxygen Saturation - - Inhaled Oxygen Concentration - - Weight - - Height - - Body Mass Index - - documented in this encounter Progress Notes Jordy Roberto - 01/16/2005 12:01 AM CDT Progress Notes signed by Jordy Roberto MD at 01/26/052030 Author: Jordy Roberto MD Service: (none) Author Type: Physician Filed: 09/23/10 0743 Note Time: 01/16/05 0001 Status: Signed Plane Runner: Jordy Roberto MD (Physician) NAME: RIGOBERTO MANDUJANO MR: [id number] ACCT: [id number] VISIT: [id number] DICTATING CLINICIAN: JORDY ROBERTO MD JOB: [id number] CLINIC PROGRESS NOTE DATE OF VISIT: 01/16/2005 SUBJECTIVE: A 54-year-old comes to urgent care because of a lump on his right leg. He wonders if it is an insect bite. Worries about Lyme's disease. The lump is minimally tender. Pain is minimal. No known moderating factors or associated symptoms. He knows of no specific insect bite or tick bite. Allergies and medications, see LastWord. PAST HISTORY: Patient healthy. Does not smoke. REVIEW OF SYSTEMS: No fevers or chills. Had some aches and pains in his back and arms and legs. No nausea, vomiting, no paraesthesias, numbness, or weakness. OBJECTIVE: VS: BP: 138/80 T: 97.9 P: 82 R: 14 CONSTITUTIONAL: The patient is nontoxic and alert. SKIN: Warm and dry. He has a small sebaceous cyst at the right lateral thigh area, 1 cm in diameter and nontender. There is no erythema. There is definitely no erythema ? lesion. ? MUSCULOSKELETAL: Patient is ambulatory. Has range of motion with is full on the right hip and knee. CARDIOVASCULAR: Normal distal pulses and capillary refill. NEUROLOGIC: Normal light touch sensation. Patient also had questions about intermittent neck pain he has been having. Exam for this showed some mild trapezius tenderness. Full range of motion of the neck. No cervical spine tenderness. Good strength. Normal upper arm strength. Normal deep tendon reflexes. ASSESSMENT: 1. Sebaceous cyst, right leg. 2. Neck pain. PLAN: Lyme titer was drawn. Symptomatic measures discussed. Using ibuprofen, adding Tylenol as needed. Use ice, ? and heat for the neck pain and reassess as needed. Goal is 75% to 90% better in the next 10 days. DMR:[id number] C: 01/20/05 17:45 DOCUMENT: [id number] OUT MARKER documented in this encounter Plan of Treatment Upcoming Encounters Date Type Specialty Care Team Description 06/26/2022 Appointment Dermatology Daphne Sanchez MD [address] [facility] [address] [place] N [address] (Wo rk) 09/11/2022 Appointment Dermatology Daphne Sanchez MD [address] [facility] [address] [place] [address] [address] (Wo rk) documented as of this encounter Visit Diagnoses Not on filedocumented in this encounter Care Teams Bat Lathe Operator Relationship Specialty Start Date End Date Melvin White MD PCP - General 09/06/10 [address] [place] [address] documented as of this encounter
--- OUTSIDE RECORDS SUMMARY | 2022-05-10 10:01 | XMS_ITS | Encounter Summary ---
:1950 Author [facility] Address [address] [place] [address] Care Team Providers Name Role Phone Melvin White MD Primary Care Provider Encounter Details Date Type Department Care Team Description 08/30/2004 PN Conversion Only [employer] [address] [place] [address] Social History Tobacco Use Types Packs/Day Years Used Date Smoking Tobacco: Never Assessed Sex Assigned at Date Recorded Not on file documented as of this encounter Plan of Treatment Upcoming Encounters Date Type Specialty Care Team Description 06/26/2022 Appointment Dermatology Daphne Sanchez MD [address] [facility] N [id number] (Wo rk) 09/11/2022 Appointment Dermatology Daphne Sanchez MD [address] [facility] N [address] (Wo rk) documented as of this encounter Visit Diagnoses Not on filedocumented in this encounter Care Teams Boot Lace Cutter Machine Relationship Specialty Start Date End Date Melvin White MD PCP - General 09/06/10 [address] [place], [place] [phone] documented as of this encounter
--- OUTSIDE RECORDS SUMMARY | 2022-05-10 10:01 | XMS_ITS | Encounter Summary ---
:1950 Author Organization [facility] Address [address] [place] [address] Care Team Providers Name Role Phone Melvin White MD Primary Care Provider Encounter Details Date Type Department Care Team Description 02/24/2005 PN Conversion Only [address] [address] Social History Tobacco Use Types Packs/Day Years Used Date Smoking Tobacco: Never Assessed Sex Assigned at Date Recorded Not on file documented as of this encounter Plan of Treatment Upcoming Encounters Date Type Specialty Care Team Description 06/26/2022 Appointment Dermatology Daphne Sanchez MD [address] [facility] N [id number] (Wo rk) 09/11/2022 Appointment Dermatology Daphne Sanchez MD [address] [facility] N [address] (Wo rk) documented as of this encounter Visit Diagnoses Not on filedocumented in this encounter Care Teams Graphic Art Sales Representative Relationship Specialty Start Date End Date Melvin White MD PCP - General 09/06/10 [address] [place], [place] [id number] documented as of this encounter
--- OUTSIDE RECORDS SUMMARY | 2022-05-10 10:01 | XMS_ITS | Encounter Summary ---
:1950 Author Organization [employer] Address [address] [place] [address] Care Team Providers Name Role Phone Melvin White MD Primary Care Provider Encounter Details Date Type Department Care Team Description 11/10/2004 French Edge Operator Only [facility] [address] Melvin White, Internal Medicine [address] [place] [place] [phone] (Wo rk) Social History Tobacco Use Types Packs/Day Years Used Date Smoking Tobacco: Never Assessed Sex Assigned at Date Recorded Not on file documented as of this encounter Progress Notes Melvin White MD - 11/10/2004 12:01 AM CDT Progress Notes signed by Melvin White MD at 11/10/04 1454 Author: Melvin White MD Service: (none) Author Type: Physician Filed: 09/23/10 0630 Note Time: 11/10/04 0001 Status: Signed Foreign Language Stenographer: Melvin White MD (Physician) outside records; stage 2 Ca P prostatectomy 1998, nl colonoscopy 11/03 documented in this encounter Plan of Treatment Upcoming Encounters Date Type Specialty Care Team Description 06/26/2022 Appointment Dermatology Daphne Sanchez MD [address] [facility] N [address] (Wo rk) 09/11/2022 Appointment Dermatology Daphne Sanchez [facility] [address] [facility] [id number] (Wo rk) documented as of this encounter Visit Diagnoses Not on filedocumented in this encounter Care Teams Water Pumping Station Engineer Relationship Specialty Start Date End Date Melvin White MD PCP - General 09/06/10 [address] [place], [place] [address] documented as of this encounter
--- OUTSIDE RECORDS SUMMARY | 2022-05-10 10:01 | XMS_ITS | Encounter Summary ---
:1950 Author Organization [facility] Address [address] [place] [address] Care Team Providers Name Role Phone Melvin White MD Primary Care Provider Encounter Details Date Type Department Care Team Description 02/24/2005 PN Conversion Only ANA[address] [address] Social History Tobacco Use Types Packs/Day Years Used Date Smoking Tobacco: Never Assessed Sex Assigned at Date Recorded Not on file documented as of this encounter Plan of Treatment Upcoming Encounters Date Type Specialty Care Team Description 06/26/2022 Appointment Dermatology Daphne Sanchez MD [address] [facility] N [id number] (Wo rk) 09/11/2022 Appointment Dermatology Daphne Sanchez MD [address] [facility] N [address] (Wo rk) documented as of this encounter Visit Diagnoses Not on filedocumented in this encounter Care Teams Route Sales Trainee Relationship Specialty Start Date End Date Melvin White MD PCP - General 09/06/10 [address] [place], [place] [phone] documented as of this encounter
[2022-05-10 12:26] LABS: C Reactive Protein* < 0.5 mg/dL (0.5-1.0)
== END 2022-05-10 09:53 | disposition home or self-care (01) ==
LOC: NFLDREF 09:53
PROVIDERS: PCP Family Medicine; Visit Provider Family Medicine
DX: R51.9 Headache, unspecified (principal)
CPT/HCPCS: 86140

== ENCOUNTER 2022-05-12 10:48 | Day surgery (SDC) | payer MEDICARE, BC, SELFPAY ==
[2022-05-12 11:08] VITALS: BP 135/77; PULSE 66; RESP 16; TEMP 36.6; O2SAT 96
[2022-05-12 11:11] VITALS: BMI 25.7
--- NOTE | 2022-05-12 11:13 | W.ANESCHARGE ---
Anesthesia Charges Start Date/Time Anesthesia Start Date: 05/12/22 Anesthesia Start Time: 11:35 Stop Date/Time Anesthesia Stop Date: 05/12/22 Anesthesia Stop Time: 13:20 Summary Emergency: No Extremes of Age: Over 70-CPT [address]
[2022-05-12] MEDS: LACTATED RINGERS 1000 ML 1,000 ML 100 ML IV (11:20)
[2022-05-12] MEDS: SODIUM CHLORIDE 0.9 % (FLUSH) 10 ML SYRINGE IVF (11:20)
[2022-05-12] MEDS: BUPIVACAINE 0.5 % 10 ML VIAL INJECTION (12:05)
[2022-05-12 13:20] VITALS: BP 105/56; PULSE 55; RESP 16; TEMP 36.2; O2SAT 96
--- NOTE | 2022-05-12 13:24 | PM.GSCN ---
History of Present Illness Consult details Date Seen: 05/12/22 Consult date: 05/12/22 Narrative: Patient is a 71-year-old male who presented to his primary care provider for 2-3 months of a left temporal headache. He describes the pain as a ?background pain and pressure?. He reports that it is always present. He does report some blurry, double vision, but this is a chronic problem for him. He denies any jaw claudication. No fever or weight changes. He has never had pain like this before. Review of Systems Status of ROS: Reports: 6 or more systems reviewed and unremarkable except as noted in History and below [facility] Medical History (Updated 05/10/22 @ 09:52 by Melvin Thomas MD) Rupture of plantaris tendon Tinnitus Surgical History (Updated 04/18/22 @ 12:34 by Heidi French CMA) H/O radical prostatectomy (~1999) History of carpal tunnel release of both wrists History of left inguinal hernia repair (05/13/12) History of umbilical hernia repair (05/13/12) Social History Smoking Status: Never smoker How often do you have a drink containing alcohol: never AUDIT-C Alcohol total score: 0 Non-prescribed substance use: denies use Meds Home Medications and Allergies Home Medications Medication Instructions Recorded Confirmed Type aspirin 81 mg tablet,delayed 81 mg PO DAILY 01/23/22 05/12/22 History release cyanocobalamin (vitamin B-12) 1,000 mcg PO QDAY 01/23/22 05/12/22 History 1,000 mcg capsule multivitamin (Multiple Vitamins 1 tab PO QDAY 01/23/22 05/12/22 History tablet) omega-3 fatty acids 1,000 mg 1,000 mg PO QDAY 01/23/22 05/12/22 History capsule tacrolimus 0.1 % topical ointment 1 applic topical Q12H PRN psoriasis 05/10/22 05/12/22 History Allergies Allergy/AdvReac Type Severity Reaction Status Date / Time penicillin V Allergy Mild Hives Verified 05/12/22 11:07 tetracycline Allergy Unknown Verified 05/12/22 11:07 Exam Narrative: Exam Narrative: General: Alert and oriented, no acute distress Respiratory: Equal breath rise bilaterally, maintained on room air CV: Regular rhythm rate, well perfused HEENT: Palpable temporal artery bilaterally. Some tenderness with palpation left temporal. Const: Vital Signs, click to edit/add: Vital Signs - 24 hr 05/12/22 11:08 Temperature 97.8 F Pulse Rate 66 Respiratory Rate 16 Blood Pressure 135/77 Pulse Oximetry 96 Oxygen Delivery Me thod Room Air Results Labs Labs: ESR 12 CRP less than 0.5 Assessment and Plan Assessment and plan (1) Left temporal headache: Status: Acute Plan Patient presents for temporal artery biopsy to rule out temporal arteritis. His history is suspicious, given the sudden onset of a temporal headache at his age, although his normal ESR and CRP are reassuring. Risks and benefits of temporal artery biopsy were discussed at length with the patient. Risks included, but were not limited to: Bleeding, infection, risk of damage during structures and possible need for additional procedures. All questions and concerns were addressed with patient deciding to proceed with a temporal artery biopsy. -OR for left temporal artery biopsy this morning
--- NOTE | 2022-05-12 13:25 | W.ANESCHARGE ---
Anesthesia Charges Start Date/Time Anesthesia Start Date: 05/12/22 Anesthesia Start Time: 11:35 Stop Date/Time Anesthesia Stop Date: 05/12/22 Anesthesia Stop Time: 13:20 Summary Emergency: No Extremes of Age: Over 69-CPT [address]
--- NOTE | 2022-05-12 13:29 | P.GSOP_ITS ---
Operative Note Date of procedure: 05/12/22 Type of Procedure: Left temporal artery biopsy Procedure Description: After discussing the risks and benefits of the procedure, the patient signed informed consent.? The operative site was marked and the patient was brought to the operating room and placed on the operating table in supine position.? Care was taken to pad the patient's pressure points.?? The patient was then given sedation by anesthesia.?? The operative site was then prepped and draped in the usual sterile fashion.? A time-out was then performed. Attention was first directed to the left side. The handheld Doppler was utilized to nestor out the course of the temporal artery. Local anesthetic was utilized to numb up the area. A 15 blade was used to make an approximate 5 cm incision. Cautery was then used to divide the subcutaneous tissue and assure hemostasis. The artery was visualized within the temporoparietal fascia, which was entered with sharp dissection. A proximal portion of the artery was dissected out and ligated with 3 0 Vicryl. The dissection was then carried distally for approximately 2 cm and ligated. The specimen was then carefully removed, trying to limit manipulation of the vessel itself, and passed off to the back table. A gain hemostasis was assured and a medium-sized clip applied to the proximal end of the artery, which had a small amount of bleeding around it. The incision was then closed with interrupted 3 0 Vicryl and running 4 Monocryl. ? Sterile dressings were then applied. ? The patient was then woken and transported to the recovery area in stable condition. ? The patient tolerated the procedure well. Findings: Normal left temporal artery Anesthesia: MAC and local Surgeon: Mica Echevarria MD Estimated blood loss (mL): 5 Condition: stable Disposition: same day
[2022-05-12 13:30] VITALS: BP 114/69; PULSE 52; RESP 16; TEMP 36.6; O2SAT 98
[2022-05-12 13:45] VITALS: BP 136/68; PULSE 57; RESP 16; O2SAT 99
[2022-05-12 14:00] VITALS: BP 134/72; PULSE 53; RESP 16; O2SAT 97
== END 2022-05-12 14:36 | disposition home or self-care (01) ==
PROVIDERS: PCP Family Medicine; Visit Provider Surgery
PROC: (CPT 37609; principal; 2022-05-12 11:45)
DX: R51.9 Headache, unspecified (principal)
CPT/HCPCS: 37609; 00352; 88305; 99100; J2250; J2704; J3010; J7120; S0020

== ENCOUNTER 2022-05-15 09:45 | Outpatient (RCR) | payer MEDICARE, BC, SELFPAY ==
--- NOTE | 2022-05-01 14:21 | PT.OPE ---
PT [facility] Out[facility] Eval PT [facility] Outpatient Eval Start: 05/01/22 13:05 Freq: Status: Active Protocol: Document 05/01/22 13:06 LSL (Rec: 05/01/22 13:30 LSL [id number]) E-signed By Crystal Trejo PT Physical Therapy Outpatient Evaluation Insurance Information Insurance Name Medicare B Medical Diagnosis R achilles tendonitis Treating Diagnosis weakness, pain, swelling, impaired gait Referring MD Fong Subjective Subjective This happened about 5 years ago and did therapy and it has been fine until about 2 weeks ago. I was riding my bike 6- 8 miles/day when in [place] and I got off my bike to walk across the street and then it was really bad. Pt. describes a constant ache with activity and sharp if I overstretch it on a step. Pt. feels it at rest and the pain is in the achilles more medially than laterally. I elevate it on a pillow at night. I take an advil if I can't sleep. I noticed some blood had drained into his medial calcaneus a couple days ago when he showered. Walking and biking are his forms of exercise. Leaving for [place] in another 2 weeks. 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 Preferred Name Jakob Precautions Weight Bearing Status Full Weight Bearing Therapy Limitations/Systems Review Not Limited Objective Range of Motion AROM L R DF 6 6 PF 60 50 inv 30 30 evs 12 20 varus 3 5 Strength L ankle 5/5 however compensates with soleus R ankle PF 0/5 Swelling bimalleolar L 24.25 cm R 25 cm swollen about the achilles, more medially than laterally Palpation tender along medial achilles closer to MT junction Balance & Gait SLB intact L, R able to maintain but with more UE away from side and less control GAIT mildly antalgic with decreased stance and forward propulsion on R Posture Good arch maintained in weight bearing Assessment Assessment/Impression Pt. is a 71 y/o male who presents with swelling about the achilles tendon and point tenderness along the medial aspect with some bruising/ pooling in the medial calcaneus. He is unable to complete 1 rep of a heel lift on the R and has more eversion on the R than he does on the left. He favors compensation with the soleus over gastroc on heel raises on the L. I think he may have a partial tear on the medial edge of his achilles and treatment will be geared toward restoring ROM and strength while managing edema until he leaves in a couple weeks for [place]. It is likely he will need PT while in [place] to resume his active lifestyle and volunteer activities. Primary Functional Limitations walking, biking, stairs Plan of Care Rehabilitation Potential Excellent Physical Therapy Goals SHORT TERM GOALS: (2-3 weeks) 1. Pt. consistently participating in HEP. 2. Pt. able to complete 1 rep of a heel lift on the R. 3. Decreased antalgic pattern during gait, where he can walk 15' with pain less than 3/10. Coordination/Communication With Referral Source Treatment Plan/Direct Interventions Manual Therapy,Neuromuscular Re-ed,Self-Care/Home Management,Therapeutic Exercises Frequency/Duration 2x/week through 05-17-22 when he leaves for [place] Patient Will Be Discharged From Therapy Independent w/HEP, Independently Progressing Discharge Plan Comments Will likely need further care in [place] Evaluation Billing Untimed Code Treatment Minutes 30 Complexity Low Certification Information Initial Certification Date 05/01/22 Ending Certification Date 05/19/22 Provider Signature Shows Agreement With POC & Medical Necessity Physician Signature & Date Requested Please Sign/Date Here Physician Comment/Change : Physician NPI Number #
== END 2022-06-22 16:17 | disposition home or self-care (01) ==
PROVIDERS: PCP Family Medicine; Visit Provider Orthopaedic Surgery Sports Medicine
DX: M76.61 Achilles tendinitis, right leg (principal); Z51.89 Encounter for other specified aftercare
CPT/HCPCS: 97110; 97140; 97161

== ENCOUNTER 2023-01-15 16:00 | Outpatient (RCR) | payer MEDICARE, BC, SELFPAY ==
--- NOTE | 2022-10-16 16:45 | PT.OPE ---
PT [place] Out[facility] Eval PT [facility] Outpatient Eval Start: 10/16/22 15:22 Freq: Status: Active Protocol: Document 10/16/22 15:28 LSL (Rec: 10/16/22 16:41 LSL [id number]) E-signed By Crystal Trejo PT Physical Therapy Outpatient Evaluation Insurance Information Medical Diagnosis R achilles tendonitis Referring MD Fong Subjective Subjective Pt. 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 It just feels rotten with pain in the back of the ankle. It is sensitive to touch. I am walking without a cane now, but had to use one often while gone. My feet and toes are bothering me at night L>R. They ache and joints click. Big toe feels like it gets out of place. I take advil at night and it helps me sleep better. Steps were an issue for a while but don't really seem to be now. Pt. tried a bike ride and that seemed to go okay. Goal is to be able to walk without a limp and avoid reinjury. Pain Comments 3/10 worst, 1/10 best Date of Last Physician Visit 09/26/22 Current Work Status Retired Precautions Weight Bearing Status Full Weight Bearing Therapy Limitations/Systems Review Not Limited Objective Range of Motion AROM L R DF 12 12 PF 52 43 inv 30 28 evs 10 10 varus 12 13 Strength B ankles 5/5 with exception of plantar flexion L 4/5, R 2/5, L great toe flexors 4/5 with snap and pain Swelling moderate at mid to upper achilles Palpation point tender at the L great MTP joint, and at mid achilles especially medially Assessment Assessment/Impression Pt. is a 72 y/o male who presents with continued achilles pain and swelling which worsened with significant walking while abroad. This is not surprising given he had some significant impairment at his last appointment prior to leaving after walking and his trip did not enable him to progress to an appropriate level of strength to perform significant walking. Additionally he is having pain in B feet and toes, worse at night and worse left than right especially at the great MTP joint. Suggested he follow up with PCP to rule out gout. Prior program was appropriate , however we are starting over a bit since he is swollen and weak. Treatment will consist of therex, NM re-ed, manual therapy and modalities prn. Primary Functional Limitations walking, stairs, running Plan of Care Rehabilitation Potential Excellent Physical Therapy Goals SHORT TERM GOALS: (3 weeks) 1. Pt. able to perform PF exercises with purple band or has progressed to weight bearing. 2. Pt. able to ambulate short distances (100 feet) with pain less than 2/10. 3. Pt. to have decreased swelling at mid achilles. FDC GOALS: (4 weeks) 1. Pt. able to walk for 30-45' with pain less than 2/10. 2. Pt. able to ascend and descend stairs with pain less than 2/10. Coordination/Communication With Referral Source Treatment Plan/Direct Interventions Electrical Stimulation,Heat, Joint Mobilization,Manual Therapy,Neuromuscular Re-ed, Self-Care/Home Management, Therapeutic Exercises Frequency/Duration 2x/week 3 weeks then 1x/week 3 weeks Patient Will Be Discharged From Therapy Completion of LTG(s),Skills Plateau,Independent w/HEP, Independently Progressing Evaluation Billing Untimed Code Treatment Minutes 30 Complexity Low Certification Information Initial Certification Date 10/16/22 Ending Certification Date 01/12/23 Provider Signature Shows Agreement With POC & Medical Necessity Physician Signature & Date Requested Please Sign/Date Here Physician Comment/Change : Physician NPI Number #
== END 2023-01-16 11:17 | disposition home or self-care (01) ==
PROVIDERS: PCP Family Medicine; Visit Provider Orthopaedic Surgery Sports Medicine
DX: M76.61 Achilles tendinitis, right leg (principal); Z51.89 Encounter for other specified aftercare
CPT/HCPCS: 97110; 97140; 97161

== ENCOUNTER 2023-01-22 08:00 | Outpatient (CLI) | payer MEDICARE, BC, SELFPAY | END 2023-01-22 08:01 | disposition home or self-care (01) | LOC: NFLDREF 01-26 09:10 | PROVIDERS: PCP Family Medicine; Referring Provider Family Medicine; Visit Provider Family Medicine | DX: E78.5 Hyperlipidemia, unspecified (principal); Z85.46 Personal history of malignant neoplasm of prostate | CPT/HCPCS: 80053; 80061; 84153 ==

== ENCOUNTER 2023-06-22 07:34 | Outpatient (CLI) | payer MEDICARE, BC, SELFPAY | END 2023-06-22 07:35 | disposition home or self-care (01) | LOC: NFLDREF 06-26 16:27 | PROVIDERS: PCP Family Medicine; Referring Provider Family Medicine; Visit Provider Internal Medicine | DX: R19.7 Diarrhea, unspecified (principal) | CPT/HCPCS: 87493 ==

== ENCOUNTER 2023-12-03 09:00 | Outpatient (RCR) | payer MEDICARE, BC, SELFPAY | END 2023-12-03 11:20 | disposition home or self-care (01) | PROVIDERS: PCP Family Medicine; Visit Provider Orthopaedic Surgery | DX: M79.645 Pain in left finger(s) (principal); Z51.89 Encounter for other specified aftercare | CPT/HCPCS: 97035; 97110; 97165; X5282 ==

== ENCOUNTER 2024-01-27 03:30 | Emergency (ER) | payer MEDICARE, BC, SELFPAY ==
[2024-01-27 03:35] VITALS: BP 166/62; PULSE 85; RESP 18; O2SAT 94; BMI 25.0
--- NOTE | 2024-01-27 03:44 | CRLHL7_ITS ---
For Patients: As a result of the Century Cures Act, medical imaging exams and procedure reports are released immediately into your electronic medical record. You may view this report before your referring provider. If you have questions, please contact your health care provider. INDICATION: Chest pain. Dyspnea. COMPARISON: None TECHNIQUE: PA and lateral views of the chest were acquired FINDINGS: TUBES AND LINES: None. HEART AND MEDIASTINUM: The heart size is normal. The mediastinal contour appears normal for patient age. LUNGS AND PLEURAL SPACES: The lungs appear normal.The pleural spaces are unremarkable. OSSEOUS STRUCTURES: Age-appropriate appearance. No acute focal finding. IMPRESSION: No evidence of active pulmonary disease. Dictated by Griffin Jane MD @ 01/27/2024 5:19:56 AM (Electronically Signed)
--- NOTE | 2024-01-27 03:45 | ED_ITS ---
HPI - Chest Pain General Date Seen: 01/27/24 Chief Complaint: Chest Pain Stated Complaint: chest pain Time Seen by Provider: 01/27/24 03:31 Source: patient Mode of arrival: ambulatory Limitations: no limitations History of Present Illness HPI narrative: Patient is a 73-year-old male presenting to the emergency department for chest pain. He states the symptoms started few hours ago [place] the [place]. They were sitting down waiting for people to finish up their final activities when he started noticing the midsternal chest pain. He states his chest feels very tight right now and he is short of breath. Taking deep breath does make the symptoms worse. Denies ever having symptoms like this before. He states after sitting down for about 40 minutes at the fair he stood up and was lightheaded for a short amount of time but then was able to drive home. Symptoms were persistent so he came to the emergency department for evaluation. Does take an aspirin at home. Has not taken anything yet for pain. No history of blood clots. Has recently driven back to [place] from [place] about 10 days ago. Denying feeling Skin sure to return remove weakness, numbness, headache. Denies any lightheadedness or dizziness while laying in the hospital bed. No history of heart disease. Does have a history of hypertension high cholesterol. No other concerns noted at this time. He did have COVID 2 weeks ago. Related Data Home Medications ?Medication ?Instructions ?Recorded ?Confirmed aspirin 81 mg tablet,delayed 81 mg PO DAILY 01/23/22 12/10/23 release cyanocobalamin (vitamin B-12) 1,000 mcg PO QDAY 01/23/22 12/10/23 1,000 mcg capsule multivitamin (Multiple Vitamins 1 tab PO QDAY 01/23/22 12/10/23 tablet) omega-3 fatty acids 1,000 mg 1,000 mg PO QDAY 01/23/22 12/10/23 capsule hydrocortisone 2.5 % topical cream 1 applic topical BID PRN 01/11/23 12/10/23 calcipotriene topical 11/21/23 12/10/23 Previous Rx's ?Medication ?Instructions ?Recorded amlodipine 10 mg tablet 10 mg PO QDAY #90 tabs 01/24/23 simvastatin 20 mg tablet 20 mg PO QPM #90 tabs 01/24/23 Allergies Allergy/AdvReac Type Severity Reaction Status Date / Time Sulfa (Sulfonamide Allergy Intermediate Rash Verified 12/10/23 14:09 Antibiotics) penicillin V Allergy Mild Hives Verified 12/10/23 14:09 tetracycline Allergy Unknown Verified 12/10/23 14:09 Review of Systems Status of ROS Reports: 10 or more systems reviewed and unremarkable except as noted in History and below [facility] Medical History Allergic reaction due to antibacterial drug ?T36.95XA - Adverse effect of unspecified systemic antibiotic, initial encounter (ICD-10) Hives ?L50.9 - Urticaria, unspecified (ICD-10) Dog bite ?W54.0XXA - Bitten by dog, initial encounter (ICD-10) Rupture of plantaris tendon ?S96.819A - Strain of other specified muscles and tendons at ankle and foot level, unspecified foot, initial encounter (ICD-10) Tinnitus ?H93.19 - Tinnitus, unspecified ear (ICD-10) Surgical History H/O radical prostatectomy (~1999) ?Z90.79 - Acquired absence of other genital organ(s) (ICD-10) History of umbilical hernia repair (05/13/12) ?Z98.890 - Other specified postprocedural states (ICD-10) ?Z87.19 - Personal history of other diseases of the digestive system (ICD-10) History of left inguinal hernia repair (05/13/12) ?Z98.890 - Other specified postprocedural states (ICD-10) ?Z87.19 - Personal history of other diseases of the digestive system (ICD-10) History of carpal tunnel release of both wrists ?Z98.890 - Other specified postprocedural states (ICD-10) Social History What is your current living situation?: I presently have a place to live In the past 12 months, utilities in danger of being shut off: no In past 12 months, lack of transportation kept you from medical appts, meetings, work, or getting things needed for daily living: no In the past 12 mos, have been you worried that your food would run out before you had money to buy more?: never true In the past 12 mos, the food you bought just didn't last and you didn't have money to buy more?: never true Smoking Status: Never smoker Do you use any of these nicotine containing products: None Second hand tobacco smoke exposure: No How often do you have a drink containing alcohol: never AUDIT-C Alcohol total score: 0 Non-prescribed substance use: denies use How often does anyone, including family, friends and others, physically hurt you : never How often does anyone, including family, friends and others, insult or talk down to you: never How often does anyone, including family, friends and others, threaten you with harm: never How often does anyone, including family, friends and others, scream or curse at you: never Little interest or pleasure in doing things: not at all Feeling down, depressed, or hopeless: not at all service: No Exam Narrative Exam Narrative: Const: Well-nourished, Well-developed, in mild distress Eyes: PERRL, no conjunctival injection, and symmetrical lids HENT: Atraumatic external nose and ears. Moist mucous membranes. Neck: Symmetric, trachea midline, No thyromegaly. CVS: RRR, No murmurs or gallops. Peripheral pulses 2+ and equal in all extremities RESP: Unlabored respiratory effort. Clear to auscultation bilaterally. GI: Nontender/Nondistended, No rebound or guarding. MSK:Extremities w/o deformity, Normal Active ROM, tenderness to chest Skin: Warm, Dry. No rashes or lesions. Neuro: Normal Muscle tone, No focal neurological deficits. Psych: Awake, Alert, & Oriented x3. Appropriate mood and affect. Const Vital Signs, click to edit/add: Vital Signs - 24 hr 01/27/24 03:35 01/27/24 05:22 Pulse Rate [Pulse Oximeter] 85 68 Respiratory Rate 18 18 Blood Pressure [Right Upper Arm] 166/62 H 139/77 Pulse Oximetry 94 98 Oxygen Delivery Method Room Air Room Air Course Vital Signs Vital signs: Initial Vital Signs Temperature Source Temporal Artery Scan 01/27/24 03:35 Pulse Rate 85 01/27/24 03:35 Pulse Rhythm Regular 01/27/24 03:35 Respiratory Rate 18 01/27/24 03:35 Blood Pressure 166/62 H 01/27/24 03:35 Blood Pressure Mean 96 01/27/24 03:35 Blood Pressure Position Supine 01/27/24 03:35 Pulse Oximetry 94 01/27/24 03:35 Oxygen Delivery Method Room Air 01/27/24 03:35 Vital Signs Pulse Rate 85 01/27/24 03:35 Respiratory Rate 18 01/27/24 03:35 Blood Pressure 166/62 H 01/27/24 03:35 Pulse Oximetry 94 01/27/24 03:35 Oxygen Delivery Method Room Air 01/27/24 03:35 Pulse Rate 68 01/27/24 05:22 Respiratory Rate 18 01/27/24 05:22 Blood Pressure 139/77 01/27/24 05:22 Pulse Oximetry 98 01/27/24 05:22 Oxygen Delivery Method Room Air 01/27/24 05:22 Medications Administered Medications: Discontinued Medications Generic Name Dose Route Start Last Admin Trade Name Freq PRN Reason Stop Dose Admin Lactated Ringer's 1,000 mls @ 1,000 mls/hr 01/27/24 03:44 01/27/24 05:52 Lactated Ringers 1000 Ml IV 01/27/24 04:43 Infused .Q1H ONE Infusion Ketorolac Tromethamine 15 mg 01/27/24 03:44 01/27/24 04:04 Ketorolac 15 Mg/Ml Inj IVP 01/27/24 03:45 15 mg ONCE ONE Administration MDM - Chest Pain MDM Narrative Medical decision making narrative: Patient is 73-year-old male presenting to emergency department for chest pain. The differential diagnosis of chest pain is broad and includes common etiologies such as musculoskeletal strain, GERD, pneumonia, etc. More serious etiologies considered include PE, coronary artery disease, pneumothorax, aortic dissection, aortic aneurysm. His vital signs are stable at this time an aortic dissection or aortic aneurysm seem unlikely. Will do a D-dimer to look for signs of a PE. Troponin and EKG to look for signs of coronary artery disease. Chest x-ray look for signs of pneumonia or pneumothorax. His chest is tender to palpation worries having the symptoms but when I press on his chest he is unable to say if that is reproducing the symptoms or not. Lab work so for swish turning showing no concerning abnormalities. His D-dimer is elevated at 0.52 but age adjusted this is not meet criteria for PE. This point PE seems unlikely. BNP within normal limits. EKG and troponin showing no concerning abnormalities. Repeat troponin within normal limits. He states symptoms improved greatly needs feeling better at this time. His chest is no longer tender to palpation. This time I cannot say for certain well as causing symptoms when formed follow-up with primary care provider and they may want to do a stress test. He is agreeable to this plan. Lab Data Labs: Lab Results 01/27/24 01/27/24 Range/Units 03:40 05:40 WBC 9.14 (4.50-11.00) K/uL RBC 4.72 (4.30-5.90) m/uL Hgb 14.8 (13.5-17.5) gm/dL Hct 44.4 (37.0-53.0) % MCV 94 (80-100) fL MCH 31 (26-34) pg MCHC 33 (32-36) gm/dL RDW Coeff of Devin 13.0 (11.5-15.5) % Plt Count 189 (140-440) K/uL Neut % (Auto) 61.0 (42.0-72.0) % Lymph % (Auto) 17.9 L (20-44) % [place] % (Auto) 14.1 H (0.0-11.0) % Eos % (Auto) 5.7 (0.0-7.0) % Baso % (Auto) 1.1 (0.0-3.0) % Neut # (Auto) 5.57 (1.7-7.0) K/uL Lymph # (Auto) 1.60 (0.90-2.90) K/uL [place] # (Auto) 1.30 H (0.00-0.90) K/UL Eos # (Auto) 0.52 H (0.00-0.50) K/uL Baso # (Auto) 0.10 (0.00-0.30) K/uL Abs Immat Gran (auto) 0.02 (0.00-0.30) K/uL Imm/Tot Granulo (auto) 0.2 % D-Dimer Quant (PE/DVT) 0.52 H (0.00-0.50) ug/ml Sodium 137 (135-149) mmol/L Potassium 3.7 (3.6-5.1) mmol/L Chloride 105 (96-114) mmol/L Carbon Dioxide 26 (20-32) mmol/L Anion Gap 6 L (7-15) mEq/L BUN 26 (7-30) mg/dL Creatinine 0.9 (0.5-1.5) mg/dL Estimated Creat Clear 58.48 Estimated GFR 90 ml/min Glucose 113 (60-115) mg/dL Calcium 9.1 (8.4-10.6) mg/dL Magnesium 2.1 (1.5-2.6) mg/dL Troponin I < 0.01 L < 0.01 L (0.01-0.04) ng/mL NT-Pro-B Natriuret Pep 62 pg/mL Imaging Data Chest x-ray: Attestation: I have reviewed the pertinent imaging results. Radiologist's impression: No evidence of active pulmonary disease. Dictated by Griffin Jane MD @ 01/27/2024 5:19:56 AM ECG Data Attestation: I personally reviewed and interpreted this ECG as follows: Prior ECG tracings: not available for review Interpretation: Normal sinus rhythm with a rate of 83 beats per minute, normal intervals, normal axis, no ST or T-wave abnormalities. Discharge Plan Discharge Clinical Impression: Chest pain Qualifiers: Chest pain type: unspecified Qualified Code(s): R07.9 - Chest pain, unspecified Patient Disposition: Home, Self-Care Condition: Improved Instructions: Chest Pain (DC) Additional Instructions: Make sure to follow-up with the primary care provider as they may want to have you set up for a stress test or an echocardiogram which will further evaluate your heart. Return to emergency department for new or worsening symptoms. Prescriptions: No Action aspirin 81 mg tablet,delayed release (DR/EC) 81 mg PO DAILY multivitamin [Multiple Vitamins] Tablet 1 tab PO QDAY cyanocobalamin (vitamin B-12) 1,000 mcg capsule 1,000 mcg PO QDAY omega-3 fatty acids 1,000 mg capsule 1,000 mg PO QDAY amlodipine 10 mg tablet 10 mg PO QDAY Qty: 90 4RF simvastatin 20 mg tablet 20 mg PO QPM Qty: 90 4RF hydrocortisone 2.5 % cream 1 applic topical BID PRN calcipotriene topical Follow Up/Referrals: Melvin Thomas MD [Primary Care Provider] - Stand Alone Forms: MyHealth Info Instructions
[2024-01-27 03:53] LABS: Basophils Percent Auto 1.1 % (0.0-3.0); Eosinophils Absolute Auto 0.52 K/uL (0.00-0.50); Eosinophils Percent Auto 5.7 % (0.0-7.0); Hematocrit 44.4 % (37.0-53.0); Hemoglobin* 14.8 gm/dL (13.5-17.5); Immature Granulocytes Abs Auto 0.02 K/uL (0.00-0.30); Immature Granulocytes Pct Auto 0.2 %; Lymphocytes Percent Auto 17.9 % (20-44); Mean Corpuscular HGB Conc 33 gm/dL (32-36); Mean Corpuscular Hemoglobin 31 pg (26-34); Mean Corpuscular Volume 94 fL (80-100); Monocytes Percent Auto 14.1 % (0.0-11.0); Neutrophils Absolute Auto 5.57 K/uL (1.7-7.0); Platelet Count* 189 K/uL (140-440); Red Blood Count 4.72 m/uL (4.30-5.90); White Blood Count* 9.14 K/uL (4.50-11.00)
[2024-01-27 04:01] LABS: Slide Review Reflex No
[2024-01-27] MEDS: LACTATED RINGERS 1000 ML 1,000 ML IV (04:03)
[2024-01-27] MEDS: KETOROLAC 15 MG/ML inj IVP (04:04)
[2024-01-27 04:05] LABS: Chloride* 105 mmol/L (96-114); Potassium* 3.7 mmol/L (3.6-5.1); Sodium* 137 mmol/L (135-149)
--- NOTE | 2024-01-27 04:06 | PC.NURSE ---
pt c/o headache that began a few minutes ago. states having pain back, right side of head. denies other symptoms, just states he doesn't get headaches very often. pain in chest is increasing, toradol was given.
[2024-01-27 04:08] LABS: Anion Gap 6 mEq/L (7-15); Carbon Dioxide* 26 mmol/L (20-32); Creatinine* 0.9 mg/dL (0.5-1.5); Est. Creatinine Clearance* 58.48; Estimated Glomerular Filt Rate 90 ml/min
[2024-01-27 04:09] LABS: Blood Urea Nitrogen* 26 mg/dL (7-30); Calcium* 9.1 mg/dL (8.4-10.6); Glucose* 113 mg/dL (60-115); Magnesium* 2.1 mg/dL (1.5-2.6)
[2024-01-27 04:10] LABS: D Dimer Quantitative* 0.52 ug/ml (0.00-0.50)
--- OUTSIDE RECORDS SUMMARY | 2024-01-27 04:10 | XMS_ITS | Clinical Summary ---
[facility] Address [address], [place] [address] Care Team Providers Care Master Planner Name Role Phone Melvin White MD Primary Care Provider [phone] Source Comments You are receiving this document as you are listed as the primary care provider,follow-up provider, or the patient has been referred to you for consultation.This is in compliance with the Medicare and[facility] EHR Incentive Program,which states Providers who transition their patient to another setting of careor provider of care or refers their patient to another provider of care shouldprovide summary care record for each transition of care or referral. [facility] Allergies Active Allergy Reactions Criticality Noted Date Comments Penicillins 09/23/2004 PN: LW Reaction: HIVES Medications Medication Sig Dispensed Refills Start Date End Date Status Gelatin 600 MG CAPS Take by mouth. 10/05/2005 A ctive ascorbic acid (AKA VITAMIN C) 500 MG tablet Take by mouth. 01/02/2006 Active Multiple Vitamins-Minerals (MULTIVITAMIN OR) Take 1 tablet by mouth daily (every 24 hours). 100 13 10/05/2005 Active aspirin 81 MG tablet Take 1 tablet by mouth daily (every 24 hours). 90 3 10/05/2005 Active simvastatin (AKA ZOCOR) 20 MG tablet Take 1 tablet by mouth every evening. LW Addl Instr:Indicated for: High Cholesterol 90 3 09/13/2007 Active tacrolimus (PROTOPIC) 0.1 % ointmentIndications: Psoriasis APPLY TO FACE AND FOLD AREAS TWICE DAILY SUNDAY AND SUNDAY NEEDED 210 g 04/20/2023 Active hydrocortisone 2.5 % creamIndications:Pso riasis Apply to face and fold areas twice a day for 2 weeks then twice a day as needed Sunday and Sunday 60 g 3 08/03/2023 Active Calcipotriene (AKA DOVONEX) 0.005 % ointmentIndications: Plaque Psoriasis Apply topically two times a day. Indications: Plaque Psoriasis 60 g 11 10/23/2023 Active Active Problems Problem Noted Date Diagnosed Date Hyperlipidemia 09/13/2007 Encounters Date Type Department Care Team Description 12/17/2023 12:30 PM CDT E-Visit [facility] [address] [place] [address] Daphne Sanchez MD Chief Comp: Medication Questions from Last 3 Months Immunizations Name Administration Dates Next Due Flu Vac Preserv Free (3+yrs) 04/03/2005 HepA Adult (19+ yrs) 04/13/2005 IPV (Polio) 04/13/2005 Td 04/13/2005 Typhoid (Typhim Vi, IM) 04/13/2005 Social History Tobacco Use Types Packs/Day Years Used Date Smoking Tobacco: Never Sex and Gender Information Value Date Recorded Sex Assigned at Male 12/17/2023 12:45 PM CDT Gender Identity Male 12/17/2023 12:45 PM CDT Sexual Orientation Straight 12/17/2023 12 :45 PM CDT Last Filed Vital Signs Vital Sign Reading Time Taken Comments Blood Pressure 130/88 09/13/2007 3:49 PM CDT Pulse 74 09/13/2007 3:49 PM CDT Temperature 37.3 ??C (99.1 ??F) 06/12/2006 7 :19 PM [employer] C: 37.3 C Respiratory Rate 20 06/12/2006 7:19 PM [employer] Oxygen Saturation 95% 08/05/2005 10: 58 AM [employer] Inhaled Oxygen Concentration - - Weight 81.2 kg (178 lb 15.9 oz) 008 3:49 PM CDT C: 81.2kg Height 166.4 cm (5' 5.5) 09/13/2007 3: 49 PM CDT C: 166.4cm Body Mass Index 29.33 09/13/2007 3:49 PM CDT Plan of Treatment Upcoming Encounters Date Type Department Care Team (Late st Contact Info) Description 11/03/2024 10:45 AM CDT Appointment [facility] [address] [place] [address] Daphne Sanchez MD [address] [place] [id number] Health Maintenance Due Date Last Done Comments Colon Cancer Screening Plan Due 1950 Hep C Screening (Preventive Services) 1950 Medicare Annual Wellness Visit 1950 Zoster/Shingles (2 of 3) 03/28/2011 01/31/2011 Cholesterol 11/24/2012 11/25/2007, 07/2007, 07/07/2006, Additional history exists COVID-19 Vaccine ( season) 2023 05/11/2022, 10/18/2021, 03/22/2021, Additional history exists Influenza (#1) 2024 03/29/2021, 03/04, 03/05/2018, Additional history exists DTaP/Tdap/Td (5 - Tdap) 10/30/2028 10/31/19 19, 11/04/2008, 11/04/2008, Additional history exists IPV (Polio) Aged Out 04/13/2005 No longer eligi ble based on patient's age to complete this topic Pneumococcal 65+ Yrs Completed 09/14/2016, 08/14/19 15 HepA Completed 01/23/2022, 04/13/2005 HepB Aged Out No longer eligi ble based on patient's age to complete this topic Hib Aged Out No longer eligi ble based on patient's age to complete this topic [email or web address] Aged Out No longer eligi ble based on patient's age to complete this topic Procedures Procedure Name Priority Date/Time Associated Diagnosis Comments LIPID PANEL & DIRECT LDL (IF NEEDED) Routine 11/25/2007 8:10 AM CDT from Last 3 Months or Most Recently Relevant to Health Maintenance Results * (ABNORMAL) Lipid Panel and Direct LDL(If Needed) (11/25/2007 8:10 AM CDT) Hours Fasting 12.0 Hours HP CONVERSION Cholesterol/HDL Ratio Screen 4.1 No normal range HP CONVERSION Cholesterol 168 <200 mg/dL HP CONVERSION HDL Cholesterol 41 >40 mg/dL HP CONVERSION Triglycerides 184(H) 0 - 149 mg/dL HP CONVERSION LDL Calculated 90 0 - 130 mg/dL HP CONVERSION Comment: 11/25/2007 8:10 AM CDT Melvin White MD LAB_1 HP CONVERSION from Last 3 Months or Most Recently Relevant to Health Maintenance Care Teams Master Planner Relationship Specialty Start Date End Date Melvin White MD [address] [place] [address] PCP - General 09/06/10
--- OUTSIDE RECORDS SUMMARY | 2024-01-27 04:10 | XMS_ITS | Encounter Summary ---
Author Organization [facility] Address [address] [place] [address] Care Team Providers Care Delivery Merchandiser Name Role Phone Elsewhere, Pcp Primary Care Provider Unavailabl e Reason for Referral * Outpatient (Routine) - Authorized Specialty Diagnoses / Procedures Referred By Ziyad au Referred To Contact Diagnoses Pain Finger Left Nabor Rodriguez M.D. [address] [place] [address] Referral ID Status Reason Start Date Expiration Date Visits Requested Visits Authorized [id number] Authorized Patient Preference 10/26/2023 04/26/2025 1 1 Reason for Visit * Outpatient (Routine) - Closed Specialty Diagnoses / Procedures Referred By Contac t Referred To Contact Orthopedic Surgery Nabor Rodriguez M.D. [address] [place] [address] [facility] Referral ID Status Reason Start Date Expiration Date Visits Re quested Visits Authorized [id number] Closed 09/20/2023 03/21/2025 1 1 Encounter Details Date Type Department Care Team (Late st Contact Info) Description 10/26/2023 3:15 PM CDT Office Visit Department of Orthopedic Surgery in [place], [place] [address] [place] [address] Nabor Rodriguez M.D. [address] [place] [address] Pain Finger Left (Primary Dx) Social History Tobacco Use Types Packs/Day Years Used Date Smoking Tobacco: Never Smokeless Tobacco: Never Alcohol Use Standard Drinks/Week Comments Not Currently 0 (1 standard drink = 0.6 oz pure alcohol) once a month or less a glass of beer or wine w meal Humiliation, Afraid, Rape, and Kick questionnair e Answer Date Recorded Within the last year, have y ou been afraid of your partner or ex-partner? No 07/17/2021 Within the last year, have y ou been humiliated or emotionally abused in other ways by your partner or ex-partner? No Within the last year, have y ou been kicked, hit, slapped, or otherwise physically hurt by your partner or ex-partner? No 07/17/2021 Within the last year, have y ou been raped or forced to have any kind of sexual activity by your partner or ex-partner? No 07/17/2021 Social Connection and Isolat ion Panel [NHANES] Answer Date Recorded In a typical week, how many times do you talk on the phone with family, friends, or neighbors? More than three times a week 07/17/2021 How often do you get togethe r with friends or relatives? Patient declined 07/17/2021 How often do you attend chur ch or tenriism services? More than 4 times per year 07/17/2021 Do you belong to any clubs o r organizations such as faith groups, unions, fraternal or athletic groups, or school groups? Yes 07/17/2021 How often do you attend meet ings of the clubs or organizations you belong to? More than 4 times per year 07/17/2021 Are you , , di vorced, , never , or living with a partner? 07/17/2021 AUDIT-C Answer Date Recorded Q1: How often do you have a drink containing alc ohol? Monthly or less 07/17/2021 Q2: How many drinks containi ng alcohol do you have on a typical day when you are drinking? 1 or 2 07/17/2021 Q3: How often do you have si x or more drinks on one occasion? Never 07/17/2021 Overall Financial Resource Strain (CARDIA) Answe r Date Recorded How hard is it for you to pa y for the very basics like food, housing, medical care, and heating? Not hard at all 03/29/2023 [facility] Occupat ional Health - Occupational Stress Questionnaire Answer Date Recorded Do you feel stress - tense, restless, nervous, or anxious, or unable to sleep at night because your mind is troubled all the time - these days? Not at all 07/17/2021 Exercise Vital Sign Answer Date Recorde d On average, how many days pe r week do you engage in moderate to strenuous exercise (like a brisk walk)? 5 days 03/29/2023 On average, how many minutes do you engage in exercise at this level? 30 min 03/29/2023 Hunger Vital Sign Answer Date Recorded Within the past 12 months, y ou worried that your food would run out before you got the money to buy more. Never true 03/29/20 23 Within the past 12 months, t he food you bought just didn't last and you didn't have money to get more. Never true 03/29/2023 PRAPARE - Transportation Answer Date Re corded In the past 12 months, has l ack of transportation kept you from medical appointments or from getting medications? No 03/05 In the past 12 months, has l ack of transportation kept you from meetings, work, or from getting things needed for daily living? No 03/29/2023 Nutrition Answer Date Recorded Nutrition: EVOO Fat Source Yes 03/29 On average, how many serving s of fruits and vegetables do you eat per day (serving size is equal to 1 cup or approximately the size of a tennis ball)? 0-2 03/29/2023 Dental Answer Date Recorded Dental: Regular Dentist Yes 04/21/20 21 Employment Answer Date Recorded Employment status Retired 03/29/2023 Housing Stability Answer Date Recorded What is your living situation today? I have a [facility] place to live 03/29/2023 Education Answer Date Recorded What is the highest level of school you have completed or the highest degree you have received? 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 - 10/26/2023 3:15 PM CDT CHIEF COMPLAINT Left middle finger MCP pain SUBJECTIVE Mr. Perdomo is a very pleasant 73 y.o. male who returns to the hand clinic today for evaluation of the above. As a reminder, he has previously been seen in clinic for a lipoma which was previously resected however there was residual mass in the third webspace of the left hand. He was last seen by uson 09/20/2023. At that time we reviewed MRIs of his left middle finger. They did not reveal any tear of the collateral ligaments. There was suggestive of capsule ligamentous sprain. He was doing wellwith jeimy taping so planned for continued conservative management at that time. Today, he reports that he continues to do well. He reports that his left middle finger pain is improving. He feels 50%of normal now. He reports that the strength is not quite there yet and he is still does feel some stiffness. OBJECTIVE PHYSICAL EXAMINATION General: NAD, follows commands HEENT: NCAT CV: skin warm, dry, well perfused Pulm: unlabored Neuro: alert, appropriate Upper Extremity: Composite fist with full extension all digits. Digits warm pink well-perfused. Pain with palpation of the left long finger MCP dorsally and radially. Pain over the dorsal MCP with resisted flexion. Extensor tendon appears well centralized. Operational Review Sergeant R 38 vs L 26 kg L MF ROM MCP 0-90, PIP0-105, DIP 0-80 ADDITIONAL STUDIES: Imaging: Relevant imaging, where available, was reviewed. MRI L hand 08/17/23 1. Capsuloligamentous sprain of the left 3rd MCP joint, most evident at the proximal segment of theradial collateral ligament as described. urrounding periarticular soft tissue edema. 2. 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 3. Scattered degenerative arthritis. ASSESSMENT / PLAN #1. Capsuloligamentous sprain of L LF MCP Mr. Perdomo was seen and evaluated in collaboration with Dr Rodriguez. The patient is improving overall with conservative management. He is pleased with his progress. He does still feel weakness of his left long finger flexion. He also does endorse some stiffness. At this time, he wishes to pursue therapy close to home for strengthening exercises. We will provide him a referral for hand therapy. He will keep us updated on how he progresses and will let us know if he desires further intervention Thank you for the opportunity to participate in this patient's care. Please contact us with questions or concerns. All questions and concerns were answered on today's visit. There were no communication barriers present. Electronically signed by: Bj Harper M.D. 10/26/23 3:54 PM CDT Associated attestation - Nabor Rodriguez M.D. - 10/26/2023 10:42 PM CDT I saw and evaluated the patient, participating in the devine portions of the service. I reviewed the resident/fellow???s note. I agree with the resident/fellow???s findings and plan. documented in this encounter Plan of Treatment Not on file documented as of this encounter Visit Diagnoses Diagnosis Pain Finger Left- Primary documented in this encounter Care Teams Delivery Merchandiser Relationship Specialty Start Date End Date Elsewhere, Pcp PCP - General Internal Medicine 07/19/21 documented as of this encounter
--- OUTSIDE RECORDS SUMMARY | 2024-01-27 04:10 | XMS_ITS | Encounter Summary ---
Author Organization [facility] Address [address], [place] [address] Care Team Providers Care Solid Waste Facility Supervisor Name Role Phone Melvin White MD Primary Care Provider [phone] Reason for Visit * Reason Comments Prior Authorization For Medication UVB h ome unit Encounter Details Date Type Department Care Team (Late st Contact Info) Description 10/23/2023 Telephone [facility] [address] [place] [address] Daphne Sanchez MD [address] [place] [address] Prior Authorization For Medication (UVB home unit) Social History Tobacco Use Types Packs/Day Years Used Date Smoking Tobacco: Never Sex and Gender Information Value Date Recorded Sex Assigned at Male 12/17/2023 12:45 PM CDT Gender Identity Male 12/17/2023 12:45 PM CDT Sexual Orientation Straight 12/17/2023 12 :45 PM CDT documented as of this encounter Nursing Notes * Consuelo Gracia MA - 10/23/2023 4:08 PM CDT Sent Torsten PA packet through communications with clinic notes and insurance information. Will reach out to Torsten in a week to get update. documented in this encounter Plan of Treatment Upcoming Encounters Date Type Department Care Team (Late st Contact Info) Description 11/03/2024 10:45 AM CDT Appointment [facility] [address] [place], [place] [phone] Daphne Sanchez MD [address] [place], [place] [phone] documented as of this encounter Visit Diagnoses Not on filedocumented in this encounter Care Teams Solid Waste Facility Supervisor Relationship Specialty Start Date End Date Melvin White MD [address] [place], [place] [phone] PCP - General 09/06/10 documented as of this encounter
--- OUTSIDE RECORDS SUMMARY | 2024-01-27 04:10 | XMS_ITS | Clinical Summary ---
Author Organization [facility] Address [address] [place] [address] Care Team Providers Care Cvt Rn Name Role Phone Fabian Mena MD Primary Care Provider [phone] Allergies Active Allergy Reactions Criticality Noted Date Comments Penicillins Hives 07/21/2011 Medications Medication Sig Dispensed Refills Start Date End Date Status simvastatin (ZOCOR) 20 MG tablet Take 1 tablet by mouth At Bedtime. Active amLODIPine (NORVASC) 5 MG tablet Take 5 mg by mouth daily. Active fish oil-omega-3 fatty acids (FISH OIL) 1000 MG capsule Take 1 capsule by mouth daily. Active aspirin 81 MG tablet Take 1 tablet by mouth daily. Active Gelatin 650 MG TABS Take 1 tablet by mouth daily. Active cyanocolbalamin (VITAMIN B-12) 1000 MCG tablet Take 1 tablet by mouth daily. Active ascorbic acid (VITAMIN C) 1000 MG TABS Take 1,000 mg by mouth daily. Active Cholecalciferol (VITAMIN D) 1000 UNITS capsule Take 1 capsule by mouth daily. Active Multiple Vitamins-Minerals (CENTRUM SILVER PO) Take 1 tablet by mouth daily. Active tadalafil (CIALIS) 20 MG tablet Take 1 tablet by mouth as needed. Active sildenafil (VIAGRA) 25 MG tablet Take 25 mg by mouth as needed. Active calcipotriene (DOVONEX) 0.005 % cream Apply 0.5 inches topically 2 times daily. Active triamcinolone (KENALOG) 0.1 % cream Apply 0.5 inches topically 2 times daily. Active clobetasol (TEMOVATE) 0.05 % external ointment APPLY TWICE DAILY TO BODY RASH ON TOP OF VANICREAM 10/26/2020 Active Encounters Date Type Department Care Team Description 12/29/2023 Telephone [facility] [address] [place] [address] Ines Thorpe, RN Suspected Covid from Last 3 Months Social History Tobacco Use Types Packs/Day Years Used Date Smoking Tobacco: Never Smokeless Tobacco: Never Tobacco Cessation:Counseling Given: Yes Alcohol Use Standard Drinks/Week Comments Not Asked 0 (1 standard drink = 0.6 oz pur e alcohol) Adolescent Education Answer Date Record ed Getting School Help Needed Not on file 02/25 Sex and Gender Information Value Date Recorded Sex Assigned at Not on file Gender Identity Not on file Sexual Orientation Not on file Last Filed Vital Signs [...] OF HM ORDERS 1949 CT COLONOGRAPHY 1949 FIT 1949 FLEX SIG 1949 GLUCOSE 1949 LIPID 1949 sDNA (Cologuard) 1949 COLONOSCOPY 1959 COLORECTAL CANCER SCREENING 1959 HEPATITIS C SCREENING 1967 DTAP/TDAP/TD IMMUNIZATION (1 - Tdap) 04/14/2005 04/13/2005, 04/04/2005 IPV IMMUNIZATION (2 of 3 - Adult catch-up series) 05/11/2005 04/13/2005 RSV VACCINE ( & 60+) (1 - 1-dose 60+ series) 2009 ZOSTER IMMUNIZATION (2 of 3) 03/28/2011 01/31/2011 FALL RISK ASSESSMENT 2014 MEDICARE ANNUAL WELLNESS VISIT 2014 COVID-19 Vaccine (3 - season) 2023 07/21/2020, 06/22/2020 PHQ-2 (once per calendar year) 2023 INFLUENZA VACCINE (#1) 2024 9, 03/02/2016, 03/04/2014, Additional history exists Pneumococcal Vaccine: 65+ Years Completed 09/14/2016, 08/13/2014 HPV IMMUNIZATION Aged Out No longer e ligible based on patient's age to complete this topic MENINGITIS IMMUNIZATION Aged Out No l onger eligible based on patient's age to complete this topic RSV MONOCLONAL ANTIBODY Aged Out No l onger eligible based on patient's age to complete this topic Care Teams Cvt Rn Relationship Specialty Start Date End Date Fabian Mena MD [address] [place] [address] PCP - General 07/19/11
--- OUTSIDE RECORDS SUMMARY | 2024-01-27 04:10 | XMS_ITS | Encounter Summary ---
Author Organization [facility] Address [address] [place] [address] Care Team Providers Care Flexo Press Operator Name Role Phone Elsewhere, Pcp Primary Care Provider Unavailabl e Encounter Details Date Type Department Care Team (Late st Contact Info) Description 08/05/2012 Historical Ophthalmology [facility] Demi Yu M.D. [address] [place] [phone] Social History Tobacco Use Types Packs/Day Years Used Date Smoking Tobacco: Never Assessed Sex and Gender Information Value Date Recorded Sex Assigned at Male 04/21/2021 10:27 PM RELATIONSHIP EXECUTIVE Gender Identity Male 04/21/2021 10:27 PM RELATIONSHIP EXECUTIVE Sexual Orientation Straight 04/21/2021 10 :27 PM RELATIONSHIP EXECUTIVE documented as of this encounter Progress Notes * Demi Yu M.D. - 08/05/2012 12:05 PM [facility]ST Eye General CHIEF COMPLAINT Occasional floaters; occasional blurred vision HISTORY OF PRESENT ILLNESS Floaters alone; both eyes; x many years; occasionally. Blurred vision; both eyes; left>right; x many years; occasionally; symptoms are moderate; with several such episodes per year lasting up to one hour. Denies flashes and diplopia. Denies ocular pain. 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 Vision improves if he closes his eyes -- seems to be worse when he is tired. Has prescription for steroid cream for psoriasis -- inthe past had problems on eyelids and needed [...] both eyes CDM Reports - EYEGEN Id: [id number] Status: Fnl documented in this encounter Plan of Treatment Not on file documented as of this encounter Visit Diagnoses Not on filedocumented in this encounter Additional Health Concerns Infection Onset Date Last Indicated Resolved Time COVID19 Pending 07/18/2021 07/18/2021 07/18/2021 2 :46 PM RELATIONSHIP EXECUTIVE COVID19 Pending 12/28/2021 12/28/2021 12/28/2021 2 :43 PM CDT documented as of this encounter Care Teams Flexo Press Operator Relationship Specialty Start Date End Date Elsewhere, Pcp PCP - General Internal Medicine 07/19/21 documented as of this encounter
--- OUTSIDE RECORDS SUMMARY | 2024-01-27 04:10 | XMS_ITS | Referral Summary ---
Author Organization [facility] Address [address] [place] [address] Care Team Providers Care Switch Operator Name Role Phone Fabian Mena MD Primary Care Provider [phone]- [phone] Encounters Date Type Department Care Team Description 12/29/2023 Telephone [facility] [place] [address] Ines Thorpe RN Suspected Covid from Last 3 Months Allergies Active Allergy Reactions Criticality Noted Date [...] RASH ON TOP OF VANICREAM 10/26/2020 Active Social History Tobacco Use Types Packs/Day Years [...] 01/17/2021 8:58 AM CDT Plan of Treatment Not on file Care Teams Switch Operator Relationship Specialty Start Date End Date Fabian Mena MD [address] [place] [address] [facility] - General 07/19/11
--- OUTSIDE RECORDS SUMMARY | 2024-01-27 04:10 | XMS_ITS ---
Author Organization [facility] Address [address] [place] [address] Care Team Providers Care Convict Guard Name Role Phone Unavailable Unavailable Unavailable Surgery Details Not on file Complications Check Surgery Details section. Procedure Estimated Blood Loss Check Surgery Details section. Procedure Findings Check Surgery Details section. Procedure Specimens Taken Check Surgery Details section.
--- OUTSIDE RECORDS SUMMARY | 2024-01-27 04:10 | XMS_ITS | Clinical Summary ---
Author Organization [facility] Address [address] [place] [address] Care Team Providers Care Machine Ironer Name Role Phone Elsewhere, Pcp Primary Care Provider Unavailabl e Source Comments Patient records contain information from all sites at [facility]. For routine questions regarding patient records, call [phone] during business hours, M-F 8:00 AM - 5:00 PM Central Time. Record requests for emergency care only can be directed to [phone] at any time.[facility] Allergies Active Allergy Reactions Criticality Noted Date Comments Chlortetracycline Hives (Reselect Reaction) 07/29/2009 Penicillins Hives (Reselect Reaction),Rash 09/23/2004 PN: LW Reaction: HIVES Medications Medication Sig Dispensed Refills Start Date End Date Status triamcinolone (KENALOG) 0.1 % cream Apply 0.5 inches topically as needed. Active gelatin 600 mg capsule Take 1 capsule by mouth daily. 10/05/2005 Active cyanocobalamin (VITAMIN B12) 1,000 mcg tablet Take 1 tablet by mouth daily. 07/29/[address] Active [address] tablet Take 1 tablet by mouth daily. 12/23/2008 Active ascorbic acid, vitamin C, (VITAMIN C) 1,000 mg tablet Take 1,000 mg by mouth daily. Active multivit-min/FA/lyco pen/lutein (CENTRUM SILVER MEN ORAL) Take 1 tablet by mouth daily. 04/03/2010 Active calcipotriene (DOVONEX) 0.005 % ointment Apply 1 application topically 2 (two) times a day. Apply for porosis to groin area. Active diclofenac sodium (VOLTAREN) 1 % gel Apply 4 g topically 4 (four) times a day as needed (to areas of arthritic pain). Apply to left hand and bilateral thumbs. 100 g 1 09/06/2021 Active simvastatin (ZOCOR) 20 mg tablet Take 20 mg by mouth at bedtime. 10/18/2021 Active omega 1-shk-zvk-fish oil 1,000 mg (120 mg-180 mg) capsule Take 1 capsule by mouth daily. Active amLODIPine (NORVASC) 10 mg tablet 10 mg daily. 01/23/2022 Active hydrocortisone (HYTONE) 2.5 % cream Apply 1 Application topically as needed. 08/03/2023 Active tacrolimus (PROTOPIC) 0.1 % ointment APPLY TO FACE AND FOLD AREAS TWICE DAILY SUNDAY AND SUNDAY NEEDED 04/20/2023 Active L.acidoph-L.bulg-B.b if-S.therm (BACID) 1 billion cell- 250 mg per tablet Take 3 tablets by mouth daily. Active Active Problems Problem Noted Date Diagnosed Date Carpal Tunnel Syndrome Left 04/26/2021 Overview (04/26/2021): Added automatically from request for surgery [id number] Immunizations Name Administration Dates Next Due DTaP (Infanrix, Tripedia) 11/04/2008 H1N1 All Forms 05/23/2009 HZV (ZOSTAVAX) 01/31/2011 HepA Adult 04/13/2005 IPV 04/13/2005 Influenza Split 03/02/2016, 4,03/04/2012,2009,05/23/2009 Influenza, Unspecified 05/20/2009 PCV13 08/13/2014 PPSV23 09/14/2016 SARS-COV-2 (COVID-19) - PFIZ ER (Discontinued)(12 years or older) 07/21/2020,06/22/2020 Td (Adult), adsorbed 04/13/2005 Td, (Adult) Unspecified 11/04/2008,04/04/2005 Tdap 11/04/2008 Family History Medical History Relation Name Comments Prostate cancer Brother 1 Robert Had prostate surgery Seizures Brother 1 Robert Prostate cancer Brother 2 Hal Had prostate surgery Parkinson disease Brother 3 Chucho Prostate cancer Brother 3 Chucho Had prostate surgery Seizures Brother 3 Edsaurav ADD Daughter Julissa Recently diagno sed in 2022 Prostate cancer Father Eugene official cau se of Parkinson disease Maternal Grandfather Sriram Parkinson disease Mother Velvet Diabetes Son Javed Suicide Attempts Son Javed Relation Name Status Comments Brother 1 Robert Brother 2 Hal Brother 3 Chucho Daughter Julissa Father Eugene Maternal Grandfather Sriram Mother Velvet Son Javed Social History Tobacco Use Types Packs/Day Years Used Date Smoking Tobacco: Never Smokeless Tobacco: Never Tobacco Cessation:Counseling Given: Not Answered Alcohol Use Standard Drinks/Week Comments Not Currently [...] declined 07/17/2021 [facility] or [facility] services? More than 4 times per year 07/17/2021 Do you belong to any clubs o r organizations such as pentecostalism groups, unions, fraternal or athletic groups, or [...] and heating? Not hard at all 03/29/2023 [facility] - Occupational Stress [...] Date Recorded Dental: Regular Dentist Yes 04/21/20 Employment Answer Date Recorded Employment status Retired 03/29/2023 Housing Stability Answer Date Recorded What is your living situation today? I have a [facility] place to live 03/29/2023 Education Answer Date Recorded What is the highest level of school you have completed or the highest degree you have received? Master's degree (e.g., MA, MS, Stephanie, MEd, DIRECTOR APPAREL, CAREN) 04/21/2021 Sex and Gender Information Value Date Recorded Sex Assigned at Male 04/21/2021 10:27 PM MEDICAL ADVISOR Gender Identity Male 04/21/2021 10:27 PM MEDICAL ADVISOR Sexual Orientation Straight 04/21/2021 10 :27 PM MEDICAL ADVISOR Last Filed Vital Signs Vital Sign Reading Time Taken Comments Blood Pressure 131/82 06/29/2022 8:51 AM MEDICAL ADVISOR Pulse 58 06/29/2022 8:51 AM MEDICAL ADVISOR Temperature 36.6 ??C (97.9 ??F) 12/29/2021 10:15 AM C DT Respiratory Rate 11 12/29/2021 10:30 AM CDT Oxygen Saturation 92% 12/29/2021 11:00 AM CDT Inhaled Oxygen Concentration - - Weight 72.2 kg (159 lb 2.8 oz) 06/29/2022 8:49 A M MEDICAL ADVISOR Height 167.6 cm (5' 6) 12/29/2021 8:43 AM CDT Body Mass Index 25.69 12/29/2021 8:43 AM CDT Plan of Treatment Health Maintenance Due Date Last Done Comments CT Colonography 1950 Cologuard 1950 FIT 1950 Zoster Vaccines (2 of 3) 03/28/2011 01/31/2011 Colonoscopy 05/16/2020 05/16/2010 Colorectal Cancer Screening 05/16/2020 COVID-19 Vaccine (6 2022- 4 season) 2023 05/11/2022, 10/18/2021, 03/22/2021, Additional history exists Depression Screening (Annual PHQ-2) 06/04/2023 Fall Risk Screen (Annual) 06/04/2023 Influenza Vaccine (#1) 2024 , 03/15/2020, 03/20/2019, Additional history exists Fasting Glucose for Diabetes Screening 06/23/2025 06/23/2022, 09/14/2016, 08/13/2014, Additional history exists DTaP,Tdap,and Td Vaccines (5 - Td or Tdap) 10/30/2028 10/30/2018, 11/04/2008, 11/04/2008, Additional history exists Pneumococcal vaccine (65+ years) Completed 09/15/19, 08/13/2014 Hepatitis A Vaccines Completed 01/23/2022, 04/13/20 05 Medical Devices Implanted Type Area Tile Helper Device Identifier Shelf Expiration Date Model / Serial / Lot Mesh Hernia Mesh or Patch Abdomen Procedures Procedure Name Priority Date/Time Associated Diagnosis Comments COMPREHENSIVE METABOLIC PANEL, S/P Routine 06/23/2022 9:32 AM MEDICAL ADVISOR Arteritis Giant Cell (HCC) from Last 3 Months or Most Recently Relevant to Health Maintenance Results * (ABNORMAL) Comprehensive Metabolic Panel (06/23/2022 9:32 AM MEDICAL ADVISOR) Pathologist [facility] [place] Potassium, S 5.1 3.6 - 5.2 mmol/L 06/23/2022 10:26 AM MEDICAL ADVISOR DTL Sodium, S 142 135 - 145 mmol/L 06/23/2022 10:26 AM MEDICAL ADVISOR DTL Chloride, S 103 98 - 107 mmol/L 06/23/2022 10:26 AM MEDICAL ADVISOR DTL Bicarbonate, S 29 22 - 29 mmol/L 06/23/2022 10:26 AM MEDICAL ADVISOR DTL Anion Gap 10 7 - 15 06/23/2022 10:26 AM MEDICAL ADVISOR DTL BUN (Blood Urea Nitrogen), S 18 8 - 24 mg/dL 06/23/2022 10:26 AM MEDICAL ADVISOR DTL Creatinine 0.93 0.74 - 1.35 mg/dL 06/23/2022 10:26 AM MEDICAL ADVISOR DTL Estimated GFR (eGFR) 87 >=60 mL/min/BS A 06/23/2022 10:26 AM MEDICAL ADVISOR DTL Comment: Estimated GFR calculated using the 2020 CKD_EPI creatinine equation. Calcium, Total, S 9.4 8.8 - 10.2 mg/dL 06/23/2022 10:26 AM MEDICAL ADVISOR DTL Glucose, S 105 70 - 140 mg/dL 06/23/2022 10:26 AM MEDICAL ADVISOR DTL Protein, Total, S 6.1(L) 6.3 - 7.9 g/dL 06/23/2022 10:26 AM MEDICAL ADVISOR DTL Albumin, S 4.3 3.5 - 5.0 g/dL 06/23/2022 10:26 AM MEDICAL ADVISOR DTL Aspartate Aminotransferase (AST), S 29 8 - 48 U/L 06/23/2022 10:26 AM MEDICAL ADVISOR DTL Alkaline Phosphatase, S 48 40 - 129 U/L 06/23/2022 10:26 AM MEDICAL ADVISOR DTL Alanine Aminotransferase (ALT), S 27 7 - 55 U/L 06/23/2022 10:26 AM MEDICAL ADVISOR DTL Bilirubin, Total, S 0.4 <=1.2 mg/dL 06/23/2022 10:26 AM MEDICAL ADVISOR DTL Blood (Blood, Venous) 06/23/2022 9:32 AM MEDICAL ADVISOR 06/23/2022 10:09 AM MEDICAL ADVISOR Javed Whitney M.D. LAB BLOOD ADD-ON [facility] [address] [place] [address], [facility] [address] [place] [address] from Last 3 Months or Most Recently Relevant to Health Maintenance Advance Directives For more information, please contact: [phone] * Full Code (Latest Code Status on File) Date Activated Date Inactivated Comments 12/29/2021 10:18 AM 12/29/2021 1:23 PM Question Answer Comments Full Code: Discussed Care Teams Machine Ironer Relationship Specialty Start Date End Date Elsewhere, Pcp PCP - General Internal Medicine 07/19/21
--- OUTSIDE RECORDS SUMMARY | 2024-01-27 04:10 | XMS_ITS | Encounter Summary ---
Author Organization [facility] Address [address] [place] [id number] Care Team Providers Care Front Desk Receptionist Name Role Phone Elsewhere, Pcp Primary Care Provider Unavailabl e Encounter Details Date Type Department Care Team (Late st Contact Info) Description 07/29/2009 Historical Ophthalmology RST OPH Phillip Parker O.D. [address] [place] [phone] Social History Tobacco Use Types Packs/Day Years Used Date Smoking Tobacco: Never Assessed Sex and Gender Information Value Date Recorded Sex Assigned at Male 04/21/2021 10:27 PM PSS DELIVERY PROFESSIONAL Gender Identity Male 04/21/2021 10:27 PM PSS DELIVERY PROFESSIONAL Sexual Orientation Straight 04/21/2021 10 :27 PM PSS DELIVERY PROFESSIONAL documented as of this encounter Progress Notes * Phillip Parker O.D. - 07/29/2009 12:20 PM [...] years. Difficulty focusing distance and near for severalyears, intermittent. Wears OTC readers. At times central vision blurs out, not sure which eye. Lastweek noted new floaters, not sure which eye, not noticing today. Diagnoses of central serous retinopathy in 1996. 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 photos were taken but unavailable today (at home). comes and goes. doesn't remember which eye. 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 residual pigment changes, no net plan 1. srx 2. 1 year / prn DIAGNOSIS #1 Hx Central serous retinopathy, left CDM Reports - EYEGEN Id: [id number] Status: Fnl documented in this encounter Plan of Treatment Not on file documented as of this encounter Visit Diagnoses Not on filedocumented in this encounter Additional Health Concerns Infection Onset Date Last Indicated Resolved Time COVID19 Pending 07/18/2021 07/18/2021 07/18/2021 2 :46 PM PSS DELIVERY PROFESSIONAL COVID19 Pending 12/28/2021 12/28/2021 12/28/2021 2 :43 PM CDT documented as of this encounter Care Teams Front Desk Receptionist Relationship Specialty Start Date End Date Elsewhere, Pcp PCP - General Internal Medicine 07/19/21 documented as of this encounter
--- OUTSIDE RECORDS SUMMARY | 2024-01-27 04:10 | XMS_ITS | Encounter Summary ---
Author Organization [email or web address] Address [address] [address] Care Team Providers Care Sewage Reticulation Drafting Officer Name Role Phone Melvin White MD Primary Care Provider [phone] Reason for Visit * Reason Comments Medication Questions Entered automatical ly based on [facility] Encounter Details Date Type Department Care Team (Late st Contact Info) Description 12/17/2023 12:30 PM CDT E-Visit [facility] [address] [place], [place] [phone] Daphne Sanchez MD [address] [place] [phone] Chief Comp: Medication Questions Social History Tobacco Use Types Packs/Day Years Used Date Smoking Tobacco: Never Sex and Gender Information Value Date Recorded Sex Assigned at Male 12/17/2023 12:45 PM CDT Gender Identity Male 12/17/2023 12:45 PM CDT Sexual Orientation Straight 12/17/2023 12 :45 PM CDT documented as of this encounter Nursing Notes * Calvin Vance RN - 12/24/2023 3:47 PM CDT Pt returned call back, he would like the hand held unit to both treat his lower back and his scalp. Care team, please change Rx to DermaPal. * Betty Nguyen CMA - 12/21/2023 11:49 AM CDT Left message to call back. * Lisa Waters RN - 12/20/2023 1:30 PM CDT Left a voicemail for patient to call back. documented in this encounter Miscellaneous Notes * E-Visit Routing Comment - Vivian Chapa RN - 12/25/2023 9:35 AM CDT Faxed new order of DermaPal to [facility]. * E-Visit Routing Comment - Consuelo Gracia MA - 12/24/2023 10:47 AM CDT Left message asking for call to triage or mychart message letting us know if he wants the hand heldor series 1. * E-Visit Routing Comment - Bert Sevilla MD - 12/19/2023 4:13 PM CDT Covering for Dr. Sanchez: Please let patient know I am covering for Dr. Sanchez who is out of the office. In general, the larger the home phototherapy device is, the more area it can cover and the less time to treat overall. However, he is also correct that the larger devices are more expensive. If he prefers to start with the DermalPal unit, that seems reasonable to me and I could update his letter. Or he could go with the Series 1 which would be larger and could treat a larger area. Can you discuss with him? documented in this encounter Plan of Treatment Upcoming Encounters Date Type Department Care Team (Late st Contact Info) Description 11/03/2024 10:45 AM CDT Appointment [facility] [address] [place] [address] Daphne Sanchez MD [address] [place], [place] [phone] documented as of this encounter Visit Diagnoses Not on filedocumented in this encounter Care Teams Sewage Reticulation Drafting Officer Relationship Specialty Start Date End Date Melvin White MD [address] [place], [place] [address] PCP - General 09/06/10 documented as of this encounter
--- OUTSIDE RECORDS SUMMARY | 2024-01-27 04:10 | XMS_ITS | Referral Summary ---
Author Organization [facility] Address [address] [place] [address] Care Team Providers Care Zipper Setter Name Role Phone Elsewhere, Pcp Primary Care Provider Unavailabl e Source Comments Patient records contain information from all sites at [facility]. For routine questions regarding patient records, call [phone] during business hours, M-F 8:00 AM - 5:00 PM Central Time. Record requests for emergency care only can be directed to [phone] at any time.[facility] Allergies Active Allergy Reactions Criticality Noted Date [...] by mouth at bedtime. 10/18/2021 Active omega 3-nyv-iyd-fish oil 1,000 mg (120 mg-180 mg) capsule [...] (04/26/2021): Added automatically from request for surgery [id number] Immunizations Name Administration Dates Next Due DTaP (Infanrix, Tripedia) 11/04/2008 H1N1 All Forms 05/23/2009 HZV (ZOSTAVAX) 01/31/2011 HepA Adult 04/13/2005 IPV 04/13/2005 Influenza Split 03/02/2016, 4,03/04/2012,2009,05/23/2009 Influenza, Unspecified 05/20/2009 PCV13 08/13/2014 PPSV23 09/14/2016 SARS-COV-2 (COVID-19) - PFIZ ER (Discontinued)(12 years or older) 07/21/2020,06/22/2020 Td (Adult), adsorbed 04/13/2005 Td, (Adult) Unspecified 11/04/2008,04/04/2005 Tdap 11/04/2008 Social History Tobacco Use Types [...] declined 07/17/2021 How often do you attend [facility] or tenriism services? More than 4 times per year 07/17/2021 Do you belong to any clubs o r organizations such as lutheran groups, unions, fraternal or athletic groups, or [...] and heating? Not hard at all 03/29/2023 [facility]ational Stress Questionnaire Answer Date Recorded [...] your living situation today? I have a [facility] place to live 03/29/2023 Education Answer Date Recorded What is the highest level of school you have completed or the highest degree you have received? Master's degree (e.g., MA, MS, Stephanie, MEd, ZOOGLER, CAREN) 04/21/2021 Sex and Gender Information Value Date Recorded Sex Assigned at Male 04/21/2021 10:27 PM MORNING SHOW NEWSCAST PRODUCER Gender Identity Male 04/21/2021 10:27 PM MORNING SHOW NEWSCAST PRODUCER Sexual Orientation Straight 04/21/2021 10 :27 PM MORNING SHOW NEWSCAST PRODUCER Last Filed Vital Signs Vital Sign Reading Time Taken Comments Blood Pressure 131/82 06/29/2022 8:51 AM MORNING SHOW NEWSCAST PRODUCER Pulse 58 06/29/2022 8:51 AM MORNING SHOW NEWSCAST PRODUCER Temperature 36.6 ??C (97.9 ??F) 12/29/2021 10:15 AM C DT Respiratory Rate 11 12/29/2021 10:30 AM CDT Oxygen Saturation 92% 12/29/2021 11:00 AM CDT Inhaled Oxygen Concentration - - Weight 72.2 kg (159 lb 2.8 oz) 06/29/2022 8:49 A M MORNING SHOW NEWSCAST PRODUCER Height 167.6 cm (5' 6) 12/29/2021 8:43 AM CDT Body Mass Index 25.69 12/29/2021 8:43 AM CDT Plan of Treatment Not on file Medical Devices Implanted Type Area Pediatric Acute Care Unit Nurse Device Identifier Shelf Expiration Date Model / Serial / Lot Mesh Hernia Mesh or Patch Abdomen Procedures Procedure Name Priority Date/Time Associated Diagnosis Comments COMPREHENSIVE METABOLIC PANEL, S/P Routine 06/23/2022 9:32 AM MORNING SHOW NEWSCAST PRODUCER Arteritis Giant Cell (HCC) from Last 3 Months or Most Recently Relevant to Health Maintenance Results * (ABNORMAL) Comprehensive Metabolic Panel (06/23/2022 9:32 AM MORNING SHOW NEWSCAST PRODUCER) Potassium, S 5.1 3.6 - 5.2 mmol/L 06/23/2022 10:26 AM MORNING SHOW NEWSCAST PRODUCER DTL Sodium, S 142 135 - 145 mmol/L 06/23/2022 10:26 AM MORNING SHOW NEWSCAST PRODUCER DTL Chloride, S 103 98 - 107 mmol/L 06/23/2022 10:26 AM MORNING SHOW NEWSCAST PRODUCER DTL Bicarbonate, S 29 22 - 29 mmol/L 06/23/2022 10:26 AM MORNING SHOW NEWSCAST PRODUCER DTL Anion Gap 10 7 - 15 06/23/2022 10:26 AM MORNING SHOW NEWSCAST PRODUCER DTL BUN (Blood Urea Nitrogen), S 18 8 - 24 mg/dL 06/23/2022 10:26 AM MORNING SHOW NEWSCAST PRODUCER DTL Creatinine 0.93 0.74 - 1.35 mg/dL 06/23/2022 10:26 AM MORNING SHOW NEWSCAST PRODUCER DTL Estimated GFR (eGFR) 87 >=60 mL/min/BS A 06/23/2022 10:26 AM MORNING SHOW NEWSCAST PRODUCER DTL Comment: Estimated GFR calculated using the 2020 CKD_EPI creatinine equation. Calcium, Total, S 9.4 8.8 - 10.2 mg/dL 06/23/2022 10:26 AM MORNING SHOW NEWSCAST PRODUCER DTL Glucose, S 105 70 - 140 mg/dL 06/23/2022 10:26 AM MORNING SHOW NEWSCAST PRODUCER DTL Protein, Total, S 6.1(L) 6.3 - 7.9 g/dL 06/23/2022 10:26 AM MORNING SHOW NEWSCAST PRODUCER DTL Albumin, S 4.3 3.5 - 5.0 g/dL 06/23/2022 10:26 AM MORNING SHOW NEWSCAST PRODUCER DTL Aspartate Aminotransferase (AST), S 29 8 - 48 U/L 06/23/2022 10:26 AM MORNING SHOW NEWSCAST PRODUCER DTL Alkaline Phosphatase, S 48 40 - 129 U/L 06/23/2022 10:26 AM MORNING SHOW NEWSCAST PRODUCER DTL Alanine Aminotransferase (ALT), S 27 7 - 55 U/L 06/23/2022 10:26 AM MORNING SHOW NEWSCAST PRODUCER DTL Bilirubin, Total, S 0.4 <=1.2 mg/dL 06/23/2022 10:26 AM MORNING SHOW NEWSCAST PRODUCER DTL Blood (Blood, Venous) 06/23/2022 9:32 AM MORNING SHOW NEWSCAST PRODUCER 06/23/2022 10:09 AM MORNING SHOW NEWSCAST PRODUCER Javed Whitney M.D. LAB BLOOD ADD-ON [facility] [address] [place] [address], [facility] DTL [facility] [place] [address] [place] [address] from Last 3 Months or Most Recently Relevant to Health Maintenance Advance Directives For more information, please contact: [phone] * Full Code (Latest Code Status on File) Date Activated Date Inactivated Comments 12/29/2021 10:18 AM 12/29/2021 1:23 PM Question Answer Comments Full Code: Discussed Care Teams Zipper Setter Relationship Specialty Start Date End Date Elsewhere, Pcp PCP - General Internal Medicine 07/19/21
--- OUTSIDE RECORDS SUMMARY | 2024-01-27 04:10 | XMS_ITS | Encounter Summary ---
Author Organization [employer] Address [address], [place] [address] Care Team Providers Care Solar Installer Pv Name Role Phone Melvin White MD Primary Care Provider [phone] Reason for Visit * Reason Comments PSORIASIS Encounter Details Date Type Department Care Team (Late st Contact Info) Description 10/23/2023 9:00 AM CDT Office Visit [facility] [address] [place] [address] Daphne Sanchez MD [address] [place] [phone] Psoriasis (Primary Dx) Social History Tobacco Use Types Packs/Day Years Used Date Smoking Tobacco: Never Sex and Gender Information Value Date Recorded Sex Assigned at Male 12/17/2023 12:45 PM CDT Gender Identity Male 12/17/2023 12:45 PM CDT Sexual Orientation Straight 12/17/2023 12 :45 PM CDT documented as of this encounter Progress Notes * Daphne Sanchez MD - 10/23/2023 9:00 AM CDT Chief Complaint Patient presents with PSORIASIS Dermatology Problem List Psoriasis since age 18; no associated arthritis; patient has been treated with topicals-topical steroids, Dovonex cream, Protopic ointment; narrowband UVB from June to November of 2021. SUBJECTIVE: Rigoberto Perdomo is a 73 y.o. male who presents to clinic today for psoriasis. He has been havingsome flaring on the low back, buttock area and right higuera. We did review his topical medications. Patient is still not interested in systemic therapies.. MEDICATIONS: Reviewed and updated in Epic ALLERGIES: Penicillins PHYSICAL EXAMINATION: General: Well-appearing male, in no distress, alert and oriented. Area/s examined: Back arms hands legs; see below for pertinent findings. ASSESSMENT AND PLAN: 1. Psoriasis Right mid higuera roughly nickel sized pink psoriasiform patch; low back over the sacrum and superior buttock proximally 8 cm each pink psoriasiform plaques with scale there some pink extension into thegluteal cleft. BSA-5 % Patient is having a flare. He has responded to narrowband UVB light in the past. He does not wish to go on systemic medications. I discussed options of injection and the higuera cortisone. Reviewed topical medications including newer ones such as tapinarof and roflumilat-these may not be covered by insurance. Patient may can tinea the hydrocortisone cream and tacrolimus to the gluteal cleft. Did not recommend extended uses of cortisone. We will rewrite for the Dovonex twice a day consider this Sunday through Sunday the clobetasol on the weekends. We will pursue home light unit for narrowband UVB. Current situation at [facility], narrowband UVB in office therapy will not be available this summer. Calcipotriene (AKA DOVONEX) 0.005 % ointment Apply topically two times a day. Indications: Plaque Psoriasis FOLLOW UP: Return to clinic based on clinical progress. If he does have a home light unit I would like to see him 6 weeks after starting. *This note is created with voice recognition software and may contain typographical errors. documented in this encounter Plan of Treatment Upcoming Encounters Date Type Department Care Team (Late st Contact Info) Description 11/03/2024 10:45 AM CDT Appointment [facility] [address] [place], [place] [address] Daphne Sanchez MD [address] [place], [place] [phone] documented as of this encounter Visit Diagnoses Diagnosis Psoriasis- Primary Other psoriasis documented in this encounter Care Teams Solar Installer Pv Relationship Specialty Start Date End Date Melvin White MD [address] [place] [address] PCP - General 09/06/10 documented as of this encounter
--- OUTSIDE RECORDS SUMMARY | 2024-01-27 04:10 | XMS_ITS | Encounter Summary ---
Author Organization [facility] Address [address] [place] [address]. [place] [address] Care Team Providers Care Student Finance Advisor Name Role Phone Fabian Mena MD Primary Care Provider +1- [phone] Reason for Visit * Reason Onset Date Comments Suspected Covid 12/29/2023 Encounter Details Date Type Department Care Team (Late st Contact Info) Description 12/29/2023 Telephone [facility] Nurse Advisors [place] [address] Ines Thorpe, RN Suspected Covid Social History Tobacco Use Types Packs/Day Years [...] on file Sexual Orientation Not on file documented as of this encounter Miscellaneous Notes * Telephone Encounter - Ines Thorpe, RN - 12/29/2023 11:06 PM CDT Patient calling. He's in [place] on vacation, and he started not feeling well 2 days ago. His COVIDtest is positive this evening. He would like a prescription for Paxlovid. Afebrile, with cough and sore throat. Sinuses are clogged. No dyspnea. Patient was informed that he must be in [place] or [place] for care to be provided through [facility]. Patient stated understanding and was informed that he could call the number ion the back of his insurance card to see where he could receive care in [place], and then go to urgent care locally for treatment. Patient stated understanding. NO triage due to patient's location. Ines Thorpe RN [facility] December 29, 2023, 11:16 PM documented in this encounter Plan of Treatment Not on file documented as of this encounter Visit Diagnoses Not on filedocumented in this encounter Care Teams Student Finance Advisor Relationship Specialty Start Date End Date Fabian Mena MD [address] [place] [phone] PCP - General 07/19/11 documented as of this encounter
[2024-01-27 04:21] LABS: NT Pro B Type NatriureticPept* 62 pg/mL; Troponin I* < 0.01 ng/mL (0.01-0.04)
--- NOTE | 2024-01-27 05:17 | PC.NURSE ---
Pt up to bathroom. States headache is slightly improved and chest discomfort has improved a bit. When pt went to from lying to sitting he stated he felt a but lightheaded and dizzy. Improved after a minute of sitting up. Ambulated without difficulty to the restroom.
[2024-01-27 05:22] VITALS: BP 139/77; PULSE 68; RESP 18; O2SAT 98
[2024-01-27 06:17] LABS: Troponin I* < 0.01 ng/mL (0.01-0.04)
== END 2024-01-27 07:11 | disposition home or self-care (01) ==
PROVIDERS: Emergency Provider Student in an Organized Health Care Education/Training Program; PCP Family Medicine
DX: R07.9 Chest pain, unspecified (principal)
CPT/HCPCS: 36415; 71046; 80048; 83735; 83880; 84484; 85025; 85379; 87631; 93005; 96374; 99283; 99284; J1885; J7120

== ENCOUNTER 2024-02-12 14:55 | Outpatient (CLI) | payer MEDICARE, BC, SELFPAY ==
[2024-02-12] MEDS: PERFLUTREN LIPID MICROSPHERES 2 ML VIAL IV (16:15)
[2024-02-12 16:17] VITALS: BP 144/64; PULSE 91; RESP 18
--- NOTE | 2024-02-12 16:25 | W.PM.STED ---
Stress Test Note Date Date of test: 02/12/24 Providers Primary care provider: Melvin Thomas Stress test physician: Maxi Rodriguez Stress Test Note Stress test ordered: Stress Echo Indication for test: Chest pain Stress test medicine: Definity Results discussion: Patient is a very nice 73-year-old gentleman who presents here for the above test after discussion the risks benefits and side effects, he like to proceed cardiac stress test medical history form is reviewed. Pretest EKG shows normal sinus rhythm, with a ventricular rate of 67 a blood pressure 120 on 80, no acute changes are noted. Patient is exercised for a total of 10 minutes, achieved event a metabolic component of 11.7 Mets, test is terminated because of fulfillment of protocol during this time for radiate no chest pain no shortness of breath no other symptomology, review of his EKG she showed no evidence of any ST wave changes suggestive of ischemia, there is no dysrhythmias. He had no subjective complaints. And there was no other anginal equivalents Impression: Negative electrographic tracing, subjectively negative, conditioning was felt to be excellent. Follow up suggested: Await echo images clinical correlation with these will be needed, preliminary by myself and the tech shows no acute large wall motion abnormalities, final read by Cardiology pending. Patient left this testing facility in excellent condition, there were no complication,
== END 2024-02-12 16:20 | disposition home or self-care (01) ==
LOC: STRESS 14:56
PROVIDERS: PCP Family Medicine; Visit Provider Family Medicine
DX: R07.9 Chest pain, unspecified (principal); R06.09 Other forms of dyspnea; R68.89 Other general symptoms and signs
CPT/HCPCS: 93016; 93325; 93351; Q9957

== ENCOUNTER 2024-02-13 07:38 | Outpatient (CLI) | payer MEDICARE, BC, SELFPAY ==
--- OUTSIDE RECORDS SUMMARY | 2024-02-16 19:28 | XMS_ITS | Encounter Summary ---
Author Organization [employer] Address [address], [place] [address] Care Team Providers Care Tester Operator Helper Name Role Phone Melvin White MD Primary Care Provider +1 [phone] Reason for Visit * Reason Comments Prior Authorization For Medication [facility] h ome unit Encounter Details Date Type Department Care Team (Late st Contact Info) Description 10/23/2023 Telephone [facility] [address] [place] [address] Daphne Sanchez MD [address] [place] [address] Prior Authorization For Medication (UVB home [...] Info) Description 11/03/2024 10:45 AM CDT Appointment [facility] [address] [place], [place] [phone] Daphne Sanchez MD [address] [place], [place] [phone] documented as of this encounter Visit Diagnoses Not on filedocumented in this encounter Care Teams Tester Operator Helper Relationship Specialty Start Date End Date Melvin White MD [address] [place], [place] [phone] PCP - General 09/06/10 documented as of this encounter
--- OUTSIDE RECORDS SUMMARY | 2024-02-16 19:28 | XMS_ITS | Referral Summary ---
Author Organization [facility] Address [address] [place] [address] Care Team Providers Care Boat Hoist Operator Name Role Phone Elsewhere, Pcp Primary Care Provider Unavailabl e Source Comments Patient records contain information from all sites at [facility]. For routine questions regarding patient records, call [phone] during business hours, M-F 8:00 AM - 5:00 PM Central Time. Record requests for emergency care only can be directed to [phone] at any time.[facility] Allergies Active Allergy Reactions Criticality Noted Date [...] by mouth at bedtime. 10/18/2021 Active omega 7-hib-iwb-fish oil 1,000 mg (120 mg-180 mg) capsule [...] (04/26/2021): Added automatically from request for surgery [id number] Immunizations Name Administration Dates Next Due DTaP [...] declined 07/17/2021 How often do you attend [facility] or yazdanism services? More than 4 times per year 07/17/2021 Do you belong to any clubs o r organizations such as taoism groups, unions, fraternal or athletic groups, or [...] and heating? Not hard at all 03/29/2023 [facility] Questionnaire Answer Date [...] your living situation today? I have a [facility] place to live 03/29/2023 Education Answer Date Recorded What is the highest level of school you have completed or the highest degree you have received? Master's degree (e.g., MA, MS, Stephanie, MEd, ENGINEER ASSISTANT, CAREN) 04/21/2021 Sex and Gender Information Value Date Recorded Sex Assigned at Male 04/21/2021 10:27 PM PIPE ORGAN TUNER AND REPAIRER Gender Identity Male 04/21/2021 10:27 PM PIPE ORGAN TUNER AND REPAIRER Sexual Orientation Straight 04/21/2021 10 :27 PM PIPE ORGAN TUNER AND REPAIRER Last Filed Vital Signs Vital Sign Reading Time Taken Comments Blood Pressure 131/82 06/29/2022 8:51 AM PIPE ORGAN TUNER AND REPAIRER Pulse 58 06/29/2022 8:51 AM PIPE ORGAN TUNER AND REPAIRER Temperature 36.6 ??C (97.9 ??F) 12/29/2021 10:15 AM C DT Respiratory Rate 11 12/29/2021 10:30 AM CDT Oxygen Saturation 92% 12/29/2021 11:00 AM CDT Inhaled Oxygen Concentration - - Weight 72.2 kg (159 lb 2.8 oz) 06/29/2022 8:49 A M PIPE ORGAN TUNER AND REPAIRER Height 167.6 cm (5' 6) 12/29/2021 8:43 AM CDT Body Mass Index 25.69 12/29/2021 8:43 AM CDT Plan of Treatment Not on file Medical Devices Implanted Type Area Hide Washer Device Identifier Shelf Expiration Date Model / Serial / Lot Mesh Hernia Mesh or Patch Abdomen Procedures Procedure Name Priority Date/Time Associated Diagnosis Comments COMPREHENSIVE METABOLIC PANEL, S/P Routine 06/23/2022 9:32 AM PIPE ORGAN TUNER AND REPAIRER Arteritis Giant Cell (HCC) from Last 3 Months or Most Recently Relevant to Health Maintenance Results * (ABNORMAL) Comprehensive Metabolic Panel (06/23/2022 9:32 AM PIPE ORGAN TUNER AND REPAIRER) Potassium, S 5.1 3.6 - 5.2 mmol/L 06/23/2022 10:26 AM PIPE ORGAN TUNER AND REPAIRER DTL Sodium, S 142 135 - 145 mmol/L 06/23/2022 10:26 AM PIPE ORGAN TUNER AND REPAIRER DTL Chloride, S 103 98 - 107 mmol/L 06/23/2022 10:26 AM PIPE ORGAN TUNER AND REPAIRER DTL Bicarbonate, S 29 22 - 29 mmol/L 06/23/2022 10:26 AM PIPE ORGAN TUNER AND REPAIRER DTL Anion Gap 10 7 - 15 06/23/2022 10:26 AM PIPE ORGAN TUNER AND REPAIRER DTL BUN (Blood Urea Nitrogen), S 18 8 - 24 mg/dL 06/23/2022 10:26 AM PIPE ORGAN TUNER AND REPAIRER DTL Creatinine 0.93 0.74 - 1.35 mg/dL 06/23/2022 10:26 AM PIPE ORGAN TUNER AND REPAIRER DTL Estimated GFR (eGFR) 87 >=60 mL/min/BS A 06/23/2022 10:26 AM PIPE ORGAN TUNER AND REPAIRER DTL Comment: Estimated GFR calculated using the 2020 CKD_EPI creatinine equation. Calcium, Total, S 9.4 8.8 - 10.2 mg/dL 06/23/2022 10:26 AM PIPE ORGAN TUNER AND REPAIRER DTL Glucose, S 105 70 - 140 mg/dL 06/23/2022 10:26 AM PIPE ORGAN TUNER AND REPAIRER DTL Protein, Total, S 6.1(L) 6.3 - 7.9 g/dL 06/23/2022 10:26 AM PIPE ORGAN TUNER AND REPAIRER DTL Albumin, S 4.3 3.5 - 5.0 g/dL 06/23/2022 10:26 AM PIPE ORGAN TUNER AND REPAIRER DTL Aspartate Aminotransferase (AST), S 29 8 - 48 U/L 06/23/2022 10:26 AM PIPE ORGAN TUNER AND REPAIRER DTL Alkaline Phosphatase, S 48 40 - 129 U/L 06/23/2022 10:26 AM PIPE ORGAN TUNER AND REPAIRER DTL Alanine Aminotransferase (ALT), S 27 7 - 55 U/L 06/23/2022 10:26 AM PIPE ORGAN TUNER AND REPAIRER DTL Bilirubin, Total, S 0.4 <=1.2 mg/dL 06/23/2022 10:26 AM PIPE ORGAN TUNER AND REPAIRER DTL Blood (Blood, Venous) 06/23/2022 9:32 AM PIPE ORGAN TUNER AND REPAIRER 06/23/2022 10:09 AM PIPE ORGAN TUNER AND REPAIRER Javed Whitney M.D. LAB BLOOD ADD-ON [facility] [address] [place] [address], [facility] DTL [facility] [address] [place] [address] from Last 3 Months or Most Recently Relevant to Health Maintenance Advance Directives For more information, please contact: [phone] * Full Code (Latest Code Status on File) Date Activated Date Inactivated Comments 12/29/2021 10:18 AM 12/29/2021 1:23 PM Question Answer Comments Full Code: Discussed Care Teams Boat Hoist Operator Relationship Specialty Start Date End Date Elsewhere, Pcp PCP - General Internal Medicine 07/19/21
--- OUTSIDE RECORDS SUMMARY | 2024-02-16 19:28 | XMS_ITS | Clinical Summary ---
Author Organization [facility] Address [address] [place] [address] Care Team Providers Care Director Prison Name Role Phone Fabian Mena MD Primary Care Provider +1- [phone] Allergies Active Allergy Reactions Criticality Noted Date [...] Type Department Care Team Description 12/29/2023 Telephone [facility] Nurse Advisors [address] [place] [address] Ines Thorpe, RN Suspected Covid [...] IMMUNIZATION (1 - Tdap) 04/14/2005 04/13/2005, 04/04/2005 ZOSTER IMMUNIZATION (2 of 3) 03/28/2011 01/31/2011 FALL RISK ASSESSMENT 2014 MEDICARE ANNUAL WELLNESS VISIT 2014 PHQ-2 (once per calendar year) 2023 COVID-19 Vaccine (3 - season) 2024 07/21/2020, 06/22/2020 INFLUENZA VACCINE (#1) 2024 9, 03/02/2016, 03/04/2014, Additional history exists RSV VACCINE (1 - 1-dose 75+ series) 2024 Pneumococcal Vaccine: 65+ Years Completed 09/14/2016, 08/13/2014 HPV IMMUNIZATION Aged Out No longer e ligible based on patient's age to complete this topic MENINGITIS IMMUNIZATION Aged Out No l onger eligible based on patient's age to complete this topic RSV MONOCLONAL ANTIBODY Aged Out No l onger eligible based on patient's age to complete this topic Care Teams Director Prison Relationship Specialty Start Date End Date Fabian Mena MD [address] [place] [address] PCP - General 07/19/11
--- OUTSIDE RECORDS SUMMARY | 2024-02-16 19:28 | XMS_ITS | Referral Summary ---
Author Organization [facility] Address [address] [place] [address] Care Team Providers Care Copy Operator Name Role Phone Fabian Mena MD Primary Care Provider +1- [phone] Encounters Date Type Department Care Team Description 12/29/2023 Telephone [employer] [facility] Nurse Advisors [facility] [place] [address] Ines Thorpe RN Suspected Covid [...] of Treatment Not on file Care Teams Copy Operator Relationship Specialty Start Date End Date Fabian Mena MD [address] [place] [address] [facility] - General 07/19/11
--- OUTSIDE RECORDS SUMMARY | 2024-02-16 19:28 | XMS_ITS | Encounter Summary ---
Author Organization [facility] Address [address] [place] [address] Care Team Providers Care Crushing Mill Operator Name Role Phone Fabian Mena MD Primary Care Provider +1- [phone] Reason for Visit * Reason Onset Date Comments Suspected Covid 12/29/2023 Encounter Details Date Type Department Care Team (Late st Contact Info) Description 12/29/2023 Telephone [facility] Nurse Advisors [facility] [place] [address] Ines Thorpe, RN Suspected Covid [...] 11:06 PM CDT Patient calling. He's in [place] on vacation, and he started not feeling well 2 days ago. His COVIDtest is positive this evening. He would like a prescription for Paxlovid. Afebrile, with cough and sore throat. Sinuses are clogged. No dyspnea. Patient was informed that he must be in [place] or [place] for care to be provided through [facility]. Patient stated understanding and was informed that he could call the number ion the back of his insurance card to see where he could receive care in [place], and then go to urgent care locally for treatment. Patient stated understanding. NO triage due to patient's location. Ines Thorpe RN [facility] December 29, 2023, 11:16 PM documented in this encounter Plan of Treatment Not on file documented as of this encounter Visit Diagnoses Not on filedocumented in this encounter Care Teams Crushing Mill Operator Relationship Specialty Start Date End Date Fabian Mena MD [address] [place] [phone] PCP - General 07/19/11 documented as of this encounter
--- OUTSIDE RECORDS SUMMARY | 2024-02-16 19:28 | XMS_ITS | Clinical Summary ---
Author Organization [facility] Address [address] [place] [address] Care Team Providers Care Engine Cleaner Name Role Phone Elsewhere, Pcp Primary Care Provider Unavailabl e Source Comments Patient records contain information from all sites at [facility]. For routine questions regarding patient records, call [phone] during business hours, M-F 8:00 AM - 5:00 PM Central Time. Record requests for emergency care only can be directed to [phone] at any time.[facility] Allergies Active Allergy Reactions Criticality Noted Date [...] by mouth at bedtime. 10/18/2021 Active omega 6-uer-hps-fish oil 1,000 mg (120 mg-180 mg) capsule [...] (04/26/2021): Added automatically from request for surgery [id number] Immunizations Name Administration Dates Next Due DTaP [...] 07/17/2021 How often do you attend [facility] or mormon services? More than 4 times per year 07/17/2021 Do you belong to any clubs o r organizations such as oriental orthodox groups, unions, fraternal or athletic groups, or [...] and heating? Not hard at all 03/29/2023 [facility] - Occupational Stress [...] your living situation today? I have a [facility] place to live 03/29/2023 Education Answer Date Recorded What is the highest level of school you have completed or the highest degree you have received? Master's degree (e.g., MA, MS, Stephanie, MEd, RAILROAD CAR CLEANING SUPERVISOR, CAREN) 04/21/2021 Sex and Gender Information Value Date Recorded Sex Assigned at Male 04/21/2021 10:27 PM OPTICAL INSTRUMENT REPAIRER Gender Identity Male 04/21/2021 10:27 PM OPTICAL INSTRUMENT REPAIRER Sexual Orientation Straight 04/21/2021 10 :27 PM OPTICAL INSTRUMENT REPAIRER Last Filed Vital Signs Vital Sign Reading Time Taken Comments Blood Pressure 131/82 06/29/2022 8:51 AM OPTICAL INSTRUMENT REPAIRER Pulse 58 06/29/2022 8:51 AM OPTICAL INSTRUMENT REPAIRER Temperature 36.6 ??C (97.9 ??F) 12/29/2021 10:15 AM C DT Respiratory Rate 11 12/29/2021 10:30 AM CDT Oxygen Saturation 92% 12/29/2021 11:00 AM CDT Inhaled Oxygen Concentration - - Weight 72.2 kg (159 lb 2.8 oz) 06/29/2022 8:49 A M OPTICAL INSTRUMENT REPAIRER Height 167.6 cm (5' 6) 12/29/2021 8:43 AM CDT Body Mass Index 25.69 12/29/2021 8:43 AM CDT Plan of Treatment Health Maintenance Due Date Last Done Comments CT Colonography 1949 Cologuard 1950 FIT 1950 Zoster Vaccines (2 of 3) 03/28/2011 01/31/2011 Colonoscopy 05/16/2020 05/16/2010 Colorectal Cancer Screening 05/16/2020 Depression Screening (Annual PHQ-2) 06/04/2023 Fall Risk Screen (Annual) 06/04/2023 COVID-19 Vaccine (6 - 2023-2 4 season) 2024 05/11/2022, 10/18/2021, 03/22/2021, Additional history exists Influenza Vaccine (#1) 2024 , 03/15/2020, 03/20/2019, Additional history exists Fasting Glucose for Diabetes Screening 06/23/2025 06/23/2022, 09/14/2016, 08/13/2014, Additional history exists DTaP,Tdap,and Td Vaccines (5 - Td or Tdap) 10/30/2028 10/30/2018, 11/04/2008, 11/04/2008, Additional history exists Pneumococcal vaccine (65+ years) Completed 09/15/19, 08/13/2014 Hepatitis A Vaccines Completed 01/23/2022, 04/13/20 05 Medical Devices Implanted Type Area Tin Stacker Device Identifier Shelf Expiration Date Model / Serial / Lot Mesh Hernia Mesh or Patch Abdomen Procedures Procedure Name Priority Date/Time Associated Diagnosis Comments COMPREHENSIVE METABOLIC PANEL, S/P Routine 06/23/2022 9:32 AM OPTICAL INSTRUMENT REPAIRER Arteritis Giant Cell (HCC) from Last 3 Months or Most Recently Relevant to Health Maintenance Results * (ABNORMAL) Comprehensive Metabolic Panel (06/23/2022 9:32 AM OPTICAL INSTRUMENT REPAIRER) Pathologist [facility] Potassium, S 5.1 3.6 - 5.2 mmol/L 06/23/2022 10:26 AM OPTICAL INSTRUMENT REPAIRER DTL Sodium, S 142 135 - 145 mmol/L 06/23/2022 10:26 AM OPTICAL INSTRUMENT REPAIRER DTL Chloride, S 103 98 - 107 mmol/L 06/23/2022 10:26 AM OPTICAL INSTRUMENT REPAIRER DTL Bicarbonate, S 29 22 - 29 mmol/L 06/23/2022 10:26 AM OPTICAL INSTRUMENT REPAIRER DTL Anion Gap 10 7 - 15 06/23/2022 10:26 AM OPTICAL INSTRUMENT REPAIRER DTL BUN (Blood Urea Nitrogen), S 18 8 - 24 mg/dL 06/23/2022 10:26 AM OPTICAL INSTRUMENT REPAIRER DTL Creatinine 0.93 0.74 - 1.35 mg/dL 06/23/2022 10:26 AM OPTICAL INSTRUMENT REPAIRER DTL Estimated GFR (eGFR) 87 >=60 mL/min/BS A 06/23/2022 10:26 AM OPTICAL INSTRUMENT REPAIRER DTL Comment: Estimated GFR calculated using the 2020 CKD_EPI creatinine equation. Calcium, Total, S 9.4 8.8 - 10.2 mg/dL 06/23/2022 10:26 AM OPTICAL INSTRUMENT REPAIRER DTL Glucose, S 105 70 - 140 mg/dL 06/23/2022 10:26 AM OPTICAL INSTRUMENT REPAIRER DTL Protein, Total, S 6.1(L) 6.3 - 7.9 g/dL 06/23/2022 10:26 AM OPTICAL INSTRUMENT REPAIRER DTL Albumin, S 4.3 3.5 - 5.0 g/dL 06/23/2022 10:26 AM OPTICAL INSTRUMENT REPAIRER DTL Aspartate Aminotransferase (AST), S 29 8 - 48 U/L 06/23/2022 10:26 AM OPTICAL INSTRUMENT REPAIRER DTL Alkaline Phosphatase, S 48 40 - 129 U/L 06/23/2022 10:26 AM OPTICAL INSTRUMENT REPAIRER DTL Alanine Aminotransferase (ALT), S 27 7 - 55 U/L 06/23/2022 10:26 AM OPTICAL INSTRUMENT REPAIRER DTL Bilirubin, Total, S 0.4 <=1.2 mg/dL 06/23/2022 10:26 AM OPTICAL INSTRUMENT REPAIRER DTL Blood (Blood, Venous) 06/23/2022 9:32 AM OPTICAL INSTRUMENT REPAIRER 06/23/2022 10:09 AM OPTICAL INSTRUMENT REPAIRER Javed Whitney M.D. LAB BLOOD ADD-ON [facility] [address] [place] [address], [facility] [address] [place] [address] from Last 3 Months or Most Recently Relevant to Health Maintenance Advance Directives For more information, please contact: [phone] * Full Code (Latest Code Status on File) Date Activated Date Inactivated Comments 12/29/2021 10:18 AM 12/29/2021 1:23 PM Question Answer Comments Full Code: Discussed Care Teams Engine Cleaner Relationship Specialty Start Date End Date Elsewhere, Pcp PCP - General Internal Medicine 07/19/21
--- OUTSIDE RECORDS SUMMARY | 2024-02-16 19:28 | XMS_ITS | Encounter Summary ---
Author Organization [facility] Address [address] [place] [address] Care Team Providers Care Supervisor Trust Accounts Name Role Phone Elsewhere, Pcp Primary Care Provider Unavailabl e Encounter Details Date Type Department Care Team (Late st Contact Info) Description 07/29/2009 Historical Ophthalmology [facility] Phillip Parker O.D. [address] [place] [phone] Social History Tobacco Use Types Packs/Day Years Used Date Smoking Tobacco: Never Assessed Sex and Gender Information Value Date Recorded Sex Assigned at Male 04/21/2021 10:27 PM ONCOLOGY PHARMACIST Gender Identity Male 04/21/2021 10:27 PM ONCOLOGY PHARMACIST Sexual Orientation Straight 04/21/2021 10 :27 PM ONCOLOGY PHARMACIST documented as of this encounter Progress Notes [...] of central serous retinopathy in 1996. TY: CHEMISTRY RESEARCH ASSISTANT first dx in late . photos were taken but unavailable today (at home). comes and goes. doesn't remember which eye. 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 residual pigment changes, no net plan 1. srx 2. 1 year / prn DIAGNOSIS #1 Hx Central serous retinopathy, left CDM Reports - EYEGEN Id: [id number] Status: Fnl documented in this encounter Plan of Treatment Not on file documented as of this encounter Visit Diagnoses Not on filedocumented in this encounter Additional Health Concerns Infection Onset Date Last Indicated Resolved Time COVID19 Pending 07/18/2021 07/18/2021 07/18/2021 2 :46 PM ONCOLOGY PHARMACIST COVID19 Pending 12/28/2021 12/28/2021 12/28/2021 2 :43 PM CDT documented as of this encounter Care Teams Supervisor Trust Accounts Relationship Specialty Start Date End Date Elsewhere, Pcp PCP - General Internal Medicine 07/19/21 documented as of this encounter
--- OUTSIDE RECORDS SUMMARY | 2024-02-16 19:28 | XMS_ITS | Encounter Summary ---
Author Organization [facility] Address [address] [place] [address] Care Team Providers Care Grinder Operator External Tool Name Role Phone Elsewhere, Pcp Primary Care Provider Unavailabl e Encounter Details Date Type Department Care Team (Late st Contact Info) Description 08/05/2012 Historical Ophthalmology [facility] Demi Yu M.D. [address] [place] [phone] Social History Tobacco Use Types Packs/Day Years Used Date Smoking Tobacco: Never Assessed Sex and Gender Information Value Date Recorded Sex Assigned at Male 04/21/2021 10:27 PM BUDGET ASSISTANT Gender Identity Male 04/21/2021 10:27 PM BUDGET ASSISTANT Sexual Orientation Straight 04/21/2021 10 :27 PM BUDGET ASSISTANT documented as of this encounter Progress Notes [...] both eyes CDM Reports - EYEGEN Id: [id number] Status: Fnl documented in this encounter Plan of Treatment Not on file documented as of this encounter Visit Diagnoses Not on filedocumented in this encounter Additional Health Concerns Infection Onset Date Last Indicated Resolved Time COVID19 Pending 07/18/2021 07/18/2021 07/18/2021 2 :46 PM BUDGET ASSISTANT COVID19 Pending 12/28/2021 12/28/2021 12/28/2021 2 :43 PM CDT documented as of this encounter Care Teams Grinder Operator External Tool Relationship Specialty Start Date End Date Elsewhere, Pcp PCP - General Internal Medicine 07/19/21 documented as of this encounter
--- OUTSIDE RECORDS SUMMARY | 2024-02-16 19:28 | XMS_ITS | Encounter Summary ---
Author Organization [employer] Address [address], [place] [address] Care Team Providers Care Aligner Barrel And Receiver Name Role Phone Melvin White MD Primary Care Provider [phone] Reason for Visit * Reason Comments Medication Questions Entered automatical ly based on patient [facility] Encounter Details Date Type Department Care Team (Late st Contact Info) Description 12/17/2023 12:30 PM CDT E-Visit [facility] [address] [place], [place] [address] Daphne Sanchez MD [address] [place] [address] [phone] Chief Comp: Medication Questions Social History Tobacco [...] Info) Description 11/03/2024 10:45 AM CDT Appointment [facility] [address] [place] [address] Daphne Sanchez MD [address] [place], [place] [address] documented as of this encounter Visit Diagnoses Not on filedocumented in this encounter Care Teams Aligner Barrel And Receiver Relationship Specialty Start Date End Date Melvin White MD [address] [place], [place] [id number] PCP - General 09/06/10 documented as of this encounter
--- OUTSIDE RECORDS SUMMARY | 2024-02-16 19:28 | XMS_ITS | Clinical Summary ---
Author Organization [facility] Address [address] [address] Care Team Providers Care Motorcoach Driver Name Role Phone Melvin White MD Primary Care Provider [phone] Source Comments You are receiving this document as you are listed as the primary care provider,follow-up provider, or the patient has been referred to you for consultation.This is in compliance with the Medicare and[facility] EHR Incentive Program,which states Providers who transition their patient to another setting of careor provider of care or refers their patient to another provider of care shouldprovide summary care record for each transition of care or referral. [employer] Allergies Active Allergy Reactions Criticality Noted Date [...] Team Description 12/17/2023 12:30 PM CDT E-Visit [facility] [address] [place] [address] Daphne Sanchez MD Chief Comp: Medication Questions [...] ??C (99.1 ??F) 06/12/2006 7 :19 PM IMCU SPECIALIST C: 37.3 C Respiratory Rate 20 06/12/2006 7:19 PM IMCU SPECIALIST Oxygen Saturation 95% 08/05/2005 10: 58 AM IMCU SPECIALIST Inhaled Oxygen Concentration - - Weight 81.2 kg (178 lb 15.9 oz) 008 3:49 PM CDT C: 81.2kg Height 166.4 cm (5' 5.5) 09/13/2007 3: 49 PM CDT C: 166.4cm Body Mass Index 29.33 09/13/2007 3:49 PM CDT Plan of Treatment Upcoming Encounters Date Type Department Care Team (Late st Contact Info) Description 11/03/2024 10:45 AM CDT Appointment [facility] [address] [place] [address] Daphne Sanchez MD [address] [place] [address] Health Maintenance Due Date Last Done Comments Colon Cancer Screening Plan Due 1950 Hep C Screening (Preventive Services) 1950 Medicare Annual Wellness Visit 1950 Zoster/Shingles (2 of 3) 03/28/2011 01/31/2011 Cholesterol 11/24/2012 11/25/2007, 07/2007, 07/07/2006, Additional history exists COVID-19 Vaccine ( season) 2024 05/11/2022, 10/18/2021, 03/22/2021, Additional history [...] Recently Relevant to Health Maintenance Care Teams Motorcoach Driver Relationship Specialty Start Date End Date Melvin White MD [address] [place] [address] PCP - General 09/06/10
--- OUTSIDE RECORDS SUMMARY | 2024-02-16 19:28 | XMS_ITS ---
Author Organization [facility] Address [address] [place] [address] Care Team Providers Care Director Of Quality Name Role Phone Unavailable Unavailable Unavailable Surgery Details Not on file Complications Check Surgery Details section. Procedure Estimated Blood Loss Check Surgery Details section. Procedure Findings Check Surgery Details section. Procedure Specimens Taken Check Surgery Details section.
== END 2024-02-13 07:39 | disposition home or self-care (01) ==
LOC: NFLDREF 02-16 19:25
PROVIDERS: PCP Family Medicine; Referring Provider Family Medicine; Visit Provider Family Medicine
DX: E78.5 Hyperlipidemia, unspecified (principal); R07.9 Chest pain, unspecified; Z12.5 Encounter for screening for malignant neoplasm of prostate; R06.09 Other forms of dyspnea; I10 Essential (primary) hypertension
CPT/HCPCS: 80053; 80061; G0103

== ENCOUNTER 2024-02-21 16:20 | Outpatient (CLI) | payer MEDICARE, BC, SELFPAY ==
--- OUTSIDE RECORDS SUMMARY | 2024-02-22 08:34 | XMS_ITS | Clinical Summary ---
Author Organization [facility] Address [address] [address] Care Team Providers Care Furniture Crater Name Role Phone Melvin White MD Primary Care Provider [phone] Source Comments You are receiving this document as you are listed as the primary care provider,follow-up provider, or the patient has been referred to you for consultation.This is in compliance with the Medicare and[facility] Ohiocaid EHR Incentive Program,which states Providers who transition their patient to another setting of careor provider of care or refers their patient to another provider of care shouldprovide summary care record for each transition of care or referral. [facility] Allergies Active Allergy Reactions Criticality Noted Date [...] Team Description 12/17/2023 12:30 PM CDT E-Visit [facility] [address] [place] [address] Daphne Sanchez MD Chief Comp: Medication Questions [...] ??C (99.1 ??F) 06/12/2006 7 :19 PM DIRECTOR OF DEVELOPMENT AND MARKETING C: 37.3 C Respiratory Rate 20 06/12/2006 7:19 PM DIRECTOR OF DEVELOPMENT AND MARKETING Oxygen Saturation 95% 08/05/2005 10: 58 AM DIRECTOR OF DEVELOPMENT AND MARKETING Inhaled Oxygen Concentration - - Weight 81.2 kg (178 lb 15.9 oz) 008 3:49 PM CDT C: 81.2kg Height 166.4 cm (5' 5.5) 09/13/2007 3: 49 PM CDT C: 166.4cm Body Mass Index 29.33 09/13/2007 3:49 PM CDT Plan of Treatment Upcoming Encounters Date Type Department Care Team (Late st Contact Info) Description 11/03/2024 10:45 AM CDT Appointment [facility] [address] [place] [address] Daphne Sanchez MD [facility] [place] [address] Health Maintenance Due Date Last Done Comments Colon Cancer Screening Plan Due 1950 Hep C Screening (Preventive Services) 1950 Medicare Annual Wellness Visit 1950 Zoster/Shingles (2 of 3) 03/28/2011 01/31/2011 Cholesterol 11/24/2012 11/25/2007, 07/2007, 07/07/2006, Additional history exists COVID-19 Vaccine ( season) 2024 05/11/2022, 10/18/2021, 03/22/2021, Additional history exists Influenza (#1) 2024 03/29/2021, 03/04, 03/05/2018, Additional history exists RSV (1 - 1-dose 75+ series) 2024 DTaP/Tdap/Td (5 - Tdap) 10/30/2028 10/31/19 19, [...] Recently Relevant to Health Maintenance Care Teams Furniture Crater Relationship Specialty Start Date End Date Melvin White MD [address] [place], [place] [phone] PCP - General 09/06/10
--- OUTSIDE RECORDS SUMMARY | 2024-02-22 08:34 | XMS_ITS | Continuity of Care Document ---
Author Organization [facility] Address [address] [place] [address] Phone Care Team Providers Care Zmt Operator Name Role Phone Celina HINTON, Mikey Unavailable Unavail able Allergies, Adverse Reactions, Alerts Substance Reaction Status Criticality PENICILLIN Active No Information Procedures Procedure Date Intermediate Established Patient Visit N Intermediate New Patient Visit 20 Advance Directives Directive Yes / No Effective Date File Name No Information Encounters Encounter Description Practice Location Reason(s) For Visit Diagnoses Date Provider Providers Copied on Encounter Intermediate Established Patient Visit [facility], [address] [place] [address], [id number], tel:[phone] [facility] left hand pain (chief complaint) Vasospasm 0 Celina Emerson er. [address] [place] [address], [id number] , [place]. tel:[phone] Referring Provider: Mikey Patrick, [address] [place] [address], [id number]. tel:[phone] [facility], [address] [place] [address], [id number], [place] tel:[phone] [facility] [address] Left arm pain Apr- 0 0 Celina kam [address] [place] [address], [id number] , [place]. tel:[phone] Intermediate New Patient Visit [facility], [address] [place] [address], [id number], tel:[phone] [facility] [address] left hand pain (chief complaint) Stiffness of finger joint of right hand 0 Celina simmons. [address] [place], [place], [id number] , [place]. tel:[phone] Referring Provider: Mikey Patrick, [address] [place], [address]. tel:[phone] Family History Family Member Type Diagnosis Age At Onset No Information Payers Payer name Insurance type Covered democrat ID Andrew scott(s) [employer] Com[employer]ical Non Par CI [id number] Social History Type Description Quantity Date Captured Comments Alcohol Use Details Unknown Caffeine Use Details Unknown Tobacco Use Status No Information Smoking Status No Information Sex Male Chief Complaint And Reason For Visit From encounter dated '04/27/2020 12:00'. left hand pain (chief complaint). Description: Mr Perdomo is a 69 year old male who is here for a follow up of left hand pain. He presents with pain and swelling on the left side. Currently the patient states that the symptoms are moderate. The symptoms are aggravated by no specific activity. Rigoberto states that the symptoms are relieved by no specific activity. Reason For Referral Reason For Referral No Information Plan Of Treatment Date Type Action Status Referral Ordered: Left Upper Extremity Arterial Doppler LT ordered Referral Ordered: Left Upper Extremity Venous Doppler LT ordered History Of Present Illness Encounter Date Complaint History Of Prese nt Illness left hand pain Mr Perdomo is a 6 0 year old male who is here for a follow up of left hand pain. He presents with pain and swelling on the left side. Currently the patient states that the symptoms are moderate. The symptoms are aggravated by no specific activity. Rigoberto states that the symptoms are relieved by no specific activity. left hand pain Mr Perdomo is a 6 0 year old male who complains of left hand pain. He presents with pain and decreased ROM on the left side. He notes he had a biopsy done two weeks ago in [place] The symptoms are aggravated by no specific activity. Rigoberto states that the symptoms are relieved by no specific activity. Functional Status Date Functional Assessmen t Pain Score 3/10 Instructions Date Instruction Additional Infor ace See full dictated no tePatient was seen today via telehealth by agreement and consent of patient in light of current COVID- 19 pandemic. I used the following telehealth technology, Mobile-XL.me, during the visit. This patient encounter is appropriate and reasonable under the circumstances given the patient's particular presentation at this time. The patient has been advised of the potential risks and limitations of this mode of treatment (including but not limited to the absence of in person examination) and has agreed to be treated in a remote fashion in spite of them. Any and all of the patient's and patient's family questions on this issue have been answered and I have made no promise or guarantee to the patient. The patient has also been advised to contact the office for worsening conditions or problems and seek emergency medical treatment and or call 911 if the patient deems either necessary. Related to Vasospasm Assessments Type Assessment Date assessment Vasospasm Patient Care Teams Name Effective Dates (start - stop) Status Members No Information
--- OUTSIDE RECORDS SUMMARY | 2024-02-22 08:34 | XMS_ITS | Encounter Summary ---
Author Organization [employer] Address [address] [address] Care Team Providers Care Credit Card Associate Name Role Phone Melvin White MD Primary Care Provider [phone] Reason for Visit * Reason Comments Medication Questions Entered automatical ly based on patient selection in [facility]. Encounter Details Date Type Department Care Team (Late st Contact Info) Description 12/17/2023 12:30 PM CDT E-Visit [facility] [address] [place], [place] [address] Daphne Sanchez MD [address] [place] [id number] Chief Comp: Medication Questions Social History Tobacco [...] Info) Description 11/03/2024 10:45 AM CDT Appointment [facility] [address] [place] [address] Daphne Sanchez MD [address] [place], [place] [address] documented as of this encounter Visit Diagnoses Not on filedocumented in this encounter Care Teams Credit Card Associate Relationship Specialty Start Date End Date Melvin White MD [address] [place], [place] [address] PCP - General 09/06/10 documented as of this encounter
--- OUTSIDE RECORDS SUMMARY | 2024-02-22 08:34 | XMS_ITS | Continuity of Care Document ---
Author Organization [facility] Address [address] [place] [address] Phone Care Team Providers Care Soil Checker Name Role Phone Pratik HINTON MD, [address] Advance Directives Directive Yes / No Effective Date File Name No Information Encounters Encounter Description Practice Location Reason(s) For Visit Diagnoses Date Provider Providers Copied on Encounter [facility], [address], [place], [address], [place] tel:[phone] [facility] No Information Nov- 3200 8 Pratik Cordova. [facility], [address] [place] [address], [id number], [place]. tel:[phone] Family History Family Member Type Diagnosis Age At Onset No Information Payers Payer name Insurance type Covered republican ID Authoriza tion(s) [employer] AM [id number] Social History Type Description Quantity Date Captured Comments Sex Male Smoking Status No Information Chief Complaint And Reason For Visit No Information Reason For Referral Reason For Referral No Information History Of Present Illness Encounter Date Complaint History Of Prese nt Illness No Information Functional Status Date Functional Assessmen t No Information Instructions Date Instruction Additional Infor mation No Information Assessments Type Assessment Date No Information Patient Care Teams Name Effective Dates (start - stop) Status Members No Information
--- OUTSIDE RECORDS SUMMARY | 2024-02-22 08:34 | XMS_ITS | Clinical Summary ---
Author Organization [facility] Address [address] [place] [address] Care Team Providers Care Search Optimization Analyst Name Role Phone Fabian Mena MD Primary Care Provider [phone] Allergies Active Allergy Reactions Criticality Noted Date [...] Type Department Care Team Description 12/29/2023 Telephone [facility] [address] [place] [address] Ines Thorpe, RN Suspected Covid [...] of Treatment Not on file Care Teams Search Optimization Analyst Relationship Specialty Start Date End Date Fabian Mena MD [address] [place] [address] [facility] - General 07/19/11
--- OUTSIDE RECORDS SUMMARY | 2024-02-22 08:34 | XMS_ITS | Continuity of Care Document ---
Author Organization [facility] Address [address] [place] [address] Phone Care Team Providers Care Trench Digger Helper Name Role Phone Willis Cao MD Unavailable Unavailable Allergies, Adverse Reactions, Alerts Substance Reaction Status Criticality PENICILLIN Active No Information Medications Medication Instructions Dosage Effective Dates (start - stop) Status Comments amlodipine 10 mg tablet take 1 tablet by oral route every day 10 MG - Active simvastatin 20 mg tablet take 1 tablet by oral route every day in the evening 20 MG - Active tacrolimus 0.1 % topical ointment apply by topical route 2 times every day a thin layer to the affected area(s) ; rub in gently and completely 2 times weekly - Active clobetasol 0.05 % topical ointment apply by topical route 2 times every day a thin layer to the affected area(s) 2 days weekly - Active CALCIPOTRIENE (unknown strength) as needed Not Available - Active hydrocortisone 2.5 % topical cream apply by topical route every day to the affected area(s) - 2x/day, 5days/week - Active triamcinolone acetonide 0.1 % topical cream as needed - Active aspirin 81 mg tablet,delayed release take 1 tablet by oral route every day 81 MG - Active multivitamin tablet take 1 tablet by oral route every day with food - Active FISH OIL (unknown strength) 1200mg daily Not Available - Active Vitamin D3 25 mcg (1,000 unit) tablet take 1 Tablet by Oral route every day 1 Tablet - Active vitamin B complex tablet take 1 by Oral route once daily - Active Procedures Procedure Date Office/Outpatient Visit, New Advance Directives Directive Yes / No Effective Date File Name No Information Encounters Encounter Description Practice Location Reason(s) For Visit Diagnoses Date Provider Providers Copied on Encounter Office/Outpa tient Visit, New [facility], [address], [place], [address], [place] tel:[phone] [facility], Evaluation of giant cell arteritis (chief complaint) Headache 3 Kiley Pedro. [facility] [address], [place], [address], [place]. tel:[phone] Referring Provider: Willis Vazquez, [facility] [address], [place], [address]. tel:[phone] Family History Family Member Type Diagnosis Age At Onset Problem No family history of Rheumat oid arthritis Payers Payer name Insurance type Covered green party ID Authoriza tion(s) [employer] Medicare Advantage/[facility] [id number] Social History Type Description Quantity Date Captured Comments Alcohol Use Details Caffeine Use Details No Tobacco Use Status Current non-smoker Smoking Status Never smoker Non-Smoking Tobacco Use Details : No Details Available : No Details Available Sex Male Vital Signs Date / Time: Height Weight BMI Pulse Rate Blood Pressure Temperature Respiratory Rate Body Surface Area Head Circumference Head Circ. Percentile Wt./Shon. Percentile BMI percentile Pulse Ox Inhaled Ox 3:09 PM 66.00 in 71.668 kg (158.00 lbs) 25.5 0 kg/m eter (2) 132/80 mm[Hg] 97.60 F Chief Complaint And Reason For Visit From encounter dated '06/13/2022 14:45'. Evaluation of giant cell arteritis (chief complaint) Reason For Referral Reason For Referral No Information History Of Present Illness Encounter Date Complaint History Of Prese nt Illness Evaluation of giant cell arterit is Functional Status Date Functional Assessmen t Pain Score 06/13 Instructions Date Instruction Additional Infor mation No Information Assessments Type Assessment Date assessment Headache Patient Care Teams Name Effective Dates (start - stop) Status Members No Information
--- OUTSIDE RECORDS SUMMARY | 2024-02-22 08:34 | XMS_ITS | Clinical Summary ---
Author Organization [facility] Address [address] [place] [address] Care Team Providers Care Field Sales Associate Name Role Phone Elsewhere, Pcp Primary Care Provider Unavailabl e Source Comments Patient records contain information from all sites at [facility]. For routine questions regarding patient records, call [phone] during business hours, M-F 8:00 AM - 5:00 PM Central Time. Record requests for emergency care only can be directed to [phone] at any time.[facility] Allergies [...] by mouth at bedtime. 10/18/2021 Active omega 9-hib-iyg-fish oil 1,000 mg (120 mg-180 mg) capsule [...] (04/26/2021): Added automatically from request for surgery [id number] Immunizations Name Administration Dates Next Due DTaP [...] 07/17/2021 How often do you attend [facility] or orthodoxy services? More than 4 times per year 07/17/2021 Do you belong to any clubs o r organizations such as anabaptist groups, unions, fraternal or athletic groups, or [...] and heating? Not hard at all 03/29/2023 [facility] - [...] your living situation today? I have a [facility] place to live 03/29/2023 Education Answer Date Recorded What is the highest level of school you have completed or the highest degree you have received? Master's degree (e.g., MA, MS, Stephanie, MEd, COTTON HEADER, CAREN) 04/21/2021 Sex and Gender Information Value Date Recorded Sex Assigned at Male 04/21/2021 10:27 PM LINEN TECH Gender Identity Male 04/21/2021 10:27 PM LINEN TECH Sexual Orientation Straight 04/21/2021 10 :27 PM LINEN TECH Last Filed Vital Signs Vital Sign Reading Time Taken Comments Blood Pressure 131/82 06/29/2022 8:51 AM LINEN TECH Pulse 58 06/29/2022 8:51 AM LINEN TECH Temperature 36.6 ??C (97.9 ??F) 12/29/2021 10:15 AM C DT Respiratory Rate 11 12/29/2021 10:30 AM CDT Oxygen Saturation 92% 12/29/2021 11:00 AM CDT Inhaled Oxygen Concentration - - Weight 72.2 kg (159 lb 2.8 oz) 06/29/2022 8:49 A M LINEN TECH Height 167.6 cm (5' 6) 12/29/2021 8:43 AM CDT Body Mass Index 25.69 12/29/2021 8:43 AM CDT Plan of Treatment Health Maintenance Due Date Last Done Comments CT Colonography 1950 Cologuard 1950 FIT 1950 Zoster Vaccines (2 of 3) 03/28/2011 01/31/2011 Colonoscopy 05/16/2020 05/16/2010 Colorectal Cancer Screening 05/16/2020 Depression Screening (Annual PHQ-2) 06/04/2023 Fall Risk Screen (Annual) 06/04/2023 COVID-19 Vaccine (6 - 2024-2 5 season) 2024 05/11/2022, 10/18/2021, 03/22/2021, Additional history [...] 04/13/20 05 Medical Devices Implanted Type Area Terrazzo Mechanic Device Identifier Shelf Expiration Date Model / Serial / Lot Mesh Hernia Mesh or Patch Abdomen Procedures Procedure Name Priority Date/Time Associated Diagnosis Comments COMPREHENSIVE METABOLIC PANEL, S/P Routine 06/23/2022 9:32 AM LINEN TECH Arteritis Giant Cell (HCC) from Last 3 Months or Most Recently Relevant to Health Maintenance Results * (ABNORMAL) Comprehensive Metabolic Panel (06/23/2022 9:32 AM LINEN TECH) Pathologist [facility] Potassium, S 5.1 3.6 - 5.2 mmol/L 06/23/2022 10:26 AM LINEN TECH DTL Sodium, S 142 135 - 145 mmol/L 06/23/2022 10:26 AM LINEN TECH DTL Chloride, S 103 98 - 107 mmol/L 06/23/2022 10:26 AM LINEN TECH DTL Bicarbonate, S 29 22 - 29 mmol/L 06/23/2022 10:26 AM LINEN TECH DTL Anion Gap 10 7 - 15 06/23/2022 10:26 AM LINEN TECH DTL BUN (Blood Urea Nitrogen), S 18 8 - 24 mg/dL 06/23/2022 10:26 AM LINEN TECH DTL Creatinine 0.93 0.74 - 1.35 mg/dL 06/23/2022 10:26 AM LINEN TECH DTL Estimated GFR (eGFR) 87 >=60 mL/min/BS A 06/23/2022 10:26 AM LINEN TECH DTL Comment: Estimated GFR calculated using the 2020 CKD_EPI creatinine equation. Calcium, Total, S 9.4 8.8 - 10.2 mg/dL 06/23/2022 10:26 AM LINEN TECH DTL Glucose, S 105 70 - 140 mg/dL 06/23/2022 10:26 AM LINEN TECH DTL Protein, Total, S 6.1(L) 6.3 - 7.9 g/dL 06/23/2022 10:26 AM LINEN TECH DTL Albumin, S 4.3 3.5 - 5.0 g/dL 06/23/2022 10:26 AM LINEN TECH DTL Aspartate Aminotransferase (AST), S 29 8 - 48 U/L 06/23/2022 10:26 AM LINEN TECH DTL Alkaline Phosphatase, S 48 40 - 129 U/L 06/23/2022 10:26 AM LINEN TECH DTL Alanine Aminotransferase (ALT), S 27 7 - 55 U/L 06/23/2022 10:26 AM LINEN TECH DTL Bilirubin, Total, S 0.4 <=1.2 mg/dL 06/23/2022 10:26 AM LINEN TECH DTL Blood (Blood, Venous) 06/23/2022 9:32 AM LINEN TECH 06/23/2022 10:09 AM LINEN TECH Javed Whitney M.D. LAB BLOOD ADD-ON [facility] [address] [place] [address], [facility] [address] [place] [address] from Last 3 Months or Most Recently Relevant to Health Maintenance Advance Directives For more information, please contact: [phone] * Full Code (Latest Code Status on File) Date Activated Date Inactivated Comments 12/29/2021 10:18 AM 12/29/2021 1:23 PM Question Answer Comments Full Code: Discussed Care Teams Field Sales Associate Relationship Specialty Start Date End Date Elsewhere, Pcp PCP - General Internal Medicine 07/19/21
--- OUTSIDE RECORDS SUMMARY | 2024-02-22 08:34 | XMS_ITS | Referral Summary ---
Author Organization [facility] Address [address] [place] [address] Care Team Providers Care Turbo Generator Oiler Name Role Phone Fabian Mena MD Primary Care Provider +1- [phone] Encounters Date Type Department Care Team Description 12/29/2023 Telephone Content Syndicate: Words on Demand [facility] [place] [address] Ines Thorpe RN Suspected Covid [...] of Treatment Not on file Care Teams Turbo Generator Oiler Relationship Specialty Start Date End Date Fabian Mena MD [address] [place] [address] [facility] - General 07/19/11
--- OUTSIDE RECORDS SUMMARY | 2024-02-22 08:34 | XMS_ITS | Encounter Summary ---
Author Organization [facility] Address [address], [place] [address] Care Team Providers Care Wardrobe Manager Name Role Phone Melvin White MD Primary Care Provider +1 [phone] Reason for Visit * Reason Comments Prior Authorization For Medication UVB h ome unit Encounter Details Date Type Department Care Team (Late st Contact Info) Description 10/23/2023 Telephone [facility] [address] [place] [address] Daphne Sanchez MD [address] [place] [address] Prior Authorization For Medication (UVB home [...] Description 11/03/2024 10:45 AM CDT Appointment [facility] [address] [place], [place] [phone] Daphne Sanchez MD [address] [place], [place] [phone] documented as of this encounter Visit Diagnoses Not on filedocumented in this encounter Care Teams Wardrobe Manager Relationship Specialty Start Date End Date Melvin White MD [address] [place], [place] [phone] PCP - General 09/06/10 documented as of this encounter
--- OUTSIDE RECORDS SUMMARY | 2024-02-22 08:34 | XMS_ITS | Encounter Summary ---
Author Organization [facility] Address [address] [place] [address] Care Team Providers Care Credit Balance Specialist Name Role Phone Fabian Mena MD Primary Care Provider +1- [phone] Reason for Visit * Reason Onset Date Comments Suspected Covid 12/29/2023 Encounter Details Date Type Department Care Team (Late st Contact Info) Description 12/29/2023 Telephone [facility] [place] [address] Ines Thorpe, RN Suspected Covid [...] 11:06 PM CDT Patient calling. He's in [place] on vacation, and he started not feeling well 2 days ago. His COVIDtest is positive this evening. He would like a prescription for Paxlovid. Afebrile, with cough and sore throat. Sinuses are clogged. No dyspnea. Patient was informed that he must be in [place] or [place] for care to be provided through [facility]. Patient stated understanding and was informed that he could call the number ion the back of his insurance card to see where he could receive care in [place], and then go to urgent care locally for treatment. Patient stated understanding. NO triage due to patient's location. Ines Thorpe RN [facility] December 29, 2023, 11:16 PM documented in this encounter Plan of Treatment Not on file documented as of this encounter Visit Diagnoses Not on filedocumented in this encounter Care Teams Credit Balance Specialist Relationship Specialty Start Date End Date Fabian Mena MD [address] [place] [phone] PCP - General 07/19/11 documented as of this encounter
--- OUTSIDE RECORDS SUMMARY | 2024-02-22 08:35 | XMS_ITS | Encounter Summary ---
Author Organization [facility] Address [address] [place] [address] Care Team Providers Care Chopped Strand Operator Name Role Phone Elsewhere, Pcp Primary Care Provider Unavailabl e Encounter Details Date Type Department Care Team (Late st Contact Info) Description 07/29/2009 Historical Ophthalmology [facility] Phillip Parker O.D. [address] [place] [phone] Social History Tobacco Use Types Packs/Day Years Used Date Smoking Tobacco: Never Assessed Sex and Gender Information Value Date Recorded Sex Assigned at Male 04/21/2021 10:27 PM FLAP LINING BINDER Gender Identity Male 04/21/2021 10:27 PM FLAP LINING BINDER Sexual Orientation Straight 04/21/2021 10 :27 PM FLAP LINING BINDER documented as of this encounter Progress Notes [...] of central serous retinopathy in 1996. 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 photos were taken but unavailable today (at home). comes and goes. doesn't remember which eye. 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 residual pigment changes, no net plan 1. srx 2. 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
--- OUTSIDE RECORDS SUMMARY | 2024-02-22 08:35 | XMS_ITS | Encounter Summary ---
Author Organization [facility] Address [address] [place] [address] Care Team Providers Care Centrex Radio Operator Name Role Phone Elsewhere, Pcp Primary Care Provider Unavailabl e Encounter Details Date Type Department Care Team (Late st Contact Info) Description 08/05/2012 Historical Ophthalmology [facility] O[facility] Demi Yu M.D. [address] [place] [phone] Social History Tobacco Use Types Packs/Day Years Used Date Smoking Tobacco: Never Assessed Sex and Gender Information Value Date Recorded Sex Assigned at Male 04/21/2021 10:27 PM FORESTRY FIRE AID Gender Identity Male 04/21/2021 10:27 PM FORESTRY FIRE AID Sexual Orientation Straight 04/21/2021 10 :27 PM FORESTRY FIRE AID documented as of this encounter Progress Notes [...] both eyes CDM Reports - EYEGEN Id: [id number] Status: Fnl documented in this encounter Plan of Treatment Not on file documented as of this encounter Visit Diagnoses Not on filedocumented in this encounter Additional Health Concerns Infection Onset Date Last Indicated Resolved Time COVID19 Pending 07/18/2021 07/18/2021 07/18/2021 2 :46 PM FORESTRY FIRE AID COVID19 Pending 12/28/2021 12/28/2021 12/28/2021 2 :43 PM CDT documented as of this encounter Care Teams Centrex Radio Operator Relationship Specialty Start Date End Date Elsewhere, Pcp PCP - General Internal Medicine 07/19/21 documented as of this encounter
--- OUTSIDE RECORDS SUMMARY | 2024-02-22 08:35 | XMS_ITS ---
Author Organization [facility] Address [address] [place] [address] Care Team Providers Care Church Business Administrator Name Role Phone Unavailable Unavailable Unavailable Surgery Details Not on file Complications Check Surgery Details section. Procedure Estimated Blood Loss Check Surgery Details section. Procedure Findings Check Surgery Details section. Procedure Specimens Taken Check Surgery Details section.
--- OUTSIDE RECORDS SUMMARY | 2024-02-22 08:35 | XMS_ITS | Referral Summary ---
Author Organization [facility] Address [address] [place] [address] Care Team Providers Care Bander Name Role Phone Elsewhere, Pcp Primary Care Provider Unavailabl e Source Comments Patient records contain information from all sites at [facility]. For routine questions regarding patient records, call [phone] during business hours, M-F 8:00 AM - 5:00 PM Central Time. Record requests for emergency care only can be directed to [phone] at any time.[facility] Allergies Active Allergy Reactions Criticality Noted Date [...] by mouth at bedtime. 10/18/2021 Active omega 4-rbc-qcx-fish oil 1,000 mg (120 mg-180 mg) capsule [...] (04/26/2021): Added automatically from request for surgery [id number] Immunizations Name Administration Dates Next Due DTaP [...] declined 07/17/2021 How often do you attend up health system or tenriism services? More than 4 times per year 07/17/2021 Do you belong to any clubs o r organizations such as sabianist groups, unions, fraternal or athletic groups, or [...] and heating? Not hard at all 03/29/2023 [facility] - Occupational Stress Questionnaire Answer Date Recorded [...] your living situation today? I have a [facility] place to live 03/29/2023 Education Answer Date Recorded What is the highest level of school you have completed or the highest degree you have received? Master's degree (e.g., MA, MS, Stephanie, MEd, CREATIVE ENGAGEMENT DIRECTOR, CAREN) 04/21/2021 Sex and Gender Information Value Date Recorded Sex Assigned at Male 04/21/2021 10:27 PM SPEAKING UNIT ASSEMBLER Gender Identity Male 04/21/2021 10:27 PM SPEAKING UNIT ASSEMBLER Sexual Orientation Straight 04/21/2021 10 :27 PM SPEAKING UNIT ASSEMBLER Last Filed Vital Signs Vital Sign Reading Time Taken Comments Blood Pressure 131/82 06/29/2022 8:51 AM SPEAKING UNIT ASSEMBLER Pulse 58 06/29/2022 8:51 AM SPEAKING UNIT ASSEMBLER Temperature 36.6 ??C (97.9 ??F) 12/29/2021 10:15 AM C DT Respiratory Rate 11 12/29/2021 10:30 AM CDT Oxygen Saturation 92% 12/29/2021 11:00 AM CDT Inhaled Oxygen Concentration - - Weight 72.2 kg (159 lb 2.8 oz) 06/29/2022 8:49 A M SPEAKING UNIT ASSEMBLER Height 167.6 cm (5' 6) 12/29/2021 8:43 AM CDT Body Mass Index 25.69 12/29/2021 8:43 AM CDT Plan of Treatment Not on file Medical Devices Implanted Type Area Food Production Manager Device Identifier Shelf Expiration Date Model / Serial / Lot Mesh Hernia Mesh or Patch Abdomen Procedures Procedure Name Priority Date/Time Associated Diagnosis Comments COMPREHENSIVE METABOLIC PANEL, S/P Routine 06/23/2022 9:32 AM SPEAKING UNIT ASSEMBLER Arteritis Giant Cell (HCC) from Last 3 Months or Most Recently Relevant to Health Maintenance Results * (ABNORMAL) Comprehensive Metabolic Panel (06/23/2022 9:32 AM SPEAKING UNIT ASSEMBLER) Potassium, S 5.1 3.6 - 5.2 mmol/L 06/23/2022 10:26 AM SPEAKING UNIT ASSEMBLER DTL Sodium, S 142 135 - 145 mmol/L 06/23/2022 10:26 AM SPEAKING UNIT ASSEMBLER DTL Chloride, S 103 98 - 107 mmol/L 06/23/2022 10:26 AM SPEAKING UNIT ASSEMBLER DTL Bicarbonate, S 29 22 - 29 mmol/L 06/23/2022 10:26 AM SPEAKING UNIT ASSEMBLER DTL Anion Gap 10 7 - 15 06/23/2022 10:26 AM SPEAKING UNIT ASSEMBLER DTL BUN (Blood Urea Nitrogen), S 18 8 - 24 mg/dL 06/23/2022 10:26 AM SPEAKING UNIT ASSEMBLER DTL Creatinine 0.93 0.74 - 1.35 mg/dL 06/23/2022 10:26 AM SPEAKING UNIT ASSEMBLER DTL Estimated GFR (eGFR) 87 >=60 mL/min/BS A 06/23/2022 10:26 AM SPEAKING UNIT ASSEMBLER DTL Comment: Estimated GFR calculated using the 2020 CKD_EPI creatinine equation. Calcium, Total, S 9.4 8.8 - 10.2 mg/dL 06/23/2022 10:26 AM SPEAKING UNIT ASSEMBLER DTL Glucose, S 105 70 - 140 mg/dL 06/23/2022 10:26 AM SPEAKING UNIT ASSEMBLER DTL Protein, Total, S 6.1(L) 6.3 - 7.9 g/dL 06/23/2022 10:26 AM SPEAKING UNIT ASSEMBLER DTL Albumin, S 4.3 3.5 - 5.0 g/dL 06/23/2022 10:26 AM SPEAKING UNIT ASSEMBLER DTL Aspartate Aminotransferase (AST), S 29 8 - 48 U/L 06/23/2022 10:26 AM SPEAKING UNIT ASSEMBLER DTL Alkaline Phosphatase, S 48 40 - 129 U/L 06/23/2022 10:26 AM SPEAKING UNIT ASSEMBLER DTL Alanine Aminotransferase (ALT), S 27 7 - 55 U/L 06/23/2022 10:26 AM SPEAKING UNIT ASSEMBLER DTL Bilirubin, Total, S 0.4 <=1.2 mg/dL 06/23/2022 10:26 AM SPEAKING UNIT ASSEMBLER DTL Blood (Blood, Venous) 06/23/2022 9:32 AM SPEAKING UNIT ASSEMBLER 06/23/2022 10:09 AM SPEAKING UNIT ASSEMBLER Javed Whitney M.D. LAB BLOOD ADD-ON [facility] [address] [place] [address], [facility] DTL [facility] [address] [place] [address] from Last 3 Months or Most Recently Relevant to Health Maintenance Advance Directives For more information, please contact: [phone] * Full Code (Latest Code Status on File) Date Activated Date Inactivated Comments 12/29/2021 10:18 AM 12/29/2021 1:23 PM Question Answer Comments Full Code: Discussed Care Teams Bander Relationship Specialty Start Date End Date Elsewhere, Pcp PCP - General Internal Medicine 07/19/21
== END 2024-02-21 16:21 | disposition home or self-care (01) ==
LOC: NFLDREF 02-22 08:33
PROVIDERS: PCP Family Medicine; Referring Provider Family Medicine; Visit Provider Internal Medicine Cardiovascular Disease
DX: R94.39 Abnormal result of other cardiovascular function study (principal); E78.5 Hyperlipidemia, unspecified; I10 Essential (primary) hypertension
CPT/HCPCS: 80053

== ENCOUNTER 2024-03-26 08:26 | Outpatient (CLI) | payer MEDICARE, BC, SELFPAY ==
--- OUTSIDE RECORDS SUMMARY | 2024-03-27 08:56 | XMS_ITS | Referral Summary ---
Author Organization [facility] Address [address] [place] [address] Care Team Providers Care Manager Money Name Role Phone Fabian Mena MD Primary Care Provider +1- [phone] Encounters Date Type Department Care Team Description 12/29/2023 Telephone [facility] [address] [place] [address] Ines Thorpe RN Suspected Covid from Last 3 Months Allergies Active Allergy Reactions Criticality Noted Date Comments Penicillins Hives 07/21/2011 Medications simvastatin (ZOCOR) 20 MG tablet Take 1 [...] 1 capsule by mouth daily. Active Multiple Vitamins-Minera ls (CENTRUM SILVER PO) Take 1 tablet by [...] TO BODY RASH ON TOP OF VANICREAM Active Social History Tobacco Use Types Packs/Day [...] Recorded Sex Assigned at Not on file Legal Sex Male 4:43 AM DEPUTY CHIEF MAGISTRATE Gender Identity Not on file Sexual Orientation [...] CDT Plan of Treatment Not on file Insurance [employer] Care Teams Manager Money Relationship Specialty Start Date End Date Fabian Mena MD [address] [place] [address] PCP - General 07/19/11
--- OUTSIDE RECORDS SUMMARY | 2024-03-27 08:56 | XMS_ITS | Continuity of Care Document ---
Author Organization [facility] Address [address] [place] [address] Phone Care Team Providers Care Stage Rigger Name Role Phone Pratik HINTON MD, [address] Advance Directives Directive Yes / No Effective Date File Name No Information Encounters Encounter Description Practice Location Reason(s) For Visit Diagnoses Date Provider Providers Copied on Encounter [facility] [place], [address], [place], [address], [place] tel:[phone] [facility] No Information Nov- 3200 8 Pratik Cordova. [facility], [address] [place] [address], [id number], [place]. tel:[phone] Family History Family Member Type Diagnosis Age At Onset No Information Payers Payer name Insurance type Covered constitution party ID Authoriza tion(s) [employer] AM [id number] [id number] Social History Type Description Quantity Date Captured [...]
--- OUTSIDE RECORDS SUMMARY | 2024-03-27 08:56 | XMS_ITS | Data Portability ---
Author Organization [place] [facility], [facility] Address [address] [place] [address] Assessment Encounter Date Assessment Date Assessment LastModified by Organization Details LastModified Time 03/03/2024 03/03/2024 Educated patient on the etiology, prognosis, treatment options for hallux limitus/rigidus. For the hallux rigidus of the left foot, I recommended conservative treatment options including anti-inflammator ies, stiffer shoes with a rocker bottom, and possibly a carbon fiber plate to offload pressure from the joint. I also discussed the option of steroid injections for inflammation. From a surgical perspective, I explained the options of either shaving down the bone spur or fusing the joint to eliminate painful motion. The patient was advised to consider these options and to try the conservative measures first. I also recommended trying [place] shoes, which have a rocker bottom that might help with the patient's symptoms. Properly sized and dispensed pedpillow inserts with first ray cutout modification. I advised the patient to follow up in three weeks to assess the effectiveness of the conservative measures and to discuss further options if necessary. [email or web address] Not available 03/03/2024 20:26:39 Plan of Treatment Reminders Order Date Submit Date Provider Last Modified By Organization Details Last Modified Time Details Appointments None record ed. Lab None record ed. Referral None record ed. Procedures None record ed. Surgeries None record ed. Imaging None record ed. Medication Orders None record ed. Patient TargetsNo targets recorded. Patient InstructionsNo instructions recorded. Reason for Referral None Reported. Medical Equipment None Reported. Allergies Allergen ID Allergen Name Allergen Category Reaction Reaction Severity Criticality Documentation Date Start Date Code Code System Note Provider Name and Address Organization Details Recorded Time Substance with sulfonami de structure and antibacte rial mechanism of action (substanc e) medicatio n Not available Not available Not available 03/13/2024 49094 8003 SNOMED Kendra Stu null, [place] - [facility] 4 11:03:06 56346 Medicinal product containin g penicilli n and acting as antibacte rial agent (product) medicatio n Not available Not available Not available 03/13/2024 36268 05 SNOMED Kendra rhoades, [place] - [facility] 4 11:03:11 81351 tetracycl ine medicatio n Not available Not available Not available 03/13/2024 77164 RxNorm Kendra rhoades, [place] - [facility] 4 11:03:29 Medications Name Sig Start Date Stop Date Status Note LastModified by Organization Details LastModified Time etodolac 300 mg capsule TAKE 1 CAPSULE ONE HOUR PRIOR TO SURGICAL APPOINTME NT. AFTER SURGERY TAKE 1 CAPSULE EVERY 8 HOURS NEEDED FOR DISCOMFOR T 03/13 completed Not Available Not Available Not Available azithromyci n 250 mg tablet 03/13 completed Not Available Not Available Not Available amlodipine 10 mg tablet TAKE 1 TABLET BY MOUTH EVERY DAY active Not Available Not Available No t Available simvastatin 20 mg tablet TAKE 1 TABLET BY MOUTH EVERY EVENING active Not Available Not Available No t Available tacrolimus 0.1 % topical ointment APPLY TO FACE AND FOLD AREAS TWICE DAILY SUNDAY THRU SUNDAY NEEDED 03/13 completed Not Available Not Available Not Available nitroglycer in 0.4 mg sublingual tablet active Not Available Not Available Not Available hydrocortis one 2.5 % topical cream APPLY TO FACE AND FOLDS AREA TWICE DAILY FOR 2 WEEKS THEN TWICE DAILY NEEDED SUNDAY AND SUNDAY NEEDED active Not Available Not Available No t Available methylpredn isolone 4 mg tablets in a dose pack FOLLOW PACKAGE DIRECTION S 03/13 completed Not Available Not Available Not Available rosuvastati n 20 mg tablet active Not Available Not Available Not Available chlorhexidi ne gluconate 0.12 % mouthwash 03/13 completed Not Available Not Available Not Available aspirin active Not Available Not Avail able Not Available calcipotrie ne active Not Available Not Available Not Available [place] 3 active Not Available Not Avail able Not Available multivitami n active Not Available Not Available Not Available GaviLyte-G 236 gram-22.74 gram-6.74 gram-5.86 gram oral solution 03/13 completed Not Available Not Available Not Available cyanocobala min (vit B-12) 1,[address] by sublingua l route. active Not Available Not Available No t Available Vitals Date Recorded Body height Body mass index (BMI) Body weight Provider Name and Address Organization Details Last Updated DateTime 03/03/2024 167.64 cm 26.8 kg/m2 53204.33 g Kendra Peraza [place] - [facility] 03/13/2024 11:02:58 Social History None recorded. Functional Status None recorded. Mental Status None recorded. Family History Nothing Reported. Medical History No medical history recorded. Past Encounters Encounter ID Performer Location Encounter Start Date Encounter Closed Date Diagnosis/Indication Diagnosis SNOMED-CT Code Diagnosis ICD10 Code [id number] ASTRID MURPHYKATHRIN [address] [place] [address] 03/03/2024 09:56:36 03/04/2024 09:30:44 Acquired left hallux rigidus 7222363764 53646 M20.22 Pain of to e of right foot 3673750970 65581 M79.674 Acquired h ammer toe of left foot 0638909148 930130 M20.42 Acquired h ammer toe of right foot 7267751949 280009 M20.41 Acquired h allux limitus of right great toe 7293569221 221180 M20.5X1 Health Concerns Section Related Observation LastModified by Organization Detai ls LastModified Time None Recorded Concern Status LastModified by Organization Details LastModified Time None Recorded Advance Directives Directive None Recorded Payers Encounter Date Sequence Insurance Name Policy Number Policy Champion Covered Member ID Champion Member ID Guarantor Name 03/03/2024 1 *SELF PAY* Fr brandon Perdomo Notes Date Note Type Note Provider Name and Address Organization Details Recorded Time 03/03/2024 text/html HPI Notes: The patient reports having arthritis in both feet, with significant pain in the left foot, particularly in the big toe. The patient mentions a bone growth on the side of the left foot and a history of plantar fasciitis, for which they have been using commercial orthotics. The patient also reports a previous fracture of the fourth toe on the right foot four months ago, which was treated with a surgical shoe. The patient applies Voltaren to the right big toe at night but still experiences discomfort. The patient is considering whether a stiffer shoe might help and has brought various shoes and orthotics for evaluation. ASTRID MURPHY DPM [address] [place], [address], [facility] - [facility] 03/03/2024 20:28:15
--- OUTSIDE RECORDS SUMMARY | 2024-03-27 08:56 | XMS_ITS | Encounter Summary ---
Author Organization [facility] Address [address], [place] [address] Care Team Providers Care Broomcorn Press Feeder Name Role Phone Melvin White MD Primary Care Provider [phone] Reason for Visit * Reason Comments Phone Call Encounter Details Date Type Department Care Team (Late st Contact Info) Description 03/14/2024 Telephone [facility] [address] [place], [place] [phone] Daphne Sanchez MD [facility] [place] [address] Phone Call Social History Tobacco Use Types Packs/Day Years Used Date Smoking Tobacco: Never Sex and Gender Information Value Date Recorded Sex Assigned at Male 12/17/2023 12:45 PM CDT Gender Identity Male 12/17/2023 12:45 PM CDT Sexual Orientation Straight 12/17/2023 12 :45 PM CDT documented as of this encounter Nursing Notes * Consuelo Gracia MA - 03/17/2024 1:02 PM CDT Left message with to use unit 2-3 times a week start at 40sec and increase each week. Can use unit for scalp if able otherwise there is a hand held unit available. * Lizzette Winters RN - 03/14/2024 3:07 PM CDT Spoke with patient this afternoon about his home light unit. He has many questions about the dose for treatment. How often is he supposed to increase the dose?. He states he has had this unit for twoweeks and still has not used it yet. He is also wondering if you would be ok with him treating his scalp as well as he feels he has plaques there as well? documented in this encounter Plan of Treatment Upcoming Encounters Date Type Department Care Team (Late st Contact Info) Description 05/13/2024 10:15 AM WAFER BATTER MIXER Appointment [facility] [address] [place] [address] Daphne Sanchez MD [address] [place] [address] 11/03/2024 10:45 AM CDT Appointment [facility] [id number] [place] [address] Daphne Sanchez MD [address] [place] [address] documented as of this encounter Visit Diagnoses Not on filedocumented in this encounter Care Teams Broomcorn Press Feeder Relationship Specialty Start Date End Date Melvin White MD [address] [place] [address] PCP - General 09/06/10 documented as of this encounter
--- OUTSIDE RECORDS SUMMARY | 2024-03-27 08:56 | XMS_ITS | Clinical Summary ---
Author Organization [facility] Address [address] [place] [address] Care Team Providers Care Tower Helper Name Role Phone Fabian Mena MD Primary Care Provider [phone] Allergies Active Allergy Reactions Criticality Noted Date [...] BODY RASH ON TOP OF VANICREAM Active Encounters Date Type Department Care Team Description 12/29/2023 Telephone [facility] Nurse [facility]visors [address] [place] [address] Ines Thorpe RN Suspected Covid [...] on file Legal Sex Male 4:43 AM BOARDMARKER Gender Identity Not on file Sexual Orientation [...] of Treatment Not on file Insurance [place] [employer] [employer] Care Teams Tower Helper Relationship Specialty Start Date End Date Fabian Mena MD [address] [place] [address] PCP - General 07/19/11
--- OUTSIDE RECORDS SUMMARY | 2024-03-27 08:56 | XMS_ITS | Continuity of Care Document ---
Author Organization [place] - [facility] [place] Address [address] [place] [address] Assessment Encounter Date Assessment Date Assessment LastModified [...] Not available Not available Not available 03/13/2024 95020 8008 SNOMED Kendra [place], [place] - [facility] 11:03:06 30664 Medicinal product containin g penicilli n and acting as antibacte rial agent (product) medicatio n Not available Not available Not available 03/13/2024 47912 05 SNOMED [place]ra [place], [place] - [facility] 11:03:11 26517 tetracycl ine medicatio n Not available Not available Not available 03/13/2024 21727 RxNorm Kendra [place], [place] - [facility] 11:03:29 Medications Name Sig Start Date Stop [...] active Not Available Not Available Not Available [place] 3 active Not Available Not Avail able [...] Updated DateTime 03/03/2024 167.64 cm 26.8 kg/m2 00240.33 g Kendra Peraza [place] - [facility] 03/13/2024 11:02:58 Social History None recorded. Functional Status None recorded. Mental Status None recorded. Family History Nothing Reported. Medical History No medical history recorded. Past Encounters Encounter ID Performer Location Encounter Start Date Encounter Closed Date Diagnosis/Indication Diagnosis SNOMED-CT Code Diagnosis ICD10 Code [id number] ASTRID MURPHYKATHRINleighann sharma [address] [place] [address] 03/03/2024 09:56:36 03/04/2024 09:30:44 Acquired left hallux rigidus 1660032248 56714 M20.22 Pain of to e of right foot 0231802769 39356 M79.674 Acquired h ammer toe of left foot 9801269368 745148 M20.42 Acquired h ammer toe of right foot 9567626539 706947 M20.41 Acquired h allux limitus of right great toe 3267194361 732571 M20.5X1 Health Concerns Section Related Observation LastModified by Organization Detai ls LastModified Time None Recorded Concern Status LastModified by Organization Details LastModified Time None Recorded Payers Encounter Date Sequence Insurance [...] orthotics for evaluation. ASTRID MURPHY DPM [address] [place], [address], [facility] 03/03/2024 20:28:15
--- OUTSIDE RECORDS SUMMARY | 2024-03-27 08:56 | XMS_ITS | Encounter Summary ---
Author Organization [facility] Address [address] [address] Care Team Providers Care Laborer Steel Handling Name Role Phone Melvin White MD Primary Care Provider [phone] Reason for Visit * Reason Comments QUESTIONS, GENERAL Entered automaticall y based on patient [facility]. Encounter Details Date Type Department Care Team (Late st Contact Info) Description 03/10/2024 12:30 PM CDT E-Visit [facility] [address] [place] [address] Daphne Sanchez MD [address] [place] [address] [id number] Chief Comp: QUESTIONS, GENERAL Social History Tobacco Use Types Packs/Day Years Used Date Smoking Tobacco: Never Sex and Gender Information Value Date Recorded Sex Assigned at Male 12/17/2023 12:45 PM CDT Gender Identity Male 12/17/2023 12:45 PM CDT Sexual Orientation Straight 12/17/2023 12 :45 PM CDT documented as of this encounter Nursing Notes * Brenda Gabriel LPN - 03/13/2024 8:19 AM CDT Consuelo from [employer] calling. Patient had contacted [employer] and requested assistance with setting up his [employer] home light unit. [employer] is unable to help the patient without knowing the dose increase and frequency? Consuelo can be reached at her direct line [phone]. Brenda Buckner LPN 03/13/24 8:21 AM documented in this encounter Miscellaneous Notes * E-Visit Routing Comment - Consuelo Gracia MA - 03/13/2024 9:34 AM CDT Spoke with [employer] and gave them info including using device 2-3 days a week starting at 40 secs. And can increase weekly. * E-Visit Routing Comment - Consuelo Gracia MA - 03/12/2024 9:33 AM CDT Spoke with patient and made appointment for 2 months. Gave him the [employer] website info and told him to watch the videos that state how to use the machine. documented in this encounter Plan of Treatment Upcoming Encounters Date Type Department Care Team (Late st Contact Info) Description 05/13/2024 10:15 AM ENVIRONMENTAL PROJECTS ADVISOR Appointment [facility] [address] [place] [address] Daphne Sanchez MD [address] [place] [address] 11/03/2024 10:45 AM CDT Appointment [facility] [address] [place] [address] Daphne Sanchez MD [address] [place] [address] documented as of this encounter Visit Diagnoses Not on filedocumented in this encounter Care Teams Laborer Steel Handling Relationship Specialty Start Date End Date Melvin White MD [address] [place] [address] PCP - General 09/06/10 documented as of this encounter
--- OUTSIDE RECORDS SUMMARY | 2024-03-27 08:56 | XMS_ITS | Clinical Summary ---
[facility] Address [address], [place] [address] Care Team Providers Care Receiver Setter Name Role Phone Melvin White MD Primary Care Provider [phone] Source Comments You are receiving this document as you are listed as the primary care provider,follow-up provider, or the patient has been referred to you for consultation.This is in compliance with the Medicare and[facility] EHR Incentive Program,which states Providers who transition their patient to another setting of careor provider of care or refers their patient to another provider of care shouldprovide summary care record for each transition of care or referral. [facility] Allergies Active Allergy Reactions Criticality Noted Date [...] Encounters Date Type Department Care Team Description 03/14/2024 Telephone [facility] [address] [place] [address] Daphne Sanchez MD Phone Call 03/10/2024 12:30 PM CDT E-Visit [facility] [address] [place] [address] Daphne Sanchez MD Chief Comp: QUESTIONS, GENERAL from Last 3 Months Immunizations Name Administration [...] ??C (99.1 ??F) 06/12/2006 7 :19 PM [employer] AUTOMOTIVE TECHNICIAN C: 37.3 C Respiratory Rate 20 06/12/2006 7:19 PM [employer] EM[employer] AUTOMOTIVE TECHNICIAN Oxygen Saturation 95% 08/05/2005 10: 58 AM [employer] EM[employer] AUTOMOTIVE TECHNICIAN Inhaled Oxygen Concentration - - Weight 81.2 kg (178 lb 15.9 oz) 008 3:49 PM CDT C: 81.2kg Height 166.4 cm (5' 5.5) 09/13/2007 3: 49 PM CDT C: 166.4cm Body Mass Index 29.33 09/13/2007 3:49 PM CDT Plan of Treatment Upcoming Encounters Date Type Department Care Team (Late st Contact Info) Description 05/13/2024 10:15 AM EXHA[employer] EMISSIONS AUTOMOTIVE TECHNICIAN Appointment [facility] [address] [place] [address] [place] [address] [place] [address] 11/03/2024 10:45 AM CDT Appointment [facility] [address] [place] [address] [place] [address] [place] [address] Health Maintenance Due Date Last Done Comments [...] patient's age to complete this topic RSV Aged Out No longer eligi ble based [...] Recently Relevant to Health Maintenance Care Teams Receiver Setter Relationship Specialty Start Date End Date Melvin White MD [address] [place], [place] [address] [facility] - General 09/06/10
--- OUTSIDE RECORDS SUMMARY | 2024-03-27 08:56 | XMS_ITS | Continuity of Care Document ---
Author Organization [facility] Address [address] [place] [address] Phone Care Team Providers Care Press Tender Short Goods Name Role Phone Celina HINTON, Mikey Unavailable [...] Copied on Encounter Intermediate Established Patient Visit [facility], [address] [place] [address], [id number], tel:[phone] [facility] left hand pain (chief complaint) Vasospasm 0 Celina Emerson er. [address] [place] [address], [id number] , [place]. tel:[phone] Referring Provider: Mikey Patrick, [address] [place] [address], [id number]. tel:[phone] [facility], [address] [place] [address], [id number], [place] tel:[phone] [facility] [address] Left arm pain Apr- 0 0 Celina kam [address] [place] [address], [id number] , [place]. tel:[phone] Intermediate New Patient Visit [facility], [address] [place] [address], [id number], tel:[phone] [facility] [address] left hand pain (chief complaint) Stiffness of finger joint of right hand 0 Celina simmons. [address] [place], [place], [id number] , [place]. tel:[phone] Referring Provider: Mikey Patrick, [address] [place], [address]. tel:[phone] Family History Family Member Type Diagnosis Age At Onset No Information Payers Payer name Insurance type Covered libertarian ID Andrew scott(s) [employer] Non Par CI [id number] Social History Type Description Quantity Date [...] a biopsy done two weeks ago in [place] The symptoms are aggravated by no specific activity. Rigoberto states that the symptoms are relieved by no specific activity. Functional Status Date Functional Assessmen t Pain Score 3/10 Instructions Date Instruction Additional Infor ace See full dictated no tePatient was seen today via telehealth by agreement and consent of patient in light of current COVID- 19 pandemic. I used the following telehealth technology, [employer], during the visit. This patient encounter is [...]
--- OUTSIDE RECORDS SUMMARY | 2024-03-27 08:56 | XMS_ITS | Clinical Summary ---
Author Organization [facility] Address [place], [place] [address] Care Team Providers Care Network Field Engineer Name Role Phone Melvin Thomas MD Primary Care Provider [phone] Allergies Active Allergy Reactions Criticality Noted Date Comments Penicillins *Unknown 02/22/2024 Tetracycline *Unknown 02/22/2024 Medications Medication Sig Dispensed Refills Start Date End Date Status amLODIPine (NORVASC) 10 mg tabletIndications:A bnormal stress test,Hyperlipidemia , unspecified hyperlipidemia type,HTN (hypertension),Pros burgos cancer (HC),S/P prostatectomy Take 1 Tablet (10 mg) by mouth once daily. 02/22/2024 Active cyanocobalamin (Vitamin B-12) 1,000 mcg tablet Take 1,000 mcg by mouth once daily. Active multivitamins-methods examiner als-lutein (Multivitamin 50 Plus) tab tablet Take 1 Tablet by mouth once daily. Active fish oil-omega-3 fatty acids 1,000-340 mg capsule Take 1 g by mouth once daily. Active calcipotriene 0.005 % ointment Apply topically to affected area(s) 2 times daily if needed. Active rosuvastatin (CRESTOR) 20 mg tabletIndications:C oronary artery disease, unspecified vessel or lesion type, unspecified whether angina present, unspecified whether creek or transplanted heart Take 1 Tablet (20 mg) by mouth at bedtime. 90 Tablet 3 03/19/2024 Active nitroglycerin (NITROSTAT) 0.4 mg sublingual tabletIndications:C oronary artery disease, unspecified vessel or lesion type, unspecified whether angina present, unspecified whether creek or transplanted heart Place 1 Tablet (0.4 mg) under the tongue every 5 minutes if needed for Chest pain 1st choice (Hold if SBP less than 90 mmHg). Up to 3 tablets in 15 minutes. 25 Tablet 3 03/19/2024 Active hydrocortisone 2.5 % cream Apply 1 Application topically to affected area(s) one time if needed. 08/03/2023 Active aspirin chewable 81 mg chewable tabletIndications:C oronary artery disease, unspecified vessel or lesion type, unspecified whether angina present, unspecified whether creek or transplanted heart Chew 1 Tablet (81 mg) by mouth once daily with a meal. 90 Tablet 3 03/25/2024 Active metoprolol succinate (TOPROL XL) 25 mg Sustained-Release tabletIndications:A SHD (arteriosclerotic heart disease) Take 0.5 Tablets (12.5 mg) by mouth once daily. 45 Tablet 3 03/25/2024 Active Nitroglycerin 400 mcg/spray spraIndications:CAPO D (arteriosclerotic heart disease) Place 1 Bison under the tongue every 5 minutes if needed (chest pain). 4.9 g 3 03/25/2024 Active aspirin (ECOTRIN) 81 mg enteric coated tabletIndications:A bnormal stress test Take 1 Tablet (81 mg) by mouth once daily with a meal. 02/22/2024 4 Discontinue d(*Med complete/Re gimen complete/Le kiara of care change) simvastatin (ZOCOR) 20 mg tabletIndications:H yperlipidemia, unspecified hyperlipidemia type Take 1 Tablet (20 mg) by mouth at bedtime. 02/22/2024 4 Discontinue d(*IP Discontinue d) Active Problems Problem Noted Date Diagnosed Date Abnormal stress echo 03/19/2024 Hyperlipidemia 02/22/2024 HTN (hypertension) 02/22/2024 Prostate cancer 02/22/2024 S/P prostatectomy 02/22/2024 Encounters Date Type Department Care Team Description 03/25/2024 9:30 AM CDT Office Visit [facility] [address] [facility] [address] [place] [address] Javed Rowe MD Follow Up (JESSICA F/U REF. PT OF DR. ARELLANO. POST ANGIO./Coronary artery disease, unspecified vessel or lesion type, unspecified whether ... /PT states feeling fine/Discuss next steps ) 03/25/2024 Telephone [facility] [place] [address] [facility] [address] [place] [phone] Javed Rowe MD Medication Management 03/25/2024 Travel 03/20/2024 Telephone [facility] [place] [address] [facility] [address] [place] [phone] Cardiology, Anw Follow Up 03/19/2024 10:31 AM CDT - 03/19/2024 7:10 PM CDT Hospital Encounter [facility] [address] [place] [address] Antoni Rao MD Abnormal stress echo (Primary Dx); Abnormal stress test; HTN (hypertension); Hyperlipidemia, unspecified hyperlipidemia type; Coronary artery disease, unspecified vessel or lesion type, unspecified whether angina present, unspecified whether creek or transplanted heart Discharge Disposition: Home Self Care 03/19/2024 Travel 02/22/2024 Telephone [facility] [address] [place] [address] Ángel Arellano MD Procedure (Angiogram ) 02/21/2024 3:30 PM CDT Office Visit [address] [address] Ángel Arellano MD 02/12/2024 3:00 PM CDT Ancillary Procedure [address] [address] from Last 3 Months Family History Medical History Relation Name Comments Cancer-prostate Father Parkinsonism Mother Premature CHD (under age 60) Neg. NEGATIVE Diabetes type I Son Relation Name Status Comments Father Mother Neg. Alive Son Alive Social History Tobacco Use Types Packs/Day Years Used Date Smoking Tobacco: Never Smokeless Tobacco: Never Alcohol Use Standard Drinks/Week Comments Yes 0 (1 standard drink = 0.6 oz pur e alcohol) 1 a month Sex and Gender Information Value Date Recorded Sex Assigned at Not on file Gender Identity Not on file Sexual Orientation Not on file Obstetrics History Last Filed Vital Signs Vital Sign Reading Time Taken Comments Blood Pressure 132/73 03/25/2024 9:25 AM CDT Pulse 64 03/25/2024 9:25 AM CDT Temperature 36.5 ??C (97.7 ??F) 03/19/2024 7:00 PM CD T Respiratory Rate 16 03/19/2024 7:00 PM CDT Oxygen Saturation 95% 03/25/2024 9:25 AM CDT Inhaled Oxygen Concentration - - Weight 75.8 kg (167 lb) 03/25/2024 9:25 AM CDT Height 167.6 cm (5' 6) 03/25/2024 9:25 AM CDT Body Mass Index 26.95 03/25/2024 9:25 AM CDT Plan of Treatment Upcoming Encounters Date Type Department Care Team (Late st Contact Info) Description 03/28/2024 9:30 AM CDT Phone Office Visit [facility] [place] [address] [facility] [address] [place] [address] Samantha Ma MD [address] [facility] [address] [place] [address] Health Maintenance Due Date Last Done Comments Pneumococcal series for age 65+ (1 of 2 - PCV) 1955 Tdap 1960 Depression screening for age 12+ 1961 Hepatitis C screening for age 18-79 1967 Zoster (shingles) series for age 50+ (1 of 2) 1968 Tetanus booster 1969 Colonoscopy through age 75 1994 Medicare Wellness for age 65+ 2014 COVID-19 vaccine series (3 - Pfizer risk series) 11/15/2021 10/18/2021, 03/22/2021 Influenza for age 65+ 02/03/2024 BMI (ht and wt on same day) for age 18+ 03/25/2025 1 Lipids for age 45-75 03/19/2029 03/19/2024 Procedures Procedure Name Priority Date/Time Associated Diagnosis Comments CVL CORONARY ANGIOGRAM POSS PCI Routine 03/19/2024 2:35 PM CDT Abnormal stress test LIPID PANEL JESSICA 03/19/2024 1:11 PM CDT HEPATIC FUNCTION PANEL JESSICA 03/19/2024 1:11 PM CDT CO2,TOTAL Today 03/19/2024 1:11 PM CDT POTASSIUM Today 03/19/2024 1:11 PM CDT CBC W PLT NO DIFF JESSICA 03/19/2024 11: 51 AM CDT BASIC METABOLIC PANEL JESSICA 03/19/2024 11:51 AM CDT EKG 12 LEAD JESSICA 03/19/2024 11:48 AM CDT ECHO STRESS EXRCSE W CNTRST W COLOR W LTD DOPPLER Routine 02/12/2024 4:16 PM CDT Chest pain from Last 3 Months Results * CVL CORONARY ANGIOGRAM POSS PCI (03/19/2024 2:35 PM CDT) Anatomical Region Laterality Modality X-Ray Angiograph y, X-Ray Angiography 03/19/2024 2:35 PM CDT Narrative Transcriptions Antoni Rao MD - 03/19/2024 3:42 PM CDT [facility] Cardiac Catheterization Report Name: RIGOBERTO MANDUJANO Event Date: 03/19/2024 14:35 [facility] ID #: [id number] LEANDER #: [id number] Patient Class: Outpatient Diagnostic Physician: ANTONI RAO [facility] Referring Physician: Primary Care Physician: MELVIN THOMAS Date: 1950 Gender: Male Age: 73 Summary/Conclusions PRESENTATION / INDICATIONS * Stress Test High risk/extent of ischemia VASCULAR ACCESS * Using ultrasound guidance and a percutaneous technique, the right radialartery was accessed. Ultrasound was used to confirm vessel patency,localizing needle into the lumen of the vessel. An image was saved for themedical record. DIAGNOSTIC - CORONARY * Right dominant coronary artery system DIAGNOSTIC SUMMARY ? 60% Eccentric stenosis in the Mid LAD ? 80% hazy stenosis in the Mid LAD ? 80% stenosis in the 1st Diagonal, ostial ? 60% discrete stenosis in the Mid Circumflex ? The RCA is dominant. ? 70% hazy stenosis in the Proximal RCA ? 40% Eccentric stenosis in the Proximal RCA ? 70% discrete stenosis in the Distal RCA RECOMMENDATIONS & PLAN * Consider surgical revascularization: LAD, RCA, D1 Consent & Crofton Protocol The risks, benefits, and alternatives of the procedure were discussed withthe patient and written informed consent was obtained. Crofton protocol was followed. TIME OUT conducted just prior tostarting procedure confirmed patient identity, site/side, procedure,patient position, and availability of correct equipment and implants (ifapplicable). Staff Name Title ANTONI RAO Diagnostic Vessel Traffic Officer Mary Carmen Adler RN Nurse Debi Guerrier CVT Scrub Manjinder Underwood CVT Monitor Avelino Calles CVT Wood Gluer Edwar Wagner Fellow Procedures ? Ultrasound Guided Vascular Access ? Coronary Angiogram Diagnostic Findings * Left Anterior Descending ? 60% eccentric stenosis in the Mid LAD. ? 80% hazy stenosis in the Mid LAD. ? 80% stenosis in the 1st Diagonal. * Circumflex ? 60% discrete stenosis in the Mid Circumflex. * Right Coronary Artery ? The RCA is dominant. ? 70% hazy stenosis in the Proximal RCA. ? 40% eccentric stenosis in the Proximal RCA. ? 70% discrete stenosis in the Distal RCA. Lesion Information Lesion # Vessel Segment Lesion Length Lesion Details Proximal RCA Proximal RCA Distal RCA Mid Circumflex 1st Diagonal Mid LAD Mid LAD Hemodynamics State: Baseline Pressures (mmHg) Site Systolic Diastolic End Diastolic A Wave V Wave Mean AO 121 67 91 Procedure Details Estimated Blood Loss: < 30 ml Specimen Collected: None Level of Sedation Achieved: Moderate Procedure Start: 14:35 Procedure End: 15:04 Procedure Time: 29 min Fluoroscopy Time: 4.1 min Cumulative Air Kerma: 298 mGy DAP: 1559 uGy/M2 Contrast: Omnipaque (low-osmolar), 45 ml Physiologic Data Weight: 74.4 kg BSA: 1.84 m2 Vascular Access Time Access Sheath Size 14:35 Right Radial Artery, sheath inserted Medications Ordered and Administered Start Time Stop Time Medication Dose Units Route Ordered By Given By 14:32 Fentanyl 50 mcg IV Antoni Rao Kendra RN 14:32 Versed 1.5 mg IV Antoni Rao Kendra RN 14:34 Fentanyl 25 mcg IV Antoni Rao Kendra RN 14:35 1% Lidocaine 3 ml Subcut Antoni Rao Mario 14:36 Nitroglycerin 200 mcg IA Edwar Wagner Jaskanwal 14:38 Heparin 5000 units IV Edwar Wagner Kendra RN 14:52 Fentanyl 25 mcg IV Antoni Rao Kendra RN 14:52 Versed 0.5 mg IV Antoni Rao Kendra RN I personally monitored the patient?s conscious sedation during theprocedure. Conscious sedation starts with the first sedation medication dose ofFentanyl or Versed and ends when the procedure is completed, the patientis stable for recovery status, and the physician or other qualified healthcare professional providing the sedation ends personal [id number] time with the patient. The medications listed above were verbally ordered by me and read back tome as documented above. Refer to the procedure log report for additional case details. electronically signed on 03/19/2024 3:42:28 PM with status of Final Antoni Rao MD [facility] [address] [facility] [address] [place] [address] (p) (f) Ángel Arellano MD CV IMAGING * POTASSIUM (03/19/2024 1:11 PM CDT) POTASSIUM 4.1 3.5 - 5.1 mmol/L 03/19/2024 1:50 PM CDT [facility] Blood BLOOD SPECIMEN / Unknown Venipuncture / Unknown 03/19/2024 1:11 PM CDT 03/19/2024 1:18 PM CDT Anotni Rao MD [facility] [address] [place] [address], [place] * CO2,TOTAL (03/19/2024 1:11 PM CDT) CO2,TOTAL 25 22 - 29 mmol/L 03/19/2024 1:50 PM CDT [facility] Blood BLOOD SPECIMEN / Unknown Venipuncture / Unknown 03/19/2024 1:11 PM CDT 03/19/2024 1:18 PM CDT Antoni Rao MD CHEMISTRY [facility] [address] [place] [address], [place] * (ABNORMAL) HEPATIC FUNCTION PANEL (03/19/2024 1:11 PM CDT) Pathologist [facility] ALBUMIN 4.2 4.0 - 4.9 g/dL 03/19/2024 3:55 PM CDT [facility] PROTEIN,TOTAL 6.7 6.0 - 8.0 g/dL 03/19/2024 3:55 PM CDT [facility] BILIRUBIN,TOTAL 0.7 0.0 - 1.2 mg/dL 03/19/2024 3:55 PM CDT [facility] BILIRUBIN,DIRECT 0.3(H) 0.0 - 0.2 mg/dL 03/19/2024 3:55 PM CDT [facility] LABORATORY BILIRUBIN,INDIRE CT 0.4 0.2 - 0.8 mg/dL 03/19/2024 3:55 PM CDT [facility] ALK PHOSPHATASE 55 40 - 129 IU/L 03/19/2024 3:55 PM CDT [facility] ALT (SGPT) 28 10 - 50 IU/L 03/19/2024 3:55 PM CDT [facility] AST (SGOT) 36 10 - 50 IU/L 03/19/2024 3:55 PM CDT [facility] Blood BLOOD SPECIMEN / Unknown Venipuncture / Unknown 03/19/2024 1:11 PM CDT 03/19/2024 1:18 PM CDT Brenda Bateman NP CHEMISTRY Performing Organization Address [facility] Co de Phone Number [facility] [address] [place] [address], * LIPID PANEL (03/19/2024 1:11 PM CDT) CHOLESTEROL,TOTAL 165 100 - 199 mg/dL 03/19/2024 3:52 PM CDT [facility] Comment: Cholesterol, Total Reference Ranges Desirable <200 mg/dL Borderline 200-239 mg/dL High >=240 mg/dL TRIGLYCERIDES 65 <150 mg/dL 03/19/2024 3:52 PM CDT [facility] HDL CHOLESTEROL 74 >40 mg/dL 3:52 PM CDT [facility] NON-HDL CHOLESTEROL 91 <145 mg/dl 03/19/2024 3:52 PM CDT [facility] CHOL/HDL RATIO 2.23 <4.50 03/19/2024 3:52 PM CDT [facility] LDL CHOLESTEROL 78 <=130 mg/dL 03/19/2024 3:52 PM CDT [facility] VLDL CHOLESTEROL 13 <=30 mg/dL 03/19/20 3:52 PM CDT [facility] Blood BLOOD SPECIMEN / Unknown Venipuncture / Unknown 03/19/2024 1:11 PM CDT 03/19/2024 1:18 PM CDT Brenda Bateman NP CHEMISTRY Performing Organization Address [facility]/ZIP Co de Phone Number [facility] [address] [place] [address], * CBC with Platelets no Differential (03/19/2024 11:51 AM CDT) WHITE BLOOD COUNT 7.1 4.5 - 11.0 thou/cu mm 03/19/2024 12:10 PM CDT [facility] RED BLOOD COUNT 5.19 4.30 - 5.90 mil/cu mm 03/19/2024 12:10 PM CDT [facility] HEMOGLOBIN 16.1 13.5 - 17.5 g/dL 03/19/2024 12:10 PM CDT [facility] HEMATOCRIT 48.1 37.0 - 53.0 % 03/19/2024 12:10 PM CDT [facility] MCV 93 80 - 100 fL 03/19/2024 12:10 PM CDT [facility] MCH 31.0 26.0 - 34.0 pg 03/19/2024 12:10 PM CDT [facility] MCHC 33.5 32.0 - 36.0 g/dL 03/19/2024 12:10 PM CDT [facility] RDW 13.0 11.5 - 15.5 % 03/19/2024 12:10 PM CDT [facility] PLATELET COUNT 243 140 - 440 thou/cu mm 03/19/2024 12:10 PM CDT [facility] MPV 9.3 6.5 - 11.0 fL 03/19/2024 12:10 PM CDT [facility] NRBC 0.0 % 03/19/2024 12:10 PM CDT [facility] ABS NRBC 0.0 thou /cu mm 03/19/2024 12:10 PM CDT [facility] Blood BLOOD SPECIMEN / Unknown Butterfly / Unknown 03/19/2024 11:51 AM CDT 03/19/2024 12:04 PM CDT Narrative [facility] - 03/19/2024 12:10 PM CDT If not done within past 14 days. ??Nurse to release order. Antoni Rao MD HEMATOLOGY [facility] [address] [place] [address], [place] * (ABNORMAL) Basic Metabolic Panel (03/19/2024 11:51 AM CDT) SODIUM 134(L) 136 - 145 mmol/L 03/19/2024 12:55 PM CDT [facility] POTASSIUM 03/19/2024 12:55 PM CDT [facility] Comment:Canceled- Specimen H emolyzed, Disposition Per Policy CHLORIDE 102 98 - 107 mmol/L 03/19/2024 12:55 PM CDT [facility] CO2,TOTAL 03/19/2024 12:55 PM CDT [facility] Comment:Canceled- Specimen H emolyzed, Disposition Per Policy ANION GAP Unable to calculate. 03/19/2024 12:55 PM CDT [facility] GLUCOSE 85 70 - 99 mg/dL 03/19/2024 12:55 PM CDT [facility] CALCIUM 9.1 8.8 - 10.2 mg/dL 03/19/2024 12:55 PM CDT [facility] BUN 16 8 - 23 mg/dL 03/19/2024 12:55 PM CDT [facility] CREATININE 0.93 0.70 - 1.20 mg/dL 03/19/2024 12:55 PM CDT [facility] BUN/CREAT RATIO 17 10 - 20 12:55 PM CDT [facility] eGFR 86(L) >90 mL/min/1. 73m2 03/19/2024 12:55 PM CDT [facility] Comment:As of 2021, eG FR is calculated by the CKD-EPI creatinine equation without race adjustment. ??eGFR can be influenced by muscle mass, exercise, and diet. ??The reported eGFR is an estimation only and is only applicable if the renal function is stable. Blood BLOOD SPECIMEN / Unknown Butterfly / Unknown 03/19/2024 11:51 AM CDT 03/19/2024 12:04 PM CDT Antoni Rao MD CHEMISTRY Performing Organization Address [facility] de Phone Number [facility] [address] [place] [address], * 12 Lead EKG (03/19/2024 11:48 AM CDT) Interpretation Normal sinus rhythm Cannot rule out Inferior infarct , age undetermined Possible Anterior infarct , age undetermined Abnormal ECG No previous ECGs available BEYOND NOW Ventricular Rate 60 BPM BEYOND NOW Atrial Rate 60 BPM BEYOND NOW P-R Interval 194 ms BEYOND NOW QRS Duration 92 ms BEYOND NOW QT 426 ms BEYOND NOW QTc 426 ms BEYOND NOW P Bradford 54 degrees BEYOND NOW R Bradford -6 degrees BEYOND NOW T Bradford 15 degrees BEYOND NOW 03/19/2024 11:4 8 AM CDT 03/19/2024 8:40 PM CDT Narrative [facility] - 03/19/2024 8:40 PM CDT Test Indication: PRE OP Antoni Rao MD EKG ORD Performing Organization Address [facility] de Phone Number BEYOND NOW [place], [place] * ECHO STRESS EXRCSE W CNTRST W COLOR W LTD DOPPLER (02/12/2024 4:16 PM CDT) LVEDD 4.5 cm EJECTION FRACTION 60 - 65% Anatomical Region Laterality Modality Ultrasound 02/12/2024 3:34 PM CDT Narrative 02/15/2024 8:24 AM CDT STRESS ECHOCARDIOGRAM RIGOBERTO MANDUJANO ?Accession#: ?? [id number] : ?1950 73 years Study Date: ?? 02/12/2024 3:34:15 PM Gender: M ? BP: ? 120/80 mmHg Height: 168.00 cm ? BSA: ?1.79 m? ? ? Weight: 70.00 kg ?Tech: ? MBF ?Referring MD: MELVIN THOMAS Site: ? [facility] Reading Location: Patient Location: Outpatient. Procedure: Stress Echo, Contrast, Limited 2D , Color Doppler and Limited Spectral Doppler. Bhupendra stress echo. Indication for study: Chest Pain Cardiac Rhythm: Sinus bradycardia.Study quality: Fair. Final Impressions: 1. Maximum stress test with 113.5% of age predicted maximum heart rate achieved. 2. Positive stress echo for ischemia. Entire apex and mid and apical anterior septum are hypokinetic. 3. Post stress, normal left ventricular size, normal global systolic function with an estimated EF of 60 to 65%. 4. During stress exam the patient developed no significant symptoms. 5. See separate report for EKG interpretation. 6. The aortic valve is trileaflet and sclerotic, no stenosis and no regurgitation. 7. The mitral valve is sclerotic, no mitral regurgitation. 8. Right ventricular cavity size is moderately enlarged, global systolic RV function is normal. 9. Echo contrast was administered to enhance visualization of all left ventricular segments. Stress Data: ? HR ?Systolic Diastolic Time Duration Minutes Seconds Baseline 58 bpm ?120 ?80 mmHg ? 10 :1 ?Peak ? 165 bpm ?? 144 ?80 mmHg Max Pred HR ?145 % of Max ? 114% Double Product [id number] Echo Findings:This is a positive stress echo test for ischemia. Post stress, normal left ventricular size, normal global systolic function with an estimated EF of 60 to 65%. LV regional wall motion abnormalities are present post exercise. EKG:See separate report for EKG interpretation. Exam Protocol:The patient presents with no significant symptoms at baseline. The patient exercised 10 min 1 sec to stage IV according to the Bhupendra stress echo protocol. Test terminated due to fatigue. 13.5 METS were achieved. The patient achieved a heart rate of 165 bpm which is 113.5% of maximum predicted heart rate. Maximum systolic blood pressure was 144 [place] [address]. Maximum stress test with 113.5% of age predicted maximum heart rate achieved. The blood pressure response was normal. The patient developed no significant symptoms during the stress exam. Intermediate (1-3% annual mortality rate) non invasive risk stratification. LV Wall Scoring: Stage: The entire apex and mid and apical anterior septum are hypokinetic. All IMPOST remaining scored segments are normal. Chamber Sizes and Function Normal left ventricular size, normal global systolic function with an estimated EF of 60 - 65%. LV regional wall motion abnormalities are not present. Right ventricular cavity size is moderately enlarged, global systolic RV function is normal. The sinus of Valsalva is normal sized. The ascending aorta is normal sized. Valves, RV Pressures and Diastolic Function The aortic valve is trileaflet and sclerotic, no stenosis and no regurgitation. The mitral valve is sclerotic, no mitral regurgitation. Mild mitral annular calcification is present. The tricuspid valve is normal in structure. Tricuspid regurgitation is mild. Unable to assess right ventricular systolic pressure. Masses, Effusion, Shunts There is no pericardial effusion. MEASUREMENTS AND CALCULATIONS 2-D Measurements and LV Function: LVID (d) 4.5 cm LV FS% (2D) ?? 36 % LVID (s) 2.9 cm LVOT diameter 2.1 cm IVS (d) ??1.4 cm HR ?58 bpm LVPW (d) 1.0 cm Ao Sinus 3.6 cm Asc Ao ?? 3.4 cm Aortic Valve: Vmax 1.3 m/s Max PG 7 mmHg Contrast documentation: 4 ml diluted Definity, lot #[id number], [facility]# [id number] was administered peripherally to enhance visualization of all left ventricular segments. . This study was interpreted by an IAC accredited facility. CC: [facility]. ??Final ?? Procedure Note Javed Rowe MD - 02/15/2024 STRESS ECHOCARDIOGRAM RIGOBERTO MANDUJANO : 1950 73 years Study Date: 02/12/2024 3:34:15 PM Gender: M BP: 120/80 mmHg Height: 168.00 cm BSA: 1.79 m? ? ? Weight: 70.00 kg Tech: YULISA Referring MD: MELVIN THOMAS Site: [facility] Reading Location: Patient Location: Outpatient. Procedure: Stress Echo, Contrast, Limited 2D , Color Doppler and LimitedSpectral Doppler. Bhupendra stress echo. Indication for study: Chest Pain Cardiac Rhythm: Sinus bradycardia.Study quality: Fair. Final Impressions: 1. Maximum stress test with 113.5% of age predicted maximum heart rateachieved. 2. Positive stress echo for ischemia. Entire apex and mid and apicalanterior septum are hypokinetic. 3. Post stress, normal left ventricular size, normal global systolicfunction with an estimated EF of 60 to 65%. 4. During stress exam the patient developed no significant symptoms. 5. See separate report for EKG interpretation. 6. The aortic valve is trileaflet and sclerotic, no stenosis and noregurgitation. 7. The mitral valve is sclerotic, no mitral regurgitation. 8. Right ventricular cavity size is moderately enlarged, global systolicRV function is normal. 9. Echo contrast was administered to enhance visualization of all leftventricular segments. Stress Data: HR Systolic Diastolic Time Duration Minutes Seconds Baseline 58 bpm 120 80 mmHg 10 :1 Peak 165 bpm 144 80 mmHg Max Pred HR 145 % of Max 114% Double Product [id number] Echo Findings:This is a positive stress echo test for ischemia. Poststress, normal left ventricular size, normal global systolic function withan estimated EF of 60 to 65%. LV regional wall motion abnormalities arepresent post exercise. EKG:See separate report for EKG interpretation. Exam Protocol:The patient presents with no significant symptoms atbaseline. The patient exercised 10 min 1 sec to stage IV according to [place]. Test terminated due to fatigue. 13.5 METS wereachieved. The patient achieved a heart rate of 165 bpm which is 113.5% ofmaximum predicted heart rate. Maximum systolic blood pressure was 144 [place] [id number]. Maximum stress test with 113.5% ofage predicted maximum heart rate achieved. The blood pressure response wasnormal. The patient developed no significant symptoms during the stressexam. Intermediate (1-3% annual mortality rate) non invasive risk stratification. LV Wall Scoring: Stage: The entire apex and mid and apical anterior septum are hypokinetic.All IMPOST remaining scored segments are normal. Chamber Sizes and Function Normal left ventricular size, normal global systolic function with anestimated EF of 60 - 65%. LV regional wall motion abnormalities are notpresent. Right ventricular cavity size is moderately enlarged, globalsystolic RV function is normal. The sinus of Valsalva is normal sized. Theascending aorta is normal sized. Valves, RV Pressures and Diastolic Function The aortic valve is trileaflet and sclerotic, no stenosis and noregurgitation. The mitral valve is sclerotic, no mitral regurgitation.Mild mitral annular calcification is present. The tricuspid valve isnormal in structure. Tricuspid regurgitation is mild. Unable to assessright ventricular systolic pressure. Masses, Effusion, Shunts There is no pericardial effusion. MEASUREMENTS AND CALCULATIONS 2-D Measurements and LV Function: LVID (d) 4.5 cm LV FS% (2D) 36 % LVID (s) 2.9 cm LVOT diameter 2.1 cm IVS (d) 1.4 cm HR 58 bpm LVPW (d) 1.0 cm Ao Sinus 3.6 cm Asc Ao 3.4 cm Aortic Valve: Vmax 1.3 m/s Max PG 7 mmHg Contrast documentation: 4 ml diluted Definity, lot #[id number], [facility]#[id number] was administered peripherally to enhance visualization of allleft ventricular segments. . This study was interpreted by an IAC accredited facility. CC: [facility]. Final Melvin Thomas MD ECHO ORD from Last 3 Months Advance Directives * Full Code (Latest Code Status on File) Date Activated Date Inactivated Comments 03/19/2024 3:13 PM 03/19/2024 9:23 PM Question Answer Comments Code Status Discussion: Unable to Assess Preferences, Provider to review later Care Teams Network Field Engineer Relationship Specialty Start Date End Date Melvin Thomas MD [address] [place] [address] PCP - General Family Practice 02/21/24
--- OUTSIDE RECORDS SUMMARY | 2024-03-27 08:56 | XMS_ITS | Encounter Summary ---
Author Organization [facility] Address [address] [place] [address]. 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 He's in [place] on vacation, and he started not feeling well 2 days ago. His COVIDtest is positive this evening. He would like a prescription for Paxlovid. Afebrile, with cough and sore throat. Sinuses are clogged. No dyspnea. Patient was informed that he must be in [place] or [place] for care to be provided through [facility]. Patient stated understanding and was informed that he could call the number ion the back of his insurance card to see where he could receive care in [place], and then go to urgent care locally for treatment. Patient stated understanding. NO triage due to patient's location. Ines Thorpe RN [facility] December 29, 2023, 11:16 PM documented in this encounter Plan of Treatment Not on file documented as of this encounter Visit Diagnoses Not on filedocumented in this encounter Care Teams Brass Plater Relationship Specialty Start Date End Date Fabian Mena MD [address] [place] [address] PCP - General 07/19/11 documented as of this encounter
--- OUTSIDE RECORDS SUMMARY | 2024-03-27 08:56 | XMS_ITS | Continuity of Care Document ---
Author Organization [facility] Address [address] [place] [address] Phone Care Team Providers Care Supervisor Maintenance Name Role Phone Willis Cao MD Unavailable [...] [facility], [address], [place], [address], [place] tel:[phone] [facility], Evaluation of giant cell arteritis (chief complaint) Headache 3 Kiley Pedro. [facility] [address], [place], [address], [place]. tel:[phone] Referring Provider: Willis Vazquez, [facility] [address], [place], [address]. tel:[phone] Family History Family Member Type Diagnosis Age At Onset Problem No family history of Rheumat oid arthritis Payers Payer name Insurance type Covered constitution party ID Authoriza tion(s) [employer] Medicare Advantage/[id number] Social History Type Description Quantity Date Captured [...]
--- OUTSIDE RECORDS SUMMARY | 2024-03-27 08:56 | XMS_ITS | Encounter Summary ---
Author Organization [facility] Address [address], [place] [address] Care Team Providers Care Pick Up Truck Driver Name Role Phone Melvin White MD Primary Care Provider [phone] Reason for Visit * Reason Comments Prior Authorization For Medication UVB h ome unit Encounter Details Date Type Department Care Team (Late st Contact Info) Description 10/23/2023 Telephone [facility] [address] [place], [place] [phone] Daphne Sanchez MD [address] [place] [address] Prior Authorization For Medication (UVB home unit) Social History Tobacco Use Types Packs/Day Years Used Date Smoking Tobacco: Never Sex and Gender Information Value Date Recorded Sex Assigned at Male 12/17/2023 12:45 PM CDT Gender Identity Male 12/17/2023 12:45 PM CDT Sexual Orientation Straight 12/17/2023 12 :45 PM CDT documented as of this encounter Nursing Notes * Consuelo Gracia MA - 03/04/2024 9:50 AM CDT Spoke with patient he does have code and can work machine. Told him to call [facility] with any additional questions. * Daphne Sanchez MD - 03/03/2024 11:56 AM CDT Team to call patient and have him call [facility]. Instructions usually come with the device. I believe he would be skin type III. * Brenda Gabriel LPN - 03/03/2024 10:17 AM CDT Patient finally received his [facility] home Dermpal handheld unit and requests instructions for getting started (dose, frequency, etc..). Patient can be reached at [phone]. Thank you Brenda Buckner LPN 03/03/24 10:20 AM * Consuelo Gracia MA - 10/23/2023 4:08 PM CDT Sent [facility] PA packet through communications with clinic notes and insurance information. Will reach out to Spott[facility] in a week to get update. documented in this encounter Plan of Treatment Upcoming Encounters Date Type Department Care Team (Late st Contact Info) Description 05/13/2024 10:15 AM ROTARY DRUM TANNER Appointment [facility] [id number] [place] [address] Daphne Sanchez MD [address] [place] [address] 11/03/2024 10:45 AM CDT Appointment [facility] [address] [place] [address] Daphne Sanchez MD [address] [place] [address] documented as of this encounter Visit Diagnoses Not on filedocumented in this encounter Care Teams Pick Up Truck Driver Relationship Specialty Start Date End Date Melvin White MD [address] [place] [address] PCP - General 09/06/10 documented as of this encounter
--- OUTSIDE RECORDS SUMMARY | 2024-03-27 08:57 | XMS_ITS | Referral Summary ---
Author Organization [facility] Address [address] [place] [address] Care Team Providers Care Infantryman Name Role Phone Elsewhere, Pcp Primary Care Provider Unavailabl e Source Comments Patient records contain information from all sites at [facility]. For routine questions regarding patient records, call [phone] during business hours, M-F 8:00 AM - 5:00 PM Central Time. Record requests for emergency care only can be directed to [phone] at any time.[facility] Allergies Active Allergy Reactions Criticality Noted Date Comments Chlortetracycline Hives (Reselect Reaction) 07/29/2009 Penicillins Hives (Reselect Reaction),Rash 09/23/2004 PN: LW Reaction: HIVES Medications * This document contains information received from the source organization and may not represent a complete record from that organization. triamcinolone (KENALOG) 0.1 % cream Apply 0.5 inches topically as needed. Active gelatin 600 mg capsule Take 1 capsule by mouth daily. 6 Active cyanocobalamin (VITAMIN B12) 1,000 mcg tablet Take 1 tablet by mouth daily. [address] tablet Take 1 tablet by mouth daily. 9 Active ascorbic acid, vitamin C, (VITAMIN C) 1,000 mg tablet Take 1,000 mg by mouth daily. Active multivit-min/FA /lycopen/lutein (CENTRUM SILVER MEN ORAL) Take 1 tablet by mouth daily. 0 Active calcipotriene (DOVONEX) 0.005 % ointment Apply 1 application topically 2 (two) times a day. Apply for porosis to groin area. Active diclofenac sodium (VOLTAREN) 1 % gel Apply 4 g topically 4 (four) times a day as needed (to areas of arthritic pain). Apply to left hand and bilateral thumbs. 100 g 1 2 Active simvastatin (ZOCOR) 20 mg tablet Take 20 mg by mouth at bedtime. 2 Active omega 0-qnr-nue-fish oil 1,000 mg (120 mg-180 mg) capsule Take 1 capsule by mouth daily. Active amLODIPine (NORVASC) 10 mg tablet 10 mg daily. 2 Active hydrocortisone (HYTONE) 2.5 % cream Apply 1 Application topically as needed. 4 Active tacrolimus (PROTOPIC) 0.1 % ointment APPLY TO FACE AND FOLD AREAS TWICE DAILY SUNDAY AND SUNDAY NEEDED 3 Active L.acidoph-L.bul g-B.bif-S.therm (BACID) 1 billion cell- 250 mg per tablet Take 3 tablets by mouth daily. Active Active Problems Problem Noted Date Diagnosed Date Carpal Tunnel Syndrome Left 04/26/2021 Overview (04/26/2021): Added automatically from request for surgery [id number] Immunizations Name Administration Dates Next Due DTaP [...] 07/17/2021 How often do you attend chur or zoroastrian services? More than 4 times per year 07/17/2021 Do you belong to any clubs o r organizations such as islam groups, unions, fraternal or athletic groups, or [...] and heating? Not hard at all 03/29/2023 [facility] [place] of Occupat ional Health - Occupational Stress [...] living? No 03/29/2023 Nutrition Answer Date Recorded On average, how many serving s of fruits and vegetables do you eat per day (serving size is equal to 1 cup or approximately the size of a tennis ball)? 0-2 03/29/2023 Dental Answer Date Recorded Dental: Regular Dentist Yes 04/21/20 Employment Answer Date Recorded Employment status Retired 03/29/2023 Housing Stability Answer Date Recorded What is your living situation today? [facility] live 03/29/2023 Education Answer Date Recorded What is the highest level of school you have completed or the highest degree you have received? 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 LABORER, CAREN) 04/21/2021 Sex and Gender Information Value Date Recorded Sex Assigned at Male 04/21/2021 10:27 PM MAJOR LEAGUE BASEBALL UMPIRE Legal Sex Male 11:24 AM MAJOR LEAGUE BASEBALL UMPIRE Gender Identity Male 04/21/2021 10:27 PM MAJOR LEAGUE BASEBALL UMPIRE Sexual Orientation Straight 04/21/2021 10 :27 PM MAJOR LEAGUE BASEBALL UMPIRE Last Filed Vital Signs Vital Sign Reading Time Taken Comments Blood Pressure 131/82 06/29/2022 8:51 AM MAJOR LEAGUE BASEBALL UMPIRE Pulse 58 06/29/2022 8:51 AM MAJOR LEAGUE BASEBALL UMPIRE Temperature 36.6 ??C (97.9 ??F) 12/29/2021 10:15 AM C DT Respiratory Rate 11 12/29/2021 10:30 AM CDT Oxygen Saturation 92% 12/29/2021 11:00 AM CDT Inhaled Oxygen Concentration - - Weight 72.2 kg (159 lb 2.8 oz) 06/29/2022 8:49 A M MAJOR LEAGUE BASEBALL UMPIRE Height 167.6 cm (5' 6) 12/29/2021 8:43 AM CDT Body Mass Index 25.69 12/29/2021 8:43 AM CDT Plan of Treatment Not on file Medical Devices Implanted Type Area Patients Transporter Device Identifier Shelf Expiration Date Model / Serial / Lot Mesh Hernia Mesh or Patch Abdomen Procedures Procedure Name Priority Date/Time Associated Diagnosis Comments COMPREHENSIVE METABOLIC PANEL, S/P Routine 06/23/2022 9:32 AM MAJOR LEAGUE BASEBALL UMPIRE Arteritis Giant Cell (HCC) from Last 3 Months or Most Recently Relevant to Health Maintenance Results * (ABNORMAL) Comprehensive Metabolic Panel (06/23/2022 9:32 AM MAJOR LEAGUE BASEBALL UMPIRE) Potassium, S 5.1 3.6 - 5.2 mmol/L 06/23/2022 10:26 AM MAJOR LEAGUE BASEBALL UMPIRE DTL Sodium, S 142 135 - 145 mmol/L 06/23/2022 10:26 AM MAJOR LEAGUE BASEBALL UMPIRE DTL Chloride, S 103 98 - 107 mmol/L 06/23/2022 10:26 AM MAJOR LEAGUE BASEBALL UMPIRE DTL Bicarbonate, S 29 22 - 29 mmol/L 06/23/2022 10:26 AM MAJOR LEAGUE BASEBALL UMPIRE DTL Anion Gap 10 7 - 15 06/23/2022 10:26 AM MAJOR LEAGUE BASEBALL UMPIRE DTL BUN (Blood Urea Nitrogen), S 18 8 - 24 mg/dL 06/23/2022 10:26 AM MAJOR LEAGUE BASEBALL UMPIRE DTL Creatinine 0.93 0.74 - 1.35 mg/dL 06/23/2022 10:26 AM MAJOR LEAGUE BASEBALL UMPIRE DTL Estimated GFR (eGFR) 87 >=60 mL/min/BS A 06/23/2022 10:26 AM MAJOR LEAGUE BASEBALL UMPIRE DTL Comment: Estimated GFR calculated using the 2020 CKD_EPI creatinine equation. Calcium, Total, S 9.4 8.8 - 10.2 mg/dL 06/23/2022 10:26 AM MAJOR LEAGUE BASEBALL UMPIRE DTL Glucose, S 105 70 - 140 mg/dL 06/23/2022 10:26 AM MAJOR LEAGUE BASEBALL UMPIRE DTL Protein, Total, S 6.1(L) 6.3 - 7.9 g/dL 06/23/2022 10:26 AM MAJOR LEAGUE BASEBALL UMPIRE DTL Albumin, S 4.3 3.5 - 5.0 g/dL 06/23/2022 10:26 AM MAJOR LEAGUE BASEBALL UMPIRE DTL Aspartate Aminotransferase (AST), S 29 8 - 48 U/L 06/23/2022 10:26 AM MAJOR LEAGUE BASEBALL UMPIRE DTL Alkaline Phosphatase, S 48 40 - 129 U/L 06/23/2022 10:26 AM MAJOR LEAGUE BASEBALL UMPIRE DTL Alanine Aminotransferase (ALT), S 27 7 - 55 U/L 06/23/2022 10:26 AM MAJOR LEAGUE BASEBALL UMPIRE DTL Bilirubin, Total, S 0.4 <=1.2 mg/dL 06/23/2022 10:26 AM MAJOR LEAGUE BASEBALL UMPIRE DTL Blood (Blood, Venous) 06/23/2022 9:32 AM MAJOR LEAGUE BASEBALL UMPIRE 06/23/2022 10:09 AM MAJOR LEAGUE BASEBALL UMPIRE us Javed Whitney M.D. LAB BLOOD ADD-ON Final Res ult [facility] [address] [place] [address], [place] DTL [facility] [address] [place] [address] from Last 3 Months or Most Recently Relevant to Health Maintenance Insurance MEDICARE [facility] Advance Directives For more information, please contact: [phone] * Full Code (Latest Code Status on File) Date Activated Date Inactivated Comments 12/29/2021 10:18 AM 12/29/2021 1:23 PM Question Answer Comments Full Code: Discussed Care Teams Infantryman Relationship Specialty Start Date End Date Elsewhere, Pcp PCP - General Internal Medicine 07/19/21
--- OUTSIDE RECORDS SUMMARY | 2024-03-27 08:57 | XMS_ITS | Encounter Summary ---
Author Organization [facility] Address [address] [place] [address] Care Team Providers Care Baggage Security Checker Name Role Phone Elsewhere, Pcp Primary Care Provider Unavailabl e Encounter Details Date Type Department Care Team (Late st Contact Info) Description 08/05/2012 Historical Ophthalmology [facility] Demi Yu M.D. [address] [place] [phone] Social History Tobacco Use Types Packs/Day Years Used Date Smoking Tobacco: Never Assessed Sex and Gender Information Value Date Recorded Sex Assigned at Male 04/21/2021 10:27 PM MANAGER CULTURE Legal Sex Male 11:24 AM MANAGER CULTURE Gender Identity Male 04/21/2021 10:27 PM MANAGER CULTURE Sexual Orientation Straight 04/21/2021 10 :27 PM MANAGER CULTURE documented as of this encounter Progress Notes [...] both eyes CDM Reports - EYEGEN Id: [id number] Status: Fnl documented in this encounter Plan of Treatment Not on file documented as of this encounter Visit Diagnoses Not on filedocumented in this encounter Additional Health Concerns Infection Onset Date Last Indicated Resolved Time COVID19 Pending 07/18/2021 07/18/2021 07/18/2021 2 :46 PM MANAGER CULTURE COVID19 Pending 12/28/2021 12/28/2021 12/28/2021 2 :43 PM CDT documented as of this encounter Care Teams Baggage Security Checker Relationship Specialty Start Date End Date Elsewhere, Pcp PCP - General Internal Medicine 07/19/21 documented as of this encounter
--- OUTSIDE RECORDS SUMMARY | 2024-03-27 08:57 | XMS_ITS | Encounter Summary ---
Author Organization [facility] Address [address] [place] [address] Care Team Providers Care Grinder Hardboard Name Role Phone Elsewhere, Pcp Primary Care Provider Unavailabl e Encounter Details Date Type Department Care Team (Late st Contact Info) Description 07/29/2009 Historical Ophthalmology [facility] Phillip Parker O.D. [address] [place] [phone] Social History Tobacco Use Types Packs/Day Years Used Date Smoking Tobacco: Never Assessed Sex and Gender Information Value Date Recorded Sex Assigned at Male 04/21/2021 10:27 PM RECYCLING COORDINATOR Legal Sex Male 11:24 AM RECYCLING COORDINATOR Gender Identity Male 04/21/2021 10:27 PM RECYCLING COORDINATOR Sexual Orientation Straight 04/21/2021 10 :27 PM RECYCLING COORDINATOR documented as of this encounter Progress Notes [...] of central serous retinopathy in 1996. TY: ARABIC TRANSLATOR first dx in late . photos were taken but unavailable today (at home). comes and goes. doesn't remember which eye. 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 residual pigment changes, no net plan 1. srx 2. 1 year / prn DIAGNOSIS #1 Hx Central serous retinopathy, left CDM Reports - EYEGEN Id: [id number] Status: Fnl documented in this encounter Plan of Treatment Not on file documented as of this encounter Visit Diagnoses Not on filedocumented in this encounter Additional Health Concerns Infection Onset Date Last Indicated Resolved Time COVID19 Pending 07/18/2021 07/18/2021 07/18/2021 2 :46 PM RECYCLING COORDINATOR COVID19 Pending 12/28/2021 12/28/2021 12/28/2021 2 :43 PM CDT documented as of this encounter Care Teams Grinder Hardboard Relationship Specialty Start Date End Date Elsewhere, Pcp PCP - General Internal Medicine 07/19/21 documented as of this encounter
--- OUTSIDE RECORDS SUMMARY | 2024-03-27 08:57 | XMS_ITS ---
Author Organization [facility] Address [address] [place] [address] Care Team Providers Care Barbecue Cook Name Role Phone Unavailable Unavailable Unavailable Surgery Details Not on file Complications Check Surgery Details section. Procedure Estimated Blood Loss Check Surgery Details section. Procedure Findings Check Surgery Details section. Procedure Specimens Taken Check Surgery Details section.
--- OUTSIDE RECORDS SUMMARY | 2024-03-27 08:57 | XMS_ITS | Clinical Summary ---
Author Organization [facility] Address [address] [place] [address] Care Team Providers Care Culture Room Worker Name Role Phone Elsewhere, Pcp Primary Care Provider Unavailabl e Source Comments Patient records contain information from all sites at [facility]. For routine questions regarding patient records, call [phone] during business hours, M-F 8:00 AM - 5:00 PM Central Time. Record requests for emergency care only can be directed to [phone] at any time.[facility] Allergies Active Allergy Reactions Criticality Noted [...] by mouth at bedtime. 2 Active omega 6-bej-cft-fish oil 1,000 mg (120 mg-180 mg) capsule [...] (04/26/2021): Added automatically from request for surgery [id number] Immunizations Name Administration Dates Next Due DTaP [...] Had prostate surgery Parkinson disease Brother 3 Edsaurav Prostate cancer Brother 3 Edsaurav Had prostate surgery Seizures Brother 3 Edward ADD Daughter Julissa Recently diagno sed in [...] often do you attend chur ch or buddhist services? More than 4 times per year 07/17/2021 Do you belong to any clubs o r organizations such as yarsani groups, unions, fraternal or athletic groups, or [...] heating? Not hard at all 03/29/2023 [facility] - Occupational [...] your living situation today? [facility] 03/29/2023 Education Answer Date Recorded What is the highest level of school you have completed or the highest degree you have received? 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, [employer]) 04/21/2021 Sex and Gender Information Value Date Recorded Sex Assigned at Male 04/21/2021 10:27 PM HOUSE PLAYER Legal Sex Male 11:24 AM HOUSE PLAYER Gender Identity Male 04/21/2021 10:27 PM HOUSE PLAYER Sexual Orientation Straight 04/21/2021 10 :27 PM HOUSE PLAYER Last Filed Vital Signs Vital Sign Reading Time Taken Comments Blood Pressure 131/82 06/29/2022 8:51 AM HOUSE PLAYER Pulse 58 06/29/2022 8:51 AM HOUSE PLAYER Temperature 36.6 ??C (97.9 ??F) 12/29/2021 10:15 AM C DT Respiratory Rate 11 12/29/2021 10:30 AM CDT Oxygen Saturation 92% 12/29/2021 11:00 AM CDT Inhaled Oxygen Concentration - - Weight 72.2 kg (159 lb 2.8 oz) 06/29/2022 8:49 A M HOUSE PLAYER Height 167.6 cm (5' 6) 12/29/2021 8:43 AM CDT Body Mass Index 25.69 12/29/2021 8:43 AM CDT Plan of Treatment Health Maintenance Due Date Last Done Comments CT Colonography 1950 Cologuard 1950 FIT 1950 Zoster Vaccines (2 of 3) 03/28/2011 01/31/2011 Colonoscopy 05/16/2020 05/16/2010 Colorectal Cancer Screening 05/16/2020 Depression Screening (Annual PHQ-2) 06/04/2023 Fall Risk Screen (Annual) 06/04/2023 COVID-19 Vaccine (6 - 2023-2 5 season) 2024 05/11/2022, 10/18/2021, 03/22/2021, Additional [...] 04/13/20 05 Medical Devices Implanted Type Area Flatbed Stitcher Device Identifier Shelf Expiration Date Model / Serial / Lot Mesh Hernia Mesh or Patch Abdomen Procedures Procedure Name Priority Date/Time Associated Diagnosis Comments COMPREHENSIVE METABOLIC PANEL, S/P Routine 06/23/2022 9:32 AM HOUSE PLAYER Arteritis Giant Cell (HCC) from Last 3 Months or Most Recently Relevant to Health Maintenance Results * (ABNORMAL) Comprehensive Metabolic Panel (06/23/2022 9:32 AM HOUSE PLAYER) Potassium, S 5.1 3.6 - 5.2 mmol/L 06/23/2022 10:26 AM HOUSE PLAYER DTL Sodium, S 142 135 - 145 mmol/L 06/23/2022 10:26 AM HOUSE PLAYER DTL Chloride, S 103 98 - 107 mmol/L 06/23/2022 10:26 AM HOUSE PLAYER DTL Bicarbonate, S 29 22 - 29 mmol/L 06/23/2022 10:26 AM HOUSE PLAYER DTL Anion Gap 10 7 - 15 06/23/2022 10:26 AM HOUSE PLAYER DTL BUN (Blood Urea Nitrogen), S 18 8 - 24 mg/dL 06/23/2022 10:26 AM HOUSE PLAYER DTL Creatinine 0.93 0.74 - 1.35 mg/dL 06/23/2022 10:26 AM HOUSE PLAYER DTL Estimated GFR (eGFR) 87 >=60 mL/min/BS A 06/23/2022 10:26 AM HOUSE PLAYER DTL Comment: Estimated GFR calculated using the 2020 CKD_EPI creatinine equation. Calcium, Total, S 9.4 8.8 - 10.2 mg/dL 06/23/2022 10:26 AM HOUSE PLAYER DTL Glucose, S 105 70 - 140 mg/dL 06/23/2022 10:26 AM HOUSE PLAYER DTL Protein, Total, S 6.1(L) 6.3 - 7.9 g/dL 06/23/2022 10:26 AM HOUSE PLAYER DTL Albumin, S 4.3 3.5 - 5.0 g/dL 06/23/2022 10:26 AM HOUSE PLAYER DTL Aspartate Aminotransferase (AST), S 29 8 - 48 U/L 06/23/2022 10:26 AM HOUSE PLAYER DTL Alkaline Phosphatase, S 48 40 - 129 U/L 06/23/2022 10:26 AM HOUSE PLAYER DTL Alanine Aminotransferase (ALT), S 27 7 - 55 U/L 06/23/2022 10:26 AM HOUSE PLAYER DTL Bilirubin, Total, S 0.4 <=1.2 mg/dL 06/23/2022 10:26 AM HOUSE PLAYER DTL Blood (Blood, Venous) 06/23/2022 9:32 AM HOUSE PLAYER 06/23/2022 10:09 AM HOUSE PLAYER us Javed Whitney M.D. LAB BLOOD ADD-ON Final Res ult [facility] [address] [place] [address], [facility] [address] [place] [address] from Last 3 Months or Most Recently Relevant to Health Maintenance Insurance MEDICARE [facility] Advance Directives For more information, please contact: [phone] * Full Code (Latest Code Status on File) Date Activated Date Inactivated Comments 12/29/2021 10:18 AM 12/29/2021 1:23 PM Question Answer Comments Full Code: Discussed Care Teams Culture Room Worker Relationship Specialty Start Date End Date Elsewhere, Pcp PCP - General Internal Medicine 07/19/21
== END 2024-03-26 08:27 | disposition home or self-care (01) ==
LOC: NFLDREF 03-27 08:51
PROVIDERS: PCP Family Medicine; Referring Provider Family Medicine; Visit Provider Family Medicine
DX: R79.89 Other specified abnormal findings of blood chemistry (principal)
CPT/HCPCS: 80053

== ENCOUNTER 2024-05-12 08:32 | Outpatient (CLI) | payer MEDICARE, BC, SELFPAY | END 2024-05-12 08:33 | disposition home or self-care (01) | LOC: NFLDREF 05-15 05:15 | PROVIDERS: PCP Family Medicine; Referring Provider Family Medicine; Visit Provider Family Medicine | DX: Z95.5 Presence of coronary angioplasty implant and graft (principal) | CPT/HCPCS: 80048 ==

== ENCOUNTER 2024-05-16 09:10 | Outpatient (CLI) | payer MEDICARE, BC, SELFPAY | END 2024-05-16 09:11 | disposition home or self-care (01) | LOC: NFLDREF 11:31 | PROVIDERS: PCP Family Medicine; Referring Provider Family Medicine; Visit Provider Family Medicine | DX: I25.10 Atherosclerotic heart disease of native coronary artery without angina pectoris (principal); E78.5 Hyperlipidemia, unspecified | CPT/HCPCS: 80061; 84450; 84460 ==

== ENCOUNTER 2024-10-09 10:29 | Outpatient (CLI) | payer MEDICARE, BC, SELFPAY ==
--- NOTE | 2024-10-09 10:45 | CRLHL7_ITS ---
For Patients: As a result of the Century Cures Act, medical imaging exams and procedure reports are released immediately into your electronic medical record. You may view this report before your referring provider. If you have questions, please contact your health care provider. CLINICAL HISTORY: Cervicalgia, vascular calcifications per xray TECHNIQUE: The carotid circulations and the vertebral arteries in the neck were examined with buchanan-scale ultrasound, color-flow and Doppler spectral analysis. Degrees of stenosis were determined using SRU 2002 Consensus Panel Criteria. FINDINGS: Sonographic images demonstrate bilateral atherosclerotic plaque formation without suspicious soft tissue mass. There was antegrade blood flow demonstrated within the vertebral arteries and the subclavian arteries demonstrated a normal triphasic waveform. The spectral Doppler tracings of the common carotid, internal and external carotid arteries demonstrate no abnormal turbulence or spectral broadening. There was no significant elevation of peak systolic blood flow which would indicate a hemodynamically-significant stenosis by SRU criteria. The ICA/CCA peak systolic velocity ratio measures 1.1 on the right and 1.0 on the left. IMPRESSION: Less than 50 percent stenosis of the internal carotid arteries bilaterally. Dictated by Ignacio Matias MD @ 10/09/2024 1:38:38 PM (Electronically Signed)
== END 2024-10-09 10:30 | disposition home or self-care (01) ==
PROVIDERS: PCP Family Medicine; Visit Provider Family Medicine
DX: M54.2 Cervicalgia (principal); I65.23 Occlusion and stenosis of bilateral carotid arteries; I99.8 Other disorder of circulatory system
CPT/HCPCS: 93880

== ENCOUNTER 2024-11-04 11:15 | Outpatient (RCR) | payer MEDICARE, BC, SELFPAY ==
--- NOTE | 2024-10-10 12:57 | PT.OPE ---
PT [facility] Outpatient Eval PT [facility] Outpatient Eval Start: 10/08/24 15:44 Freq: Status: Active Protocol: Document 10/08/24 15:45 BARBARA (Rec: 10/08/24 15:46 BARBARA [id number]) E-signed By Mikey Abraham DPT, MS Physical Therapy Outpatient Evaluation Insurance Information Recert Due Date 01/06/25 Insurance Name Medicare B,Blue Cross/Blue Shield Medical Diagnosis Cervicalgia Treating Diagnosis Decreased B (L>R) CS flexibility and ROM, posture dysfunction, and B UE and CS weakness Subjective Preferred Name Jakob Subjective Pt is a 74 yo male who presents to PT with c/o R- sided CS pain and tightness of insidious origin 2-3 weeks. Does not recall an injury but woke with high levels of R- sided neck pain with significant limitations in CS rot. Sx intensity has improved with head and prednisone but B (R>L) CS rot remains tight and painful. Describes sxs as an aching pain at the base of B skull extending laterally to his R shoulder. Denies radicular sxs. Believes computer use contributed to sxs. Recent radiographs found: degenerative mild degenerative disc disease of the lower segments, he has got some vascular calcification, and some straightening of the normal cervical lordosis. AGGR factors: computer use, driving, turning his head, sleeping. ALLEV factors: rest, heat. Pt hopes to resolve pain and improve ROM to improve safety with driving and to perform all daily activities [place]. 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 Significant upper CS , SO, UT and levator scap tightness and hypertonicity found with testing. Negative radicular testing. Emphasized the importance of proper sitting posture, especially with extended time at a computer. He responded well to stretching and strengthening exercises with decreased neck pain and improved ROM following. He will benefit greatly from continued skilled therapy to address these limitations. Primary Functional Limitations Computer use, driving, turning his head, sleeping Plan of Care Rehabilitation Potential Excellent Physical Therapy Goals Short-term goals to be completed in 4 weeks: 1. Pt will report improved quality of sleep waking <2x per night due to neck and B shoulder pain for >2 consecutive nights. 2. Pt will display >50% improvement in I sitting posture for >1 consecutive PT visit to decrease strain on B CS and TS musculature. Long-term goals to be completed in 10 weeks: 1.Pt will be independent and compliant with HEP 2.Pt will display improved B shoulder ER, mid and low trap strength >/= 4+/5 to improve tolerance to lifting objects into overhead cabinets. 3.Pt will display improved neck rotation bilateral to >66 deg to improve safety with driving. 4.Pt will report >50% improvement in NDI questionnaire to significantly improve brianna to daily activities. Coordination/Communication With Referral Source Treatment Plan/Direct Interventions Joint Mobilization,Manual Therapy,Therapeutic Exercises Frequency/Duration 1x per week for at least 6-10 visits, decreasing visit frequency as able. Patient Will Be Discharged From Therapy Completion of LTG(s),Skills Plateau,Independent w/HEP, Independently Progressing Evaluation Billing Untimed Code Treatment Minutes 24 Complexity Moderate Certification Information Initial Certification Date 10/08/24 Ending Certification Date 01/06/25 Provider Signature Required Yes Provider Signature Shows Agreement With POC & Medical Necessity Physician NPI Number Write NPI# Here Physician Comment/Change : Physician Signature & Date Requested Please Sign/Date Here
== END 2025-03-04 23:59 | disposition home or self-care (01) ==
PROVIDERS: PCP Family Medicine
DX: M54.2 Cervicalgia (principal); Z51.89 Encounter for other specified aftercare
CPT/HCPCS: 97110; 97140; 97162

== ENCOUNTER 2025-04-22 08:06 | Outpatient (CLI) | payer MEDICARE, BC, SELFPAY | END 2025-04-22 08:07 | disposition home or self-care (01) | LOC: NFLDREF 04-25 18:38 | PROVIDERS: PCP Family Medicine; Referring Provider Family Medicine; Visit Provider Family Medicine | DX: E78.5 Hyperlipidemia, unspecified (principal); R73.03 Prediabetes; Z85.46 Personal history of malignant neoplasm of prostate | CPT/HCPCS: 80053; 80061; G0103 ==